=== PATIENT | male | born 1965 | race Caucasian/White ===

== ENCOUNTER 2016-11-15 18:13 | Emergency (ER) | payer OTHER ==
[2016-11-15] MEDS ORDERED: Albuterol/Ipratropium NEB.SOL* Albuterol 2.5 MG/Ipratropium 0.5 MG 3 ML INH ONE ×2 (19:22→20:22)
[2016-11-15] MEDS ORDERED: NS 0.9% 1000 ML* 1,000 ML IV ONE (19:22)
[2016-11-15] MEDS ORDERED: methylPREDNISolone 125 MG* 2 ML VIAL IV ONE (19:22)
[2016-11-15 19:59] LABS: Hematocrit 48 % (42-52); Hemoglobin 15.7 g/dl (14.0-18.0); Mean Corpuscular HGB Conc 33 g/dl (31-36); Mean Corpuscular Hemoglobin 31 pg (27-31); Mean Corpuscular Volume 96 fL (80-94); Mean Platelet Volume 9 um3 (7.4-10.4); Red Blood Count 5.03 10^6/ul (4.0-5.4); Red Cell Distribution Width 13 % (10.5-15); White Blood Count 7.7 10^3/ul (3.5-10.8)
[2016-11-15 20:17] LABS: Albumin 3.7 g/dL (3.2-5.2); BUN/Creatinine Ratio 20.5 (8-20); Calcium 9.6 mg/dL (8.6-10.3); EGFR African American 63.5 (>60); EGFR Non-African American 49.4 (>60); Globulin 4.1 g/dL (2-4); Potassium 4.1 mmol/L (3.5-5.0); Total Bilirubin 0.5 mg/dL (0.2-1.0); Total Protein 7.8 g/dL (6.4-8.9)
[2016-11-15 20:18] LABS: Troponin I 0.01 ng/mL (<0.04)
[2016-11-15] MEDS ORDERED: Azithromycin IV(*) 500 MG in NS 0.9% 250 ML* 250 ML IVPB ONE (20:22)
--- NOTE | 2016-11-15 20:42 | ED ---
Jane Wakefield Thomas, scribed for Marcelo Melchor MD on 11/15/16 at 1915 . Shortness of Breath - HPI Summary HPI Summary: This patient is a 51 y/o M presenting to the ED c/o SOB that began gradually two weeks ago. His SOB is worsened with exertion. Pt additionally c/o diaphoresis, coughing with yellow production, and CP secondary to coughing. He claims that this episode is similar to when he had PNA last year. The pt states that he immediately becomes out of breath when he ambulates. The pt was admitted to [facility] [place] [facility] ED 12 months ago for PNA. PMHx: COPD, asthma (pt uses inhalers) , PNA, A-FIb, CVA. PSHx: cardiac stent. 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 - History of Current Complaint Chief Complaint: EDShortnessOfBreath Hx Obtained From: Patient Onset/Duration: Gradual Onset, Lasting Weeks - two weeks, Still Present Aggrevating Factors: Movement - especially walking Alleviating Factors: Nothing Associated Signs & Symptoms: Cough (Productive) - yellow, Chest Pain w/Cough - CP only when coughing, Diaphoresis Related History: Similar Episode - pt states that this is similar to a previous bout of PNA - Allergy/Home Medications Allergies/Adverse Reactions: Allergies Allergy/AdvReac Type Severity Reaction Status Date / Time Naproxen Allergy Swelling Verified 08/21/15 18:57 PMH/Surg Hx/FS Hx/Imm Hx Previously Healthy: No Endocrine/Hematology History: Reports: Hx Anticoagulant Therapy - Aspirin "I'm supposed to be on Plavix" but I am not taking it. Denies: Hx Diabetes, Hx Thyroid Disease Cardiovascular History: Reports: Hx Hypertension, Other Cardiovascular Problems/ Disorders - CVA hx Denies: Hx Congestive Heart Failure, Hx Deep Vein Thrombosis, Hx Myocardial Infarction, Hx Pacemaker/ICD Respiratory History: Reports: Hx Asthma - He uses inhalers (he uses albuterol). , Hx Chronic Obstructive Pulmonary Disease (COPD) Denies: Hx Lung Cancer GI History: Denies: Hx Gall Bladder Disease, Hx Gastrointestinal Bleed, Hx Ulcer, Hx Urosepsis History: Denies: Hx Kidney Stones, Hx Renal Disease Musculoskeletal History: Denies: Hx Arthritis, Hx Osteoporosis Neurological History: Denies: Hx Dementia, Hx Migraine, Hx Seizures, Hx Transient Ischemic Attacks (TIA) Psychiatric History: Denies: Hx Anxiety, Hx Depression, Hx Schizophrenia, Hx Bipolar Disorder - Surgical History Surgery Procedure, Year, and Place: cardiac stent Infectious Disease History: No Infectious Disease History: Denies: History Other Infectious Disease, Traveled Outside the [place] in Last 30 Days - Family History Known Family History: Negative: Cardiac Disease, Other - NEG: [place] - Social History Alcohol Use: None Substance Use Type: Reports: None Hx Tobacco Use: Yes Smoking Status (MU): Current Every Day Smoker Type: Cigarettes Amount Used/How Often: 1 PPD Have You Smoked in the Last Year: Yes - For 37 years up to 2 ppd. Review of Systems Positive: Skin Diaphoresis. Negative: Fever Eyes: Negative ENT: Negative Cardiovascular: Negative Positive: Shortness Of Breath - worsened with exertion, Cough - with yellow production Gastrointestinal: Negative Genitourinary: Negative Musculoskeletal: Negative Skin: Negative Neurological: Negative Psychological: Normal All Other Systems Reviewed And Are Negative: Yes Physical Exam Triage Information Reviewed: Yes Vital Signs On Initial Exam: Initial Vitals Temp Pulse Resp BP Pulse Ox 97.7 F 103 22 157/101 93 11/15/16 18:18 11/15/16 18:18 11/15/16 18:18 11/15/16 18:18 11/15/16 18:18 Vital Signs Reviewed: Yes Appearance: Positive: Well-Appearing, No Pain Distress - moderate sob Skin: Positive: Warm Head/Face: Positive: Normal Head/Face Inspection Eyes: Positive: FAZAL ENT: Positive: Hearing grossly normal Neck: Positive: Supple Respiratory/Lung Sounds: Positive: Breath Sounds Present, Wheezes - diffuse bilateral with prolonged expiration Cardiovascular: Positive: RRR Abdomen Description: Positive: Nontender, Soft Bowel Sounds: Positive: Present Musculoskeletal: Positive: Strength/ROM Intact Neurological: Positive: Alert, Oriented to Person Place, Time Psychiatric: Positive: Affect/Mood Appropriate - [place] Coma Scale Coma Scale Total: 15 Diagnostics - Vital Signs Vital Signs Temp Pulse Resp BP Pulse Ox 11/15/16 18:55 97.8 F 97 20 149/100 94 11/15/16 18:18 97.7 F 103 22 157/101 93 - Laboratory Lab Results: Lab Results 11/15/16 11/15/16 11/15/16 Range/Units 18:35 18:35 18:35 WBC 7.7 (3.5-10.8) 10^3/ul RBC 5.03 (4.0-5.4) 10^6/ul Hgb 15.7 (14.0-18.0) g/dl Hct 48 (42-52) % MCV 96 H (80-94) fL MCH 31 (27-31) pg MCHC 33 (31-36) g/dl RDW 13 (10.5-15) % Plt Count 191 (150-450) 10^3/ul MPV 9 (7.4-10.4) um3 Neut % (Auto) 56.8 (38-83) % Lymph % (Auto) 34.3 (25-47) % Churchill % (Auto) 7.0 (1-9) % Eos % (Auto) 1.4 (0-6) % Baso % (Auto) 0.5 (0-2) % Absolute Neuts (auto) 4.4 (1.5-7.7) 10^3/ul Absolute Lymphs (auto) 2.7 (1.0-4.8) 10^3/ul Absolute Monos (auto) 0.5 (0-0.8) 10^3/ul Absolute Eos (auto) 0.1 (0-0.6) 10^3/ul Absolute Basos (auto) 0 (0-0.2) 10^3/ul Absolute Nucleated RBC 0 10^3/ul Nucleated RBC % 0 Sodium 138 (133-145) mmol/L Potassium 4.1 (3.5-5.0) mmol/L Chloride 102 (101-111) mmol/L Carbon Dioxide 28 (22-32) mmol/L Anion Gap 8 (2-11) mmol/L BUN 31 H (6-24) mg/dL Creatinine 1.51 H (0.67-1.17) mg/dL Est GFR ( Amer) 63.5 (>60) Est GFR (Non-Af Amer) 49.4 (>60) BUN/Creatinine Ratio 20.5 H (8-20) Glucose 137 H (70-100) mg/dL Lactic Acid 2.3 H* (0.5-2.0) mmol/L Calcium 9.6 (8.6-10.3) mg/dL Total Bilirubin 0.50 (0.2-1.0) mg/dL AST 16 (13-39) U/L ALT 15 (7-52) U/L Alkaline Phosphatase 86 (34-104) U/L Troponin I 0.01 (<0.04) ng/mL B-Natriuretic Peptide ( - 100) pg/mL Total Protein 7.8 (6.4-8.9) g/dL Albumin 3.7 (3.2-5.2) g/dL Globulin 4.1 H (2-4) g/dL Albumin/Globulin Ratio 0.9 L (1-3) 11/15/16 Range/Units 18:35 WBC (3.5-10.8) 10^3/ul RBC (4.0-5.4) 10^6/ul Hgb (14.0-18.0) g/dl Hct (42-52) % MCV (80-94) fL MCH (27-31) pg MCHC (31-36) g/dl RDW (10.5-15) % Plt Count (150-450) 10^3/ul MPV (7.4-10.4) um3 Neut % (Auto) (38-83) % Lymph % (Auto) (25-47) % Churchill % (Auto) (1-9) % Eos % (Auto) (0-6) % Baso % (Auto) (0-2) % Absolute Neuts (auto) (1.5-7.7) 10^3/ul Absolute Lymphs (auto) (1.0-4.8) 10^3/ul Absolute Monos (auto) (0-0.8) 10^3/ul Absolute Eos (auto) (0-0.6) 10^3/ul Absolute Basos (auto) (0-0.2) 10^3/ul Absolute Nucleated RBC 10^3/ul Nucleated RBC % Sodium (133-145) mmol/L Potassium (3.5-5.0) mmol/L Chloride (101-111) mmol/L Carbon Dioxide (22-32) mmol/L Anion Gap (2-11) mmol/L BUN (6-24) mg/dL Creatinine (0.67-1.17) mg/dL Est GFR ( Amer) (>60) Est GFR (Non-Af Amer) (>60) BUN/Creatinine Ratio (8-20) Glucose (70-100) mg/dL Lactic Acid (0.5-2.0) mmol/L Calcium (8.6-10.3) mg/dL Total Bilirubin (0.2-1.0) mg/dL AST (13-39) U/L ALT (7-52) U/L Alkaline Phosphatase (34-104) U/L Troponin I (<0.04) ng/mL B-Natriuretic Peptide 108 H ( - 100) pg/mL Total Protein (6.4-8.9) g/dL Albumin (3.2-5.2) g/dL Globulin (2-4) g/dL Albumin/Globulin Ratio (1-3) Result Diagrams: 11/15/16 18:35 11/15/16 18:35 Lab Statement: Any lab studies that have been ordered have been reviewed, and results considered in the medical decision making process. - Radiology CXR Xray Interpretation: No Acute Changes - No evidence of acute cardiopulmonary disease Radiology Interpretation Completed By: Radiologist Re-Evaluation - Re-Evaluation First Eval Re-Evaluation Time: 20:21 Change: Improved Comment: After re-eval, paged respiratory for another treatment. pt improving but still sob Course/Dx - Diagnoses Provider Diagnoses: COPD exacerbation Discharge - Discharge Plan Condition: Stable Disposition: HOME Prescriptions: Azithromycin TAB* [Zithromax TAB (Z-MJ) 250 mg #6 tabs] 250 mg PO DAILY #4 tab predniSONE TAB* [Deltasone TAB*] 40 mg PO DAILY #8 tab Patient Education Materials: COPD (Chronic Obstructive Pulmonary Disease) (ED) Referrals: Pankaj Leslie MD [Primary Care Provider] - 3 Days The documentation as recorded by the Jane vazquez Thomas accurately reflects the service I personally performed and the decisions made by Jill wiley David, MD.
--- NOTE | 2016-11-15 22:44 | RAD ---
INDICATION: Shortness of breath. COMPARISON: Most recent comparison chest x-rays dated November 10, 2015 TECHNIQUE: PA and lateral views of the chest were obtained. FINDINGS: The heart and mediastinum are normal in size and contour. The lungs are grossly clear. There is no evidence of large pleural effusion. Visualized bones are normal for the patient's age. There is no radiographic evidence of free air beneath the diaphragm IMPRESSION: No radiographic evidence of acute cardiopulmonary disease.
[2016-11-16 05:29] VITALS: BP 142/96
== END 2016-11-15 23:00 | disposition home or self-care (01) ==
LOC: ED 18:13
DX: J44.1 Chronic obstructive pulmonary disease with (acute) exacerbation (principal); R06.02 Shortness of breath; R05 Cough; R07.9 Chest pain, unspecified; F17.210 Nicotine dependence, cigarettes, uncomplicated
CPT/HCPCS: 36415; 71020; 80053; 83605; 83880; 84484; 85025; 93005; 94640; 96374; 99282; A9270-GY; J0456; J2930

== ENCOUNTER 2017-12-31 00:15 | Emergency (ER) | payer OTHER ==
[2017-12-31] MEDS ORDERED: NS 0.9% 1000 ML* 1,000 ML IV ONE (00:24)
[2017-12-31] MEDS ORDERED: Albuterol 0.5% CONC NEB.SOL* 5 MG/ML 20 ml BOT INH ONE (00:24)
[2017-12-31] MEDS ORDERED: Dexamethasone IV* 4 MG/ML 1 ML (4 MG) IV SLOW PU ONE (00:24)
--- NOTE | 2017-12-31 00:30 | ED ---
Shortness of Breath - HPI Summary HPI Summary: 52 year old M BIB EMS to [facility] complains of shortness of breath since yesterday , worse since two hours ago. Symptoms aggravated by nothing. Symptoms alleviated by nothing. Patient admits that he has been drinking heavily since a few hours ago. reports that patient has not been feeling well since yesterday. Tonight, patient was incontinent of stool, went to bathroom and laid on the floor. called EMS. Patient is a smoker. Has hx COPD. 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 - Onset/Duration: Lasting Days - yesterday, Still Present, Worse Since - two hours ago Aggrevating Factors: Nothing Alleviating Factors: Nothing - Allergy/Home Medications Allergies/Adverse Reactions: Allergies Allergy/AdvReac Type Severity Reaction Status Date / Time naproxen Allergy Swelling Verified 12/31/17 00:19 Home Medications: Home Medications Buprenorphine HCl/Naloxone HCl [Suboxone 12 mg-3 mg Sl Film] 1 film PO DAILY [History Confirmed 12/31/17] PMH/Surg Hx/FS Hx/Imm Hx Previously Healthy: No Endocrine/Hematology History: Reports: Hx Anticoagulant Therapy - Aspirin "I'm supposed to be on Plavix" but I am not taking it. Denies: Hx Diabetes, Hx Thyroid Disease Cardiovascular History: Reports: Hx Hypertension, Other Cardiovascular Problems/ Disorders - CVA hx Denies: Hx Congestive Heart Failure, Hx Deep Vein Thrombosis, Hx Myocardial Infarction, Hx Pacemaker/ICD Respiratory History: Reports: Hx Asthma - He uses inhalers (he uses albuterol). , Hx Chronic Obstructive Pulmonary Disease (COPD) Denies: Hx Lung Cancer GI History: Denies: Hx Gall Bladder Disease, Hx Gastrointestinal Bleed, Hx Ulcer, Hx Urosepsis History: Denies: Hx Kidney Stones, Hx Renal Disease Musculoskeletal History: Denies: Hx Arthritis, Hx Osteoporosis Neurological History: Denies: Hx Dementia, Hx Migraine, Hx Seizures, Hx Transient Ischemic Attacks (TIA) Psychiatric History: Denies: Hx Anxiety, Hx Depression, Hx Schizophrenia, Hx Bipolar Disorder - Surgical History Surgery Procedure, Year, and Place: cardiac stent Infectious Disease History: Denies: History Other Infectious Disease - Family History Known Family History: Negative: Cardiac Disease, Other - NEG: [place] - Social History Alcohol Use: Occasionally Hx Substance Use: No Substance Use Type: Reports: None Hx Tobacco Use: Yes Smoking Status (MU): Current Every Day Smoker Type: Cigarettes Amount Used/How Often: 1 PPD Have You Smoked in the Last Year: Yes - For 37 years up to 2 ppd. Review of Systems Positive: Shortness Of Breath Psychological: Other - admits to drinking heavily tonight All Other Systems Reviewed And Are Negative: Yes Physical Exam - Summary Physical Exam Summary: Appearance: Well-appearing, Well-nourished, lying in bed comfortably Skin: Warm, dry, no obvious rash Eyes: sclera anicteric, no conjunctival pallor ENT: mucous membranes moist, pharynx appears normal Neck: Supple, nontender Respiratory: Mild expiratory wheezing Cardiovascular: Normal S1, S2. No murmurs. Normal distal pulses in tibial and radial bilaterally. Abdomen: Soft, nontender, normal active bowel sounds present Musculoskeletal: Normal, Strength/ROM Intact Neurological: Mild somnolence Psychiatric: affect is normal, does not appear anxious or depressed Triage Information Reviewed: Yes Vital Signs Reviewed: Yes Diagnostics - Laboratory Result Diagrams: 12/31/17 00:37 12/31/17 00:37 Lab Statement: Any lab studies that have been ordered have been reviewed, and results considered in the medical decision making process. - Radiology CXR Radiology Interpretation Completed By: ED Physician - Normal CXR. Pending official report. - EKG 0035 Cardiac Rate: NL - 77 BPM EKG Rhythm: Sinus Rhythm EKG Interpretation: Mildly peaked T waves. Borderline IVCD. Course/Dx - Diagnoses Provider Diagnoses: Acute renal failure, Hyperkalemia - Critical Care Time Critical Care Time: 30-74 min - 52-year-old man with dyspnea and also acute renal failure with hyperkalemia, requiring close monitoring and acute treatment of his elevated potassium Discharge - Sign-Out/Discharge Documenting (check all that apply): Patient Departure - Transfer - Discharge Plan Condition: Guarded Disposition: TRANS HIGHER LVL OF CARE FAC Referrals: Pankaj Leslie MD [Primary Care Provider] - - Billing Disposition and Condition Condition: GUARDED Disposition: Trans Higher Lvl of Care Fac - Attestation Statements Document Initiated by Scribe: Yes Documenting Scribe: Angelita Savage Provider For Whom Scribe is Documenting (Include Credential): Bartolo Horton MD Scribe Attestation: I, Angelita Savage, scribed for Bartolo Horton MD on 12/31/17 at 0233. Scribe Documentation Reviewed: Yes Provider Attestation: The documentation as recorded by the scribe, Angelita Savage accurately reflects the service I personally performed and the decisions made by me, Bartolo Horton MD
[2017-12-31 00:52] LABS: Hematocrit 44 % (42-52); Hemoglobin 14.6 g/dl (14.0-18.0); Mean Corpuscular HGB Conc 33 g/dl (31-36); Mean Corpuscular Hemoglobin 32 pg (27-31); Mean Corpuscular Volume 96 fL (80-94); Mean Platelet Volume 9.2 um3 (7.4-10.4); Platelet Count 176 10^3/ul (150-450); Red Blood Count 4.62 10^6/ul (4.00-5.40); Red Cell Distribution Width 14 % (10.5-15); White Blood Count 11.2 10^3/ul (3.5-10.8)
[2017-12-31] MEDS ORDERED: Dextrose 50% Syringe 50 ML* 25 GM/50 ML SYRINGE IV PUSH ONE (01:15)
[2017-12-31] MEDS ORDERED: Insulin REGULAR(*) 1 UNITS UNIT IV PUSH ONE (01:16)
[2017-12-31] MEDS ORDERED: Sodium Polystyrene ORAL.SOL* 15 GM/60 ML BTL PO ONE (01:17)
[2017-12-31] MEDS ORDERED: Calcium Gluconate INJ* 2 GM in NS 0.9% 100 ML* 100 ML IVPB ONE (01:17)
[2017-12-31] MEDS ORDERED: NS 0.9% 100 ML* 100 ML ONE (01:27)
[2017-12-31 01:32] LABS: ABS Basophils 0.1 10^3/ul (0-0.2); ABS Neutrophils 8.3 10^3/ul (1.5-7.7); ABS Neutrophils 9.6 10^3/ul (1.5-7.7); Monocytes % 1 % (0-7)
--- OUTSIDE RECORDS SUMMARY | 2017-12-31 01:34 | XMS REPORT ---
:1965 External Reference #:[id number] Author Organization [facility] Address [address] [place] [address] [place] [address] Phone [phone] Care Team Providers Name Role Phone Dianne Ocampo FNP Care Team Information Tankman Unavailable Pankaj Leslie MD Primary Care Physician Unavailable Payers Type Date Identification Numbers Payment Provider Subscriber Commercial Effective: Policy Number: [id number] [employer] Morris Gutierrez 2016 Medicaid PayID: [id number] [facility] [address] [place] [address] Commercial Expires: 2016 Policy Number: [employer] Morris Gutierrez [id number] [employer]ential [employer] Name: [id number] [address] [id number] PayID: [id number] [place] [address] Problems Date Description Provider Status Onset: 07/15/2016 Continuous opioid dependence Vern De La Rosa M.D., FACP Onset: 07/15/2016 Paroxysmal atrial fibrillation Vern De La Rosa M.D., FACP Onset: 10/20/2011 Coronary arteriosclerosis Jean Marie Rodriguez M.D. Active Onset: 10/20/2011 Benign essential hypertension Jean Marie Rodriguez M.D. Active Onset: 07/15/2016 Chronic obstructive lung disease Vern De La Rosa M.D., FACP Note: good bronchodilator response on PFTs Onset: 07/15/2016 Nondependent cocaine abuse, Pankaj Leslie M.D.,LAKEISHA Active episodic Onset: 07/15/2016 Tobacco dependence syndrome Pankaj Leslie M.D.,LAKEISHA Active Onset: 07/15/2016 Bipolar I disorder Pankaj Leslie M.D.,FACP Active Note: karl Marcial Onset: 07/15/2016 History of cerebrovascular Pankaj Leslie, Active accident [place] Blue Note: right facial droop Onset: 07/15/2016 Complex partial seizure with Pankaj Leslie, Inactive impairment of consciousness [place] Blue Inactive: 07/15/2016 Onset: 10/20/2011 Dizziness and giddiness Jean Marie Rodriguez M.D. Inactive Inactive: 07/15/2016 Onset: 10/20/2011 Atrial fibrillation Jean Marie Rodriguez M.D. 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 [employer] Cigarette Use 07/15/2016 Heavy tobacco smoker (more than 1 ppd for 30 years 10 cigarettes/day) ETOH Use 01/03/2017 Has consumed alcohol in the past abuse ETOH Use 04/27/2017 Denies alcohol use Recreational Drug Use 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 Smoking Light tobacco smoker (10 or fewer cigarettes/day) Recreational Drug Use Former Drug User General Hx Text 3 kids Allergies, Adverse Reactions, Alerts Date Description Reaction Status Severity Comments 11/03/2012 Naproxen active 12/26/2008 NKDA inactive Medications Medication Date Status Form Strength Qnty SIG Indications Ordering Provider Suboxone 11/16/ Active Film 12-3mg 14uni 1 strip sl Pankaj 2017 ts once a day Delilah Leslie M.D.,LAKEISHA Ibu 09/21/ Active Tablets 800mg 90tab 1 po tid prn Pankaj 2018 s Delilah Leslie M.D.,BECKIEP Nicotine 08/15/ Active Patches 21mg/24HR 28uni apply patch Pankaj 2017 24HR ts daily, Delilah Leslie, remove old [place] Blue one at the same time x's 6 wks Nicotine 08/15/ Active Gum 4mg 100un chew q2h prn Pankaj Polacrilex 2018 its Delilah Leslie M.D.,FACP Gabapentin 04/27/ Active Capsules 300mg 90cap 1 by mouth Pankaj 2016 s 3x a day Delilah Leslie M.D.,FACP Cialis 12/01/ Active Tablets 5mg 30tab every day by Pankaj 2016 s mouth Delilah Leslie M.D.,FACP Albuterol 12/01/ Active Nebulizer (2.5mg/3M 75ml 1 vial via Pankaj Sulfate 2016 L) 0.083% nebulizer 4 Delilah Leslie, times daily M.D.,FACP as needed Omeprazole 10/06/ Active Capsules DR 20mg 30cap 1 by mouth Azam 2016 s every day Su Lynn Aspirin 07/15/ Active Tablets 325mg 45tab /2 by mouth Pankaj 2016 s every day Delilah Leslie M.D.,FACP Advair Diskus / Active Aerosol 250-50mcg 60uni 1 puff by Simon Nate 0000 /Dose ts mouth twice Delilah Leslie, a day M.D.,FACP Ventolin HFA / Active Aerosol 108(90Bas 18uni 2 puffs by Simon Nate 0000 e) ts mouth four Delilah Leslie, mcg/Act times a day M.DToni,FACP as needed Diltiazem HCL / Active Caps ER 300mg 30cap 1 by mouth Pankaj ER Coated 0000 24HR s every day Holley Crum MHema,FACP Losartan / Active Tablets 100mg 30tab 1 by mouth Pankaj Potassium 0000 s every day Delilah Leslie M.D.,FACP Prednisone 08/15/ Hx Tablets 10mg 12tab 6 tabs every Pankaj 2017 - s day for 4 DToni Leslie, 09/21/ days, then M.DToni,FACP 2018 reduce by 1 tab every 2 days until finished (to complete supply) Azithromycin 08/15/ Hx Tablets 250mg 6tabs 2 every day Pankaj 2017 - for 1 day, Delilah Leslie, 08/20/ then 1 every M.DToni,FACP 2018 day Suboxone 04/27/ Hx Film 8-2mg 14uni 1 strip sl Pankaj 2017 - ts once day mdd D. Mariama, M.D.,FACP 2018 Suboxone 04/27/ Hx Film 8-2mg 6unit 1 strip sl Pankaj 2017 - s once day mdd D. Mariama, mdd 1 M.D.,FACP 2018 Suboxone 03/30/ Hx Film 12-3mg 3unit / strip sl Pankaj 2017 - s once a day Delilah Leslie, 04/27/ (pt states M.D.,FACP 2017 he is taking a whole strip daily) Doxycycline 01/03/ Hx Tablets 100mg 20tab 1 by mouth Pankaj Hyclate 2016 - twice a day DToni Leslie, 01/13/ M.D.,FACP 2017 Prednisone 12/01/ Hx Tablets 10mg 30tab 4 tabs every Pankaj 2016 - day for 4 D. Mariama, 01/03/ days, then M.D.,FACP 2017 reduce by 1 tab every 2 days until finished Augmentin 12/01/ Hx Tablets 875-125mg 14tab by mouth Pankaj 2016 - s twice a day Delilah Leslie, 12/08/ M.D.,FACP 2017 Suboxone 07/23/ Hx Film 12-3mg 14uni 1 strip once Pankaj 2017 - a day MDD 1 D. Mariama, 03/30/ M.D.,FACP 2017 Suboxone 07/15/ Hx Film 8-2mg 5unit 1 strip Pankaj 2016 - s once day DToni Leslie, 07/23/ M.D.,FACP 2017 Depakote ER 06/28/ Hx Tablets ER 500mg 60tab Not taking. Rosy Chiu 2013 - 24HR s 2 po qhs Aggie, 07/15/ M.D. 2016 Depakote 03/26/ Hx Tablets DR 500mg 90tab 2 tabs po q oRsy Chiu 2012 - s am and 1 tas [place], 06/28/ po q evening M.DToni 2013 Zonisamide 12/15/ Hx Capsules 50mg 90cap 2-3 caps by Rosy Chiu 2012 - s mouth every [place], 06/28/ night as M.DToni 2013 directed Diltiazem CD 10/19/ Hx Caps ER 120mg 60cap 2 po qd (pt Jean Marie 2011 - 24HR s reports F. 07/15/ taking 300mg Mauser, 2016 qd) M.D. Aspirin 10/19/ Hx Tablets 81mg Pt states he Jean Marie 2011 - takes 1/2 of F. 07/15/ a 325mg 1 po Mauser, 2016 qd M.D. Pravachol 07/22/ Hx Tablets 10mg 15tab 1/2 po qd Jean Marie 2009 - s F. 08/05/ Jennifer, 2009 M.D. Lopressor 07/07/ Hx Tablets 25mg 60tab 1 po bid Jean Marie 2009 - s F. 10/19/ Mauser, 2011 M.D. Zocor 06/10/ Hx Tablets 10mg 30tab 1 tablet 3X 414.01 Jean Marie 2009 - s per week F. 07/22/ Jennifer, 2009 M.D. Zantac 03/12/ Hx Capsules 150mg 180ca 1 cap po bid 530.81 Souleymane 2008 - ps c, 10/19/ Rameshomnayely, 2011 M.D. Zocor 02/12/ Hx Tablets 40mg 30tab 1 po qd 414.01 Souleymane 2008 - s c, 06/10/ Radomir, 2009 M.D. Plavix 02/07/ Hx Tablets 75mg 30tab 1 po qd 414.01 Souleymane 2008 - s c, 10/19/ Radomir, 2011 M.D. Cartia XT 01/20/ Hx Caps ER 120mg 90cap 1 po qd Jean Marie 2008 - 24HR s . 07/07/ Jennifer, 2009 M.D. Wellbutrin SR 01/02/ Hx Tablets ER 150mg 60tab 1 tablet po 427.31 Souleymane 2008 - 12HR s every 12 c, 02/26/ hours Bryanna, 2008 M.D. Metoprolol 12/26/ Hx Tablets ER Unsure-Wi 180ta 1 po bid Jean Marie 2008 - ll Call bs . 12/26/ Jennifer, 2008 M.D. Metoprolol 12/26/ Hx Tablets ER 25mg 30tab 1/2 po bid Jean Marie 2008 - s until F. 01/20/ /31/01 and Jennifer, 2008 then 1/2 po M.D. qd until 01/04/09 and then discontinue Aspirin / Hx Tablets 325mg 100ta 1 po qd Stevanovi 0000 - bs c, 10/19/ Rameshomnayely, 2011 M.D. Folic Acid / Hx Tablets 1mg 30tab 1 tablet po Stevanovi 0000 - s qd c, 10/19/ omir, 2011 M.D. Vitamin B12 / Hx Tablets 100mcg 90tab 1 tablet po 414.01 Stevanovi 0000 - s Daily c, 05/22/ omir, 2009 M.D. Protonix 00/ Hx Tablets DR 20mg 90tab 1 po qd Stevanovi 0000 - s c, 03/12/ omir, 2008 M.D. Niaspan / Hx Tablets ER 500mg 30tab 1tab pm Jean Marie 0000 - s F. 10/19/ Jennifer, 2011 M.D. Cartia XT / Hx Caps ER 120mg 90cap 1 po qd Unknown 0000 - 24HR s 2011 Diltiazem CD / Hx Caps ER 120mg 90cap 1 po qd Unknown 0000 - 24HR s 2011 Cialis / Hx Tablets 2.5mg 30tab by mouth Pankaj 0000 - s every day Delilah Leslie, 12/01/ Su,[facility] 2017 Medications Administered in Office Medication Date Status Form Strength Qnty SIG Indications Ordering Provider Technetium TC Administered Injection Olimpia 99M 013 Wily Thompson M.D. Per Unit Dose Up To 40 Millicuries Immunizations CPT Code Status Date Vaccine Lot # [id number] Given 06/08/2017 Influenza Virus Vaccine, Quadrivalent, Split, [id number] Preservative Free [id number] Given 01/03/2017 Pneumonia Vaccine [id number] Vital Signs Date Vital Result Comment 12/19/2017 Height 72 inches 6'0" Weight 213.00 lb Heart Rate 85 /min BP Systolic Sitting 144 mmHg BP Diastolic Sitting 80 mmHg Body Temperature 98.4 F O2 % BldC Oximetry 92 % BMI (Body Mass Index) 28.9 kg/m2 11/16/2017 Height 72 inches 6'0" Weight 199.00 lb Heart Rate 89 /min BP Systolic Sitting 150 mmHg BP Diastolic Sitting 90 mmHg BP Systolic Recheck 146 mmHg BP Diastolic Recheck 98 mmHg Body Temperature 97.9 F O2 % BldC Oximetry 98 % BMI (Body Mass Index) 27.0 kg/m2 09/21/2017 Height 72 inches 6'0" Weight 204.00 lb Heart Rate 89 /min BP Systolic Sitting 110 mmHg BP Diastolic Sitting 80 mmHg Body Temperature 97.4 F O2 % BldC Oximetry 94 % BMI (Body Mass Index) 27.7 kg/m2 08/15/2017 Weight 207.00 lb Heart Rate 71 /min BP Systolic Sitting 114 mmHg BP Diastolic Sitting 66 mmHg Body Temperature 97.0 F O2 % BldC Oximetry 90 % 06/08/2017 Weight 215.00 lb Heart Rate 77 /min BP Systolic Sitting 130 mmHg BP Diastolic Sitting 82 mmHg Body Temperature 98.4 F O2 % BldC Oximetry 94 % 04/27/2017 Weight 209.00 lb Heart Rate 95 /min BP Systolic Sitting 140 mmHg BP Diastolic Sitting 90 mmHg BP Systolic Recheck 170 mmHg BP Diastolic Recheck 105 mmHg Body Temperature 97.0 F O2 % BldC Oximetry 95 % 01/03/2017 Weight 193.00 lb Heart Rate 83 /min BP Systolic Sitting 160 mmHg BP Diastolic Sitting 90 mmHg BP Systolic Recheck 144 mmHg BP Diastolic Recheck 84 mmHg Body Temperature 97.9 F O2 % BldC Oximetry 96 % 12/01/2016 Height 71.50 inches 5'11.50" Weight 186.00 lb Heart Rate 77 /min BP Systolic 128 mmHg BP Diastolic 70 mmHg Body Temperature 97.3 F O2 % BldC Oximetry 97 % BMI (Body Mass Index) 25.6 kg/m2 10/06/2016 Weight 190.00 lb Heart Rate 83 /min BP Systolic 150 mmHg BP Diastolic 88 mmHg BP Systolic Recheck 145 mmHg BP Diastolic Recheck 100 mmHg Body Temperature 97.3 F O2 % BldC Oximetry 96 % 08/23/2016 Weight 191.50 lb Heart Rate 73 /min BP Systolic Sitting 139 mmHg BP Diastolic Sitting 91 mmHg Body Temperature 97.5 F O2 % BldC Oximetry 97 % 07/23/2016 Weight 198.00 lb Heart Rate 78 /min BP Systolic Sitting 144 mmHg BP Diastolic Sitting 94 mmHg Body Temperature 97.8 F O2 % BldC Oximetry 97 % 07/16/2016 Weight 202.12 lb Heart Rate 65 /min BP Systolic Sitting 148 mmHg BP Diastolic Sitting 95 mmHg Body Temperature 98.3 F O2 % BldC Oximetry 95 % 07/15/2016 Height 69.5 inches 5'9.50" Weight 199.12 lb Heart Rate 82 /min BP Systolic Sitting 148 mmHg BP Diastolic Sitting 90 mmHg BP Systolic Recheck 144 mmHg BP Diastolic Recheck 85 mmHg Body Temperature 98.2 F O2 % BldC Oximetry 91 % BMI (Body Mass Index) 29.0 kg/m2 06/28/2013 Heart Rate 74 /min BP Systolic 150 mmHg BP Diastolic 90 mmHg Respiratory Rate 16 /min 03/23/2013 Heart Rate 83 /min BP Systolic Sitting 152 mmHg BP Diastolic Sitting 90 mmHg Respiratory Rate 18 /min 12/15/2012 Heart Rate 80 /min BP Systolic Sitting 148 mmHg BP Diastolic Sitting 84 mmHg Respiratory Rate 16 /min 11/03/2012 Height 72 inches 6'0" Weight 204.00 lb Heart Rate 76 /min BP Systolic 140 mmHg BP Diastolic 80 mmHg Respiratory Rate 12 /min BMI (Body Mass Index) 27.7 kg/m2 10/20/2011 Height 72 inches 6'0" Weight 181.00 lb Heart Rate 88 /min BP Systolic 162 mmHg BP Diastolic 86 mmHg Respiratory Rate 16 /min BMI (Body Mass Index) 24.5 kg/m2 05/22/2009 Height 72 inches 6'0" Weight 208.00 lb Heart Rate 78 /min BP Systolic Sitting 130 mmHg BP Diastolic Sitting 90 mmHg BMI (Body Mass Index) 28.2 kg/m2 03/17/2009 Height 72 inches 6'0" Weight 207.25 lb Heart Rate 81 /min BP Systolic Sitting 133 mmHg BP Diastolic Sitting 85 mmHg Body Temperature 97.6 F BMI (Body Mass Index) 28.1 kg/m2 02/14/2009 Height 72 inches 6'0" Weight 209.00 lb Heart Rate 87 /min BP Systolic Sitting 150 mmHg L BP Diastolic Sitting 84 mmHg L BMI (Body Mass Index) 28.3 kg/m2 02/12/2009 Height 72 inches 6'0" Weight 212.00 lb Heart Rate 96 /min BP Systolic Sitting 143 mmHg BP Diastolic Sitting 89 mmHg BMI (Body Mass Index) 28.7 kg/m2 01/02/2009 Height 72 inches 6'0" Weight 207.00 lb Heart Rate 60 /min BP Systolic Sitting 134 mmHg BP Diastolic Sitting 72 mmHg BMI (Body Mass Index) 28.1 kg/m2 12/26/2008 Height 72 inches 6'0" Weight 204.00 lb Heart Rate 61 /min BP Systolic Sitting 130 mmHg BP Diastolic Sitting 80 mmHg BMI (Body Mass Index) 27.7 kg/m2 Results Test Date Test Result H/L Range Note Drug Abuse 20 Urine 10/27/2017 Urine Amphetamine Negative ng/mL 1 Urine Barbiturates Negative ng/mL 2 Urine Benzodiazepines Negative ng/mL 3 Urine Cocaine Negative ng/mL 4 Urine Phencyclidine Negative ng/mL Cutoff: 25 Urine Tetrahydrocannabinol Negative ng/mL Cutoff: 50 5 Creatinine, Urine 104.5 mg/dL Specific [place] 1.015 pH 6.5 Oxidants Negative 6 Adulterants Comment Normal Codeine, Ur Present ng/mL Cutoff: 25 7 Xojfqfx-3-owig-glucuronide, Ur Present ng/mL 8 Morphine, Ur Present ng/mL Cutoff: 25 9 Qoqevlwy-4-cmpa-glucuronide, U Present ng/mL 10 6-monoacetylmorphine, Ur Present ng/mL Cutoff: 25 11 Hydrocodone, Ur Not Detected ng/mL Cutoff: 25 12 Norhydrocodone, Ur Not Detected ng/mL Cutoff: 25 13 Dihydrocodeine, Ur Not Detected ng/mL Cutoff: 25 14 Hydromorphone, Ur Not Detected ng/mL Cutoff: 25 15 Gpaklrfztiweu8jxjhjczuxnauupv Present ng/mL 16 Oxycodone, Ur Not Detected ng/mL Cutoff: 25 17 Noroxycodone, Ur Not Detected ng/mL Cutoff: 25 18 Oxymorphone, Ur Not Detected ng/mL Cutoff: 25 19 Hyebpheisbf-5-ecvo-glucuronide Not Detected ng/mL 20 Noroxymorphone, Ur Not Detected ng/mL Cutoff: 25 21 Fentanyl, Ur Present ng/mL Cutoff: 2 22 Norfentanyl, Ur Present ng/mL Cutoff: 2 23 Meperidine, Ur Not Detected ng/mL Cutoff: 25 24 Normeperidine, Ur Not Detected ng/mL Cutoff: 25 25 Naloxone, Ur Not Detected ng/mL Cutoff: 25 26 Xpuxdtyl-3-iair-glucuronide, U Present ng/mL 27 Methadone, Ur Not Detected ng/mL Cutoff: 25 28 Eddp, Ur Not Detected ng/mL Cutoff: 25 29 Propoxyphene, Ur Not Detected ng/mL Cutoff: 25 30 Norpropoxyphene, Ur Not Detected ng/mL Cutoff: 25 31 Tramadol, Ur Not Detected ng/mL Cutoff: 25 32 O-desmethyltramadol, Ur Not Detected ng/mL Cutoff: 25 33 Tapentadol, Ur Not Detected ng/mL Cutoff: 25 34 N-desmethyltapentadol, Ur Not Detected ng/mL Cutoff: 50 35 Uutopdiuqu-ikwe-hznmmiazcxq, U Not Detected ng/mL 36 Buprenorphine, Ur Not Detected ng/mL Cutoff: 5 37 Norbuprenorphine, Ur Present ng/mL Cutoff: 5 38 Norbuprenorphine glucuronide Present ng/mL Cutoff: 20 39 Opioid Interpretation See Comment 40 Drug Abuse 20 Urine 09/21/2017 Urine Amphetamine Negative ng/mL 41 Urine Barbiturates Negative ng/mL 42 Urine Benzodiazepines Negative ng/mL 43 Urine Cocaine Negative ng/mL 44 Urine Phencyclidine Negative ng/mL Cutoff: 25 Urine Tetrahydrocannabinol Presumptive Posi <SEE NOTE> ng/mL Cutoff: 50 45 Creatinine, Urine 164.1 mg/dL Specific [place] 1.016 pH 5.9 Oxidants Negative 46 Adulterants Comment Normal Codeine, Ur Present ng/mL Cutoff: 25 47 Mpvilms-8-dviw-glucuronide, Ur Present ng/mL 48 Morphine, Ur Present ng/mL Cutoff: 25 49 Oebbsejm-2-ejlg-glucuronide, U Present ng/mL 50 6-monoacetylmorphine, Ur Present ng/mL Cutoff: 25 51 Hydrocodone, Ur Not Detected ng/mL Cutoff: 25 52 Norhydrocodone, Ur Not Detected ng/mL Cutoff: 25 53 Dihydrocodeine, Ur Not Detected ng/mL Cutoff: 25 54 Hydromorphone, Ur Not Detected ng/mL Cutoff: 25 55 Hfekjtjpqdtin1krjdpmpgwzirahp Not Detected ng/mL 56 Oxycodone, Ur Not Detected ng/mL Cutoff: 25 57 Noroxycodone, Ur Not Detected ng/mL Cutoff: 25 58 Oxymorphone, Ur Not Detected ng/mL Cutoff: 25 59 Pbyooarladt-6-ffzp-glucuronide Not Detected ng/mL 60 Noroxymorphone, Ur Not Detected ng/mL Cutoff: 25 61 Fentanyl, Ur Not Detected ng/mL Cutoff: 2 62 Norfentanyl, Ur Not Detected ng/mL Cutoff: 2 63 Meperidine, Ur Not Detected ng/mL Cutoff: 25 64 Normeperidine, Ur Not Detected ng/mL Cutoff: 25 65 Naloxone, Ur Not Detected ng/mL Cutoff: 25 66 Japanpxy-8-dtxt-glucuronide, U Present ng/mL 67 Methadone, Ur Not Detected ng/mL Cutoff: 25 68 Eddp, Ur Not Detected ng/mL Cutoff: 25 69 Propoxyphene, Ur Not Detected ng/mL Cutoff: 25 70 Norpropoxyphene, Ur Not Detected ng/mL Cutoff: 25 71 Tramadol, Ur Not Detected ng/mL Cutoff: 25 72 O-desmethyltramadol, Ur Not Detected ng/mL Cutoff: 25 73 Tapentadol, Ur Not Detected ng/mL Cutoff: 25 74 N-desmethyltapentadol, Ur Not Detected ng/mL Cutoff: 50 75 Egggdcxxhq-pudk-hujphkouxhd, U Not Detected ng/mL 76 Buprenorphine, Ur Not Detected ng/mL Cutoff: 5 77 Norbuprenorphine, Ur Present ng/mL Cutoff: 5 78 Norbuprenorphine glucuronide Present ng/mL Cutoff: 20 79 Opioid Interpretation See Comment 80 THC Confirmation Urine 09/21/2017 Urine Carboxy THC Confirm 10 ng/mL 81 Urine THC Interpretation Positive. 82 Lipid Profile (Trig/Chol/HDL) 09/19/2017 Triglycerides 51 mg/dL 83 Cholesterol 197 mg/dL 84 HDL Cholesterol 68.1 mg/dL 85 LDL Cholesterol 119 mg/dL 86 Comp Metabolic Panel 09/19/2017 Sodium 139 mmol/L 139-145 Potassium 4.7 mmol/L 3.5-5.0 Chloride 100 mmol/L Low 101-111 Co2 Carbon Dioxide 29 mmol/L 22-32 Anion Gap 10 mmol/L 2-11 Glucose 112 mg/dL High 70-100 Blood Urea Nitrogen 28 mg/dL High 6-24 Creatinine 1.15 mg/dL 0.67-1.17 BUN/Creatinine Ratio 24.3 High 8-20 Calcium 9.2 mg/dL 8.6-10.3 Total Protein 6.9 g/dL 6.4-8.9 Albumin 3.8 g/dL 3.2-5.2 Globulin 3.1 g/dL 2-4 Albumin/Globulin Ratio 1.2 1-3 Total Bilirubin 0.40 mg/dL 0.2-1.0 Alkaline Phosphatase 67 U/L 34-104 Alt 15 U/L 7-52 Ast 17 U/L 13-39 Egfr Non- 67.3 >60 Egfr 86.6 >60 87 Laboratory test 09/19/2017 Hepatitis C Antibody Nonreactive Nonreactive finding Laboratory test 08/15/2017 Hemosure Non-Medicare <pending> finding Drug Abuse 20 Urine 07/26/2017 Urine Amphetamine Negative ng/mL 88 Urine Barbiturates Negative ng/mL 89 Urine Benzodiazepines Negative ng/mL 90 Urine Cocaine Negative ng/mL 91 Urine Phencyclidine Negative ng/mL Cutoff: 25 Urine Tetrahydrocannabinol Presumptive Posi <SEE NOTE> ng/mL Cutoff: 50 92 Creatinine, Urine 149.0 mg/dL Specific [place] 1.013 pH 6.4 Oxidants Negative 93 Adulterants Comment Normal Codeine, Ur Not Detected ng/mL Cutoff: 25 94 Lpfudxw-8-sldj-glucuronide, Ur Not Detected ng/mL 95 Morphine, Ur Present ng/mL Cutoff: 25 96 Iuivbfec-7-jkfy-glucuronide, U Present ng/mL 97 6-monoacetylmorphine, Ur Not Detected ng/mL Cutoff: 25 98 Hydrocodone, Ur Not Detected ng/mL Cutoff: 25 99 Norhydrocodone, Ur Not Detected ng/mL Cutoff: 25 100 Dihydrocodeine, Ur Not Detected ng/mL Cutoff: 25 101 Hydromorphone, Ur Not Detected ng/mL Cutoff: 25 102 Tfpjcqrbiphun0parcbzisvylgugr Not Detected ng/mL 103 Oxycodone, Ur Present ng/mL Cutoff: 25 104 Noroxycodone, Ur Present ng/mL Cutoff: 25 105 Oxymorphone, Ur Not Detected ng/mL Cutoff: 25 106 Yjrdorxpekx-1-sfjb-glucuronide Present ng/mL 107 Noroxymorphone, Ur Present ng/mL Cutoff: 25 108 Fentanyl, Ur Present ng/mL Cutoff: 2 109 Norfentanyl, Ur Present ng/mL Cutoff: 2 110 Meperidine, Ur Not Detected ng/mL Cutoff: 25 111 Normeperidine, Ur Not Detected ng/mL Cutoff: 25 112 Naloxone, Ur Not Detected ng/mL Cutoff: 25 113 Qsvhtrnb-8-adje-glucuronide, U Present ng/mL 114 Methadone, Ur Not Detected ng/mL Cutoff: 25 115 Eddp, Ur Not Detected ng/mL Cutoff: 25 116 Propoxyphene, Ur Not Detected ng/mL Cutoff: 25 117 Norpropoxyphene, Ur Not Detected ng/mL Cutoff: 25 118 Tramadol, Ur Not Detected ng/mL Cutoff: 25 119 O-desmethyltramadol, Ur Not Detected ng/mL Cutoff: 25 120 Tapentadol, Ur Not Detected ng/mL Cutoff: 25 121 N-desmethyltapentadol, Ur Not Detected ng/mL Cutoff: 50 122 Elglrodxqn-uiwn-eivmsvhvilv, U Not Detected ng/mL 123 Buprenorphine, Ur Not Detected ng/mL Cutoff: 5 124 Norbuprenorphine, Ur Present ng/mL Cutoff: 5 125 Norbuprenorphine glucuronide Present ng/mL Cutoff: 20 126 Opioid Interpretation See Comment 127 THC Confirmation Urine 07/26/2017 Urine Carboxy THC Confirm 22 ng/mL 128 Urine THC Interpretation Positive. 129 Drug Abuse 20 Urine 04/27/2017 Urine Amphetamine Negative ng/mL 130 Urine Barbiturates Negative ng/mL 131 Urine Benzodiazepines Negative ng/mL 132 Urine Cocaine Negative ng/mL 133 Urine Phencyclidine Negative ng/mL Cutoff: 25 Urine Tetrahydrocannabinol Presumptive Posi <SEE NOTE> ng/mL Cutoff: 50 134 Creatinine, Urine 164.9 mg/dL Specific [place] 1.017 pH 6.4 Oxidants Negative 135 Adulterants Comment Normal Codeine, Ur Not Detected ng/mL Cutoff: 25 136 Hekkzbk-6-kqfd-glucuronide, Ur Not Detected ng/mL 137 Morphine, Ur Not Detected ng/mL Cutoff: 25 138 Wukrjenf-1-mnde-glucuronide, U Not Detected ng/mL 139 6-monoacetylmorphine, Ur Not Detected ng/mL Cutoff: 25 140 Hydrocodone, Ur Not Detected ng/mL Cutoff: 25 141 Norhydrocodone, Ur Not Detected ng/mL Cutoff: 25 142 Dihydrocodeine, Ur Not Detected ng/mL Cutoff: 25 143 Hydromorphone, Ur Not Detected ng/mL Cutoff: 25 144 Xzkkgueqowjcr2pulqivhiebxbdlr Not Detected ng/mL 145 Oxycodone, Ur Not Detected ng/mL Cutoff: 25 146 Noroxycodone, Ur Not Detected ng/mL Cutoff: 25 147 Oxymorphone, Ur Not Detected ng/mL Cutoff: 25 148 Nthmnzexymg-7-pbqy-glucuronide Not Detected ng/mL 149 Noroxymorphone, Ur Not Detected ng/mL Cutoff: 25 150 Fentanyl, Ur Not Detected ng/mL Cutoff: 2 151 Norfentanyl, Ur Not Detected ng/mL Cutoff: 2 152 Meperidine, Ur Not Detected ng/mL Cutoff: 25 153 Normeperidine, Ur Not Detected ng/mL Cutoff: 25 154 Naloxone, Ur Not Detected ng/mL Cutoff: 25 155 Tkvuhkap-8-jnmx-glucuronide, U Present ng/mL 156 Methadone, Ur Not Detected ng/mL Cutoff: 25 157 Eddp, Ur Not Detected ng/mL Cutoff: 25 158 Propoxyphene, Ur Not Detected ng/mL Cutoff: 25 159 Norpropoxyphene, Ur Not Detected ng/mL Cutoff: 25 160 Tramadol, Ur Not Detected ng/mL Cutoff: 25 161 O-desmethyltramadol, Ur Not Detected ng/mL Cutoff: 25 162 Tapentadol, Ur Not Detected ng/mL Cutoff: 25 163 N-desmethyltapentadol, Ur Not Detected ng/mL Cutoff: 50 164 Lgtrifnwot-lfxf-seezhkkdenu, U Not Detected ng/mL 165 Buprenorphine, Ur Not Detected ng/mL Cutoff: 5 166 Norbuprenorphine, Ur Present ng/mL Cutoff: 5 167 Norbuprenorphine glucuronide Present ng/mL Cutoff: 20 168 Opioid Interpretation See Comment 169 THC Confirmation Urine 04/27/2017 Urine Carboxy THC Confirm 40 ng/mL 170 Urine THC Interpretation Positive. 171 Drug Abuse 20 Urine 12/01/2016 Urine Amphetamine Negative ng/mL 172 Urine Barbiturates Negative ng/mL 173 Urine Benzodiazepines Negative ng/mL 174 Urine Cocaine Negative ng/mL 175 Urine Phencyclidine Negative ng/mL Cutoff: 25 Urine Tetrahydrocannabinol Negative ng/mL Cutoff: 50 176 Creatinine, Urine 301.1 mg/dL Specific [place] 1.019 pH 5.8 Oxidants Negative 177 Adulterants Comment Normal Codeine, Ur Not Detected ng/mL Cutoff: 25 178 Eaoerju-2-okbx-glucuronide, Ur Not Detected ng/mL 179 Morphine, Ur Not Detected ng/mL Cutoff: 25 180 Nxazxkdk-6-ecop-glucuronide, U Not Detected ng/mL 181 6-monoacetylmorphine, Ur Not Detected ng/mL Cutoff: 25 182 Hydrocodone, Ur Not Detected ng/mL Cutoff: 25 183 Norhydrocodone, Ur Not Detected ng/mL Cutoff: 25 184 Dihydrocodeine, Ur Not Detected ng/mL Cutoff: 25 185 Hydromorphone, Ur Not Detected ng/mL Cutoff: 25 186 Xicdedgwpmooj6xvsxlcxiiqwqpzg Not Detected ng/mL 187 Oxycodone, Ur Not Detected ng/mL Cutoff: 25 188 Noroxycodone, Ur Not Detected ng/mL Cutoff: 25 189 Oxymorphone, Ur Not Detected ng/mL Cutoff: 25 190 Syfpjhuctnn-7-stcq-glucuronide Not Detected ng/mL 191 Noroxymorphone, Ur Not Detected ng/mL Cutoff: 25 192 Fentanyl, Ur Not Detected ng/mL Cutoff: 2 193 Norfentanyl, Ur Present ng/mL Cutoff: 2 194 Meperidine, Ur Not Detected ng/mL Cutoff: 25 195 Normeperidine, Ur Not Detected ng/mL Cutoff: 25 196 Naloxone, Ur Not Detected ng/mL Cutoff: 25 197 Rpflrndg-8-fhuc-glucuronide, U Present ng/mL 198 Methadone, Ur Not Detected ng/mL Cutoff: 25 199 Eddp, Ur Not Detected ng/mL Cutoff: 25 200 Propoxyphene, Ur Not Detected ng/mL Cutoff: 25 201 Norpropoxyphene, Ur Not Detected ng/mL Cutoff: 25 202 Tramadol, Ur Not Detected ng/mL Cutoff: 25 203 O-desmethyltramadol, Ur Not Detected ng/mL Cutoff: 25 204 Tapentadol, Ur Not Detected ng/mL Cutoff: 25 205 N-desmethyltapentadol, Ur Not Detected ng/mL Cutoff: 50 206 Krtmvpezhf-bfkc-gclfvmqflbw, U Present ng/mL 207 Buprenorphine, Ur Not Detected ng/mL Cutoff: 5 208 Norbuprenorphine, Ur Present ng/mL Cutoff: 5 209 Norbuprenorphine glucuronide Present ng/mL Cutoff: 20 210 Opioid Interpretation See Comment 211 CBC Auto Diff 11/15/2016 White Blood Count 7.7 10^3/uL 3.5-10.8 Red Blood Count 5.03 10^6/uL 4.0-5.4 Hemoglobin 15.7 g/dL 14.0-18.0 Hematocrit 48 % 42-52 Mean Corpuscular Volume 96 fL High 80-94 Mean Corpuscular Hemoglobin 31 pg 27-31 Mean Corpuscular HGB Conc 33 g/dL 31-36 Red Cell Distribution Width 13 % 10.5-15 Platelet Count 191 10^3/uL 150-450 Mean Platelet Volume 9 um3 7.4-10.4 Abs Neutrophils 4.4 10^3/uL 1.5-7.7 Abs Lymphocytes 2.7 10^3/uL 1.0-4.8 Abs Monocytes 0.5 10^3/uL 0-0.8 Abs Eosinophils 0.1 10^3/uL 0-0.6 Abs Basophils 0 10^3/uL 0-0.2 Abs Nucleated RBC 0 10^3/uL Granulocyte % 56.8 % 38-83 Lymphocyte % 34.3 % 25-47 Monocyte % 7.0 % 1-9 Eosinophil % 1.4 % 0-6 Basophil % 0.5 % 0-2 Nucleated Red Blood Cells % 0 Laboratory test finding 11/15/2016 Lactic Acid 2.3 mmol/L High 0.5-2.0 212 Comp Metabolic Panel 11/15/2016 Sodium 138 mmol/L 133-145 Potassium 4.1 mmol/L 3.5-5.0 Chloride 102 mmol/L 101-111 Co2 Carbon Dioxide 28 mmol/L 22-32 Anion Gap 8 mmol/L 2-11 Glucose 137 mg/dL High 70-100 Blood Urea Nitrogen 31 mg/dL High 6-24 Creatinine 1.51 mg/dL High 0.67-1.17 BUN/Creatinine Ratio 20.5 High 8-20 Calcium 9.6 mg/dL 8.6-10.3 Total Protein 7.8 g/dL 6.4-8.9 Albumin 3.7 g/dL 3.2-5.2 Globulin 4.1 g/dL High 2-4 Albumin/Globulin Ratio 0.9 Low 1-3 Total Bilirubin 0.50 mg/dL 0.2-1.0 Alkaline Phosphatase 86 U/L 34-104 Alt 15 U/L 7-52 Ast 16 U/L 13-39 Egfr Non- 49.4 >60 Egfr 63.5 >60 213 Laboratory test finding 11/15/2016 Troponin-I (TnI) 0.01 ng/mL <0.04 B-Type Natriuretic Peptide BNP 108 pg/mL High 214 Liver Function Panel 10/25/2016 Total Protein 7.1 g/dL 6.4-8.9 Albumin 3.8 g/dL 3.2-5.2 Globulin 3.3 g/dL 2-4 Albumin/Globulin Ratio 1.2 1-3 Total Bilirubin 0.50 mg/dL 0.2-1.0 Direct Bilirubin 0.10 mg/dL 0.03-0.18 Indirect Bilirubin 0.4 mg/dL 0.3-1.0 Alkaline Phosphatase 70 U/L 34-104 Alt 16 U/L 7-52 Ast 20 U/L 13-39 Drug Abuse 20 Urine 10/06/2016 Urine Amphetamine Negative ng/mL 215 Urine Barbiturates Negative ng/mL 216 Urine Benzodiazepines Negative ng/mL 217 Urine Cocaine Negative ng/mL 218 Urine Phencyclidine Negative ng/mL Cutoff: 25 Urine Tetrahydrocannabinol Negative ng/mL Cutoff: 50 219 Creatinine, Urine 163.7 mg/dL Specific [place] 1.018 pH 5.9 Oxidants Negative 220 Adulterants Comment Normal Codeine, Ur Not Detected ng/mL Cutoff: 25 221 Nuopdew-8-ncss-glucuronide, Ur Not Detected ng/mL 222 Morphine, Ur Not Detected ng/mL Cutoff: 25 223 Uhfceyfg-9-rwkg-glucuronide, U Not Detected ng/mL 224 6-monoacetylmorphine, Ur See Comment ng/mL Cutoff: 25 225 Hydrocodone, Ur Not Detected ng/mL Cutoff: 25 226 Norhydrocodone, Ur Not Detected ng/mL Cutoff: 25 227 Dihydrocodeine, Ur Not Detected ng/mL Cutoff: 25 228 Hydromorphone, Ur Not Detected ng/mL Cutoff: 25 229 Wevdzkliymrfw4ftiwxpglxwifzsp Not Detected ng/mL 230 Oxycodone, Ur Not Detected ng/mL Cutoff: 25 231 Noroxycodone, Ur Not Detected ng/mL Cutoff: 25 232 Oxymorphone, Ur Not Detected ng/mL Cutoff: 25 233 Orcuplvdzji-2-jqxe-glucuronide Not Detected ng/mL 234 Noroxymorphone, Ur Not Detected ng/mL Cutoff: 25 235 Fentanyl, Ur Not Detected ng/mL Cutoff: 2 236 Norfentanyl, Ur Present ng/mL Cutoff: 2 237 Meperidine, Ur Not Detected ng/mL Cutoff: 25 238 Normeperidine, Ur Not Detected ng/mL Cutoff: 25 239 Naloxone, Ur Not Detected ng/mL Cutoff: 25 240 Gebawddb-1-osjj-glucuronide, U Present ng/mL 241 Methadone, Ur Not Detected ng/mL Cutoff: 25 242 Eddp, Ur Not Detected ng/mL Cutoff: 25 243 Propoxyphene, Ur Not Detected ng/mL Cutoff: 25 244 Norpropoxyphene, Ur Not Detected ng/mL Cutoff: 25 245 Tramadol, Ur Not Detected ng/mL Cutoff: 25 246 O-desmethyltramadol, Ur Not Detected ng/mL Cutoff: 25 247 Tapentadol, Ur Not Detected ng/mL Cutoff: 25 248 N-desmethyltapentadol, Ur Not Detected ng/mL Cutoff: 50 249 Ueleghwrsq-zret-fjwblmpnfxo, U Not Detected ng/mL 250 Buprenorphine, Ur Not Detected ng/mL Cutoff: 5 251 Norbuprenorphine, Ur Present ng/mL Cutoff: 5 252 Norbuprenorphine glucuronide Present ng/mL Cutoff: 20 253 Opioid Interpretation See Comment 254 Drug Abuse 20 Urine 08/17/2016 Urine Amphetamine Presumptive Posi <SEE NOTE > 255 ng/mL Urine Barbiturates Negative ng/mL 256 Urine Benzodiazepines Negative ng/mL 257 Urine Cocaine Negative ng/mL 258 Urine Phencyclidine Negative ng/mL Cutoff: 25 Urine Tetrahydrocannabinol Negative ng/mL Cutoff: 50 259 Creatinine 238.4 mg/dL Specific [place] 1.018 pH 5.7 Oxidants Negative 260 Adulterants Comment Normal Codeine, Ur Present ng/mL Cutoff: 25 261 Hsojvwq-3-mpjh-glucuronide, Ur Present ng/mL 262 Morphine, Ur Present ng/mL Cutoff: 25 263 Xylnladx-6-evtt-glucuronide, U Present ng/mL 264 6-monoacetylmorphine, Ur Present ng/mL Cutoff: 25 265 Hydrocodone, Ur Not Detected ng/mL Cutoff: 25 266 Norhydrocodone, Ur Not Detected ng/mL Cutoff: 25 267 Dihydrocodeine, Ur Not Detected ng/mL Cutoff: 25 268 Hydromorphone, Ur Not Detected ng/mL Cutoff: 25 269 Zvhqmbathdsir2ewxwskkcxklhofu Not Detected ng/mL 270 Oxycodone, Ur Not Detected ng/mL Cutoff: 25 271 Noroxycodone, Ur Not Detected ng/mL Cutoff: 25 272 Oxymorphone, Ur Not Detected ng/mL Cutoff: 25 273 Hzhsyjbhvgo-7-adtg-glucuronide Not Detected ng/mL 274 Noroxymorphone, Ur Not Detected ng/mL Cutoff: 25 275 Fentanyl, Ur Present ng/mL Cutoff: 2 276 Norfentanyl, Ur Present ng/mL Cutoff: 2 277 Meperidine, Ur Not Detected ng/mL Cutoff: 25 278 Normeperidine, Ur Not Detected ng/mL Cutoff: 25 279 Naloxone, Ur Not Detected ng/mL Cutoff: 25 280 Kxnmgnpk-4-tkfr-glucuronide, U Present ng/mL 281 Methadone, Ur Not Detected ng/mL Cutoff: 25 282 Eddp, Ur Not Detected ng/mL Cutoff: 25 283 Propoxyphene, Ur Not Detected ng/mL Cutoff: 25 284 Norpropoxyphene, Ur Not Detected ng/mL Cutoff: 25 285 Tramadol, Ur Present ng/mL Cutoff: 25 286 O-desmethyltramadol, Ur Present ng/mL Cutoff: 25 287 Tapentadol, Ur Not Detected ng/mL Cutoff: 25 288 N-desmethyltapentadol, Ur Not Detected ng/mL Cutoff: 50 289 Lpftdouwna-eqod-vgyesssrybm, U Not Detected ng/mL 290 Buprenorphine, Ur Not Detected ng/mL Cutoff: 5 291 Norbuprenorphine, Ur Present ng/mL Cutoff: 5 292 Norbuprenorphine glucuronide Present ng/mL Cutoff: 20 293 Opioid Interpretation See Comment 294 Urine Amphetamine Confirm 08/17/2016 Urine Amphetamine by 106 ng/mL Cutoff: 25 GC/MS Urine Methamphetamine by GC/MS 572 ng/mL Cutoff: 25 Phentermine-by GC/MS Negative ng/mL Cutoff: 25 Pseudoephedrine/Ephedr GC/MS Negative ng/mL Cutoff: 25 Mda(Ecstacy metabolite) GC/MS Negative ng/mL Cutoff: 25 Mdma(Ecstacy)-by GC/MS Negative ng/mL Cutoff: 25 Urine Amphetamines Interp Positive. 295 Drug Abuse 20 Urine 07/15/2016 Urine Amphetamine Negative ng/mL 296 Urine Barbiturates Negative ng/mL 297 Urine Benzodiazepines Negative ng/mL 298 Urine Cocaine Negative ng/mL 299 Urine Phencyclidine Negative ng/mL Cutoff: 25 Urine Tetrahydrocannabinol Presumptive Posi <SEE NOTE> ng/mL Cutoff: 50 300 Creatinine 158.7 mg/dL Specific [place] 1.016 pH 6.8 Oxidants Negative 301 Adulterants Comment Normal Codeine, Ur Present ng/mL Cutoff: 25 302 Ewjdcld-7-lbaa-glucuronide, Ur Present ng/mL 303 Morphine, Ur Present ng/mL Cutoff: 25 304 Cevvjzuq-4-tzwj-glucuronide, U Present ng/mL 305 6-monoacetylmorphine, Ur Present ng/mL Cutoff: 25 306 Hydrocodone, Ur Not Detected ng/mL Cutoff: 25 307 Norhydrocodone, Ur Not Detected ng/mL Cutoff: 25 308 Dihydrocodeine, Ur Not Detected ng/mL Cutoff: 25 309 Hydromorphone, Ur Not Detected ng/mL Cutoff: 25 310 Nxiddtweeqtkg8fhtymmriximmxob Present ng/mL 311 Oxycodone, Ur Not Detected ng/mL Cutoff: 25 312 Noroxycodone, Ur Not Detected ng/mL Cutoff: 25 313 Oxymorphone, Ur Not Detected ng/mL Cutoff: 25 314 Ftovmcyxfdi-8-uqvk-glucuronide Not Detected ng/mL 315 Noroxymorphone, Ur Not Detected ng/mL Cutoff: 25 316 Fentanyl, Ur Present ng/mL Cutoff: 2 317 Norfentanyl, Ur Present ng/mL Cutoff: 2 318 Meperidine, Ur Not Detected ng/mL Cutoff: 25 319 Normeperidine, Ur Not Detected ng/mL Cutoff: 25 320 Naloxone, Ur Not Detected ng/mL Cutoff: 25 321 Rfdrzdnw-1-ukzc-glucuronide, U Not Detected ng/mL 322 Methadone, Ur Not Detected ng/mL Cutoff: 25 323 Eddp, Ur Not Detected ng/mL Cutoff: 25 324 Propoxyphene, Ur Not Detected ng/mL Cutoff: 25 325 Norpropoxyphene, Ur Not Detected ng/mL Cutoff: 25 326 Tramadol, Ur Present ng/mL Cutoff: 25 327 O-desmethyltramadol, Ur Present ng/mL Cutoff: 25 328 Tapentadol, Ur Not Detected ng/mL Cutoff: 25 329 N-desmethyltapentadol, Ur Not Detected ng/mL Cutoff: 50 330 Wfoogmoslf-efyn-nshgdexhsnm, U Not Detected ng/mL 331 Buprenorphine, Ur Not Detected ng/mL Cutoff: 5 332 Norbuprenorphine, Ur Present ng/mL Cutoff: 5 333 Norbuprenorphine glucuronide Present ng/mL Cutoff: 20 334 Opioid Interpretation See Comment 335 THC Confirmation Urine 07/15/2016 Urine Carboxy THC Confirm 28 ng/mL 336 Urine THC Interpretation Positive. 337 Laboratory test finding 03/01/2009 CPK (Creatine Kinase) 92 U/L 0-200 Comp Metabolic Panel 03/01/2009 Sodium 135 mmol/L 135-145 Potassium 4.2 mmol/L 3.5-5.0 Chloride 103 mmol/L 101-111 Co2 (Carbon Dioxide) 26.0 mmol/L 22-32 Anion Gap 6.0 mmol/L 2-11 338 Glucose 104 mg/dL High 70-100 339 BUN 20 mg/dL 6-24 Creatinine 0.80 mg/dL 0.50-1.40 One Over Creatinine 1.20 BUN/Creatinine Ratio 25.0 High 8-20 Calcium 8.7 mg/dL 8.1-9.9 340 Total Protein 6.5 GM/DL 6.2-8.1 Albumin 3.6 GM/DL 3.6-5.4 Globulin 2.9 GM/DL 2-4 Albumin/Globulin Ratio 1.2 1-3 Bilirubin Total 0.6 mg/dL 0.4-1.5 341 Alkaline Phosphatase 69 U/L 39-117 Alt (SGPT) 31 U/L 17-63 Ast (Sgot) 22 U/L 12-42 eGFR Non- 113.2 > 60 eGFR 137.0 > 60 342 Lipid Profile (Trig/Chol/HDL) 03/01/2009 Triglyceride 60 mg/dL 40-200 Cholesterol 155 mg/dL Less Than 200 343 High Density Lipoprotein 46 mg/dL 40-60 344 Cholesterol/HDL Ratio 3.37 AVERAGE 1-4.97 Low Density Lipoprotein 97 mg/dL Less Than 100 345 Urine Drug Screen M-20 02/06/2009 Urine Alcohol Negative mg/dL Cutoff: 30 Urine Ampetamines Negative ng/mL () 346 Urine Barbiturates Negative ng/mL () 347 Urine Benzodiazepines Negative ng/mL () 348 Urine Cocaine Negative ng/mL () 349 Ur Lysergic Acid Diethylamide Negative ng/mL () 350 Urine Methadone Negative ng/mL () 351 Urine Methaqualone Negative ng/mL () 352 Urine Opiates Negative ng/mL () 353 Urine Phencyclidine Negative ng/mL Cutoff: 25 Urine Propoxyphene Negative ng/mL () 354 Urine Tetrahydrocannabinol REFLEX Cutoff: 20 355 Urinalysis W/Microscopic 02/06/2009 Ua Color YELLOW Appearance-Urine CLEAR Specific [place]-Ur 1.030 1.010-1.030 Esterase-Urine NEGATIVE Negative Nitrite NEGATIVE Negative Mqpgduxvnrti-Eo-RPW NEGATIVE Negative Protein-Urine NEGATIVE Negative PH-Urine 6.0 5-9 Blood-Urine NEGATIVE Negative Ketones-Urine TRACE Negative Ictotest-Urine NEGATIVE Glucose-Urine NEGATIVE Negative WBC-Urine 0-2 0-5 RBC-Urine 1-3 0-2 Mucus Urine SMALL Epith Cells-Ur RARE Laboratory test finding 02/06/2009 TSH 0.63 MIU/ML 0.34-5.60 Lipid Profile (Trig/Chol/HDL) 02/06/2009 Triglyceride 72 mg/dL 40-200 Cholesterol 176 mg/dL Less Than 200 356 High Density Lipoprotein 47 mg/dL 40-60 357 Cholesterol/HDL Ratio 3.74 AVERAGE 1-4.97 Low Density Lipoprotein 115 mg/dL High Less Than 100 358 THC Confirmation 02/06/2009 Urine THC Screen Positive Cutoff: 20 THC Carboxylic Acid By GC/MS 267 ng/mL Cutoff: 3 Urine THC Interpretation Positive () 359 Laboratory test finding 02/06/2009 PTT (Aptt) 31.3 25.15-38.53 360 Comp Metabolic Panel 02/06/2009 Sodium 137 mmol/L 135-145 Potassium 4.2 mmol/L 3.5-5.0 Chloride 105 mmol/L 101-111 Co2 (Carbon Dioxide) 30.0 mmol/L 22-32 Anion Gap 2.0 mmol/L 2-11 361 Glucose 103 mg/dL High 70-100 362 BUN 23 mg/dL 6-24 Creatinine 0.90 mg/dL 0.50-1.40 One Over Creatinine 1.10 BUN/Creatinine Ratio 25.6 High 8-20 Calcium 9.3 mg/dL 8.1-9.9 363 Total Protein 7.3 GM/DL 6.2-8.1 Albumin 3.9 GM/DL 3.6-5.4 Globulin 3.4 GM/DL 2-4 Albumin/Globulin Ratio 1.1 1-3 Bilirubin Total 0.7 mg/dL 0.4-1.5 364 Alkaline Phosphatase 67 U/L 39-117 Alt (SGPT) 27 U/L 17-63 Ast (Sgot) 21 U/L 12-42 eGFR Non- 98.8 > 60 eGFR 119.6 > 60 365 Protime 02/06/2009 Inr 1.03 0.86-1.13 366 Protime 12.5 SEC 10.7-13.6 367 CBC With Electronic Diff 02/06/2009 White Blood Count 6.5 CUMM 4.8-10.8 Red Cell Count 4.88 CUMM 4.6-6.2 Hemoglobin 15.9 g/dL 14.0-18.0 Hematocrit 47 % 42-52 Mean Corpuscular Volume 97 um3 High 80-94 Mean Corpuscular Hemoglob 33 pg High 27-31 Mean Corpuscular HGB Cone 34 g/dL 32-36 Redcell Distribution WDTH 13 % 10.5-15 Platelet Count 206 CUMM 150-450 Mean Platelet Volume 8.7 um3 7.4-10.4 Gran % 51.6 % 38-83 Lymph % 37.1 % 25-47 Mononuclear % 8.1 % 1-9 Eosinophil % 2.6 % 0-6 Basophil % 0.6 % 0-2 Abs Lymphs 2.4 1.0-4.8 Abs Mononuclear 0.5 0-0.8 Absolute Neutrophil Count 3.3 1.5-7.7 Abs Eosinophils 0.2 0-0.6 Abs Basophils 0 0-0.2 1 REFERENCE VALUE Cutoff: 500 2 REFERENCE VALUE Cutoff: 200 3 REFERENCE VALUE Cutoff: 100 4 REFERENCE VALUE Cutoff: 150 5 ADDITIONAL INFORMATION This report is intended for use in clinical monitoring or management of patients. It is not intended for use in employment-related testing. 6 REFERENCE VALUE Cutoff: 200 mg/L 7 Tylenol 3 8 Metabolite of codeine REFERENCE VALUE Cutoff: 100 9 Ida Moraes, MS Contin; Also a minor metabolite (10%) of codeine and can be seen in low concentrations (<2,000 ng/mL) with poppy seed ingestion. 10 Metabolite of morphine REFERENCE VALUE Cutoff: 100 11 Metabolite of heroin 12 Lortab, [place], Vicodin; Also a very minor metabolite of codeine and impurity (<1%) of oxycodone. 13 Metabolite of hydrocodone 14 Metabolite of hydrocodone 15 Dilaudid, Exalgo; Also a metabolite of hydrocodone and a minor (<5%) metabolite of morphine. 16 Metabolite of hydromorphone REFERENCE VALUE Cutoff: 100 17 Endocet, Percocet, Oxycontin 18 Metabolite of oxycodone 19 Numorphan, Opana; Also a metabolite of oxycodone. 20 Metabolite of oxymorphone REFERENCE VALUE Cutoff: 100 21 Metabolite of oxymorphone 22 Actiq, Duragesic, [place]ent[place] 23 Metabolite of fentanyl 24 Demerol 25 Metabolite of meperidine 26 Narcan 27 Metabolite of naloxone REFERENCE VALUE Cutoff: 100 28 Dolophine 29 Metabolite of methadone 30 Darvon, Darvocet 31 Metabolite of propoxyphene 32 Tradol, Ultram, Ultracet 33 Metabolite of tramadol 34 Nucynta 35 Metabolite of tapentadol 36 Metabolite of tapentadol REFERENCE VALUE Cutoff: 100 37 Buprenex, Suboxone 38 Metabolite of buprenorphine 39 Metabolite of buprenorphine 40 Test detected the presence of morphine and its metabolites (szfkxumz-3-rwns-glucuronide and mgrcimtwndeuh-1-thlp-glucuronide) along with codeine and lxmgqgi-4-wpgw-glucuronide and the metabolite of heroin (6-monoacetylmorphine). Suspect recent use of heroin. Test detected the presence of buprenorphine metabolites (norbuprenorphine and norbuprenorphine glucuronide) along with naloxone metabolite (oicpohap-5-vbks-glucuronide). Suspect use of buprenorphine with naloxone (e.g. Suboxone) within the past three days. Test detected the presence of fentanyl and its metabolite (norfentanyl). Suspect use of fentanyl within the past three days. ADDITIONAL INFORMATION This test was developed and its performance characteristics determined by [facility] in a manner consistent with CLIA requirements. This test has not been cleared or approved by the U.S. Food and Drug Administration. Test Performed by: [facility] [address] [place] [address] 41 REFERENCE VALUE Cutoff: 500 42 REFERENCE VALUE Cutoff: 200 43 REFERENCE VALUE Cutoff: 100 44 REFERENCE VALUE Cutoff: 150 45 Presumptive Positive Drug confirmation to follow. Presumptive Positive means that the screening method is positive, but the test needs to be run by a confirmatory method before being finalized. ADDITIONAL INFORMATION This report is intended for use in clinical monitoring or management of patients. It is not intended for use in employment-related testing. 46 REFERENCE VALUE Cutoff: 200 mg/L 47 Tylenol 3 48 Metabolite of codeine REFERENCE VALUE Cutoff: 100 49 Ida Moraes, MS Contin; Also a minor metabolite (10%) of codeine and can be seen in low concentrations (<2,000 ng/mL) with poppy seed ingestion. 50 Metabolite of morphine REFERENCE VALUE Cutoff: 100 51 Metabolite of heroin 52 Lortab, [place], Vicodin; Also a very minor metabolite of codeine and impurity (<1%) of oxycodone. 53 Metabolite of hydrocodone 54 Metabolite of hydrocodone 55 Dilaudid, Exalgo; Also a metabolite of hydrocodone and a minor (<5%) metabolite of morphine. 56 Metabolite of hydromorphone REFERENCE VALUE Cutoff: 100 57 Endocet, Percocet, Oxycontin 58 Metabolite of oxycodone 59 Numorphan, Opana; Also a metabolite of oxycodone. 60 Metabolite of oxymorphone REFERENCE VALUE Cutoff: 100 61 Metabolite of oxymorphone 62 Actiq, Duragesic, [place]ent[place] 63 Metabolite of fentanyl 64 Demerol 65 Metabolite of meperidine 66 Narcan 67 Metabolite of naloxone REFERENCE VALUE Cutoff: 100 68 Dolophine 69 Metabolite of methadone 70 Darvon, Darvocet 71 Metabolite of propoxyphene 72 Tradol, Ultram, Ultracet 73 Metabolite of tramadol 74 Nucynta 75 Metabolite of tapentadol 76 Metabolite of tapentadol REFERENCE VALUE Cutoff: 100 77 Buprenex, Suboxone 78 Metabolite of buprenorphine 79 Metabolite of buprenorphine 80 Test detected the presence of codeine, fqvzhql-1-nrcq-glucuronide (metabolite of codeine), morphine, and xgvkhowc-0-rdzk-glucuronide (metabolite of morphine). Suspect recent use of codeine or possibly codeine and morphine within the past three days. Test detected the presence of morphine, rrgcaaoi-6-ixkw-glucuronide (morphine metabolite) and the metabolite of heroin (6-monoacetylmorphine). Suspect recent use of heroin. Test detected the presence of buprenorphine metabolites (norbuprenorphine and norbuprenorphine glucuronide) along with naloxone metabolite (zrnsmwgt-0-mbyx-glucuronide). Suspect use of buprenorphine with naloxone (e.g. Suboxone) within the past three days. ADDITIONAL INFORMATION This test was developed and its performance characteristics determined by [facility] in a manner consistent with CLIA requirements. This test has not been cleared or approved by the U.S. Food and Drug Administration. Test Performed by: [facility] [address] [place] [id number] [phone] REFERENCE VALUE Cutoff: 3.0 82 ADDITIONAL INFORMATION This report is intended for use in clinical monitoring and management of patients. It is not intended for use in employment-related testing. This test was developed and its performance characteristics determined by [facility] in a manner consistent with CLIA requirements. This test has not been cleared or approved by the U.S. Food and Drug Administration. Test Performed by: [facility] [address] [place] [address] 83 Desirable: <150 Borderline High: 150-199 High: 200-499 Very High: >500 84 Desirable: <200 Borderline High: 200-239 High: >239 85 Low: <40 Desirable: 40-60 High: >60 86 Desirable: <100 Near Optimal: 100-129 Borderline High: 130-159 High: 160-189 Very High: >189 87 Because ethnic data is not always readily available, this report includes an eGFR for both -Americans and non- Americans. The National Kidney Disease Education Program (NKDEP) does not endorse the use of the MDRD equation for patients that are not between the ages of 18 and 70, are , have extremes of body size, muscle mass, or nutritional status, or are non- or non-. According to the National Kidney Foundation, irrespective of diagnosis, the stage of the disease is based on the level of kidney function: Stage Description GFR(mL/min/1.73 m(2)) 1 Kidney damage with normal or decreased GFR 90 2 Kidney damage with mild decrease in GFR 60-89 3 Moderate decrease in GFR 30-59 4 Severe decrease in GFR 15-29 5 Kidney failure <15 (or dialysis) 88 REFERENCE VALUE Cutoff: 500 89 REFERENCE VALUE Cutoff: 200 90 REFERENCE VALUE Cutoff: 100 91 REFERENCE VALUE Cutoff: 150 92 Presumptive Positive Drug confirmation to follow. Presumptive Positive means that the screening method is positive, but the test needs to be run by a confirmatory method before being finalized. ADDITIONAL INFORMATION This report is intended for use in clinical monitoring or management of patients. It is not intended for use in employment-related testing. 93 REFERENCE VALUE Cutoff: 200 mg/L 94 Tylenol 3 95 Metabolite of codeine REFERENCE VALUE Cutoff: 100 96 Ida Moraes MS Contin; Also a minor metabolite (10%) of codeine and can be seen in low concentrations (<2,000 ng/mL) with poppy seed ingestion. 97 Metabolite of morphine REFERENCE VALUE Cutoff: 100 98 Metabolite of heroin 99 Lortab, [place], Vicodin; Also a very minor metabolite of codeine and impurity (<1%) of oxycodone. 100 Metabolite of hydrocodone 101 Metabolite of hydrocodone 102 Dilaudid, Exalgo; Also a metabolite of hydrocodone and a minor (<5%) metabolite of morphine. 103 Metabolite of hydromorphone REFERENCE VALUE Cutoff: 100 104 Endocet, Percocet, Oxycontin 105 Metabolite of oxycodone 106 Numorphan, Opana; Also a metabolite of oxycodone. 107 Metabolite of oxymorphone REFERENCE VALUE Cutoff: 100 108 Metabolite of oxymorphone 109 Actiq, Duragesic, [place]ent[place] 110 Metabolite of fentanyl 111 Demerol 112 Metabolite of meperidine 113 Narcan 114 Metabolite of naloxone REFERENCE VALUE Cutoff: 100 115 Dolophine 116 Metabolite of methadone 117 Darvon, Darvocet 118 Metabolite of propoxyphene 119 Tradol, Ultram, Ultracet 120 Metabolite of tramadol 121 Nucynta 122 Metabolite of tapentadol 123 Metabolite of tapentadol REFERENCE VALUE Cutoff: 100 124 Buprenex, Suboxone 125 Metabolite of buprenorphine 126 Metabolite of buprenorphine 127 Test detected the presence of both morphine and its metabolite (jjpnzoow-6-vbmv-glucuronide). Suspect use of morphine within the past three days. Alternatively, these results could also be suggestive of heroin use. Low levels of morphine can also be seen following poppy seed ingestion. Test detected the presence of oxycodone and several metabolites (noroxycodone, noroxymorphone, and zmalwxiykrq-7-ctwm-glucuronide). Suspect use of oxycodone or possibly oxycodone and oxymorphone within the past three days. Test detected the presence of norbuprenorphine and norbuprenorphine glucuronide which are metabolites of buprenorphine. Suspect use of buprenorphine within the past three days. Test detected the presence of fentanyl and its metabolite (norfentanyl). Suspect use of fentanyl within the past three days. Test detected the presence of fwualepu-0-jkht-glucuronide (metabolite of naloxone) only. Suspect use of naloxone (Narcan) within the past three days. ADDITIONAL INFORMATION This test was developed and its performance characteristics determined by [facility] in a manner consistent with CLIA requirements. This test has not been cleared or approved by the U.S. Food and Drug Administration. Test Performed by: [facility] [employer] [address] [place] [id number] REFERENCE VALUE Cutoff: 3.0 129 ADDITIONAL INFORMATION This report is intended for use in clinical monitoring and management of patients. It is not intended for use in employment-related testing. This test was developed and its performance characteristics determined by [facility] in a manner consistent with CLIA requirements. This test has not been cleared or approved by the U.S. Food and Drug Administration. Test Performed by: [facility] [address] [place] [id number] REFERENCE VALUE Cutoff: 500 131 REFERENCE VALUE Cutoff: 200 132 REFERENCE VALUE Cutoff: 100 133 REFERENCE VALUE Cutoff: 150 134 Presumptive Positive Drug confirmation to follow. Presumptive Positive means that the screening method is positive, but the test needs to be run by a confirmatory method before being finalized. ADDITIONAL INFORMATION This report is intended for use in clinical monitoring or management of patients. It is not intended for use in employment-related testing. 135 REFERENCE VALUE Cutoff: 200 mg/L 136 Tylenol 3 137 Metabolite of codeine REFERENCE VALUE Cutoff: 100 138 Ida Moraes, MS Contin; Also a minor metabolite (10%) of codeine and can be seen in low concentrations (<2,000 ng/mL) with poppy seed ingestion. 139 Metabolite of morphine REFERENCE VALUE Cutoff: 100 140 Metabolite of heroin 141 Lortab, [place], Vicodin; Also a very minor metabolite of codeine and impurity (<1%) of oxycodone. 142 Metabolite of hydrocodone 143 Metabolite of hydrocodone 144 Dilaudid, Exalgo; Also a metabolite of hydrocodone and a minor (<5%) metabolite of morphine. 145 Metabolite of hydromorphone REFERENCE VALUE Cutoff: 100 146 Endocet, Percocet, Oxycontin 147 Metabolite of oxycodone 148 Numorphan, Opana; Also a metabolite of oxycodone. 149 Metabolite of oxymorphone REFERENCE VALUE Cutoff: 100 150 Metabolite of oxymorphone 151 Actiq, Duragesic, Fentora 152 Metabolite of fentanyl 153 Demerol 154 Metabolite of meperidine 155 Narcan 156 Metabolite of naloxone REFERENCE VALUE Cutoff: 100 157 Dolophine 158 Metabolite of methadone 159 Darvon, Darvocet 160 Metabolite of propoxyphene 161 Tradol, Ultram, Ultracet 162 Metabolite of tramadol 163 Nucynta 164 Metabolite of tapentadol 165 Metabolite of tapentadol REFERENCE VALUE Cutoff: 100 166 Buprenex, Suboxone 167 Metabolite of buprenorphine 168 Metabolite of buprenorphine 169 Test detected the presence of norbuprenorphine and norbuprenorphine glucuronide which are metabolites of buprenorphine. Suspect use of buprenorphine within the past three days. Test detected the presence of tbaktmrq-9-ozua-glucuronide (metabolite of naloxone) only. Suspect use of naloxone (Narcan) within the past three days. ADDITIONAL INFORMATION This test was developed and its performance characteristics determined by [facility] in a manner consistent with CLIA requirements. This test has not been cleared or approved by the U.S. Food and Drug Administration. Test Performed by: [facility] [address] [place] [address] 170 REFERENCE VALUE Cutoff: 3.0 171 ADDITIONAL INFORMATION This report is intended for use in clinical monitoring and management of patients. It is not intended for use in employment-related testing. This test was developed and its performance characteristics determined by [facility] in a manner consistent with CLIA requirements. This test has not been cleared or approved by the U.S. Food and Drug Administration. Test Performed by: [facility] [address] [place] [address] 172 REFERENCE VALUE Cutoff: 500 173 REFERENCE VALUE Cutoff: 200 174 REFERENCE VALUE Cutoff: 100 175 REFERENCE VALUE Cutoff: 150 176 ADDITIONAL INFORMATION This report is intended for use in clinical monitoring or management of patients. It is not intended for use in employment-related testing. 177 REFERENCE VALUE Cutoff: 200 mg/L 178 Tylenol 3 179 Metabolite of codeine REFERENCE VALUE Cutoff: 100 180 Ida Moraes, MS Contin; Also a minor metabolite (10%) of codeine and can be seen in low concentrations (<2,000 ng/mL) with poppy seed ingestion. 181 Metabolite of morphine REFERENCE VALUE Cutoff: 100 182 Metabolite of heroin 183 Lortab, [place], Vicodin; Also a very minor metabolite of codeine and impurity (<1%) of oxycodone. 184 Metabolite of hydrocodone 185 Metabolite of hydrocodone 186 Dilaudid, Exalgo; Also a metabolite of hydrocodone and a minor (<5%) metabolite of morphine. 187 Metabolite of hydromorphone REFERENCE VALUE Cutoff: 100 188 Endocet, Percocet, Oxycontin 189 Metabolite of oxycodone 190 Numorphan, Opana; Also a metabolite of oxycodone. 191 Metabolite of oxymorphone REFERENCE VALUE Cutoff: 100 192 Metabolite of oxymorphone 193 Actiq, Duragesic, Fentora 194 Metabolite of fentanyl 195 Demerol 196 Metabolite of meperidine 197 Narcan 198 Metabolite of naloxone REFERENCE VALUE Cutoff: 100 199 Dolophine 200 Metabolite of methadone 201 Darvon, Darvocet 202 Metabolite of propoxyphene 203 Tradol, Ultram, Ultracet 204 Metabolite of tramadol 205 Nucynta 206 Metabolite of tapentadol 207 Metabolite of tapentadol REFERENCE VALUE Cutoff: 100 208 Buprenex, Suboxone 209 Metabolite of buprenorphine 210 Metabolite of buprenorphine 211 Test detected the presence of iozpgvgwar-gevq-pyyhywxgypd (metabolite of tapentadol) only. Suspect use of tapentadol within the past three days. Test detected the presence of norbuprenorphine and norbuprenorphine glucuronide which are metabolites of buprenorphine. Suspect use of buprenorphine within the past three days. Test detected the presence of norfentanyl (metabolite of fentanyl) only. Suspect use of fentanyl within the past three days. Test detected the presence of szoedqiu-6-jniu-glucuronide (metabolite of naloxone) only. Suspect use of naloxone (Narcan) within the past three days. ADDITIONAL INFORMATION This test was developed and its performance characteristics determined by [facility] in a manner consistent with CLIA requirements. This test has not been cleared or approved by the U.S. Food and Drug Administration. Test Performed by: [address] [address] 212 Critical Result LACT:2.3 Called to [id number] at: 20:17:38 by:[id number] Read back by:[facility] Severe Sepsis and Septic Shock Management Bundle Measure requires all lactic acids initially measuring >2.0 mmol/L be repeated. 213 Because ethnic data is not always readily available, this report includes an eGFR for both -Americans and non- Americans. The National Kidney Disease Education Program (NKDEP) does not endorse the use of the MDRD equation for patients that are not between the ages of 18 and 70, are , have extremes of body size, muscle mass, or nutritional status, or are non- or non-. According to the National Kidney Foundation, irrespective of diagnosis, the stage of the disease is based on the level of kidney function: Stage Description GFR(mL/min/1.73 m(2)) 1 Kidney damage with normal or decreased GFR 90 2 Kidney damage with mild decrease in GFR 60-89 3 Moderate decrease in GFR 30-59 4 Severe decrease in GFR 15-29 5 Kidney failure <15 (or dialysis) 214 >100 to <200 pg/mL: likely compensated congestive heart failure (CHF) 200 to 400 pg/mL: likely moderate CHF >400 pg/mL: likely moderate to severe CHF 215 REFERENCE VALUE Cutoff: 500 216 REFERENCE VALUE Cutoff: 200 217 REFERENCE VALUE Cutoff: 100 218 REFERENCE VALUE Cutoff: 150 219 ADDITIONAL INFORMATION This report is intended for use in clinical monitoring or management of patients. It is not intended for use in employment-related testing. 220 REFERENCE VALUE Cutoff: 200 mg/L 221 Tylenol 3 222 Metabolite of codeine REFERENCE VALUE Cutoff: 100 223 Avinza, Ida, MS Contin; Also a minor metabolite (10%) of codeine and can be seen in low concentrations (<2,000 ng/mL) with poppy seed ingestion. 224 Metabolite of morphine REFERENCE VALUE Cutoff: 100 225 RESULT: Results not available due to analyte specific failure. 226 Lortab, [place], Vicodin; Also a very minor metabolite of codeine and impurity (<1%) of oxycodone. 227 Metabolite of hydrocodone 228 Metabolite of hydrocodone 229 Dilaudid, Exalgo; Also a metabolite of hydrocodone and a minor (<5%) metabolite of morphine. 230 Metabolite of hydromorphone REFERENCE VALUE Cutoff: 100 231 Endocet, Percocet, Oxycontin 232 Metabolite of oxycodone 233 Numorphan, Opana; Also a metabolite of oxycodone. 234 Metabolite of oxymorphone REFERENCE VALUE Cutoff: 100 235 Metabolite of oxymorphone 236 Actiq, Duragesic, Fentora 237 Metabolite of fentanyl 238 Demerol 239 Metabolite of meperidine 240 Narcan 241 Metabolite of naloxone REFERENCE VALUE Cutoff: 100 242 Dolophine 243 Metabolite of methadone 244 Darvon, Darvocet 245 Metabolite of propoxyphene 246 Tradol, Ultram, Ultracet 247 Metabolite of tramadol 248 Nucynta 249 Metabolite of tapentadol 250 Metabolite of tapentadol REFERENCE VALUE Cutoff: 100 251 Buprenex, Suboxone 252 Metabolite of buprenorphine 253 Metabolite of buprenorphine 254 Test detected the presence of norbuprenorphine and norbuprenorphine glucuronide which are metabolites of buprenorphine. Suspect use of buprenorphine within the past three days. Test detected the presence of norfentanyl (metabolite of fentanyl) only. Suspect use of fentanyl within the past three days. Test detected the presence of tnqqhvio-6-tmor-glucuronide (metabolite of naloxone) only. Suspect use of naloxone (Narcan) within the past three days. ADDITIONAL INFORMATION This test was developed and its performance characteristics determined by [facility] in a manner consistent with CLIA requirements. This test has not been cleared or approved by the U.S. Food and Drug Administration. Test Performed by: [facility] - [address] [address] 255 Presumptive Positive Drug confirmation to follow. Presumptive Positive means that the screening method is positive, but the test needs to be run by a confirmatory method before being finalized. REFERENCE VALUE Cutoff: 500 256 REFERENCE VALUE Cutoff: 200 257 REFERENCE VALUE Cutoff: 100 258 REFERENCE VALUE Cutoff: 150 259 ADDITIONAL INFORMATION This report is intended for use in clinical monitoring or management of patients. It is not intended for use in employment-related testing. 260 REFERENCE VALUE Cutoff: 200 mg/L 261 Tylenol 3 262 Metabolite of codeine REFERENCE VALUE Cutoff: 100 263 Ida Moraes, MS Contin; Also a minor metabolite (10%) of codeine and can be seen in low concentrations (<2,000 ng/mL) with poppy seed ingestion. 264 Metabolite of morphine REFERENCE VALUE Cutoff: 100 265 Metabolite of heroin 266 Lortab, [place], Vicodin; Also a very minor metabolite of codeine and impurity (<1%) of oxycodone. 267 Metabolite of hydrocodone 268 Metabolite of hydrocodone 269 Dilaudid, Exalgo; Also a metabolite of hydrocodone and a minor (<5%) metabolite of morphine. 270 Metabolite of hydromorphone REFERENCE VALUE Cutoff: 100 271 Endocet, Percocet, Oxycontin 272 Metabolite of oxycodone 273 Numorphan, Opana; Also a metabolite of oxycodone. 274 Metabolite of oxymorphone REFERENCE VALUE Cutoff: 100 275 Metabolite of oxymorphone 276 Actiq, Duragesic, Fentora 277 Metabolite of fentanyl 278 Demerol 279 Metabolite of meperidine 280 Narcan 281 Metabolite of naloxone REFERENCE VALUE Cutoff: 100 282 Dolophine 283 Metabolite of methadone 284 Darvon, Darvocet 285 Metabolite of propoxyphene 286 Tradol, Ultram, Ultracet 287 Metabolite of tramadol 288 Nucynta 289 Metabolite of tapentadol 290 Metabolite of tapentadol REFERENCE VALUE Cutoff: 100 291 Buprenex, Suboxone 292 Metabolite of buprenorphine 293 Metabolite of buprenorphine 294 Test detected the presence of codeine, ucxypwd-5-wpyp-glucuronide (metabolite of codeine), morphine, and pgzlccrl-9-ydqe-glucuronide (metabolite of morphine). Suspect recent use of codeine or possibly codeine and morphine within the past three days. Test detected the presence of morphine, awzkpewf-8-hotu-glucuronide (morphine metabolite) and the metabolite of heroin (6-monoacetylmorphine). Suspect recent use of heroin. Test detected the presence of tramadol and its metabolite (O-desmethyltramadol). Suspect use of tramadol within the past three days. Test detected the presence of norbuprenorphine and norbuprenorphine glucuronide which are metabolites of buprenorphine. Suspect use of buprenorphine within the past three days. Test detected the presence of fentanyl and its metabolite (norfentanyl). Suspect use of fentanyl within the past three days. Test detected the presence of uifsttnb-8-quef-glucuronide (metabolite of naloxone) only. Suspect use of naloxone (Narcan) within the past three days. ADDITIONAL INFORMATION This test was developed and its performance characteristics determined by [facility] in a manner consistent with CLIA requirements. This test has not been cleared or approved by the U.S. Food and Drug Administration. Test Performed by: [facility] [address] [place] [address] 295 ADDITIONAL INFORMATION This report is intended for use in clinical monitoring and management of patients. It is not intended for use in employment-related testing. This test was developed and its performance characteristics determined by [facility] in a manner consistent with CLIA requirements. This test has not been cleared or approved by the U.S. Food and Drug Administration. Test Performed by: [facility] - [address] [address] 296 REFERENCE VALUE Cutoff: 500 297 REFERENCE VALUE Cutoff: 200 298 REFERENCE VALUE Cutoff: 100 299 REFERENCE VALUE Cutoff: 150 300 Presumptive Positive Drug confirmation to follow. Presumptive Positive means that the screening method is positive, but the test needs to be run by a confirmatory method before being finalized. ADDITIONAL INFORMATION This report is intended for use in clinical monitoring or management of patients. It is not intended for use in employment-related testing. 301 REFERENCE VALUE Cutoff: 200 mg/L 302 Tylenol 3 303 Metabolite of codeine REFERENCE VALUE Cutoff: 100 304 Ida Moraes, MS Contin; Also a minor metabolite (10%) of codeine and can be seen in low concentrations (<2,000 ng/mL) with poppy seed ingestion. 305 Metabolite of morphine REFERENCE VALUE Cutoff: 100 306 Metabolite of heroin 307 Lortab, [place], Vicodin; Also a very minor metabolite of codeine and impurity (<1%) of oxycodone. 308 Metabolite of hydrocodone 309 Metabolite of hydrocodone 310 Dilaudid, Exalgo; Also a metabolite of hydrocodone and a minor (<5%) metabolite of morphine. 311 Metabolite of hydromorphone REFERENCE VALUE Cutoff: 100 312 Endocet, Percocet, Oxycontin 313 Metabolite of oxycodone 314 Numorphan, Opana; Also a metabolite of oxycodone. 315 Metabolite of oxymorphone REFERENCE VALUE Cutoff: 100 316 Metabolite of oxymorphone 317 Actiq, Duragesic, Fentora 318 Metabolite of fentanyl 319 Demerol 320 Metabolite of meperidine 321 Narcan 322 Metabolite of naloxone REFERENCE VALUE Cutoff: 100 323 Dolophine 324 Metabolite of methadone 325 Darvon, Darvocet 326 Metabolite of propoxyphene 327 Tradol, Ultram, Ultracet 328 Metabolite of tramadol 329 Nucynta 330 Metabolite of tapentadol 331 Metabolite of tapentadol REFERENCE VALUE Cutoff: 100 332 Buprenex, Suboxone 333 Metabolite of buprenorphine 334 Metabolite of buprenorphine 335 Test detected the presence of codeine, vdlgmoy-2-ekva-glucuronide (metabolite of codeine), morphine, and ixpgywis-7-fobl-glucuronide (metabolite of morphine). Suspect recent use of codeine or possibly codeine and morphine within the past three days. Test detected the presence of morphine, cyyrdrny-2-eqsx-glucuronide (morphine metabolite) and the metabolite of heroin (6-monoacetylmorphine). Suspect recent use of heroin. Test detected the presence of fwvlhlsrehibe-5-mqkv-glucuronide the metabolite of hydromorphone. Suspect use of hydromorphone within the past three days. Test detected the presence of tramadol and its metabolite (O-desmethyltramadol). Suspect use of tramadol within the past three days. Test detected the presence of norbuprenorphine and norbuprenorphine glucuronide which are metabolites of buprenorphine. Suspect use of buprenorphine within the past three days. Test detected the presence of fentanyl and its metabolite (norfentanyl). Suspect use of fentanyl within the past three days. ADDITIONAL INFORMATION This test was developed and its performance characteristics determined by [facility] in a manner consistent with CLIA requirements. This test has not been cleared or approved by the U.S. Food and Drug Administration. Test Performed by: [facility] [address] [place] [address] 336 REFERENCE VALUE Cutoff: 3.0 337 ADDITIONAL INFORMATION This report is intended for use in clinical monitoring and management of patients. It is not intended for use in employment-related testing. This test was developed and its performance characteristics determined by [facility] in a manner consistent with CLIA requirements. This test has not been cleared or approved by the U.S. Food and Drug Administration. Test Performed by: [address] [address] 912 Anion gap measurement may be of limited value in the presence of any alkalosis, especially in a combined acid base disorder. . 339 Note change in reference range as of 12/28/07. The change was based on recommendations from the [place] [employer]. 340 Please note change in reference range effective 07 . 341 A metabolite of Naproxen, O-desmethylnaproxen, has been shown to interfere with the [place]-Emelia method for measuring total bilirubin. Samples from patients who have taken Naproxen have shown spurious elevation in total bilirubin levels. 342 Because ethnic data is not always readily available, this report includes an eGFR for both -Americans and non- Americans. The National Kidney Disease Education Program (NKDEP) does not endorse the use of the MDRD equation for patients that are not between the ages of 18 and 70, are , have extremes of body size, muscle mass, or nutritional status, or are non- or non-. According to the National Kidney Foundation, irrespective of diagnosis, the stage of the disease is based on the level of kidney function: Stage Description GFR(mL/min/1.73 m(2)) 1 Kidney damage with normal or decreased GFR 90 2 Kidney damage with mild decrease in GFR 60-89 3 Moderate decrease in GFR 30-59 4 Severe decrease in GFR 15-29 5 Kidney failure <15 (or dialysis) 343 CHOLESTEROL INTERPRETATION: Desirable: Less than 200 MG/DL Borderline-High Risk: 200-239 MG/DL High-Risk: 240 MG/DL and over 344 HDL INTERPRETATION: Undesirable: High Risk: Less than 40 MG/DL Desirable: Low Risk: Greater than 60 MG/DL 345 LDL INTERPRETATION: Low Risk Optimal Level: LDL Less than 100 MG/DL Near or Above Optimal: LDL 100-129 MG/DL Borderline High Risk: LDL 130-159 MG/DL High Risk: LDL 160-189 MG/DL Very High Risk: LDL Greater than 189 MG/DL 346 -- REFERENCE VALUE -- Cutoff: 1000 347 -- REFERENCE VALUE -- Cutoff: 200 348 -- REFERENCE VALUE -- Cutoff: 200 349 -- REFERENCE VALUE -- Cutoff: 300 350 -- REFERENCE VALUE -- Cutoff: 0.5 351 -- REFERENCE VALUE -- Cutoff: 300 352 -- REFERENCE VALUE -- Cutoff: 300 353 -- REFERENCE VALUE -- Cutoff: 300 354 -- REFERENCE VALUE -- Cutoff: 300 355 *Drug confirmation ordered by reflex. Refer to confirmation result to follow for the definitive result. This report is intended for use in clinical monitoring or management of patients. It is not intended for use in employment-related testing. Test Performed by: [facility] [address] [place] [address] [employer]: Kenn Garcia III, M.D. 356 CHOLESTEROL INTERPRETATION: Desirable: Less than 200 MG/DL Borderline-High Risk: 200-239 MG/DL High-Risk: 240 MG/DL and over 357 HDL INTERPRETATION: Undesirable: High Risk: Less than 40 MG/DL Desirable: Low Risk: Greater than 60 MG/DL 358 LDL INTERPRETATION: Low Risk Optimal Level: LDL Less than 100 MG/DL Near or Above Optimal: LDL 100-129 MG/DL Borderline High Risk: LDL 130-159 MG/DL High Risk: LDL 160-189 MG/DL Very High Risk: LDL Greater than 189 MG/DL 359 This report is intended for use in clinical monitoring and management of patients. It is not intended for use in employment-related drug testing. Test Performed by: [facility] [address] [place] [address] [employer]: Kenn Garcia III, M.D. 360 PLEASE NOTE NEW REFERENCE RANGE EFFECTIVE 08. 361 Anion gap measurement may be of limited value in the presence of any alkalosis, especially in a combined acid base disorder. . 362 Note change in reference range as of 12/28/07. The change was based on recommendations from the [place] [employer]. 363 Please note change in reference range effective 07 . 364 A metabolite of Naproxen, O-desmethylnaproxen, has been shown to interfere with the [place]-Emelia method for measuring total bilirubin. Samples from patients who have taken Naproxen have shown spurious elevation in total bilirubin levels. 365 Because ethnic data is not always readily available, this report includes an eGFR for both -Americans and non- Americans. The National Kidney Disease Education Program (NKDEP) does not endorse the use of the MDRD equation for patients that are not between the ages of 18 and 70, are , have extremes of body size, muscle mass, or nutritional status, or are non- or non-. According to the National Kidney Foundation, irrespective of diagnosis, the stage of the disease is based on the level of kidney function: Stage Description GFR(mL/min/1.73 m(2)) 1 Kidney damage with normal or decreased GFR 90 2 Kidney damage with mild decrease in GFR 60-89 3 Moderate decrease in GFR 30-59 4 Severe decrease in GFR 15-29 5 Kidney failure <15 (or dialysis) 366 Recommended INR for Patients on Oral Anticoagulants Prophylaxis 2.0 - 3.0 Treatment of thrombosis 2.0 - 3.0 Prevention of embolism 2.0 - 3.0 Prevention of embolism from prosthetic heart valves 2.5 - 3.5 367 ATTENTION EFFECTIVE 09/18/08, THE IMPLEMENTATION OF NEW COAGULATION ANLAYZERS HAS CAUSED A SIGNIFICANT DIFFERENCE FOR PROTIME RESULTS IN SECONDS. THEREFORE, DIAGNOSIS,TREATMENT,AND THERAPY MUST BE BASED ON THE INR VALUE ONLY. Procedures Date CPT Code Description Status 10/25/2016 83975 Plethysmography Determination Lung Volumes & Per Airway Completed Resist 10/25/2016 18685 Pulmonary Function><Bronchodil Completed 11/07/2012 84268 EEG Recording Awake & Drowsy Completed 09/28/2012 62322 Stress Test Completed 09/28/2012 08371 Myocardial Perfusion Imaging Tomographic (Spect) Completed Multiple Studies 09/27/2012 76302 Holter Monitoring 24 HR New Completed 09/27/2012 81465 Holter Monitoring 24 HR New Completed 09/20/2012 97908 ECHO Transthorasic Realtime 2D W Doppler & Color Flow Completed Hosp 09/15/2012 97544 EKG Tracing & Interpretation Completed 11/18/2011 07453 Color Flow Doppler/Interp & Reprt Completed 11/18/2011 14375 Pulse Wave/Continuous-Interp.RPT Completed 11/18/2011 32139 ECHO Transthorasic Realtime 2D W Doppler & Color Flow Completed Hosp 11/08/2011 40942 Holter Monitor Review (24 hr)dr review & interp only Completed 10/20/2011 75439 EKG Tracing & Interpretation Completed 05/22/2009 01802 EKG Tracing & Interpretation Completed 02/14/2009 28939 EKG Tracing & Interpretation Completed 01/20/2009 86256 Treadmill Interp/Report Only Completed 01/20/2009 75776 Stress Test Supervsn W/Out I/R Completed 12/30/2008 56752 Holter Monitor Interpretation Completed 12/26/2008 16797 EKG Tracing & Interpretation Completed 12/06/2008 32241 Selective Coronary Angioplasty Completed 12/06/2008 04892 S/I/R Inj Proc Vent And Or Atrial Completed 12/06/2008 40998 Coronary Angiography Completed 12/06/2008 93683 Inj Proc LFT Vent/LFT Atrl Angio Completed 12/06/2008 84537 Left Heart Catheterization Completed 12/05/2008 64868 Treadmill Interp/Report Only Completed 12/05/2008 98490 Stress Test Supervsn W/Out I/R Completed 12/02/2008 90399 EKG, Interpretation Only Completed 12/01/2008 69524 Color Flow Doppler/Interp & Reprt Completed 12/01/2008 99844 Echocardiography, Transesophageal, Real Time W/Image 2D Completed W/W/O M-M Encounters Type Date Location Provider CPT E/M Dx Office Visit 11/16/2017 10:20a [facility] Internal Pankaj Leslie, [address] F11.29 Medicine - [place] Blue,FACP I10 I48.0 Office Visit 09/21/2017 2:00p [facility] Internal Panakj Leslie, [address] F11.21 Medicine - [place] Fermin Blue,FACP K08.3 R73.01 Office Visit 08/15/2017 2:10p [facility] Pankaj Leslie, [address] J44.1 - [place] Fermin Blue,FACP F11.19 Z12.11 Office Visit 07/25/2017 3:20p [facility] Internal Pankaj Leslie, 69103 F11.19 Medicine - [place] Fermin Blue,FACP Office Visit 06/08/2017 2:20p [facility] Internal Pankaj Leslie, 49800 F11.19 Medicine - [address] M.D.,FACP I10 Z12.11 Z23 Office Visit 04/27/2017 9:50a [facility] Internal Pankaj LaiToni Leslie, 01375 F11.19 Medicine - [address] M.D.,FACP M54.42 I10 Office Visit 01/03/2017 2:50p [facility] Internal Pankaj LaiToni Leslie, 10870 F11.19 Medicine - [address] M.D.,FACP J44.1 I10 Z23 Office Visit 12/01/2016 3:40p [facility] Internal [facility] Pankaj Delilah Leslie, 80098 J44.1 - [address] M.D.,FACP F11.19 F17.210 Office Visit 10/06/2016 4:40p [facility] Internal Pankaj Delilah Leslie, 70359 F11.19 Medicine - [address] M.D.,FACP I10 I48.0 K29.60 J42 Office Visit 08/23/2016 2:40p [facility] Internal Pankaj Delilah Leslie, 03088 F11.10 Medicine - [address] M.D.,FACP I10 Office Visit 07/23/2016 9:20a [facility] Internal Pankaj Delilah Leslie, 58950 F11.10 Medicine - [address] M.D.,FACP I10 Office Visit 07/16/2016 10:40a [facility] Internal Pankaj Delilah Leslie, 02345 F11.10 Medicine - [address] M.D.,FACP Office Visit 07/15/2016 2:00p [facility] Pankaj Delilah Leslie, 73422 F11.10 Medicine - [address] M.D.,FACP I48.0 N52.9 I67.9 Z72.0 F17.210 Office Visit 11/12/2015 11:08a [facility], Bennett Rankin, 96333 J18.9 Hospitalists M.Delilah I25.10 I10 Z72.0 Office Visit 11/11/2015 11:08a [facility], Bennett Rankin, 49876 J18.9 Hospitalists M.Delilah I25.10 I10 Z72.0 Office Visit 11/10/2015 11:07a [facility], Bennett Rankin, 34163 J18.9 Hospitalists M.Delilah I25.10 I10 Z72.0 Office Visit 06/28/2013 10:45a [facility] Rosy Marcial, 25101 345.40 Services Of [employer] Delivery Driver M.D. 296.80 Office Visit 03/23/2013 8:45a [facility] Rosy Marcial, 36668 780.4 Services Of [employer] Driver M.D. 437.9 Office Visit 12/15/2012 1:45p [facility] Rosy Marcial, 77069 780.4 Services Of [employer] Delivery Driver M.D. Office Visit 11/03/2012 11:00a [facility] Rosy Marcial, 92085 780.4 Services Of [employer] Delivery Driver M.D. 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 427.31 780.4 401.1 Office Visit 05/22/2009 11:00a [facility] Jean Marie Rodriguez, 40803 414.01 M.D. 272.4 427.31 Office Visit 03/17/2009 4:00p DO Not Use Freight Delivery Driver AT Bryanna Bonner, 84444 414.01 [place] M.D. 272.4 292.84 Office Visit 02/14/2009 11:00a [facility] Jean Marie Rodriguez, 61509 414.01 M.D. 414.0 272.4 427.31 Office Visit 02/12/2009 9:40a DO Not Use Fre[employer] Delivery Driver AT Bryanna Bonner, 35757 414.01 [facility] M.D. 414.0 272.4 Office Visit 01/02/2009 9:00a [facility] 04817 427.31 [facility] M.D. 434.91 414.01 521.03 292.84 304.22 Office Visit 12/26/2008 11:20[facility] Jean Marie Gustafsonboubacar, 65249 427.31 MHema 434.91 414.01 Office Visit 12/07/2008 3:30a [facility] Luke Rodney, 17395 427.31 Assoc, Hospitalists Su 434.91 786.50 Office Visit 12/06/2008 3:45a [facility] Isa Tiru, 22412 427.31 Assoc, Hospitalists Su 434.91 Office Visit 12/04/2008 1:00a [facility] Assoc,pc Maikol Sykes, 22049 434.91 Hospitalists Su 427.31 Office Visit 12/03/2008 12:30a [facility] Assoc,pc Maikol Sykes, 94057 434.91 Hospitalists Su 427.31 305.60 Office Visit 12/02/2008 1:15a [facility], 55592 427.31 Assoc, Hospitalists Su 434.91 Office Visit 12/01/2008 12:15a [facility] Tiru, 48985 434.91 Assoc, Hospitalists Su 427.31 Plan of Care Future Appointment(s):01/20/2018 11:50 am - Pankaj Leslie M.D.,FACP at [facility] Internal Medicine - [address]12/19/2017 - Pankaj Leslie M.D.,[id number] Nondisp fx of prox phalanx of l less toe(s), init for opn fxComments:Have LT foot X-ray performed today to assess cause of symptoms.F11.21 Opioid dependence , in remissionComments:Patient doing well on Suboxone, no major cravings. 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 Continue counseling. UDS received in office today. Call us if you need refills.
[2017-12-31] MEDS ORDERED: NS 0.9% 1000 ML* 3,000 ML IV ONE (01:43)
--- NOTE | 2017-12-31 02:13 | RAD ---
EXAM: CT Head Without Intravenous Contrast CLINICAL HISTORY: 52 years old, male; Signs and symptoms; Altered mental status/memory loss; Patient HX: AMS HX of CVA TECHNIQUE: Axial computed tomography images of the head/brain without intravenous contrast. All CT scans at this facility use at least one of these dose optimization techniques: automated exposure control; mA and/or kV adjustment per patient size (includes targeted exams where dose is matched to clinical indication); or iterative reconstruction. COMPARISON: BRAIN W/WO CT BRAIN W/WO 10/13/2011 4:39 PM FINDINGS: Artifacts: Study is degraded by motion artifact. Brain: Focal defect involving the left frontal lobe. Disruption of the cerebral cortex with associated subcortical white matter abnormality. This could represent an area of old infarction. No evidence of acute intracranial hemorrhage. No intracranial mass or mass effect. Abnormality involving the superior aspect of the right cerebellar hemisphere in which there is loss of the normal ortiz matter and white matter. This could also represent an area of infarction. No evidence of acute or subacute infarct is seen. Since prior head CT of 10/13/2011, and no new findings. Ventricles: Unremarkable. No ventriculomegaly. Bones/joints: Unremarkable. No acute fracture. Soft tissues: Unremarkable. Sinuses: Unremarkable as visualized. No acute sinusitis. Mastoid air cells: Unremarkable as visualized. No mastoid effusion. IMPRESSION: 1. Study is degraded by motion. 2. Area of old infarction involving the left frontal lobe and right cerebellar hemisphere. 3. No evidence of acute intracranial hemorrhage. No intracranial mass or obstructive hydrocephalus.
[2017-12-31] MEDS ORDERED: Etomidate* 2 MG/ML 20 ML VIAL (40 MG) ONE (03:15)
[2017-12-31] MEDS ORDERED: Succinylcholine* 20 MG/ML 10 ML VIAL ONE (03:16)
[2017-12-31 03:54] LABS: EGFR Non-African American 11.6 (>60)
[2017-12-31] MEDS ORDERED: Midazolam* 1 MG/ML 5 ML VIAL (5 MG) ONE (03:54)
[2017-12-31] MEDS ORDERED: Midazolam* 1 MG/ML 10 ML VIAL (10 MG) ONE (03:55)
[2017-12-31] MEDS ORDERED: Midazolam* 1 MG/ML 5 ML VIAL (5 MG) SLOW PUSH ONE (03:55)
[2017-12-31] MEDS ORDERED: cefTRIAXone(*) 1 GM in NS 0.9% 50 ML* 50 ML IVPB ONE (03:57)
[2017-12-31] MEDS ORDERED: Midazolam IV for DRIP* 100 MG in NS 0.9% 100 ML* 80 ML IV SCH (04:00)
[2017-12-31] MEDS ORDERED: Midazolam BAG 1 MG/ML* 100 MG/100 ML BAG IV ONE (04:02)
[2017-12-31] MEDS ORDERED: cefTRIAXone(*) 1 GM ADVAN/BAG ONE (04:03)
[2017-12-31 04:40] VITALS: BP 109/65
--- NOTE | 2017-12-31 10:30 | RAD ---
Indication: Dyspnea. History of chronic obstructive pulmonary disease. History of tobacco use. Comparison: November 15, 2016 chest radiograph. Technique: Upright AP 0050 hours Report: Mild elevation of the LEFT hemidiaphragm with suggestion of gas distention of the stomach. Linear atelectasis at the LEFT lung base. LEFT suprahilar subtle vague nodular foci and increased alveolar opacity. Linear atelectasis at the RIGHT midlung zone. Patchy rarefaction of upper lung zone interstitial markings. Probable small LEFT pleural effusion. Negative for pneumothorax. The heart, pulmonary vasculature, and mediastinal contours are unremarkable. IMPRESSION: #. LEFT suprahilar opacities and generalized mild alveolar opacity concerning for pneumonia. Radiographic follow-up warranted to assess for resolution. #. Bilateral subsegmental atelectasis. #. Stigmata of chronic obstructive pulmonary disease. R1
--- NOTE | 2017-12-31 11:36 | RAD ---
Indication: Worsening dyspnea. History of COPD. Comparison: 00 50 hours exam of the same date. Technique: Upright AP 0300 hours Report: Significant interval worsening of prominence of the central pulmonary vasculature and LEFT greater than RIGHT perihilar opacities suspicious for worsening pulmonary vascular congestion and interstitial edema. Probable small LEFT pleural effusion. Mild cardiomegaly. IMPRESSION: #. Significant interval worsening of pulmonary edema compared with the earlier exam of the same day. R2
--- NOTE | 2017-12-31 11:42 | RAD ---
Indication: Intubation and orogastric tube placement. Dyspnea. COPD. Comparison: 0300 hours exam of the same date. Technique: Supine AP 0355 hours Report: Tip of endotracheal tube 5 cm above the Chere[place]. Tip of orogastric tube at level of gastric body. Prominent central pulmonary vasculature with LEFT greater than RIGHT perihilar opacities. Unchanged mild RIGHT midlung zone and LEFT basilar atelectasis. Probable small LEFT pleural effusion. Negative for pneumothorax. IMPRESSION: #. Acceptable position of the endotracheal and orogastric tubes. #. Pulmonary vascular congestion and asymmetric alveolar edema without significant interval change. R2 Results discussed with Dr. Sherman 12/31/2017 11:38 AM EDT
--- NOTE | 2018-01-03 12:00 | ED ---
Progress - Progress Note Progress Note: Patient's final radiology report Chest AP at 12:24 AM on 12/31/2017 reveals "Impression: 1. left suprahilar opacities and generalized mild alveolar opacities concerning for pneumonia. Radiographic follow-up warranted to assess for resolution. 2. Bilateral subsegmental atelectasis 3. Stigmata of chronic obstructive pulmonary disease". Second chest AP portable taken at 2:57 AM on 12/31/2017 reveals "Impression: significant interval worsening of pulmonary edema compared with earlier exam of the same day". Patient was transferred. All records including images were sent with pt. No further action at this time. Course/Dx - Diagnoses Provider Diagnoses: Acute renal failure, Hyperkalemia - Critical Care Time Critical Care Time: 30-74 min - 52-year-old man with dyspnea and also acute renal failure with hyperkalemia, requiring close monitoring and acute treatment of his elevated potassium Discharge - Sign-Out/Discharge Documenting (check all that apply): Post-Discharge Follow Up - Discharge Plan Condition: Guarded Disposition: TRANS HIGHER LVL OF CARE FAC Referrals: Pankaj Leslie MD [Primary Care Provider] - - Billing Disposition and Condition Condition: GUARDED Disposition: Trans Higher Lvl of Care Fac
== END 2017-12-31 04:46 | disposition short-term general hospital (02) ==
LOC: ED 00:15
DX: N17.9 Acute kidney failure, unspecified (principal); E87.5 Hyperkalemia; I10 Essential (primary) hypertension; Z86.73 Personal history of transient ischemic attack (TIA), and cerebral infarction without residual deficits; J45.909 Unspecified asthma, uncomplicated; F17.210 Nicotine dependence, cigarettes, uncomplicated; J44.9 Chronic obstructive pulmonary disease, unspecified; Z79.01 Long term (current) use of anticoagulants
CPT/HCPCS: 36415; 70450; 71045; 80048; 80053; 80320; 82803; 85025; 87040; 93005; 96361; 96374; 96375; 99285; A9270-GY; G0480; J0330; J0610; J0696; J1100; J2250; J7611

== ENCOUNTER → 2018-01-31 17:57 | Emergency (ER) | payer OTHER ==
--- OUTSIDE RECORDS SUMMARY | 2018-02-02 07:36 | XMS REPORT ---
:1965 External Reference #:[id number] Author Organization [facility] Address [address] [place] [address] [place] [address] Phone [phone] Care Team Providers Name Role Phone Dianne Ocampo FNP Care Team Information Private Branch Exchange Service Adviser Unavailable Pankaj Leslie MD Primary Care Physician Unavailable Payers Type Date Identification Numbers Payment Provider Subscriber Commercial Effective: Policy Number: [id number] [employer] Morris Gutierrez 2016 Medicaid PayID: [id number] [facility] [address] [place] [address] Commercial Expires: 2016 Policy Number: [employer] Morris Gutierrez [id number] [employer] Name: [id number] [address] [id number] PayID: [id number] [place] [address] Problems Date Description Provider Status Onset: 07/15/2016 [...] Onset: 07/15/2016 Nondependent cocaine abuse, Pankaj Leslie M.D., FACP Active episodic Onset: 07/15/2016 Bipolar I disorder Pankaj Leslie M.D.,LAKEISHA Active Note: per Aggie Onset: 07/15/2016 History of cerebrovascular Pankaj Leslie, Active accident [place] Blue Note: right facial droop Onset: 01/13/2018 Ex-smoker Pankaj Leslie, Active [place] Blue Onset: 07/15/2016 Complex partial seizure with Pankaj Leslie, Inactive impairment of consciousness [place] Blue Inactive: 07/15/2016 Onset: 10/20/2011 Dizziness and giddiness Jean Marie Rodriguez M.D. Inactive Inactive: 07/15/2016 Onset: 10/20/2011 Atrial fibrillation Jean Marie Rodriguez M.D. 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 [employer] Cigarette Use 07/15/2016 Heavy tobacco smoker (more than 1 ppd for 30 years 10 cigarettes/day) ETOH Use 01/03/2017 Has consumed alcohol in the past abuse ETOH Use 04/27/2017 Denies alcohol use Recreational Drug Use 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 Smoking Light tobacco smoker (10 or fewer cigarettes/day) Recreational Drug Use Former Drug User Smoking Patient is a former smoker General Hx Text 3 kids Allergies, Adverse Reactions, Alerts Date Description Reaction Status Severity Comments 11/03/2012 Naproxen active 12/26/2008 NKDA inactive Medications Medication Date Status Form Strength Qnty SIG Indications Ordering Provider Sucralfate 01/20 Active Tablets 1gm 60tab 1by mouth Pankaj /2017 s four times Delilah Leslie, a day as [place] Blue needed Amlodipine 01/20 Active Tablets 2.5mg 30tab 1 by mouth Pankaj Besylate s every day Delilah Leslie M.D.,BECKIEP Losartan 01/20 Active Tablets 50mg 90tab 1 by mouth Pankaj Potassium /2017 s every day Delilah Leslie M.D.,FACP Pantoprazole 01/[address] 40mg 30tab 1 by mouth Pankaj s every day Delilah Leslie M.D.,BECKIEP Suboxone 11/16 Active Film 12-3mg 14uni 1 strip sl ts once a day Delilah Leslie M.D.,FACP Nicotine 08/15 Active Patches 21mg/24HR 28uni apply patch 24HR ts daily, Delilah Leslie, remove old Su,FACP one at the same time x's 6 wks Nicotine 08/15 Active Gum 4mg 100un chew q2h Polacrilex its prn Delilah Leslie M.D.,BECKIEP Gabapentin 04/27 Active Capsules 300mg 90cap 1 by mouth s 3x a day Delilah Leslie M.D.,[place] Cialis 12/01 Active Tablets 5mg 30tab every day s by mouth Delilah Leslie M.D.,FACP Albuterol 12/01 Active Nebulizer (2.5mg/3M 75ml 1 vial via L) 0.083% nebulizer 4 D. Mariama, times daily M.DToni,FACP as needed Aspirin 07/15 Active Tablets 325mg 45tab 1/2 by s mouth every DToni Leslie, day M.D.,FACP Advair Diskus Active Aerosol 250-50mcg 60uni 1 puff by Pankaj / /Dose ts mouth twice Delilah Leslie, a day M.D.,FACP Ventolin HFA Active Aerosol 108(90Bas 18uni 2 puffs by / e) ts mouth four D. Mariama, mcg/Act times a day M.D.,FACP as needed Diltiazem HCL ER Active Caps ER 300mg 30cap 1 by mouth Coated Beads 24HR s every day Delilah Leslie M.D.,FACP Magnesium Oxide Active Tablets 400(241.3 Unknown /0000 Mg) mg Ipratropium Active Solution 0.5-2.5(3 Unknown Naylor/Albutero /0000 )mg/3ML l Sulfate Amitriptyline Active Tablets 25mg one tab Unknown HCL /0000 daily prn Diphenhydramine Active Capsules 25mg 30cap one at [facility] HCL /0000 s bedtime as Delilah Leslie, needed M.D.,[facility] Omeprazole 01/[address] 20mg 1 by mouth every day Delilah Leslie, - Su,[facility] 01/13 Carafate 01/13 Hx Suspension 1GM/10ML 420un give 10ml its by mouth Delilah Leslie, - four times M.D.,[facility] 01/20 a day needed Ibu 09/21 Hx Tablets 800mg 90tab 1 po tid s prn Delilah Leslie, Gomez Blue,[facility] 01/13 Prednisone 08/15 Hx Tablets 10mg 12tab 6 tabs s every day Delilah Leslie, - for 4 days, MHema,[facility] 09/21 then reduce by 1 tab every 2 days until finished (to complete supply) Azithromycin 08/15 Hx Tablets 250mg 6tabs 2 every day for 1 day, Delilah Leslie, - then 1 M.D.,[facility] 08/20 every Suboxone 04/27 Hx Film 8-2mg 14uni 1 strip ts once day Delilah Leslie, - mdd 1 M.D.,[facility] 07/25 Suboxone 04/27 Hx Film 8-2mg 6unit 1 strip sl s once day Delilah Leslie, - mdd 1 mdd 1 M.D.,[facility] 11/16 Suboxone 03/30 Hx Film 12-3mg 3unit 1/2 strip s sl once a DToni Leslie, - day (pt M.D.,[facility] 04/27 states is taking a whole strip daily) Doxycycline 01/03 Hx Tablets 100mg 20tab 1 by mouth [facility] Hycl s twice a day Gomez Crum M.D.,[facility] 01/13 Prednisone 12/01 Hx Tablets 10mg 30tab 4 tabs s every day Delilah Leslie, Gomez for 4 days, Su,[facility] 01/03 then reduce by 1 tab every 2 days until finished Augmentin 12/01 Hx Tablets 875-125mg 14tab by mouth s twice a day Gomez Crum M.D.,[facility] 12/08 Omeprazole 10/[address] 20mg 30cap 1 by mouth Alsey s every day Leah Dyer M.D. 01/13 Suboxone 07/23 Hx Film 12-3mg 14uni 1 strip ts once a day Gomez Crum MDD 1 M.Delilah,[facility] 03/30 Suboxone 07/15 Hx Film 8-2mg 5unit 1 strip sl s once day Gomez rCum M.D.,[facility] 07/23 Depakote ER 06/28 Hx Tablets ER 500mg 60tab Not taking. Rosy Toni 24HR s 2 po qhs Gomez Marcial M.DToni 07/15 Depakote 03/[address] 500mg 90tab 2 tabs po q Rosy Chiu s am and 1 Aggie, - tas po q M.D. 06/28 Zonisamide 12/15 Hx Capsules 50mg 90cap 2-3 caps by Rosy Toni s mouth every Aggie, - night as M.D. 06/28 Diltiazem CD 10/19 Hx Caps ER 120mg 60cap 2 po qd (pt 24HR s reports F. - taking Mauser, 07/15 300mg qd) M.D. Aspirin 10/19 Hx Tablets 81mg Pt states he takes F. - 1/2 of a Mauser, 07/15 325mg 1 po M.D. /2016 qd Pravachol 07/22 Hx Tablets 10mg 15tab 1/2 po qd s F. - Mauser, 08/05 M.D. Lopressor 07/07 Hx Tablets 25mg 60tab 1 po bid s Meche Rodriguez, 10/19 M.D. Zocor 06/10 Hx Tablets 10mg 30tab 1 tablet 3X 414.01 s per week F. Gomez Rodriguez, 07/22.D. Zantac 03/12 Hx Capsules 150mg 180ca 1 cap po 530.81 ps bid c, - Rameshomir, 10/19 M.D. Zocor 02/12 Hx Tablets 40mg 30tab 1 po qd 414.01 s c, - Radomir, 06/10 M.D. Plavix 02/07 Hx Tablets 75mg 30tab 1 po qd 414.01 s c, - Radomir, 10/19.D. Cartia XT 01/20 Hx Caps ER 120mg 90cap 1 po qd 24HR s Meche Rodriguez, 07/07.D Wellbutrin SR 01/02 Hx Tablets ER 150mg 60tab 1 tablet po 427.31 12HR s every 12 c, - hours Rameshomnayely, 02/26.D Metoprolol 12/26 Hx Tablets ER Unsure-Wi 180ta 1 po bid ll Call FToni - Jennifer, 12/26.D Metoprolol 12/26 Hx Tablets ER 25mg 30tab 1/2 po bid s until F. - 12/31/08 and Jennifer, 01/20 then 1/2 po M.D. qd until 01/04/09 and then discontinue Aspirin Hx Tablets 325mg 100ta 1 po qd Stevano / bs c, - Radomir, 10/19 M.D. Folic Acid Hx Tablets 1mg 30tab 1 tablet po Stevanovi /0000 s qd c, - Radomir, 10/19 M.D. Vitamin B12 Hx Tablets 100mcg 90tab 1 tablet po 414.01 Stevanovi /0000 s Daily c, - Radomir, 05/22 M.D. Protonix Hx Tablets DR 20mg 90tab 1 po qd Stevanovi /0000 s c, - Radomir, 03/12 M.D. Niaspan Hx Tablets ER 500mg 30tab 1tab pm Jean Marie /0000 s Meche Dyer Hannalan, 10/19 M.D. Cartia XT Hx Caps ER 120mg 90cap 1 po qd Unknown /0000 24HR s - 10/19 Diltiazem CD Hx Caps ER 120mg 90cap 1 po qd Unknown /0000 24HR s - 10/19 Cialis Hx Tablets 2.5mg 30tab by mouth Pankaj /0000 s every day Gomez Crum M.D.,[facility] 12/01 Losartan Hx Tablets 100mg 30tab 1 by mouth Pankaj Potassium /0000 s every day Gomez Crum M.D.,[facility] 01/20 Q-Tussin DM Hx Syrup 100-10mg/ Unknown /0000 5ML - 01/20 Azithromycin Hx Tablets 250mg Unknown /0000 - 01/13 Amoxicillin/Clav Hx Tablets 875-125mg Unknown ulanate /0000 Potassium - 01/13 Amlodipine Hx Tablets 5mg daily Unknown Besylate /0000 - 01/20 Prednisone Hx Tablets 10mg Unknown /0000 - 01/13 Medications Administered in Office Medication Date Status Form Strength Qnty SIG Indications Ordering Provider Technetium TC Administered Injection Olimpia 99M 013 Wily Thompson M.D. Per Unit Dose Up To 40 Millicuries Immunizations CPT Code Status Date Vaccine Lot # [id number] Given 06/08/2017 Influenza Virus Vaccine, Quadrivalent, Split, [id number] Preservative Free [id number] Given 01/03/2017 Pneumonia Vaccine [id number] Vital Signs Date Vital Result Comment 01/20/2018 Height 72 inches 6'0" Weight 193.00 lb Heart Rate 94 /min BP Systolic Sitting 130 mmHg BP Diastolic Sitting 92 mmHg Body Temperature 98.2 F O2 % BldC Oximetry 92 % BMI (Body Mass Index) 26.2 kg/m2 01/13/2018 Height 72 inches 6'0" Weight 193.00 lb Heart Rate 107 /min BP Systolic 90 mmHg BP Diastolic 60 mmHg Body Temperature 98.7 F O2 % BldC Oximetry 91 % BMI (Body Mass Index) 26.2 kg/m2 12/19/2017 Height 72 inches 6'0" Weight 213.00 [...] Test Date Test Result H/L Range Note Comp Metabolic Panel 01/20/2018 Sodium 138 mmol/L 135-145 Potassium 4.0 mmol/L 3.5-5.0 Chloride 98 mmol/L Low 101-111 Co2 Carbon Dioxide 33 mmol/L High 22-32 Anion Gap 7 mmol/L 2-11 Calcium 8.7 mg/dL 8.6-10.3 Albumin 3.4 g/dL 3.2-5.2 Total Bilirubin 0.40 mg/dL 0.2-1.0 Glucose 113 mg/dL High 70-100 Blood Urea Nitrogen 15 mg/dL 6-24 Creatinine 1.29 mg/dL High 0.67-1.17 BUN/Creatinine Ratio 11.6 8-20 Total Protein 7.0 g/dL 6.4-8.9 Globulin 3.6 g/dL 2-4 Albumin/Globulin Ratio 0.9 Low 1-3 Alkaline Phosphatase 90 U/L 34-104 Alt 18 U/L 7-52 Ast 19 U/L 13-39 Egfr Non- 59.0 >60 Egfr 71.3 >60 1 Laboratory test finding 01/20/2018 Hepatitis C Antibody <pending> Hepatitis B Hanna AB Titer <pending> Liver-Kidney Microsome Igg Abs <pending> Hepatitis A Igg Antibody, Serum <pending> Smooth Muscle Antibody <pending> Nuclear AB (Isela) By Ifa Igg <pending> Alcohol < 10 mg/dL <10 Basic Metabolic Panel 12/31/2017 Sodium 136 mmol/L 135-145 Chloride 101 mmol/L 101-111 Co2 Carbon Dioxide 24 mmol/L 22-32 Glucose 92 mg/dL 70-100 Blood Urea Nitrogen 88 mg/dL High 6-24 Creatinine 5.29 mg/dL High 0.67-1.17 BUN/Creatinine Ratio 16.6 8-20 Calcium 7.8 mg/dL Low 8.6-10.3 Egfr Non- 11.6 >60 Egfr 14.0 >60 2 Potassium 5.3 mmol/L High 3.5-5.0 Anion Gap 11 mmol/L 2-11 Arterial Blood Gas 12/31/2017 O2 Device nasal cannula PH Arterial 7.18 Low 7.35-7.45 3 Pco2 Arterial 60 mmHg High 35-45 Po2 Arterial 66 mmHg Low 80-100 O2 Saturation Arterial 92.3 % Low 95-98 Base Excess Arterial -6.9 Low -2.0-2.0 4 Hco3 Arterial 19.3 mmol/L 19- Drug Abuse 20 Urine 12/19/2017 Urine Amphetamine Negative ng/mL 5 Urine Barbiturates Negative ng/mL 6 Urine Benzodiazepines Negative ng/mL 7 Urine Cocaine Negative ng/mL 8 Urine Phencyclidine Negative ng/mL Cutoff: 25 Urine Tetrahydrocannabinol Presumptive Posi <SEE NOTE> ng/mL Cutoff: 50 9 Creatinine, Urine 160.4 mg/dL Specific [place] 1.016 pH 5.5 Oxidants Negative 10 Adulterants Comment Normal Codeine, Ur Present ng/mL Cutoff: 25 11 Vinhktk-5-rtyg-glucuronide, Ur Present ng/mL 12 Morphine, Ur Present ng/mL Cutoff: 25 13 Qbkebzgs-9-dlsd-glucuronide, U Present ng/mL 14 6-monoacetylmorphine, Ur Present ng/mL Cutoff: 25 15 Hydrocodone, Ur Not Detected ng/mL Cutoff: 25 16 Norhydrocodone, Ur Not Detected ng/mL Cutoff: 25 17 Dihydrocodeine, Ur Not Detected ng/mL Cutoff: 25 18 Hydromorphone, Ur Not Detected ng/mL Cutoff: 25 19 Coqvzjtqbcflp5gokwgdrrkjkdkny Present ng/mL 20 Oxycodone, Ur Not Detected ng/mL Cutoff: 25 21 Noroxycodone, Ur Not Detected ng/mL Cutoff: 25 22 Oxymorphone, Ur Not Detected ng/mL Cutoff: 25 23 Ykhgbjsqtzf-5-iysv-glucuronide Not Detected ng/mL 24 Noroxymorphone, Ur Not Detected ng/mL Cutoff: 25 25 Fentanyl, Ur Present ng/mL Cutoff: 2 26 Norfentanyl, Ur Present ng/mL Cutoff: 2 27 Meperidine, Ur Not Detected ng/mL Cutoff: 25 28 Normeperidine, Ur Not Detected ng/mL Cutoff: 25 29 Naloxone, Ur Not Detected ng/mL Cutoff: 25 30 Stcetclb-4-pzfx-glucuronide, U Present ng/mL 31 Methadone, Ur Not Detected ng/mL Cutoff: 25 32 Eddp, Ur Not Detected ng/mL Cutoff: 25 33 Propoxyphene, Ur Not Detected ng/mL Cutoff: 25 34 Norpropoxyphene, Ur Not Detected ng/mL Cutoff: 25 35 Tramadol, Ur Not Detected ng/mL Cutoff: 25 36 O-desmethyltramadol, Ur Not Detected ng/mL Cutoff: 25 37 Tapentadol, Ur Not Detected ng/mL Cutoff: 25 38 N-desmethyltapentadol, Ur Not Detected ng/mL Cutoff: 50 39 Rjlbtenark-hswj-ezmktueshmj, U Not Detected ng/mL 40 Buprenorphine, Ur Not Detected ng/mL Cutoff: 5 41 Norbuprenorphine, Ur Present ng/mL Cutoff: 5 42 Norbuprenorphine glucuronide Present ng/mL Cutoff: 20 43 Opioid Interpretation See Comment 44 THC Confirmation Urine 12/19/2017 Urine Carboxy THC Confirm 17 ng/mL 45 Urine THC Interpretation Positive. 46 Drug Abuse 20 Urine 10/27/2017 Urine Amphetamine Negative ng/mL 47 Urine Barbiturates Negative ng/mL 48 Urine Benzodiazepines Negative ng/mL 49 Urine Cocaine Negative ng/mL 50 Urine Phencyclidine Negative ng/mL Cutoff: 25 Urine Tetrahydrocannabinol Negative ng/mL Cutoff: 50 51 Creatinine, Urine 104.5 mg/dL Specific [place] 1.015 pH 6.5 Oxidants Negative 52 Adulterants Comment Normal Codeine, Ur Present ng/mL Cutoff: 25 53 Tbvwcay-0-srwj-glucuronide, Ur Present ng/mL 54 Morphine, Ur Present ng/mL Cutoff: 25 55 Zhhnuxie-0-vmgr-glucuronide, U Present ng/mL 56 6-monoacetylmorphine, Ur Present ng/mL Cutoff: 25 57 Hydrocodone, Ur Not Detected ng/mL Cutoff: 25 58 Norhydrocodone, Ur Not Detected ng/mL Cutoff: 25 59 Dihydrocodeine, Ur Not Detected ng/mL Cutoff: 25 60 Hydromorphone, Ur Not Detected ng/mL Cutoff: 25 61 Bdewipusndrmu5fopxsslatvpowto Present ng/mL 62 Oxycodone, Ur Not Detected ng/mL Cutoff: 25 63 Noroxycodone, Ur Not Detected ng/mL Cutoff: 25 64 Oxymorphone, Ur Not Detected ng/mL Cutoff: 25 65 Jjzhttdeqsr-6-lzha-glucuronide Not Detected ng/mL 66 Noroxymorphone, Ur Not Detected ng/mL Cutoff: 25 67 Fentanyl, Ur Present ng/mL Cutoff: 2 68 Norfentanyl, Ur Present ng/mL Cutoff: 2 69 Meperidine, Ur Not Detected ng/mL Cutoff: 25 70 Normeperidine, Ur Not Detected ng/mL Cutoff: 25 71 Naloxone, Ur Not Detected ng/mL Cutoff: 25 72 Bpbxzlbx-6-coiv-glucuronide, U Present ng/mL 73 Methadone, Ur Not Detected ng/mL Cutoff: 25 74 Eddp, Ur Not Detected ng/mL Cutoff: 25 75 Propoxyphene, Ur Not Detected ng/mL Cutoff: 25 76 Norpropoxyphene, Ur Not Detected ng/mL Cutoff: 25 77 Tramadol, Ur Not Detected ng/mL Cutoff: 25 78 O-desmethyltramadol, Ur Not Detected ng/mL Cutoff: 25 79 Tapentadol, Ur Not Detected ng/mL Cutoff: 25 80 N-desmethyltapentadol, Ur Not Detected ng/mL Cutoff: 50 81 Wwxnzutggw-jpvq-zvxlqtkwzhb, U Not Detected ng/mL 82 Buprenorphine, Ur Not Detected ng/mL Cutoff: 5 83 Norbuprenorphine, Ur Present ng/mL Cutoff: 5 84 Norbuprenorphine glucuronide Present ng/mL Cutoff: 20 85 Opioid Interpretation See Comment 86 Drug Abuse 20 Urine 09/21/2017 Urine Amphetamine Negative ng/mL 87 Urine Barbiturates Negative ng/mL 88 Urine Benzodiazepines Negative ng/mL 89 Urine Cocaine Negative ng/mL 90 Urine Phencyclidine Negative ng/mL Cutoff: 25 Urine Tetrahydrocannabinol Presumptive Posi <SEE NOTE> ng/mL Cutoff: 50 91 Creatinine, Urine 164.1 mg/dL Specific [place] 1.016 pH 5.9 Oxidants Negative 92 Adulterants Comment Normal Codeine, Ur Present ng/mL Cutoff: 25 93 Qwyemiu-1-tsfr-glucuronide, Ur Present ng/mL 94 Morphine, Ur Present ng/mL Cutoff: 25 95 Keoljxul-9-cddy-glucuronide, U Present ng/mL 96 6-monoacetylmorphine, Ur Present ng/mL Cutoff: 25 97 Hydrocodone, Ur Not Detected ng/mL Cutoff: 25 98 Norhydrocodone, Ur Not Detected ng/mL Cutoff: 25 99 Dihydrocodeine, Ur Not Detected ng/mL Cutoff: 25 100 Hydromorphone, Ur Not Detected ng/mL Cutoff: 25 101 Neabedynzsxnh2zrgtwhqckbjubun Not Detected ng/mL 102 Oxycodone, Ur Not Detected ng/mL Cutoff: 25 103 Noroxycodone, Ur Not Detected ng/mL Cutoff: 25 104 Oxymorphone, Ur Not Detected ng/mL Cutoff: 25 105 Affyopicjbx-2-imkw-glucuronide Not Detected ng/mL 106 Noroxymorphone, Ur Not Detected ng/mL Cutoff: 25 107 Fentanyl, Ur Not Detected ng/mL Cutoff: 2 108 Norfentanyl, Ur Not Detected ng/mL Cutoff: 2 109 Meperidine, Ur Not Detected ng/mL Cutoff: 25 110 Normeperidine, Ur Not Detected ng/mL Cutoff: 25 111 Naloxone, Ur Not Detected ng/mL Cutoff: 25 112 Sxorbwqa-3-hovp-glucuronide, U Present ng/mL 113 Methadone, Ur Not Detected ng/mL Cutoff: 25 114 Eddp, Ur Not Detected ng/mL Cutoff: 25 115 Propoxyphene, Ur Not Detected ng/mL Cutoff: 25 116 Norpropoxyphene, Ur Not Detected ng/mL Cutoff: 25 117 Tramadol, Ur Not Detected ng/mL Cutoff: 25 118 O-desmethyltramadol, Ur Not Detected ng/mL Cutoff: 25 119 Tapentadol, Ur Not Detected ng/mL Cutoff: 25 120 N-desmethyltapentadol, Ur Not Detected ng/mL Cutoff: 50 121 Oxvnjjgdpr-ypuk-xyorwjharbj, U Not Detected ng/mL 122 Buprenorphine, Ur Not Detected ng/mL Cutoff: 5 123 Norbuprenorphine, Ur Present ng/mL Cutoff: 5 124 Norbuprenorphine glucuronide Present ng/mL Cutoff: 20 125 Opioid Interpretation See Comment 126 THC Confirmation Urine 09/21/2017 Urine Carboxy THC Confirm 10 ng/mL 127 Urine THC Interpretation Positive. 128 Lipid Profile (Trig/Chol/HDL) 09/19/2017 Triglycerides 51 mg/dL 129 Cholesterol 197 mg/dL 130 HDL Cholesterol 68.1 mg/dL 131 LDL Cholesterol 119 mg/dL 132 Comp Metabolic Panel 09/19/2017 Sodium 139 mmol/L [...] Egfr Non- 67.3 >60 Egfr 86.6 >60 133 Laboratory test 09/19/2017 Hepatitis C Antibody Nonreactive Nonreactive finding Drug Abuse 20 Urine 07/26/2017 Urine Amphetamine Negative ng/mL 134 Urine Barbiturates Negative ng/mL 135 Urine Benzodiazepines Negative ng/mL 136 Urine Cocaine Negative ng/mL 137 Urine Phencyclidine Negative ng/mL Cutoff: 25 Urine Tetrahydrocannabinol Presumptive Posi <SEE NOTE> ng/mL Cutoff: 50 138 Creatinine, Urine 149.0 mg/dL Specific [place] 1.013 pH 6.4 Oxidants Negative 139 Adulterants Comment Normal Codeine, Ur Not Detected ng/mL Cutoff: 25 140 Mgkynqk-9-josn-glucuronide, Ur Not Detected ng/mL 141 Morphine, Ur Present ng/mL Cutoff: 25 142 Wlcfwngv-5-yebm-glucuronide, U Present ng/mL 143 6-monoacetylmorphine, Ur Not Detected ng/mL Cutoff: 25 144 Hydrocodone, Ur Not Detected ng/mL Cutoff: 25 145 Norhydrocodone, Ur Not Detected ng/mL Cutoff: 25 146 Dihydrocodeine, Ur Not Detected ng/mL Cutoff: 25 147 Hydromorphone, Ur Not Detected ng/mL Cutoff: 25 148 Zmthjcdfzyags2dfkyvrpdavsonco Not Detected ng/mL 149 Oxycodone, Ur Present ng/mL Cutoff: 25 150 Noroxycodone, Ur Present ng/mL Cutoff: 25 151 Oxymorphone, Ur Not Detected ng/mL Cutoff: 25 152 Fufhkbtueza-6-lhch-glucuronide Present ng/mL 153 Noroxymorphone, Ur Present ng/mL Cutoff: 25 154 Fentanyl, Ur Present ng/mL Cutoff: 2 155 Norfentanyl, Ur Present ng/mL Cutoff: 2 156 Meperidine, Ur Not Detected ng/mL Cutoff: 25 157 Normeperidine, Ur Not Detected ng/mL Cutoff: 25 158 Naloxone, Ur Not Detected ng/mL Cutoff: 25 159 Vbupcpyo-7-qmai-glucuronide, U Present ng/mL 160 Methadone, Ur Not Detected ng/mL Cutoff: 25 161 Eddp, Ur Not Detected ng/mL Cutoff: 25 162 Propoxyphene, Ur Not Detected ng/mL Cutoff: 25 163 Norpropoxyphene, Ur Not Detected ng/mL Cutoff: 25 164 Tramadol, Ur Not Detected ng/mL Cutoff: 25 165 O-desmethyltramadol, Ur Not Detected ng/mL Cutoff: 25 166 Tapentadol, Ur Not Detected ng/mL Cutoff: 25 167 N-desmethyltapentadol, Ur Not Detected ng/mL Cutoff: 50 168 Cgviqraxql-fdgw-okceyguabfu, U Not Detected ng/mL 169 Buprenorphine, Ur Not Detected ng/mL Cutoff: 5 170 Norbuprenorphine, Ur Present ng/mL Cutoff: 5 171 Norbuprenorphine glucuronide Present ng/mL Cutoff: 20 172 Opioid Interpretation See Comment 173 THC Confirmation Urine 07/26/2017 Urine Carboxy THC Confirm 22 ng/mL 174 Urine THC Interpretation Positive. 175 Drug Abuse 20 Urine 04/27/2017 Urine Amphetamine Negative ng/mL 176 Urine Barbiturates Negative ng/mL 177 Urine Benzodiazepines Negative ng/mL 178 Urine Cocaine Negative ng/mL 179 Urine Phencyclidine Negative ng/mL Cutoff: 25 Urine Tetrahydrocannabinol Presumptive Posi <SEE NOTE> ng/mL Cutoff: 50 180 Creatinine, Urine 164.9 mg/dL Specific [place] 1.017 pH 6.4 Oxidants Negative 181 Adulterants Comment Normal Codeine, Ur Not Detected ng/mL Cutoff: 25 182 Onumclb-1-qdgj-glucuronide, Ur Not Detected ng/mL 183 Morphine, Ur Not Detected ng/mL Cutoff: 25 184 Fcyblwtq-5-mfzz-glucuronide, U Not Detected ng/mL 185 6-monoacetylmorphine, Ur Not Detected ng/mL Cutoff: 25 186 Hydrocodone, Ur Not Detected ng/mL Cutoff: 25 187 Norhydrocodone, Ur Not Detected ng/mL Cutoff: 25 188 Dihydrocodeine, Ur Not Detected ng/mL Cutoff: 25 189 Hydromorphone, Ur Not Detected ng/mL Cutoff: 25 190 Wzhudpihnqcym0kesknykdfuiehcx Not Detected ng/mL 191 Oxycodone, Ur Not Detected ng/mL Cutoff: 25 192 Noroxycodone, Ur Not Detected ng/mL Cutoff: 25 193 Oxymorphone, Ur Not Detected ng/mL Cutoff: 25 194 Djvfgidfeqm-3-ndzz-glucuronide Not Detected ng/mL 195 Noroxymorphone, Ur Not Detected ng/mL Cutoff: 25 196 Fentanyl, Ur Not Detected ng/mL Cutoff: 2 197 Norfentanyl, Ur Not Detected ng/mL Cutoff: 2 198 Meperidine, Ur Not Detected ng/mL Cutoff: 25 199 Normeperidine, Ur Not Detected ng/mL Cutoff: 25 200 Naloxone, Ur Not Detected ng/mL Cutoff: 25 201 Xjxoezzr-6-iucl-glucuronide, U Present ng/mL 202 Methadone, Ur Not Detected ng/mL Cutoff: 25 203 Eddp, Ur Not Detected ng/mL Cutoff: 25 204 Propoxyphene, Ur Not Detected ng/mL Cutoff: 25 205 Norpropoxyphene, Ur Not Detected ng/mL Cutoff: 25 206 Tramadol, Ur Not Detected ng/mL Cutoff: 25 207 O-desmethyltramadol, Ur Not Detected ng/mL Cutoff: 25 208 Tapentadol, Ur Not Detected ng/mL Cutoff: 25 209 N-desmethyltapentadol, Ur Not Detected ng/mL Cutoff: 50 210 Gzjeurwdsm-cqwe-hkcihpvqhcq, U Not Detected ng/mL 211 Buprenorphine, Ur Not Detected ng/mL Cutoff: 5 212 Norbuprenorphine, Ur Present ng/mL Cutoff: 5 213 Norbuprenorphine glucuronide Present ng/mL Cutoff: 20 214 Opioid Interpretation See Comment 215 THC Confirmation Urine 04/27/2017 Urine Carboxy THC Confirm 40 ng/mL 216 Urine THC Interpretation Positive. 217 Drug Abuse 20 Urine 12/01/2016 Urine Amphetamine Negative ng/mL 218 Urine Barbiturates Negative ng/mL 219 Urine Benzodiazepines Negative ng/mL 220 Urine Cocaine Negative ng/mL 221 Urine Phencyclidine Negative ng/mL Cutoff: 25 Urine Tetrahydrocannabinol Negative ng/mL Cutoff: 50 222 Creatinine, Urine 301.1 mg/dL Specific [place] 1.019 pH 5.8 Oxidants Negative 223 Adulterants Comment Normal Codeine, Ur Not Detected ng/mL Cutoff: 25 224 Davxqms-7-xmau-glucuronide, Ur Not Detected ng/mL 225 Morphine, Ur Not Detected ng/mL Cutoff: 25 226 Dnazayug-2-odvy-glucuronide, U Not Detected ng/mL 227 6-monoacetylmorphine, Ur Not Detected ng/mL Cutoff: 25 228 Hydrocodone, Ur Not Detected ng/mL Cutoff: 25 229 Norhydrocodone, Ur Not Detected ng/mL Cutoff: 25 230 Dihydrocodeine, Ur Not Detected ng/mL Cutoff: 25 231 Hydromorphone, Ur Not Detected ng/mL Cutoff: 25 232 [id number] Not Detected ng/mL 233 Oxycodone, Ur Not Detected ng/mL Cutoff: 25 234 Noroxycodone, Ur Not Detected ng/mL Cutoff: 25 235 Oxymorphone, Ur Not Detected ng/mL Cutoff: 25 236 Knhrkveomzu-8-mnia-glucuronide Not Detected ng/mL 237 Noroxymorphone, Ur Not Detected ng/mL Cutoff: 25 238 Fentanyl, Ur Not Detected ng/mL Cutoff: 2 239 Norfentanyl, Ur Present ng/mL Cutoff: 2 240 Meperidine, Ur Not Detected ng/mL Cutoff: 25 241 Normeperidine, Ur Not Detected ng/mL Cutoff: 25 242 Naloxone, Ur Not Detected ng/mL Cutoff: 25 243 Ilsoaefb-0-awel-glucuronide, U Present ng/mL 244 Methadone, Ur Not Detected ng/mL Cutoff: 25 245 Eddp, Ur Not Detected ng/mL Cutoff: 25 246 Propoxyphene, Ur Not Detected ng/mL Cutoff: 25 247 Norpropoxyphene, Ur Not Detected ng/mL Cutoff: 25 248 Tramadol, Ur Not Detected ng/mL Cutoff: 25 249 O-desmethyltramadol, Ur Not Detected ng/mL Cutoff: 25 250 Tapentadol, Ur Not Detected ng/mL Cutoff: 25 251 N-desmethyltapentadol, Ur Not Detected ng/mL Cutoff: 50 252 Zbxhglwqul-qpoj-sjoeoougdlj, U Present ng/mL 253 Buprenorphine, Ur Not Detected ng/mL Cutoff: 5 254 Norbuprenorphine, Ur Present ng/mL Cutoff: 5 255 Norbuprenorphine glucuronide Present ng/mL Cutoff: 20 256 Opioid Interpretation See Comment 257 CBC Auto Diff 11/15/2016 White Blood Count [...] 11/15/2016 Lactic Acid 2.3 mmol/L High 0.5-2.0 258 Comp Metabolic Panel 11/15/2016 Sodium 138 mmol/L [...] Egfr Non- 49.4 >60 Egfr 63.5 >60 259 Laboratory test finding 11/15/2016 Troponin-I (TnI) 0.01 ng/mL <0.04 B-Type Natriuretic Peptide BNP 108 pg/mL High 260 Liver Function Panel 10/25/2016 Total Protein 7.1 g/dL 6.4-8.9 Albumin 3.8 g/dL 3.2-5.2 Globulin 3.3 g/dL 2-4 Albumin/Globulin Ratio 1.2 1-3 Total Bilirubin 0.50 mg/dL 0.2-1.0 Direct Bilirubin 0.10 mg/dL 0.03-0.18 Indirect Bilirubin 0.4 mg/dL 0.3-1.0 Alkaline Phosphatase 70 U/L 34-104 Alt 16 U/L 7-52 Ast 20 U/L 13-39 Drug Abuse 20 Urine 10/06/2016 Urine Amphetamine Negative ng/mL 261 Urine Barbiturates Negative ng/mL 262 Urine Benzodiazepines Negative ng/mL 263 Urine Cocaine Negative ng/mL 264 Urine Phencyclidine Negative ng/mL Cutoff: 25 Urine Tetrahydrocannabinol Negative ng/mL Cutoff: 50 265 Creatinine, Urine 163.7 mg/dL Specific [place] 1.018 pH 5.9 Oxidants Negative 266 Adulterants Comment Normal Codeine, Ur Not Detected ng/mL Cutoff: 25 267 Aamxucc-6-pxgn-glucuronide, Ur Not Detected ng/mL 268 Morphine, Ur Not Detected ng/mL Cutoff: 25 269 Tkjhocii-4-wmad-glucuronide, U Not Detected ng/mL 270 6-monoacetylmorphine, Ur See Comment ng/mL Cutoff: 25 271 Hydrocodone, Ur Not Detected ng/mL Cutoff: 25 272 Norhydrocodone, Ur Not Detected ng/mL Cutoff: 25 273 Dihydrocodeine, Ur Not Detected ng/mL Cutoff: 25 274 Hydromorphone, Ur Not Detected ng/mL Cutoff: 25 275 Gilgqhxhcywhk0wgmpkmrzptszqel Not Detected ng/mL 276 Oxycodone, Ur Not Detected ng/mL Cutoff: 25 277 Noroxycodone, Ur Not Detected ng/mL Cutoff: 25 278 Oxymorphone, Ur Not Detected ng/mL Cutoff: 25 279 Esyfquhiikr-6-fcqd-glucuronide Not Detected ng/mL 280 Noroxymorphone, Ur Not Detected ng/mL Cutoff: 25 281 Fentanyl, Ur Not Detected ng/mL Cutoff: 2 282 Norfentanyl, Ur Present ng/mL Cutoff: 2 283 Meperidine, Ur Not Detected ng/mL Cutoff: 25 284 Normeperidine, Ur Not Detected ng/mL Cutoff: 25 285 Naloxone, Ur Not Detected ng/mL Cutoff: 25 286 Jybwdfyy-1-wurh-glucuronide, U Present ng/mL 287 Methadone, Ur Not Detected ng/mL Cutoff: 25 288 Eddp, Ur Not Detected ng/mL Cutoff: 25 289 Propoxyphene, Ur Not Detected ng/mL Cutoff: 25 290 Norpropoxyphene, Ur Not Detected ng/mL Cutoff: 25 291 Tramadol, Ur Not Detected ng/mL Cutoff: 25 292 O-desmethyltramadol, Ur Not Detected ng/mL Cutoff: 25 293 Tapentadol, Ur Not Detected ng/mL Cutoff: 25 294 N-desmethyltapentadol, Ur Not Detected ng/mL Cutoff: 50 295 Rrbdgygrbb-suyg-sfdmirkhnhm, U Not Detected ng/mL 296 Buprenorphine, Ur Not Detected ng/mL Cutoff: 5 297 Norbuprenorphine, Ur Present ng/mL Cutoff: 5 298 Norbuprenorphine glucuronide Present ng/mL Cutoff: 20 299 Opioid Interpretation See Comment 300 Drug Abuse 20 Urine 08/17/2016 Urine Amphetamine Presumptive Posi <SEE NOTE > 301 ng/mL Urine Barbiturates Negative ng/mL 302 Urine Benzodiazepines Negative ng/mL 303 Urine Cocaine Negative ng/mL 304 Urine Phencyclidine Negative ng/mL Cutoff: 25 Urine Tetrahydrocannabinol Negative ng/mL Cutoff: 50 305 Creatinine 238.4 mg/dL Specific [place] 1.018 pH 5.7 Oxidants Negative 306 Adulterants Comment Normal Codeine, Ur Present ng/mL Cutoff: 25 307 Ptoibpg-3-dqqw-glucuronide, Ur Present ng/mL 308 Morphine, Ur Present ng/mL Cutoff: 25 309 Oivontmy-5-vldp-glucuronide, U Present ng/mL 310 6-monoacetylmorphine, Ur Present ng/mL Cutoff: 25 311 Hydrocodone, Ur Not Detected ng/mL Cutoff: 25 312 Norhydrocodone, Ur Not Detected ng/mL Cutoff: 25 313 Dihydrocodeine, Ur Not Detected ng/mL Cutoff: 25 314 Hydromorphone, Ur Not Detected ng/mL Cutoff: 25 315 Embfgafmiiete1oqphcmogivabbks Not Detected ng/mL 316 Oxycodone, Ur Not Detected ng/mL Cutoff: 25 317 Noroxycodone, Ur Not Detected ng/mL Cutoff: 25 318 Oxymorphone, Ur Not Detected ng/mL Cutoff: 25 319 Hbwienduzdz-1-gxbv-glucuronide Not Detected ng/mL 320 Noroxymorphone, Ur Not Detected ng/mL Cutoff: 25 321 Fentanyl, Ur Present ng/mL Cutoff: 2 322 Norfentanyl, Ur Present ng/mL Cutoff: 2 323 Meperidine, Ur Not Detected ng/mL Cutoff: 25 324 Normeperidine, Ur Not Detected ng/mL Cutoff: 25 325 Naloxone, Ur Not Detected ng/mL Cutoff: 25 326 Lxaayffl-9-kpxt-glucuronide, U Present ng/mL 327 Methadone, Ur Not Detected ng/mL Cutoff: 25 328 Eddp, Ur Not Detected ng/mL Cutoff: 25 329 Propoxyphene, Ur Not Detected ng/mL Cutoff: 25 330 Norpropoxyphene, Ur Not Detected ng/mL Cutoff: 25 331 Tramadol, Ur Present ng/mL Cutoff: 25 332 O-desmethyltramadol, Ur Present ng/mL Cutoff: 25 333 Tapentadol, Ur Not Detected ng/mL Cutoff: 25 334 N-desmethyltapentadol, Ur Not Detected ng/mL Cutoff: 50 335 Urrgiczhos-zxjw-cxmcqymtnbd, U Not Detected ng/mL 336 Buprenorphine, Ur Not Detected ng/mL Cutoff: 5 337 Norbuprenorphine, Ur Present ng/mL Cutoff: 5 338 Norbuprenorphine glucuronide Present ng/mL Cutoff: 20 339 Opioid Interpretation See Comment 340 Urine Amphetamine Confirm 08/17/2016 Urine Amphetamine by 106 ng/mL Cutoff: 25 GC/MS Urine Methamphetamine by GC/MS 572 ng/mL Cutoff: 25 Phentermine-by GC/MS Negative ng/mL Cutoff: 25 Pseudoephedrine/Ephedr GC/MS Negative ng/mL Cutoff: 25 Mda(Ecstacy metabolite) GC/MS Negative ng/mL Cutoff: 25 Mdma(Ecstacy)-by GC/MS Negative ng/mL Cutoff: 25 Urine Amphetamines Interp Positive. 341 Drug Abuse 20 Urine 07/15/2016 Urine Amphetamine Negative ng/mL 342 Urine Barbiturates Negative ng/mL 343 Urine Benzodiazepines Negative ng/mL 344 Urine Cocaine Negative ng/mL 345 Urine Phencyclidine Negative ng/mL Cutoff: 25 Urine Tetrahydrocannabinol Presumptive Posi <SEE NOTE> ng/mL Cutoff: 50 346 Creatinine 158.7 mg/dL Specific [place] 1.016 pH 6.8 Oxidants Negative 347 Adulterants Comment Normal Codeine, Ur Present ng/mL Cutoff: 25 348 Uoilgnt-5-rprd-glucuronide, Ur Present ng/mL 349 Morphine, Ur Present ng/mL Cutoff: 25 350 Hyjfqhdr-5-kaxr-glucuronide, U Present ng/mL 351 6-monoacetylmorphine, Ur Present ng/mL Cutoff: 25 352 Hydrocodone, Ur Not Detected ng/mL Cutoff: 25 353 Norhydrocodone, Ur Not Detected ng/mL Cutoff: 25 354 Dihydrocodeine, Ur Not Detected ng/mL Cutoff: 25 355 Hydromorphone, Ur Not Detected ng/mL Cutoff: 25 356 Ccruqyortzyvi1wabylidnuebzjzz Present ng/mL 357 Oxycodone, Ur Not Detected ng/mL Cutoff: 25 358 Noroxycodone, Ur Not Detected ng/mL Cutoff: 25 359 Oxymorphone, Ur Not Detected ng/mL Cutoff: 25 360 Lbqgcicnfpr-1-jgym-glucuronide Not Detected ng/mL 361 Noroxymorphone, Ur Not Detected ng/mL Cutoff: 25 362 Fentanyl, Ur Present ng/mL Cutoff: 2 363 Norfentanyl, Ur Present ng/mL Cutoff: 2 364 Meperidine, Ur Not Detected ng/mL Cutoff: 25 365 Normeperidine, Ur Not Detected ng/mL Cutoff: 25 366 Naloxone, Ur Not Detected ng/mL Cutoff: 25 367 Kefevjhm-2-gwzf-glucuronide, U Not Detected ng/mL 368 Methadone, Ur Not Detected ng/mL Cutoff: 25 369 Eddp, Ur Not Detected ng/mL Cutoff: 25 370 Propoxyphene, Ur Not Detected ng/mL Cutoff: 25 371 Norpropoxyphene, Ur Not Detected ng/mL Cutoff: 25 372 Tramadol, Ur Present ng/mL Cutoff: 25 373 O-desmethyltramadol, Ur Present ng/mL Cutoff: 25 374 Tapentadol, Ur Not Detected ng/mL Cutoff: 25 375 N-desmethyltapentadol, Ur Not Detected ng/mL Cutoff: 50 376 Quxaiiopjt-nofz-suzblqiddsf, U Not Detected ng/mL 377 Buprenorphine, Ur Not Detected ng/mL Cutoff: 5 378 Norbuprenorphine, Ur Present ng/mL Cutoff: 5 379 Norbuprenorphine glucuronide Present ng/mL Cutoff: 20 380 Opioid Interpretation See Comment 381 THC Confirmation Urine 07/15/2016 Urine Carboxy THC Confirm 28 ng/mL 382 Urine THC Interpretation Positive. 383 Laboratory test finding 03/01/2009 CPK (Creatine Kinase) 92 U/L 0-200 Lipid Profile (Trig/Chol/HDL) 03/01/2009 Triglyceride 60 mg/dL 40-200 Cholesterol 155 mg/dL Less Than 200 384 High Density Lipoprotein 46 mg/dL 40-60 385 Cholesterol/HDL Ratio 3.37 AVERAGE 1-4.97 Low Density Lipoprotein 97 mg/dL Less Than 100 386 Comp Metabolic Panel 03/01/2009 Sodium 135 mmol/L 135-145 Potassium 4.2 mmol/L 3.5-5.0 Chloride 103 mmol/L 101-111 Co2 (Carbon Dioxide) 26.0 mmol/L 22-32 Anion Gap 6.0 mmol/L 2-11 387 Glucose 104 mg/dL High 70-100 388 BUN 20 mg/dL 6-24 Creatinine 0.80 mg/dL 0.50-1.40 One Over Creatinine 1.20 BUN/Creatinine Ratio 25.0 High 8-20 Calcium 8.7 mg/dL 8.1-9.9 389 Total Protein 6.5 GM/DL 6.2-8.1 Albumin 3.6 GM/DL 3.6-5.4 Globulin 2.9 GM/DL 2-4 Albumin/Globulin Ratio 1.2 1-3 Bilirubin Total 0.6 mg/dL 0.4-1.5 390 Alkaline Phosphatase 69 U/L 39-117 Alt (SGPT) 31 U/L 17-63 Ast (Sgot) 22 U/L 12-42 eGFR Non- 113.2 > 60 eGFR 137.0 > 60 391 CBC With Electronic Diff 02/06/2009 White Blood [...] Eosinophils 0.2 0-0.6 Abs Basophils 0 0-0.2 Protime 02/06/2009 Inr 1.03 0.86-1.13 392 Protime 12.5 SEC 10.7-13.6 393 Laboratory test finding 02/06/2009 PTT (Aptt) 31.3 25.15-38.53 394 Comp Metabolic Panel 02/06/2009 Sodium 137 mmol/L 135-145 Potassium 4.2 mmol/L 3.5-5.0 Chloride 105 mmol/L 101-111 Co2 (Carbon Dioxide) 30.0 mmol/L 22-32 Anion Gap 2.0 mmol/L 2-11 395 Glucose 103 mg/dL High 70-100 396 BUN 23 mg/dL 6-24 Creatinine 0.90 mg/dL 0.50-1.40 One Over Creatinine 1.10 BUN/Creatinine Ratio 25.6 High 8-20 Calcium 9.3 mg/dL 8.1-9.9 397 Total Protein 7.3 GM/DL 6.2-8.1 Albumin 3.9 GM/DL 3.6-5.4 Globulin 3.4 GM/DL 2-4 Albumin/Globulin Ratio 1.1 1-3 Bilirubin Total 0.7 mg/dL 0.4-1.5 398 Alkaline Phosphatase 67 U/L 39-117 Alt (SGPT) 27 U/L 17-63 Ast (Sgot) 21 U/L 12-42 eGFR Non- 98.8 > 60 eGFR 119.6 > 60 399 Lipid Profile (Trig/Chol/HDL) 02/06/2009 Triglyceride 72 mg/dL 40-200 Cholesterol 176 mg/dL Less Than 200 400 High Density Lipoprotein 47 mg/dL 40-60 401 Cholesterol/HDL Ratio 3.74 AVERAGE 1-4.97 Low Density Lipoprotein 115 mg/dL High Less Than 100 402 Laboratory test finding 02/06/2009 TSH 0.63 MIU/ML 0.34-5.60 Urinalysis W/Microscopic 02/06/2009 Ua Color YELLOW Appearance-Urine CLEAR Specific [place]-Ur 1.030 1.010-1.030 Esterase-Urine NEGATIVE Negative Nitrite NEGATIVE Negative Mddlhozuvupp-Yn-NSH NEGATIVE Negative Protein-Urine NEGATIVE Negative PH-Urine 6.0 5-9 Blood-Urine NEGATIVE Negative Ketones-Urine TRACE Negative Ictotest-Urine NEGATIVE Glucose-Urine NEGATIVE Negative WBC-Urine 0-2 0-5 RBC-Urine 1-3 0-2 Mucus Urine SMALL Epith Cells-Ur RARE Urine Drug Screen M-20 02/06/2009 Urine Alcohol Negative mg/dL Cutoff: 30 Urine Ampetamines Negative ng/mL () 403 Urine Barbiturates Negative ng/mL () 404 Urine Benzodiazepines Negative ng/mL () 405 Urine Cocaine Negative ng/mL () 406 Ur Lysergic Acid Diethylamide Negative ng/mL () 407 Urine Methadone Negative ng/mL () 408 Urine Methaqualone Negative ng/mL () 409 Urine Opiates Negative ng/mL () 410 Urine Phencyclidine Negative ng/mL Cutoff: 25 Urine Propoxyphene Negative ng/mL () 411 Urine Tetrahydrocannabinol REFLEX Cutoff: 20 412 THC Confirmation 02/06/2009 Urine THC Screen Positive Cutoff: 20 THC Carboxylic Acid By GC/MS 267 ng/mL Cutoff: 3 Urine THC Interpretation Positive () 413 1 Because ethnic data is not always readily [...] 15-29 5 Kidney failure <15 (or dialysis) 2 Because ethnic data is not always readily [...] 15-29 5 Kidney failure <15 (or dialysis) 3 Verbal to [id number] by [id number] at 0140 on 12/31/17. Results read back accurately. 4 Reference ranges based on room air. 5 REFERENCE VALUE Cutoff: 500 6 REFERENCE VALUE Cutoff: 200 7 REFERENCE VALUE Cutoff: 100 8 REFERENCE VALUE Cutoff: 150 9 Presumptive Positive Drug confirmation to follow. Presumptive Positive means that the screening method is positive, but the test needs to be run by a confirmatory method before being finalized. ADDITIONAL INFORMATION This report is intended for use in clinical monitoring or management of patients. It is not intended for use in employment-related testing. 10 REFERENCE VALUE Cutoff: 200 mg/L 11 Tylenol 3 12 Metabolite of codeine REFERENCE VALUE Cutoff: 100 13 Ida Moraes, MS Contin; Also a minor metabolite (10%) of codeine and can be seen in low concentrations (<2,000 ng/mL) with poppy seed ingestion. 14 Metabolite of morphine REFERENCE VALUE Cutoff: 100 15 Metabolite of heroin 16 Lortab, [place], Vicodin; Also a very minor metabolite of codeine and impurity (<1%) of oxycodone. 17 Metabolite of hydrocodone 18 Metabolite of hydrocodone 19 Dilaudid, Exalgo; Also a metabolite of hydrocodone and a minor (<5%) metabolite of morphine. 20 Metabolite of hydromorphone REFERENCE VALUE Cutoff: 100 21 Endocet, Percocet, Oxycontin 22 Metabolite of oxycodone 23 Numorphan, Opana; Also a metabolite of oxycodone. 24 Metabolite of oxymorphone REFERENCE VALUE Cutoff: 100 25 Metabolite of oxymorphone 26 Actiq, Duragesic, Fentora 27 Metabolite of fentanyl 28 Demerol 29 Metabolite of meperidine 30 Narcan 31 Metabolite of naloxone REFERENCE VALUE Cutoff: 100 32 Dolophine 33 Metabolite of methadone 34 Darvon, Darvocet 35 Metabolite of propoxyphene 36 Tradol, Ultram, Ultracet 37 Metabolite of tramadol 38 Nucynta 39 Metabolite of tapentadol 40 Metabolite of tapentadol REFERENCE VALUE Cutoff: 100 41 Buprenex, Suboxone 42 Metabolite of buprenorphine 43 Metabolite of buprenorphine 44 Test detected the presence of morphine and its metabolites (tsdkdqbp-3-jlyj-glucuronide and qzxuwtnrjguuv-6-hwma-glucuronide) along with codeine and xmaalua-9-wwzj-glucuronide and the metabolite of heroin (6-monoacetylmorphine). Suspect recent use of heroin. Test detected the presence of buprenorphine metabolites (norbuprenorphine and norbuprenorphine glucuronide) along with naloxone metabolite (rirgbekn-6-vczx-glucuronide). Suspect use of buprenorphine with naloxone (e.g. Suboxone) within the past three days. Test detected the presence of fentanyl and its metabolite (norfentanyl). Suspect use of fentanyl within the past three days. ADDITIONAL INFORMATION This test was developed and its performance characteristics determined by [facility] in a manner consistent with CLIA requirements. This test has not been cleared or approved by the U.S. Food and Drug Administration. Test Performed by: [facility] - [facility] [address] [place] [address] 45 REFERENCE VALUE Cutoff: 3.0 46 ADDITIONAL INFORMATION This report is intended for use in clinical monitoring and management of patients. It is not intended for use in employment-related testing. This test was developed and its performance characteristics determined by [facility] in a manner consistent with CLIA requirements. This test has not been cleared or approved by the U.S. Food and Drug Administration. Test Performed by: [facility] [address] [facility], [place] [address] 47 REFERENCE VALUE Cutoff: 500 48 REFERENCE VALUE Cutoff: 200 49 REFERENCE VALUE Cutoff: 100 50 REFERENCE VALUE Cutoff: 150 51 ADDITIONAL INFORMATION This report is intended for use in clinical monitoring or management of patients. It is not intended for use in employment-related testing. 52 REFERENCE VALUE Cutoff: 200 mg/L 53 Tylenol 3 54 Metabolite of codeine REFERENCE VALUE Cutoff: 100 55 Ida Moraes, MS Contin; Also a minor metabolite (10%) of codeine and can be seen in low concentrations (<2,000 ng/mL) with poppy seed ingestion. 56 Metabolite of morphine REFERENCE VALUE Cutoff: 100 57 Metabolite of heroin 58 Lortab, [place], Vicodin; Also a very minor metabolite of codeine and impurity (<1%) of oxycodone. 59 Metabolite of hydrocodone 60 Metabolite of hydrocodone 61 Dilaudid, Exalgo; Also a metabolite of hydrocodone and a minor (<5%) metabolite of morphine. 62 Metabolite of hydromorphone REFERENCE VALUE Cutoff: 100 63 Endocet, Percocet, Oxycontin 64 Metabolite of oxycodone 65 Numorphan, Opana; Also a metabolite of oxycodone. 66 Metabolite of oxymorphone REFERENCE VALUE Cutoff: 100 67 Metabolite of oxymorphone 68 Actiq, Duragesic, Fentora 69 Metabolite of fentanyl 70 Demerol 71 Metabolite of meperidine 72 Narcan 73 Metabolite of naloxone REFERENCE VALUE Cutoff: 100 74 Dolophine 75 Metabolite of methadone 76 Darvon, Darvocet 77 Metabolite of propoxyphene 78 Tradol, Ultram, Ultracet 79 Metabolite of tramadol 80 Nucynta 81 Metabolite of tapentadol 82 Metabolite of tapentadol REFERENCE VALUE Cutoff: 100 83 Buprenex, Suboxone 84 Metabolite of buprenorphine 85 Metabolite of buprenorphine 86 Test detected the presence of morphine and its metabolites (dmfmmavm-9-jkhd-glucuronide and qrmetbltpeuaj-8-oykv-glucuronide) along with codeine and oxgbosv-7-uhkm-glucuronide and the metabolite of heroin (6-monoacetylmorphine). Suspect recent use of heroin. Test detected the presence of buprenorphine metabolites (norbuprenorphine and norbuprenorphine glucuronide) along with naloxone metabolite (ycnhnhoj-7-fyyu-glucuronide). Suspect use of buprenorphine with naloxone (e.g. Suboxone) within the past three days. Test detected the presence of fentanyl and its metabolite (norfentanyl). Suspect use of fentanyl within the past three days. ADDITIONAL INFORMATION This test was developed and its performance characteristics determined by [facility] in a manner consistent with CLIA requirements. This test has not been cleared or approved by the U.S. Food and Drug Administration. Test Performed by: [facility] - [facility] [address] [place] [address] 87 REFERENCE VALUE Cutoff: 500 88 REFERENCE VALUE Cutoff: 200 89 REFERENCE VALUE Cutoff: 100 90 REFERENCE VALUE Cutoff: 150 91 Presumptive Positive Drug confirmation to follow. Presumptive Positive means that the screening method is positive, but the test needs to be run by a confirmatory method before being finalized. ADDITIONAL INFORMATION This report is intended for use in clinical monitoring or management of patients. It is not intended for use in employment-related testing. 92 REFERENCE VALUE Cutoff: 200 mg/L 93 Tylenol 3 94 Metabolite of codeine REFERENCE VALUE Cutoff: 100 95 Ida Moraes, MS Contin; Also a minor metabolite (10%) of codeine and can be seen in low concentrations (<2,000 ng/mL) with poppy seed ingestion. 96 Metabolite of morphine REFERENCE VALUE Cutoff: 100 97 Metabolite of heroin 98 Lortab, [place], Vicodin; Also a very minor metabolite of codeine and impurity (<1%) of oxycodone. 99 Metabolite of hydrocodone 100 Metabolite of hydrocodone 101 Dilaudid, Exalgo; Also a metabolite of hydrocodone and a minor (<5%) metabolite of morphine. 102 Metabolite of hydromorphone REFERENCE VALUE Cutoff: 100 103 Endocet, Percocet, Oxycontin 104 Metabolite of oxycodone 105 Numorphan, Opana; Also a metabolite of oxycodone. 106 Metabolite of oxymorphone REFERENCE VALUE Cutoff: 100 107 Metabolite of oxymorphone 108 Actiq, Duragesic, Fentora 109 Metabolite of fentanyl 110 Demerol 111 Metabolite of meperidine 112 Narcan 113 Metabolite of naloxone REFERENCE VALUE Cutoff: 100 114 Dolophine 115 Metabolite of methadone 116 Darvon, Darvocet 117 Metabolite of propoxyphene 118 Tradol, Ultram, Ultracet 119 Metabolite of tramadol 120 Nucynta 121 Metabolite of tapentadol 122 Metabolite of tapentadol REFERENCE VALUE Cutoff: 100 123 Buprenex, Suboxone 124 Metabolite of buprenorphine 125 Metabolite of buprenorphine 126 Test detected the presence of codeine, otsflhq-7-xonz-glucuronide (metabolite of codeine), morphine, and clxkipqt-2-kbxa-glucuronide (metabolite of morphine). Suspect recent use of codeine or possibly codeine and morphine within the past three days. Test detected the presence of morphine, ftryqcvw-2-camd-glucuronide (morphine metabolite) and the metabolite of heroin (6-monoacetylmorphine). Suspect recent use of heroin. Test detected the presence of buprenorphine metabolites (norbuprenorphine and norbuprenorphine glucuronide) along with naloxone metabolite (chzecnoa-2-dtwt-glucuronide). Suspect use of buprenorphine with naloxone (e.g. Suboxone) within the past three days. ADDITIONAL INFORMATION This test was developed and its performance characteristics determined by [facility] in a manner consistent with CLIA requirements. This test has not been cleared or approved by the U.S. Food and Drug Administration. Test Performed by: [facility] - [address] [address] 127 REFERENCE VALUE Cutoff: 3.0 128 ADDITIONAL INFORMATION This report is intended for use in clinical monitoring and management of patients. It is not intended for use in employment-related testing. This test was developed and its performance characteristics determined by [facility] in a manner consistent with CLIA requirements. This test has not been cleared or approved by the U.S. Food and Drug Administration. Test Performed by: [facility] - [address] [address] 129 Desirable: <150 Borderline High: 150-199 High: 200-499 Very High: >500 130 Desirable: <200 Borderline High: 200-239 High: >239 131 Low: <40 Desirable: 40-60 High: >60 132 Desirable: <100 Near Optimal: 100-129 Borderline High: 130-159 High: 160-189 Very High: >189 133 Because ethnic data is not always readily [...] 15-29 5 Kidney failure <15 (or dialysis) 134 REFERENCE VALUE Cutoff: 500 135 REFERENCE VALUE Cutoff: 200 136 REFERENCE VALUE Cutoff: 100 137 REFERENCE VALUE Cutoff: 150 138 Presumptive Positive Drug confirmation to follow. Presumptive Positive means that the screening method is positive, but the test needs to be run by a confirmatory method before being finalized. ADDITIONAL INFORMATION This report is intended for use in clinical monitoring or management of patients. It is not intended for use in employment-related testing. 139 REFERENCE VALUE Cutoff: 200 mg/L 140 Tylenol 3 141 Metabolite of codeine REFERENCE VALUE Cutoff: 100 142 Ida Moraes, MS Contin; Also a minor metabolite (10%) of codeine and can be seen in low concentrations (<2,000 ng/mL) with poppy seed ingestion. 143 Metabolite of morphine REFERENCE VALUE Cutoff: 100 144 Metabolite of heroin 145 Lortab, [place], Vicodin; Also a very minor metabolite of codeine and impurity (<1%) of oxycodone. 146 Metabolite of hydrocodone 147 Metabolite of hydrocodone 148 Dilaudid, Exalgo; Also a metabolite of hydrocodone and a minor (<5%) metabolite of morphine. 149 Metabolite of hydromorphone REFERENCE VALUE Cutoff: 100 150 Endocet, Percocet, Oxycontin 151 Metabolite of oxycodone 152 Numorphan, Opana; Also a metabolite of oxycodone. 153 Metabolite of oxymorphone REFERENCE VALUE Cutoff: 100 154 Metabolite of oxymorphone 155 Actiq, Duragesic, Fentora 156 Metabolite of fentanyl 157 Demerol 158 Metabolite of meperidine 159 Narcan 160 Metabolite of naloxone REFERENCE VALUE Cutoff: 100 161 Dolophine 162 Metabolite of methadone 163 Darvon, Darvocet 164 Metabolite of propoxyphene 165 Tradol, Ultram, Ultracet 166 Metabolite of tramadol 167 Nucynta 168 Metabolite of tapentadol 169 Metabolite of tapentadol REFERENCE VALUE Cutoff: 100 170 Buprenex, Suboxone 171 Metabolite of buprenorphine 172 Metabolite of buprenorphine 173 Test detected the presence of both morphine and its metabolite (htvkmdre-3-vzah-glucuronide). Suspect use of morphine within the past three days. Alternatively, these results could also be suggestive of heroin use. Low levels of morphine can also be seen following poppy seed ingestion. Test detected the presence of oxycodone and several metabolites (noroxycodone, noroxymorphone, and bzzvhlbczqn-3-sjph-glucuronide). Suspect use of oxycodone or possibly oxycodone and oxymorphone within the past three days. Test detected the presence of norbuprenorphine and norbuprenorphine glucuronide which are metabolites of buprenorphine. Suspect use of buprenorphine within the past three days. Test detected the presence of fentanyl and its metabolite (norfentanyl). Suspect use of fentanyl within the past three days. Test detected the presence of usirczex-2-eqnn-glucuronide (metabolite of naloxone) only. Suspect use of naloxone (Narcan) within the past three days. ADDITIONAL INFORMATION This test was developed and its performance characteristics determined by [facility] in a manner consistent with CLIA requirements. This test has not been cleared or approved by the U.S. Food and Drug Administration. Test Performed by: [facility] - [facility] [address] [place] [id number] 174 REFERENCE VALUE Cutoff: 3.0 175 ADDITIONAL INFORMATION This report is intended for use in clinical monitoring and management of patients. It is not intended for use in employment-related testing. This test was developed and its performance characteristics determined by [facility] in a manner consistent with CLIA requirements. This test has not been cleared or approved by the U.S. Food and Drug Administration. Test Performed by: [facility] - [facility] [address] [place] [id number] 176 REFERENCE VALUE Cutoff: 500 177 REFERENCE VALUE Cutoff: 200 178 REFERENCE VALUE Cutoff: 100 179 REFERENCE VALUE Cutoff: 150 180 Presumptive Positive Drug confirmation to follow. Presumptive Positive means that the screening method is positive, but the test needs to be run by a confirmatory method before being finalized. ADDITIONAL INFORMATION This report is intended for use in clinical monitoring or management of patients. It is not intended for use in employment-related testing. 181 REFERENCE VALUE Cutoff: 200 mg/L 182 Tylenol 3 183 Metabolite of codeine REFERENCE VALUE Cutoff: 100 184 Ida Moraes, MS Contin; Also a minor metabolite (10%) of codeine and can be seen in low concentrations (<2,000 ng/mL) with poppy seed ingestion. 185 Metabolite of morphine REFERENCE VALUE Cutoff: 100 186 Metabolite of heroin 187 Lortab, [place], Vicodin; Also a very minor metabolite of codeine and impurity (<1%) of oxycodone. 188 Metabolite of hydrocodone 189 Metabolite of hydrocodone 190 Dilaudid, Exalgo; Also a metabolite of hydrocodone and a minor (<5%) metabolite of morphine. 191 Metabolite of hydromorphone REFERENCE VALUE Cutoff: 100 192 Endocet, Percocet, Oxycontin 193 Metabolite of oxycodone 194 Numorphan, Opana; Also a metabolite of oxycodone. 195 Metabolite of oxymorphone REFERENCE VALUE Cutoff: 100 196 Metabolite of oxymorphone 197 Actiq, Duragesic, Fentora 198 Metabolite of fentanyl 199 Demerol 200 Metabolite of meperidine 201 Narcan 202 Metabolite of naloxone REFERENCE VALUE Cutoff: 100 203 Dolophine 204 Metabolite of methadone 205 Darvon, Darvocet 206 Metabolite of propoxyphene 207 Tradol, Ultram, Ultracet 208 Metabolite of tramadol 209 Nucynta 210 Metabolite of tapentadol 211 Metabolite of tapentadol REFERENCE VALUE Cutoff: 100 212 Buprenex, Suboxone 213 Metabolite of buprenorphine 214 Metabolite of buprenorphine 215 Test detected the presence of norbuprenorphine and norbuprenorphine glucuronide which are metabolites of buprenorphine. Suspect use of buprenorphine within the past three days. Test detected the presence of epawixyb-5-losw-glucuronide (metabolite of naloxone) only. Suspect use of naloxone (Narcan) within the past three days. ADDITIONAL INFORMATION This test was developed and its performance characteristics determined by [facility] in a manner consistent with CLIA requirements. This test has not been cleared or approved by the U.S. Food and Drug Administration. Test Performed by: [facility] - [address] [id number] 216 REFERENCE VALUE Cutoff: 3.0 217 ADDITIONAL INFORMATION This report is intended for use in clinical monitoring and management of patients. It is not intended for use in employment-related testing. This test was developed and its performance characteristics determined by [facility] in a manner consistent with CLIA requirements. This test has not been cleared or approved by the U.S. Food and Drug Administration. Test Performed by: [facility] - [address] [address] 218 REFERENCE VALUE Cutoff: 500 219 REFERENCE VALUE Cutoff: 200 220 REFERENCE VALUE Cutoff: 100 221 REFERENCE VALUE Cutoff: 150 222 ADDITIONAL INFORMATION This report is intended for use in clinical monitoring or management of patients. It is not intended for use in employment-related testing. 223 REFERENCE VALUE Cutoff: 200 mg/L 224 Tylenol 3 225 Metabolite of codeine REFERENCE VALUE Cutoff: 100 226 Ida Moraes, MS Contin; Also a minor metabolite (10%) of codeine and can be seen in low concentrations (<2,000 ng/mL) with poppy seed ingestion. 227 Metabolite of morphine REFERENCE VALUE Cutoff: 100 228 Metabolite of heroin 229 Lortab, [place], Vicodin; Also a very minor metabolite of codeine and impurity (<1%) of oxycodone. 230 Metabolite of hydrocodone 231 Metabolite of hydrocodone 232 Dilaudid, Exalgo; Also a metabolite of hydrocodone and a minor (<5%) metabolite of morphine. 233 Metabolite of hydromorphone REFERENCE VALUE Cutoff: 100 234 Endocet, Percocet, Oxycontin 235 Metabolite of oxycodone 236 Numorphan, Opana; Also a metabolite of oxycodone. 237 Metabolite of oxymorphone REFERENCE VALUE Cutoff: 100 238 Metabolite of oxymorphone 239 Actiq, Duragesic, Fentora 240 Metabolite of fentanyl 241 Demerol 242 Metabolite of meperidine 243 Narcan 244 Metabolite of naloxone REFERENCE VALUE Cutoff: 100 245 Dolophine 246 Metabolite of methadone 247 Darvon, Darvocet 248 Metabolite of propoxyphene 249 Tradol, Ultram, Ultracet 250 Metabolite of tramadol 251 Nucynta 252 Metabolite of tapentadol 253 Metabolite of tapentadol REFERENCE VALUE Cutoff: 100 254 Buprenex, Suboxone 255 Metabolite of buprenorphine 256 Metabolite of buprenorphine 257 Test detected the presence of qbmiakgmen-opvt-ledoldmcfwp (metabolite of tapentadol) only. Suspect use of tapentadol within the past three days. Test detected the presence of norbuprenorphine and norbuprenorphine glucuronide which are metabolites of buprenorphine. Suspect use of buprenorphine within the past three days. Test detected the presence of norfentanyl (metabolite of fentanyl) only. Suspect use of fentanyl within the past three days. Test detected the presence of atkuuomq-6-pgpl-glucuronide (metabolite of naloxone) only. Suspect use of naloxone (Narcan) within the past three days. ADDITIONAL INFORMATION This test was developed and its performance characteristics determined by [facility] in a manner consistent with CLIA requirements. This test has not been cleared or approved by the U.S. Food and Drug Administration. Test Performed by: [address] [id number] 258 Critical Result LACT:2.3 Called to [id number] at: 20:17:38 by:[id number] Read back by:[facility] Severe Sepsis and Septic Shock Management Bundle Measure requires all lactic acids initially measuring >2.0 mmol/L be repeated. 259 Because ethnic data is not always readily [...] 15-29 5 Kidney failure <15 (or dialysis) 260 >100 to <200 pg/mL: likely compensated congestive heart failure (CHF) 200 to 400 pg/mL: likely moderate CHF >400 pg/mL: likely moderate to severe CHF 261 REFERENCE VALUE Cutoff: 500 262 REFERENCE VALUE Cutoff: 200 263 REFERENCE VALUE Cutoff: 100 264 REFERENCE VALUE Cutoff: 150 265 ADDITIONAL INFORMATION This report is intended for use in clinical monitoring or management of patients. It is not intended for use in employment-related testing. 266 REFERENCE VALUE Cutoff: 200 mg/L 267 Tylenol 3 268 Metabolite of codeine REFERENCE VALUE Cutoff: 100 269 Ida Moraes, MS Contin; Also a minor metabolite (10%) of codeine and can be seen in low concentrations (<2,000 ng/mL) with poppy seed ingestion. 270 Metabolite of morphine REFERENCE VALUE Cutoff: 100 271 RESULT: Results not available due to analyte specific failure. 272 Lortab, [place], Vicodin; Also a very minor metabolite of codeine and impurity (<1%) of oxycodone. 273 Metabolite of hydrocodone 274 Metabolite of hydrocodone 275 Dilaudid, Exalgo; Also a metabolite of hydrocodone and a minor (<5%) metabolite of morphine. 276 Metabolite of hydromorphone REFERENCE VALUE Cutoff: 100 277 Endocet, Percocet, Oxycontin 278 Metabolite of oxycodone 279 Numorphan, Opana; Also a metabolite of oxycodone. 280 Metabolite of oxymorphone REFERENCE VALUE Cutoff: 100 281 Metabolite of oxymorphone 282 Actiq, Duragesic, Fentora 283 Metabolite of fentanyl 284 Demerol 285 Metabolite of meperidine 286 Narcan 287 Metabolite of naloxone REFERENCE VALUE Cutoff: 100 288 Dolophine 289 Metabolite of methadone 290 Darvon, Darvocet 291 Metabolite of propoxyphene 292 Tradol, Ultram, Ultracet 293 Metabolite of tramadol 294 Nucynta 295 Metabolite of tapentadol 296 Metabolite of tapentadol REFERENCE VALUE Cutoff: 100 297 Buprenex, Suboxone 298 Metabolite of buprenorphine 299 Metabolite of buprenorphine 300 Test detected the presence of norbuprenorphine and norbuprenorphine glucuronide which are metabolites of buprenorphine. Suspect use of buprenorphine within the past three days. Test detected the presence of norfentanyl (metabolite of fentanyl) only. Suspect use of fentanyl within the past three days. Test detected the presence of zorfrvmd-9-snua-glucuronide (metabolite of naloxone) only. Suspect use of naloxone (Narcan) within the past three days. ADDITIONAL INFORMATION This test was developed and its performance characteristics determined by [facility] in a manner consistent with CLIA requirements. This test has not been cleared or approved by the U.S. Food and Drug Administration. Test Performed by: [facility] - [address] [id number] 273 Presumptive Positive Drug confirmation to follow. Presumptive Positive means that the screening method is positive, but the test needs to be run by a confirmatory method before being finalized. REFERENCE VALUE Cutoff: 500 302 REFERENCE VALUE Cutoff: 200 303 REFERENCE VALUE Cutoff: 100 304 REFERENCE VALUE Cutoff: 150 305 ADDITIONAL INFORMATION This report is intended for use in clinical monitoring or management of patients. It is not intended for use in employment-related testing. 306 REFERENCE VALUE Cutoff: 200 mg/L 307 Tylenol 3 308 Metabolite of codeine REFERENCE VALUE Cutoff: 100 309 Ida Moraes, Contin; Also a minor metabolite (10%) of codeine and can be seen in low concentrations (<2,000 ng/mL) with poppy seed ingestion. 310 Metabolite of morphine REFERENCE VALUE Cutoff: 100 311 Metabolite of heroin 312 Lortab, [place], Vicodin; Also a very minor metabolite of codeine and impurity (<1%) of oxycodone. 313 Metabolite of hydrocodone 314 Metabolite of hydrocodone 315 Dilaudid, Exalgo; Also a metabolite of hydrocodone and a minor (<5%) metabolite of morphine. 316 Metabolite of hydromorphone REFERENCE VALUE Cutoff: 100 317 Endocet, Percocet, Oxycontin 318 Metabolite of oxycodone 319 Numorphan, Opana; Also a metabolite of oxycodone. 320 Metabolite of oxymorphone REFERENCE VALUE Cutoff: 100 321 Metabolite of oxymorphone 322 Actiq, Duragesic, Fentora 323 Metabolite of fentanyl 324 Demerol 325 Metabolite of meperidine 326 Narcan 327 Metabolite of naloxone REFERENCE VALUE Cutoff: 100 328 Dolophine 329 Metabolite of methadone 330 Darvon, Darvocet 331 Metabolite of propoxyphene 332 Tradol, Ultram, Ultracet 333 Metabolite of tramadol 334 Nucynta 335 Metabolite of tapentadol 336 Metabolite of tapentadol REFERENCE VALUE Cutoff: 100 337 Buprenex, Suboxone 338 Metabolite of buprenorphine 339 Metabolite of buprenorphine 340 Test detected the presence of codeine, fyffklr-8-bxuh-glucuronide (metabolite of codeine), morphine, and vafrdkyu-0-pnmt-glucuronide (metabolite of morphine). Suspect recent use of codeine or possibly codeine and morphine within the past three days. Test detected the presence of morphine, adavaqci-9-ifos-glucuronide (morphine metabolite) and the metabolite of heroin [...] three days. Test detected the presence of cwwvhzdj-3-uovk-glucuronide (metabolite of naloxone) only. Suspect use of naloxone (Narcan) within the past three days. ADDITIONAL INFORMATION This test was developed and its performance characteristics determined by [facility] in a manner consistent with CLIA requirements. This test has not been cleared or approved by the U.S. Food and Drug Administration. Test Performed by: [facility] - [address] [id number] 341 ADDITIONAL INFORMATION This report is intended for use in clinical monitoring and management of patients. It is not intended for use in employment-related testing. This test was developed and its performance characteristics determined by [facility] in a manner consistent with CLIA requirements. This test has not been cleared or approved by the U.S. Food and Drug Administration. Test Performed by: [facility] - [address] [place] [address] 342 REFERENCE VALUE Cutoff: 500 343 REFERENCE VALUE Cutoff: 200 344 REFERENCE VALUE Cutoff: 100 345 REFERENCE VALUE Cutoff: 150 346 Presumptive Positive Drug confirmation to follow. Presumptive Positive means that the screening method is positive, but the test needs to be run by a confirmatory method before being finalized. ADDITIONAL INFORMATION This report is intended for use in clinical monitoring or management of patients. It is not intended for use in employment-related testing. 347 REFERENCE VALUE Cutoff: 200 mg/L 348 Tylenol 3 349 Metabolite of codeine REFERENCE VALUE Cutoff: 100 350 Ida Moraes, Contin; Also a minor metabolite (10%) of codeine and can be seen in low concentrations (<2,000 ng/mL) with poppy seed ingestion. 351 Metabolite of morphine REFERENCE VALUE Cutoff: 100 352 Metabolite of heroin 353 Lortab, [place], Vicodin; Also a very minor metabolite of codeine and impurity (<1%) of oxycodone. 354 Metabolite of hydrocodone 355 Metabolite of hydrocodone 356 Dilaudid, Exalgo; Also a metabolite of hydrocodone and a minor (<5%) metabolite of morphine. 357 Metabolite of hydromorphone REFERENCE VALUE Cutoff: 100 358 Endocet, Percocet, Oxycontin 359 Metabolite of oxycodone 360 Numorphan, Opana; Also a metabolite of oxycodone. 361 Metabolite of oxymorphone REFERENCE VALUE Cutoff: 100 362 Metabolite of oxymorphone 363 Actiq, Duragesic, Fentora 364 Metabolite of fentanyl 365 Demerol 366 Metabolite of meperidine 367 Narcan 368 Metabolite of naloxone REFERENCE VALUE Cutoff: 100 369 Dolophine 370 Metabolite of methadone 371 Darvon, Darvocet 372 Metabolite of propoxyphene 373 Tradol, Ultram, Ultracet 374 Metabolite of tramadol 375 Nucynta 376 Metabolite of tapentadol 377 Metabolite of tapentadol REFERENCE VALUE Cutoff: 100 378 Buprenex, Suboxone 379 Metabolite of buprenorphine 380 Metabolite of buprenorphine 381 Test detected the presence of codeine, rvrlkbb-3-ifot-glucuronide (metabolite of codeine), morphine, and vwqjgorz-4-mlna-glucuronide (metabolite of morphine). Suspect recent use of codeine or possibly codeine and morphine within the past three days. Test detected the presence of morphine, bbiazuoq-0-vftr-glucuronide (morphine metabolite) and the metabolite of heroin (6-monoacetylmorphine). Suspect recent use of heroin. Test detected the presence of urtthsoglburm-1-aagw-glucuronide the metabolite of hydromorphone. Suspect use of [...] developed and its performance characteristics determined by [facility] in a manner consistent with CLIA requirements. This test has not been cleared or approved by the U.S. Food and Drug Administration. Test Performed by: [facility] - [facility] [address] [place] [address] 382 REFERENCE VALUE Cutoff: 3.0 383 ADDITIONAL INFORMATION This report is intended for use in clinical monitoring and management of patients. It is not intended for use in employment-related testing. This test was developed and its performance characteristics determined by [facility] in a manner consistent with CLIA requirements. This test has not been cleared or approved by the U.S. Food and Drug Administration. Test Performed by: [facility] - [address] [id number] 384 CHOLESTEROL INTERPRETATION: Desirable: Less than 200 MG/DL Borderline-High Risk: 200-239 MG/DL High-Risk: 240 MG/DL and over 385 HDL INTERPRETATION: Undesirable: High Risk: Less than 40 MG/DL Desirable: Low Risk: Greater than 60 MG/DL 386 LDL INTERPRETATION: Low Risk Optimal Level: LDL Less than 100 MG/DL Near or Above Optimal: LDL 100-129 MG/DL Borderline High Risk: LDL 130-159 MG/DL High Risk: LDL 160-189 MG/DL Very High Risk: LDL Greater than 189 MG/DL 387 Anion gap measurement may be of limited value in the presence of any alkalosis, especially in a combined acid base disorder. . 388 Note change in reference range as of 12/28/07. The change was based on recommendations from the [place] [employer]. 389 Please note change in reference range effective 07 . 390 A metabolite of Naproxen, O-desmethylnaproxen, has been shown to interfere with the Jendrassik-Penbrook method for measuring total bilirubin. Samples from patients who have taken Naproxen have shown spurious elevation in total bilirubin levels. 391 Because ethnic data is not always readily [...] 15-29 5 Kidney failure <15 (or dialysis) 392 Recommended INR for Patients on Oral Anticoagulants Prophylaxis 2.0 - 3.0 Treatment of thrombosis 2.0 - 3.0 Prevention of embolism 2.0 - 3.0 Prevention of embolism from prosthetic heart valves 2.5 - 3.5 393 ATTENTION EFFECTIVE 09/18/08, THE IMPLEMENTATION OF NEW COAGULATION ANLAYZERS HAS CAUSED A SIGNIFICANT DIFFERENCE FOR PROTIME RESULTS IN SECONDS. THEREFORE, DIAGNOSIS,TREATMENT,AND THERAPY MUST BE BASED ON THE INR VALUE ONLY. 394 PLEASE NOTE NEW REFERENCE RANGE EFFECTIVE 08. 395 Anion gap measurement may be of limited value in the presence of any alkalosis, especially in a combined acid base disorder. . 396 Note change in reference range as of 12/28/07. The change was based on recommendations from the [place] [employer]. 397 Please note change in reference range effective 07 . 398 A metabolite of Naproxen, O-desmethylnaproxen, has been shown to interfere with the Jendrassik-Penbrook method for measuring total bilirubin. Samples from patients who have taken Naproxen have shown spurious elevation in total bilirubin levels. 399 Because ethnic data is not always readily [...] 15-29 5 Kidney failure <15 (or dialysis) 400 CHOLESTEROL INTERPRETATION: Desirable: Less than 200 MG/DL Borderline-High Risk: 200-239 MG/DL High-Risk: 240 MG/DL and over 401 HDL INTERPRETATION: Undesirable: High Risk: Less than 40 MG/DL Desirable: Low Risk: Greater than 60 MG/DL 402 LDL INTERPRETATION: Low Risk Optimal Level: LDL Less than 100 MG/DL Near or Above Optimal: LDL 100-129 MG/DL Borderline High Risk: LDL 130-159 MG/DL High Risk: LDL 160-189 MG/DL Very High Risk: LDL Greater than 189 MG/DL 403 -- REFERENCE VALUE -- Cutoff: 1000 404 -- REFERENCE VALUE -- Cutoff: 200 405 -- REFERENCE VALUE -- Cutoff: 200 406 -- REFERENCE VALUE -- Cutoff: 300 407 -- REFERENCE VALUE -- Cutoff: 0.5 408 -- REFERENCE VALUE -- Cutoff: 300 409 -- REFERENCE VALUE -- Cutoff: 300 410 -- REFERENCE VALUE -- Cutoff: 300 411 -- REFERENCE VALUE -- Cutoff: 300 412 *Drug confirmation ordered by reflex. Refer to confirmation result to follow for the definitive result. This report is intended for use in clinical monitoring or management of patients. It is not intended for use in employment-related testing. Test Performed by: [facility] Dpt of Lab Med and Pathology [address] [place] [address] Rotary Drill Operator: Kenn Garcia III, M.D. 413 This report is intended for use in clinical monitoring and management of patients. It is not intended for use in employment-related drug testing. Test Performed by: [facility] of [facility] Med [facility] Pathology [address] [place] [address] Rotary Drill Operator: Kenn Garcia III, M.D. Procedures Date CPT Code Description Status 10/25/2016 76070 Plethysmography Determination Lung Volumes & Per Airway Completed Resist 10/25/2016 10322 Pulmonary Function><Bronchodil Completed 11/07/2012 51065 EEG Recording Awake & Drowsy Completed 09/28/2012 83528 Stress Test Completed 09/28/2012 49839 Myocardial Perfusion Imaging Tomographic (Spect) Completed Multiple Studies 09/27/2012 20432 Holter Monitoring 24 HR New Completed 09/27/2012 76918 Holter Monitoring 24 HR New Completed 09/20/2012 07417 ECHO Transthorasic Realtime 2D W Doppler & Color Flow Completed Hosp 09/15/2012 78545 EKG Tracing & Interpretation Completed 11/18/2011 68850 Color Flow Doppler/Interp & Reprt Completed 11/18/2011 14782 Pulse Wave/Continuous-Interp.RPT Completed 11/18/2011 57577 ECHO Transthorasic Realtime 2D W Doppler & Color Flow Completed Hosp 11/08/2011 81964 Holter Monitor Review (24 hr)dr review & interp only Completed 10/20/2011 61020 EKG Tracing & Interpretation Completed 05/22/2009 09493 EKG Tracing & Interpretation Completed 02/14/2009 69781 EKG Tracing & Interpretation Completed 01/20/2009 59743 Treadmill Interp/Report Only Completed 01/20/2009 95054 Stress Test Supervsn W/Out I/R Completed 12/30/2008 81822 Holter Monitor Interpretation Completed 12/26/2008 44505 EKG Tracing & Interpretation Completed 12/06/2008 40653 Selective Coronary Angioplasty Completed 12/06/2008 64782 S/I/R Inj Proc Vent And Or Atrial Completed 12/06/2008 45865 Coronary Angiography Completed 12/06/2008 82629 Inj Proc LFT Vent/LFT Atrl Angio Completed 12/06/2008 21151 Left Heart Catheterization Completed 12/05/2008 75924 Treadmill Interp/Report Only Completed 12/05/2008 96135 Stress Test Supervsn W/Out I/R Completed 12/02/2008 00567 EKG, Interpretation Only Completed 12/01/2008 09065 Color Flow Doppler/Interp & Reprt Completed 12/01/2008 30843 Echocardiography, Transesophageal, Real Time W/Image 2D Completed W/W/O M-M Encounters Type Date Location Provider CPT E/M Dx Office Visit 12/19/2017 [facility] Pankaj Leslie, [address] [id number] 11:40a Medicine - Aime Christensen M.D.,FACP F11.21 Office Visit 11/16/2017 10:20a [facility] Pankaj Leslie, 30904 F11.29 Medicine - Tbtanner Christensen M.D.,FACP I10 I48.0 Office Visit 09/21/2017 2:00p [facility] Pankaj Leslie, [address] F11.21 Medicine - Aime Christensen M.D.,FACP K08.3 R73.01 Office Visit 08/15/2017 2:10p [facility] Pankaj Leslie, [address] J44.1 - Tbtanner Christensen M.D.,FACP F11.19 Z12.11 Office Visit 07/25/2017 3:20p [facility] Pankaj Delilah Leslie, 12801 F11.19 Medicine - [address] M.D.,FACP Office Visit 06/08/2017 2:20p [facility] Pankaj Delilah Leslie, [address]9929 F11.19 Medicine - [address] M.D.,FACP I10 Z12.11 Z23 Office Visit 04/27/2017 9:50a [facility] Pankaj Delilah Leslie, 24912 F11.19 Medicine - [address] M.D.,FACP M54.42 I10 Office Visit 01/03/2017 2:50p [facility]ankaj Delilah Leslie, [address]92 F11.19 Medicine - [address] M.D.,FACP J44.1 I10 Z23 Office Visit 12/01/2016 3:40p [facility] PankajTrey Leslie, [address]46 J44.1 - [address] M.D.,FACP F11.19 F17.210 Office Visit 10/06/2016 4:40p [facility] Pankaj Delilah Leslie, 89796 F11.19 Medicine - [address] M.D.,FACP I10 I48.0 K29.60 J42 Office Visit 08/23/2016 2:40p [facility]ankaj Delilah Leslie, [address]874 F11.10 Medicine - [address] M.D.,FACP I10 Office Visit 07/23/2016 9:20a [facility] Pankaj Leslie, [address]7976 F11.10 Medicine - [address] M.D.,FACP I10 Office Visit 07/16/2016 10:40a [facility] PankajTrey Leslie, 35725 F11.10 Medicine - [address] M.D.,FACP Office Visit 07/15/2016 2:00p [facility] Pankaj Leslie, [address] F11[address]10 [address] - [address] M.D.,FACP I48.0 N52.9 I67.9 Z72.0 F17.210 Office Visit 11/12/2015 11:08a [facility], Bennett Rankin, 91992 J18.9 Hospitalists MHema I25.10 I10 Z72.0 Office Visit 11/11/2015 11:08a [facility],pc Bennett Escobarnarciso, 67573 J18.9 Hospitalists M.Delilah I25.10 I10 Z72.0 Office Visit 11/10/2015 11:07a [facility],pc Bennett Rankin, 01934 J18.9 Hospitalists MHema I25.10 I10 Z72.0 Office Visit 06/28/2013 10:45a [facility] Rosy Marcial, 48336 345.40 Services Of Language Specialist M.D. 296.80 Office Visit 03/23/2013 8:45a [facility] Rosy Marcial, 56548 780.4 Services Of Language Specialist M.D. 437.9 Office Visit 12/15/2012 1:45p [facility] Rosy Marcial, 11421 780.4 Services Of Language Specialist M.D. Office Visit 11/03/2012 11:00a [facility] Rosy Marcial, 33743 780.4 Services Of Language Specialist M.D. V12.54 Office Visit 09/15/2012 8:45a [facility] Jesus Villareal, 57544 414.9 Language Specialist Shirley.Joelle., [facility] Office Visit 10/20/2011 3:00p [facility] Jean Marie Rodriguez, 32316 414.01 M.DToni 427.31 780.4 401.1 Office Visit 05/22/2009 11:00a [facility] Jean Marie Rodriguez, 98543 414.01 M.DToni 272.4 427.31 Office Visit 03/17/2009 4:00p DO Not Use Language Specialist AT Bryanna Bonner, 30743 414.01 Park[place]riel M.DToni 272.4 292.84 Office Visit 02/14/2009 11:00a [facility] Jean Marie Rodriguez, 97236 414.01 M.DToni 414.0 272.4 427.31 Office Visit 02/12/2009 9:40a DO Not Use Language Specialist AT Bryanna Bonner, 32955 414.01 Parkgabriel M.DToni 414.0 272.4 Office Visit 01/02/2009 9:00a DO Not Use [facility] AT Bryanna Bonner, 49981 427.31 Copemishgabriel M.DToni 434.91 414.01 521.03 292.84 304.22 Office Visit 12/26/2008 11:20a [facility] Jean Marie Rodriguez, 49587 427.31 M.DToni 434.91 414.01 Office Visit 12/07/2008 3:30a [facility] Luke Rodney, 24268 427.31 Assoc, Hospitalists Su 434.91 786.50 Office Visit 12/06/2008 3:45a [facility] Isa Tiru, 80534 427.31 Assoc, Hospitalists MHema 434.91 Office Visit 12/04/2008 1:[address]a [facility],pc Maikol Sykes, 22887 434.91 Hospitalists Su 427.31 Office Visit 12/03/2008 12:30a [facility],pc Maikol Sykes, 50538 434.91 Hospitalists Su 427.31 305.60 Office Visit 12/02/2008 1:15a [facility] Isa Tiru, 97761 427.31 Assoc, Hospitalists Su 434.91 Office Visit 12/01/2008 12:15a [facility] Isa Tiru, 95645 434.91 Assoc, Hospitalists Su 427.31 Plan of Care Future Appointment(s):02/20/2018 3:40 pm - Pankaj Leslie M.D.,FACP at [facility] - [address]01/20/2018 - Pankaj Leslie M.D.,FACPN17.8 Other acute kidney failureComments:Symptoms appears to have [id number] Essential (primary) hypertensionComments:You are meeting target blood pressure. Continue low salt diet.Reduce Amlodipine to 2.5 MG daily andLosartan to 50 MG 1x daily. Continue taking Diltiazem as prescribed. Aerobic exercise 30 minutes 5 times per week should improve blood pressure.Goals:Blood pressure goal <140 /90 in general. Blood pressure goal <150/90 in people older than 75. Blood pressure goal <130/85 in diabetic patients. Goal BMI is less than 25.K73.9 Chronic hepatitis, unspecifiedComments:We will contact you regarding your bloodwork results.F11.21 Opioid dependence, in remissionComments:Patient doing well on Suboxone, no major cravings, no relapse on opiates. CADD[employer] PACKER reviewed, patient not obtaining opiates through other providers. Continue counseling. UDS received in office today. Call usif you need refills.
--- OUTSIDE RECORDS SUMMARY | 2018-02-02 07:37 | XMS REPORT ---
:1965 External Reference #:[id number] Author Organization [employer] [facility] Address [address] [place] [address] [place] [address] Phone [phone] Care Team Providers Name Role Phone Dianne Ocampo FNP Care Team Information Microbiology Technician Unavailable Pankaj Leslie MD Primary Care Physician Unavailable Payers Type Date Identification Numbers Payment Provider Subscriber Commercial Effective: Policy Number: [id number] [employer] Morris Gutierrez 2016 Medicaid PayID: [id number] [facility] [address] [place] [address] Commercial Expires: 2016 Policy Number: [employer] Morris Gutierrez [id number] [employer] Name: [id number] [address] [id number] PayID: [id number] [place] [address] Problems Date Description Provider Status Onset: 07/15/2016 [...] Other Lives With 07/15/2016 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 07/15/2016 Heavy tobacco smoker (more [...] Form Strength Qnty SIG Indications Ordering Provider Pantoprazole 01/[address] 40mg 30tab 1 by mouth s every day Delilah Leslie M.D.,LAKEISHA Carafate 01/13 Active Suspension 1GM/10ML 420un give 10ml its by mouth Delilah Leslie four times M.LAKEISHA Mazariegos a day as needed Suboxone 11/16 Active Film 12-3mg 14uni 1 strip sl ts once a day Delilah Leslie M.D.,FACP Nicotine 08/15 Active Patches 21mg/24HR 28uni apply patch 24HR ts daily, Delilah Leslie, remove old Laron.,FACP one at the same time x's 6 wks Nicotine 08/15 Active Gum 4mg 100un chew q2h Polacrilex its prn Delilah Leslie M.D.,FACP Gabapentin 04/27 Active Capsules 300mg 90cap 1 by mouth Pankaj s 3x a day Delilah Leslie M.D.,FACP Cialis 12/01 Active Tablets 5mg 30tab every day s by mouth Delilah Leslie M.D.,FACP Albuterol 12/01 Active Nebulizer (2.5mg/3M 75ml 1 vial via Pankaj L) 0.083% nebulizer 4 Joelle. Mariama, times daily M.D.,FACP as needed Aspirin 07/15 Active Tablets 325mg 45tab 1/2 by s mouth every Delilah Leslie, day M.D.,FACP Advair Diskus Active Aerosol 250-50mcg 60uni 1 puff by Pankaj / /Dose ts mouth twice Delilah Leslie, a day M.D.,FACP Ventolin HFA Active Aerosol 108(90Bas 18uni 2 puffs by Pankaj / e) ts mouth four DToni Leslie, mcg/Act times a day M.D.,FACP as needed Diltiazem HCL ER Active Caps ER 300mg 30cap 1 by mouth Pankaj Coated Beads 24HR s every day Delilah Leslie M.D.,FACP Losartan Active Tablets 100mg 30tab 1 by mouth Pankaj Potassium s every day Delilah Leslie M.D.,FACP Q-Tussin DM Active Syrup 100-10mg/ Unknown 0000 5ML Magnesium Oxide Active Tablets 400(241.3 Unknown Mg) mg Ipratropium Active Solution 0.5-2.5(3 Unknown [place]/Albutero )mg/3ML l Sulfate Amlodipine Active Tablets 5mg Unknown Besylate /0000 Amitriptyline Active Tablets 25mg Unknown HCL /0000 Diphenhydramine Active Capsules 25mg Unknown HCL /0000 Omeprazole 01/[address] 20mg 1 by mouth every day Gomez Crum M.D.,[facility] 01/13 Ibu 09/21 Hx Tablets 800mg 90tab 1 po tid s prn Gomez Crum M.D.,[facility] 01/13 Prednisone 08/15 Hx Tablets 10mg 12tab 6 tabs s every day Delilah Leslie, - for 4 days, M.D.,[facility] 09/21 then reduce by 1 tab every 2 days until finished (to complete supply) Azithromycin 08/15 Hx Tablets 250mg 6tabs 2 every day for 1 day, Delilah Leslie, - then 1 M.D.,[facility] 08/20 every Suboxone 04/27 Hx Film 8-2mg 14uni 1 strip sl ts once day Delilah Leslie, - mdd 1 M.D.,[facility] 07/25 Suboxone 04/27 Hx Film 8-2mg 6unit 1 strip sl s once day Delilah Leslie, - mdd 1 mdd 1 M.D.,[facility] 11/16 Suboxone 03/30 Hx Film 12-3mg 3unit 1/2 strip s sl once a D. Mariama, - day (pt M.D.,[facility] 04/27 states is taking a whole strip daily) Doxycycline 01/03 Hx Tablets 100mg 20tab 1 by mouth Pankaj Hyclate s twice a day Gmoez Crum M.D.,[facility] 01/13 Prednisone 12/01 Hx Tablets 10mg 30tab 4 tabs s every day Delilah Leslie, - for 4 days, M.D.,[facility] 01/03 then reduce by 1 tab every 2 days until finished Augmentin 12/01 Hx Tablets 875-125mg 14tab by mouth s twice a day Gomez Crum M.D.,[facility] 12/08 Omeprazole 10/[address] 20mg 30cap 1 by mouth [place] s every day Leah Dyer M.D. 01/13 Suboxone 07/23 Hx Film 12-3mg 14uni 1 strip Pankaj /2016 ts once a day Gomez Crum MDD 1 M.Delilah,[facility] 03/30 Suboxone 07/15 Hx Film 8-2mg 5unit 1 strip sl Pankaj /2016 s once day Gomez Crum M.D.,[facility] 07/23 Depakote ER 06/28 Hx Tablets ER 500mg 60tab Not taking. Rosy Chiu 24HR s 2 po qhs Gmoez Marcial M.D. 07/15 Depakote 03/[address] 500mg 90tab 2 tabs po q Rosy Chiu s am and 1 Gomez Marcial tas po q Su 06/28 Zonisamide 12/15 Hx Capsules 50mg 90cap 2-3 caps by Rosy Chiu s mouth every Aggie, - night as M.DToni 06/28 Diltiazem CD 10/19 Hx Caps ER 120mg 60cap 2 po qd (pt 24HR s reports F. - taking Mauser, 07/15 300mg qd) M.D. Aspirin 10/19 Hx Tablets 81mg Pt states he takes F. - /2 of a Mauser, 07/15 325mg 1 po M.D. /2016 qd Pravachol 07/22 Hx Tablets 10mg 15tab 1/2 po qd s F. - Mageorgier, 08/05 M.D. Lopressor 07/07 Hx Tablets 25mg 60tab 1 po bid s F. - Mageorgier, 10/19 M.D. Zocor 06/10 Hx Tablets 10mg 30tab 1 tablet 3X 414.01 s per week F. - Mauser, 07/22 M.D. Zantac 03/12 Hx Capsules 150mg 180ca 1 cap po 530.81 ps bid c, - Radomir, 10/19 M.D. Zocor 02/12 Hx Tablets 40mg 30tab 1 po qd 414.01 s c, - Radomir, 06/10 M.D. Plavix 02/07 Hx Tablets 75mg 30tab 1 po qd 414.01 s c, - Radomir, 10/19 M.D. Cartia XT 01/20 Hx Caps ER 120mg 90cap 1 po qd 24HR s FToni Rodriguez, 07/07 M.D. Wellbutrin SR 01/02 Hx Tablets ER 150mg 60tab 1 tablet po 427.31 12HR s every 12 c, - hours Radomir, 02/26.D Metoprolol 12/26 Hx Tablets ER Unsure-Wi 180ta 1 po bid ll Call bs FToni - Jennifer, 12/26.D Metoprolol 12/26 Hx Tablets ER 25mg 30tab 1/2 po bid s until F. - 12/31/08 and Jennifer, 01/20 then 1/2 po .D. qd until 01/04/09 and then discontinue Aspirin Hx Tablets 325mg 100ta 1 po qd bs c, - Radomir, 10/19 M.D. Folic Acid Hx Tablets 1mg 30tab 1 tablet po Stevano / s qd c, - Radomir, 10/19 M.D. Vitamin B12 Hx Tablets 100mcg 90tab 1 tablet po 414.01 Stevanovi /0000 s Daily c, - Radomir, 05/22 M.D. Protonix Hx Tablets DR 20mg 90tab 1 po qd Stevanovi /0000 s c, - Radomir, 03/12 M.D. Niaspan Hx Tablets ER 500mg 30tab 1tab pm Jean Marie s FToni Rodriguez, 10/19 M.D. Cartia XT Hx Caps ER 120mg 90cap 1 po qd Unknown /0000 24HR s - 10/19 Diltiazem CD Hx Caps ER 120mg 90cap 1 po qd Unknown /0000 24HR s - 10/19 Cialis Hx Tablets 2.5mg 30tab by mouth Pankaj /0000 s every day Gomez Crum M.D.,FACNell 12/01 Azithromycin Hx Tablets 250mg Unknown /0000 - 01/13 Amoxicillin/Clav Hx Tablets 875-125mg Unknown ulanate 0000 Potassium - 01/13 Prednisone Hx Tablets 10mg Unknown /0000 - 01/13 Medications Administered in Office Medication Date Status Form Strength Qnty SIG Indications Ordering Provider Technetium TC Administered Injection Olimpia 99M 013 Wily Thompson M.D. Per Unit Dose Up To 40 Millicuries Immunizations CPT Code Status Date Vaccine Lot # [id number] Given 06/08/2017 Influenza Virus Vaccine, Quadrivalent, Split, [id number] Preservative Free [id number] Given 01/03/2017 Pneumonia Vaccine [id number] Vital Signs Date Vital Result Comment 01/13/2018 Height 72 inches 6'0" Weight 193.00 [...] Test Date Test Result H/L Range Note Basic Metabolic Panel 12/31/2017 Sodium 136 mmol/L 135-145 Chloride 101 mmol/L 101-111 Co2 Carbon Dioxide 24 mmol/L 22-32 Glucose 92 mg/dL 70-100 Blood Urea Nitrogen 88 mg/dL High 6-24 Creatinine 5.29 mg/dL High 0.67-1.17 BUN/Creatinine Ratio 16.6 8-20 Calcium 7.8 mg/dL Low 8.6-10.3 Egfr Non- 11.6 >60 Egfr 14.0 >60 1 Potassium 5.3 mmol/L High 3.5-5.0 Anion Gap 11 mmol/L 2-11 Arterial Blood Gas 12/31/2017 O2 Device nasal cannula PH Arterial 7.18 Low 7.35-7.45 2 Pco2 Arterial 60 mmHg High 35-45 Po2 Arterial 66 mmHg Low 80-100 O2 Saturation Arterial 92.3 % Low 95-98 Base Excess Arterial -6.9 Low -2.0-2.0 3 Hco3 Arterial 19.3 mmol/L 19- Drug Abuse 20 Urine 12/19/2017 Urine Amphetamine Negative ng/mL 4 Urine Barbiturates Negative ng/mL 5 Urine Benzodiazepines Negative ng/mL 6 Urine Cocaine Negative ng/mL 7 Urine Phencyclidine Negative ng/mL Cutoff: 25 Urine Tetrahydrocannabinol Presumptive Posi <SEE NOTE> ng/mL Cutoff: 50 8 Creatinine, Urine 160.4 mg/dL Specific [place] 1.016 pH 5.5 Oxidants Negative 9 Adulterants Comment Normal Codeine, Ur Present ng/mL Cutoff: 25 10 Spmdoyc-4-bggm-glucuronide, Ur Present ng/mL 11 Morphine, Ur Present ng/mL Cutoff: 25 12 Qcteknkx-2-yhgb-glucuronide, U Present ng/mL 13 6-monoacetylmorphine, Ur Present ng/mL Cutoff: 25 14 Hydrocodone, Ur Not Detected ng/mL Cutoff: 25 15 Norhydrocodone, Ur Not Detected ng/mL Cutoff: 25 16 Dihydrocodeine, Ur Not Detected ng/mL Cutoff: 25 17 Hydromorphone, Ur Not Detected ng/mL Cutoff: 25 18 Nxhmjqcnxclfd1jppfdazaazpzpkk Present ng/mL 19 Oxycodone, Ur Not Detected ng/mL Cutoff: 25 20 Noroxycodone, Ur Not Detected ng/mL Cutoff: 25 21 Oxymorphone, Ur Not Detected ng/mL Cutoff: 25 22 Icovwdxgqoq-5-rlwn-glucuronide Not Detected ng/mL 23 Noroxymorphone, Ur Not Detected ng/mL Cutoff: 25 24 Fentanyl, Ur Present ng/mL Cutoff: 2 25 Norfentanyl, Ur Present ng/mL Cutoff: 2 26 Meperidine, Ur Not Detected ng/mL Cutoff: 25 27 Normeperidine, Ur Not Detected ng/mL Cutoff: 25 28 Naloxone, Ur Not Detected ng/mL Cutoff: 25 29 Ojainxcf-8-zjgs-glucuronide, U Present ng/mL 30 Methadone, Ur Not Detected ng/mL Cutoff: 25 31 Eddp, Ur Not Detected ng/mL Cutoff: 25 32 Propoxyphene, Ur Not Detected ng/mL Cutoff: 25 33 Norpropoxyphene, Ur Not Detected ng/mL Cutoff: 25 34 Tramadol, Ur Not Detected ng/mL Cutoff: 25 35 O-desmethyltramadol, Ur Not Detected ng/mL Cutoff: 25 36 Tapentadol, Ur Not Detected ng/mL Cutoff: 25 37 N-desmethyltapentadol, Ur Not Detected ng/mL Cutoff: 50 38 Kvoxorojxs-wfzx-xqwltwjiggz, U Not Detected ng/mL 39 Buprenorphine, Ur Not Detected ng/mL Cutoff: 5 40 Norbuprenorphine, Ur Present ng/mL Cutoff: 5 41 Norbuprenorphine glucuronide Present ng/mL Cutoff: 20 42 Opioid Interpretation See Comment 43 THC Confirmation Urine 12/19/2017 Urine Carboxy THC Confirm 17 ng/mL 44 Urine THC Interpretation Positive. 45 Drug Abuse 20 Urine 10/27/2017 Urine Amphetamine Negative ng/mL 46 Urine Barbiturates Negative ng/mL 47 Urine Benzodiazepines Negative ng/mL 48 Urine Cocaine Negative ng/mL 49 Urine Phencyclidine Negative ng/mL Cutoff: 25 Urine Tetrahydrocannabinol Negative ng/mL Cutoff: 50 50 Creatinine, Urine 104.5 mg/dL Specific [place] 1.015 pH 6.5 Oxidants Negative 51 Adulterants Comment Normal Codeine, Ur Present ng/mL Cutoff: 25 52 Dpskgwz-3-bdqa-glucuronide, Ur Present ng/mL 53 Morphine, Ur Present ng/mL Cutoff: 25 54 Xqneervh-1-kpna-glucuronide, U Present ng/mL 55 6-monoacetylmorphine, Ur Present ng/mL Cutoff: 25 56 Hydrocodone, Ur Not Detected ng/mL Cutoff: 25 57 Norhydrocodone, Ur Not Detected ng/mL Cutoff: 25 58 Dihydrocodeine, Ur Not Detected ng/mL Cutoff: 25 59 Hydromorphone, Ur Not Detected ng/mL Cutoff: 25 60 Zolremydapqmy4agiauzrtezuctxv Present ng/mL 61 Oxycodone, Ur Not Detected ng/mL Cutoff: 25 62 Noroxycodone, Ur Not Detected ng/mL Cutoff: 25 63 Oxymorphone, Ur Not Detected ng/mL Cutoff: 25 64 Kfhskhntllr-8-uplp-glucuronide Not Detected ng/mL 65 Noroxymorphone, Ur Not Detected ng/mL Cutoff: 25 66 Fentanyl, Ur Present ng/mL Cutoff: 2 67 Norfentanyl, Ur Present ng/mL Cutoff: 2 68 Meperidine, Ur Not Detected ng/mL Cutoff: 25 69 Normeperidine, Ur Not Detected ng/mL Cutoff: 25 70 Naloxone, Ur Not Detected ng/mL Cutoff: 25 71 Yzqwmwik-8-ktzr-glucuronide, U Present ng/mL 72 Methadone, Ur Not Detected ng/mL Cutoff: 25 73 Eddp, Ur Not Detected ng/mL Cutoff: 25 74 Propoxyphene, Ur Not Detected ng/mL Cutoff: 25 75 Norpropoxyphene, Ur Not Detected ng/mL Cutoff: 25 76 Tramadol, Ur Not Detected ng/mL Cutoff: 25 77 O-desmethyltramadol, Ur Not Detected ng/mL Cutoff: 25 78 Tapentadol, Ur Not Detected ng/mL Cutoff: 25 79 N-desmethyltapentadol, Ur Not Detected ng/mL Cutoff: 50 80 Nedvojlkbf-qxxs-fubzgzdqdon, U Not Detected ng/mL 81 Buprenorphine, Ur Not Detected ng/mL Cutoff: 5 82 Norbuprenorphine, Ur Present ng/mL Cutoff: 5 83 Norbuprenorphine glucuronide Present ng/mL Cutoff: 20 84 Opioid Interpretation See Comment 85 Drug Abuse 20 Urine 09/21/2017 Urine Amphetamine Negative ng/mL 86 Urine Barbiturates Negative ng/mL 87 Urine Benzodiazepines Negative ng/mL 88 Urine Cocaine Negative ng/mL 89 Urine Phencyclidine Negative ng/mL Cutoff: 25 Urine Tetrahydrocannabinol Presumptive Posi <SEE NOTE> ng/mL Cutoff: 50 90 Creatinine, Urine 164.1 mg/dL Specific [place] 1.016 pH 5.9 Oxidants Negative 91 Adulterants Comment Normal Codeine, Ur Present ng/mL Cutoff: 25 92 Doytuxq-9-ywin-glucuronide, Ur Present ng/mL 93 Morphine, Ur Present ng/mL Cutoff: 25 94 Zphfsndy-8-hrxy-glucuronide, U Present ng/mL 95 6-monoacetylmorphine, Ur Present ng/mL Cutoff: 25 96 Hydrocodone, Ur Not Detected ng/mL Cutoff: 25 97 Norhydrocodone, Ur Not Detected ng/mL Cutoff: 25 98 Dihydrocodeine, Ur Not Detected ng/mL Cutoff: 25 99 Hydromorphone, Ur Not Detected ng/mL Cutoff: 25 100 Zavvnvnqlbbqu3kmtghoaokwdgaxd Not Detected ng/mL 101 Oxycodone, Ur Not Detected ng/mL Cutoff: 25 102 Noroxycodone, Ur Not Detected ng/mL Cutoff: 25 103 Oxymorphone, Ur Not Detected ng/mL Cutoff: 25 104 Asvldqfhmhz-7-redg-glucuronide Not Detected ng/mL 105 Noroxymorphone, Ur Not Detected ng/mL Cutoff: 25 106 Fentanyl, Ur Not Detected ng/mL Cutoff: 2 107 Norfentanyl, Ur Not Detected ng/mL Cutoff: 2 108 Meperidine, Ur Not Detected ng/mL Cutoff: 25 109 Normeperidine, Ur Not Detected ng/mL Cutoff: 25 110 Naloxone, Ur Not Detected ng/mL Cutoff: 25 111 Cafrkifi-5-ioqa-glucuronide, U Present ng/mL 112 Methadone, Ur Not Detected ng/mL Cutoff: 25 113 Eddp, Ur Not Detected ng/mL Cutoff: 25 114 Propoxyphene, Ur Not Detected ng/mL Cutoff: 25 115 Norpropoxyphene, Ur Not Detected ng/mL Cutoff: 25 116 Tramadol, Ur Not Detected ng/mL Cutoff: 25 117 O-desmethyltramadol, Ur Not Detected ng/mL Cutoff: 25 118 Tapentadol, Ur Not Detected ng/mL Cutoff: 25 119 N-desmethyltapentadol, Ur Not Detected ng/mL Cutoff: 50 120 Lqgkuklaxp-wazx-zekcrvrvomm, U Not Detected ng/mL 121 Buprenorphine, Ur Not Detected ng/mL Cutoff: 5 122 Norbuprenorphine, Ur Present ng/mL Cutoff: 5 123 Norbuprenorphine glucuronide Present ng/mL Cutoff: 20 124 Opioid Interpretation See Comment 125 THC Confirmation Urine 09/21/2017 Urine Carboxy THC Confirm 10 ng/mL 126 Urine THC Interpretation Positive. 127 Lipid Profile (Trig/Chol/HDL) 09/19/2017 Triglycerides 51 mg/dL 128 Cholesterol 197 mg/dL 129 HDL Cholesterol 68.1 mg/dL 130 LDL Cholesterol 119 mg/dL 131 Comp Metabolic Panel 09/19/2017 Sodium 139 mmol/L [...] Egfr Non- 67.3 >60 Egfr 86.6 >60 132 Laboratory test 09/19/2017 Hepatitis C Antibody Nonreactive Nonreactive finding Drug Abuse 20 Urine 07/26/2017 Urine Amphetamine Negative ng/mL 133 Urine Barbiturates Negative ng/mL 134 Urine Benzodiazepines Negative ng/mL 135 Urine Cocaine Negative ng/mL 136 Urine Phencyclidine Negative ng/mL Cutoff: 25 Urine Tetrahydrocannabinol Presumptive Posi <SEE NOTE> ng/mL Cutoff: 50 137 Creatinine, Urine 149.0 mg/dL Specific [place] 1.013 pH 6.4 Oxidants Negative 138 Adulterants Comment Normal Codeine, Ur Not Detected ng/mL Cutoff: 25 139 Lfdbaep-8-fxtn-glucuronide, Ur Not Detected ng/mL 140 Morphine, Ur Present ng/mL Cutoff: 25 141 Dwerpdkh-4-fwdf-glucuronide, U Present ng/mL 142 6-monoacetylmorphine, Ur Not Detected ng/mL Cutoff: 25 143 Hydrocodone, Ur Not Detected ng/mL Cutoff: 25 144 Norhydrocodone, Ur Not Detected ng/mL Cutoff: 25 145 Dihydrocodeine, Ur Not Detected ng/mL Cutoff: 25 146 Hydromorphone, Ur Not Detected ng/mL Cutoff: 25 147 Qcgcqyualwouw0kpwxwyrdxlrekdo Not Detected ng/mL 148 Oxycodone, Ur Present ng/mL Cutoff: 25 149 Noroxycodone, Ur Present ng/mL Cutoff: 25 150 Oxymorphone, Ur Not Detected ng/mL Cutoff: 25 151 Isslszgpijx-6-ayma-glucuronide Present ng/mL 152 Noroxymorphone, Ur Present ng/mL Cutoff: 25 153 Fentanyl, Ur Present ng/mL Cutoff: 2 154 Norfentanyl, Ur Present ng/mL Cutoff: 2 155 Meperidine, Ur Not Detected ng/mL Cutoff: 25 156 Normeperidine, Ur Not Detected ng/mL Cutoff: 25 157 Naloxone, Ur Not Detected ng/mL Cutoff: 25 158 Uvbnnmzu-1-ugkv-glucuronide, U Present ng/mL 159 Methadone, Ur Not Detected ng/mL Cutoff: 25 160 Eddp, Ur Not Detected ng/mL Cutoff: 25 161 Propoxyphene, Ur Not Detected ng/mL Cutoff: 25 162 Norpropoxyphene, Ur Not Detected ng/mL Cutoff: 25 163 Tramadol, Ur Not Detected ng/mL Cutoff: 25 164 O-desmethyltramadol, Ur Not Detected ng/mL Cutoff: 25 165 Tapentadol, Ur Not Detected ng/mL Cutoff: 25 166 N-desmethyltapentadol, Ur Not Detected ng/mL Cutoff: 50 167 Cgnryxpivp-desd-dyrmizdgerc, U Not Detected ng/mL 168 Buprenorphine, Ur Not Detected ng/mL Cutoff: 5 169 Norbuprenorphine, Ur Present ng/mL Cutoff: 5 170 Norbuprenorphine glucuronide Present ng/mL Cutoff: 20 171 Opioid Interpretation See Comment 172 THC Confirmation Urine 07/26/2017 Urine Carboxy THC Confirm 22 ng/mL 173 Urine THC Interpretation Positive. 174 Drug Abuse 20 Urine 04/27/2017 Urine Amphetamine Negative ng/mL 175 Urine Barbiturates Negative ng/mL 176 Urine Benzodiazepines Negative ng/mL 177 Urine Cocaine Negative ng/mL 178 Urine Phencyclidine Negative ng/mL Cutoff: 25 Urine Tetrahydrocannabinol Presumptive Posi <SEE NOTE> ng/mL Cutoff: 50 179 Creatinine, Urine 164.9 mg/dL Specific [place] 1.017 pH 6.4 Oxidants Negative 180 Adulterants Comment Normal Codeine, Ur Not Detected ng/mL Cutoff: 25 181 Ivonomt-3-retc-glucuronide, Ur Not Detected ng/mL 182 Morphine, Ur Not Detected ng/mL Cutoff: 25 183 Nbilznep-4-tivx-glucuronide, U Not Detected ng/mL 184 6-monoacetylmorphine, Ur Not Detected ng/mL Cutoff: 25 185 Hydrocodone, Ur Not Detected ng/mL Cutoff: 25 186 Norhydrocodone, Ur Not Detected ng/mL Cutoff: 25 187 Dihydrocodeine, Ur Not Detected ng/mL Cutoff: 25 188 Hydromorphone, Ur Not Detected ng/mL Cutoff: 25 189 Ozxvloacyvrkd3dpltkucbpzipdpb Not Detected ng/mL 190 Oxycodone, Ur Not Detected ng/mL Cutoff: 25 191 Noroxycodone, Ur Not Detected ng/mL Cutoff: 25 192 Oxymorphone, Ur Not Detected ng/mL Cutoff: 25 193 Jrosksltjht-3-druc-glucuronide Not Detected ng/mL 194 Noroxymorphone, Ur Not Detected ng/mL Cutoff: 25 195 Fentanyl, Ur Not Detected ng/mL Cutoff: 2 196 Norfentanyl, Ur Not Detected ng/mL Cutoff: 2 197 Meperidine, Ur Not Detected ng/mL Cutoff: 25 198 Normeperidine, Ur Not Detected ng/mL Cutoff: 25 199 Naloxone, Ur Not Detected ng/mL Cutoff: 25 200 Wqjmiqsw-8-izqi-glucuronide, U Present ng/mL 201 Methadone, Ur Not Detected ng/mL Cutoff: 25 202 Eddp, Ur Not Detected ng/mL Cutoff: 25 203 Propoxyphene, Ur Not Detected ng/mL Cutoff: 25 204 Norpropoxyphene, Ur Not Detected ng/mL Cutoff: 25 205 Tramadol, Ur Not Detected ng/mL Cutoff: 25 206 O-desmethyltramadol, Ur Not Detected ng/mL Cutoff: 25 207 Tapentadol, Ur Not Detected ng/mL Cutoff: 25 208 N-desmethyltapentadol, Ur Not Detected ng/mL Cutoff: 50 209 Rpxsluypay-lzco-edstlucwtsg, U Not Detected ng/mL 210 Buprenorphine, Ur Not Detected ng/mL Cutoff: 5 211 Norbuprenorphine, Ur Present ng/mL Cutoff: 5 212 Norbuprenorphine glucuronide Present ng/mL Cutoff: 20 213 Opioid Interpretation See Comment 214 THC Confirmation Urine 04/27/2017 Urine Carboxy THC Confirm 40 ng/mL 215 Urine THC Interpretation Positive. 216 Drug Abuse 20 Urine 12/01/2016 Urine Amphetamine Negative ng/mL 217 Urine Barbiturates Negative ng/mL 218 Urine Benzodiazepines Negative ng/mL 219 Urine Cocaine Negative ng/mL 220 Urine Phencyclidine Negative ng/mL Cutoff: 25 Urine Tetrahydrocannabinol Negative ng/mL Cutoff: 50 221 Creatinine, Urine 301.1 mg/dL Specific [place] 1.019 pH 5.8 Oxidants Negative 222 Adulterants Comment Normal Codeine, Ur Not Detected ng/mL Cutoff: 25 223 Vmmrsuv-6-llkp-glucuronide, Ur Not Detected ng/mL 224 Morphine, Ur Not Detected ng/mL Cutoff: 25 225 Eitcqzxy-9-exvu-glucuronide, U Not Detected ng/mL 226 6-monoacetylmorphine, Ur Not Detected ng/mL Cutoff: 25 227 Hydrocodone, Ur Not Detected ng/mL Cutoff: 25 228 Norhydrocodone, Ur Not Detected ng/mL Cutoff: 25 229 Dihydrocodeine, Ur Not Detected ng/mL Cutoff: 25 230 Hydromorphone, Ur Not Detected ng/mL Cutoff: 25 231 Ohqbryhicqsea3rigidxxasnmshom Not Detected ng/mL 232 Oxycodone, Ur Not Detected ng/mL Cutoff: 25 233 Noroxycodone, Ur Not Detected ng/mL Cutoff: 25 234 Oxymorphone, Ur Not Detected ng/mL Cutoff: 25 235 Ohdjpinvqvr-2-zdqk-glucuronide Not Detected ng/mL 236 Noroxymorphone, Ur Not Detected ng/mL Cutoff: 25 237 Fentanyl, Ur Not Detected ng/mL Cutoff: 2 238 Norfentanyl, Ur Present ng/mL Cutoff: 2 239 Meperidine, Ur Not Detected ng/mL Cutoff: 25 240 Normeperidine, Ur Not Detected ng/mL Cutoff: 25 241 Naloxone, Ur Not Detected ng/mL Cutoff: 25 242 Icoavxwf-3-uaho-glucuronide, U Present ng/mL 243 Methadone, Ur Not Detected ng/mL Cutoff: 25 244 Eddp, Ur Not Detected ng/mL Cutoff: 25 245 Propoxyphene, Ur Not Detected ng/mL Cutoff: 25 246 Norpropoxyphene, Ur Not Detected ng/mL Cutoff: 25 247 Tramadol, Ur Not Detected ng/mL Cutoff: 25 248 O-desmethyltramadol, Ur Not Detected ng/mL Cutoff: 25 249 Tapentadol, Ur Not Detected ng/mL Cutoff: 25 250 N-desmethyltapentadol, Ur Not Detected ng/mL Cutoff: 50 251 Odojmctmxh-lmjz-zukhnjidlwc, U Present ng/mL 252 Buprenorphine, Ur Not Detected ng/mL Cutoff: 5 253 Norbuprenorphine, Ur Present ng/mL Cutoff: 5 254 Norbuprenorphine glucuronide Present ng/mL Cutoff: 20 255 Opioid Interpretation See Comment 256 CBC Auto Diff 11/15/2016 White Blood Count [...] 11/15/2016 Lactic Acid 2.3 mmol/L High 0.5-2.0 257 Comp Metabolic Panel 11/15/2016 Sodium 138 mmol/L [...] Egfr Non- 49.4 >60 Egfr 63.5 >60 258 Laboratory test finding 11/15/2016 Troponin-I (TnI) 0.01 ng/mL <0.04 B-Type Natriuretic Peptide BNP 108 pg/mL High 259 Liver Function Panel 10/25/2016 Total Protein 7.1 g/dL 6.4-8.9 Albumin 3.8 g/dL 3.2-5.2 Globulin 3.3 g/dL 2-4 Albumin/Globulin Ratio 1.2 1-3 Total Bilirubin 0.50 mg/dL 0.2-1.0 Direct Bilirubin 0.10 mg/dL 0.03-0.18 Indirect Bilirubin 0.4 mg/dL 0.3-1.0 Alkaline Phosphatase 70 U/L 34-104 Alt 16 U/L 7-52 Ast 20 U/L 13-39 Drug Abuse 20 Urine 10/06/2016 Urine Amphetamine Negative ng/mL 260 Urine Barbiturates Negative ng/mL 261 Urine Benzodiazepines Negative ng/mL 262 Urine Cocaine Negative ng/mL 263 Urine Phencyclidine Negative ng/mL Cutoff: 25 Urine Tetrahydrocannabinol Negative ng/mL Cutoff: 50 264 Creatinine, Urine 163.7 mg/dL Specific [place] 1.018 pH 5.9 Oxidants Negative 265 Adulterants Comment Normal Codeine, Ur Not Detected ng/mL Cutoff: 25 266 Brtsqyw-9-tegh-glucuronide, Ur Not Detected ng/mL 267 Morphine, Ur Not Detected ng/mL Cutoff: 25 268 Xcogjmax-3-cjcv-glucuronide, U Not Detected ng/mL 269 6-monoacetylmorphine, Ur See Comment ng/mL Cutoff: 25 270 Hydrocodone, Ur Not Detected ng/mL Cutoff: 25 271 Norhydrocodone, Ur Not Detected ng/mL Cutoff: 25 272 Dihydrocodeine, Ur Not Detected ng/mL Cutoff: 25 273 Hydromorphone, Ur Not Detected ng/mL Cutoff: 25 274 Ttphpecskaqpy8yyqrluomyowrodw Not Detected ng/mL 275 Oxycodone, Ur Not Detected ng/mL Cutoff: 25 276 Noroxycodone, Ur Not Detected ng/mL Cutoff: 25 277 Oxymorphone, Ur Not Detected ng/mL Cutoff: 25 278 Zuziertfdse-9-tnja-glucuronide Not Detected ng/mL 279 Noroxymorphone, Ur Not Detected ng/mL Cutoff: 25 280 Fentanyl, Ur Not Detected ng/mL Cutoff: 2 281 Norfentanyl, Ur Present ng/mL Cutoff: 2 282 Meperidine, Ur Not Detected ng/mL Cutoff: 25 283 Normeperidine, Ur Not Detected ng/mL Cutoff: 25 284 Naloxone, Ur Not Detected ng/mL Cutoff: 25 285 [id number]-glucuronide, U Present ng/mL 286 Methadone, Ur Not Detected ng/mL Cutoff: 25 287 Eddp, Ur Not Detected ng/mL Cutoff: 25 288 Propoxyphene, Ur Not Detected ng/mL Cutoff: 25 289 Norpropoxyphene, Ur Not Detected ng/mL Cutoff: 25 290 Tramadol, Ur Not Detected ng/mL Cutoff: 25 291 O-desmethyltramadol, Ur Not Detected ng/mL Cutoff: 25 292 Tapentadol, Ur Not Detected ng/mL Cutoff: 25 293 N-desmethyltapentadol, Ur Not Detected ng/mL Cutoff: 50 294 [id number]-[id number]-[id number], U Not Detected ng/mL 295 Buprenorphine, Ur Not Detected ng/mL Cutoff: 5 296 Norbuprenorphine, Ur Present ng/mL Cutoff: 5 297 Norbuprenorphine glucuronide Present ng/mL Cutoff: 20 298 Opioid Interpretation See Comment 299 Drug Abuse 20 Urine 08/17/2016 Urine Amphetamine Presumptive Posi <SEE NOTE > 300 ng/mL Urine Barbiturates Negative ng/mL 301 Urine Benzodiazepines Negative ng/mL 302 Urine Cocaine Negative ng/mL 303 Urine Phencyclidine Negative ng/mL Cutoff: 25 Urine Tetrahydrocannabinol Negative ng/mL Cutoff: 50 304 Creatinine 238.4 mg/dL Specific [place] 1.018 pH 5.7 Oxidants Negative 305 Adulterants Comment Normal Codeine, Ur Present ng/mL Cutoff: 25 306 Fbnhlps-9-afzm-glucuronide, Ur Present ng/mL 307 Morphine, Ur Present ng/mL Cutoff: 25 308 Zoymiqkp-8-corz-glucuronide, U Present ng/mL 309 6-monoacetylmorphine, Ur Present ng/mL Cutoff: 25 310 Hydrocodone, Ur Not Detected ng/mL Cutoff: 25 311 Norhydrocodone, Ur Not Detected ng/mL Cutoff: 25 312 Dihydrocodeine, Ur Not Detected ng/mL Cutoff: 25 313 Hydromorphone, Ur Not Detected ng/mL Cutoff: 25 314 Czzubdyhusvih4oncpnjikjnrykiv Not Detected ng/mL 315 Oxycodone, Ur Not Detected ng/mL Cutoff: 25 316 Noroxycodone, Ur Not Detected ng/mL Cutoff: 25 317 Oxymorphone, Ur Not Detected ng/mL Cutoff: 25 318 Fsougxjffpb-9-xtfb-glucuronide Not Detected ng/mL 319 Noroxymorphone, Ur Not Detected ng/mL Cutoff: 25 320 Fentanyl, Ur Present ng/mL Cutoff: 2 321 Norfentanyl, Ur Present ng/mL Cutoff: 2 322 Meperidine, Ur Not Detected ng/mL Cutoff: 25 323 Normeperidine, Ur Not Detected ng/mL Cutoff: 25 324 Naloxone, Ur Not Detected ng/mL Cutoff: 25 325 Rkctpxke-6-ucbk-glucuronide, U Present ng/mL 326 Methadone, Ur Not Detected ng/mL Cutoff: 25 327 Eddp, Ur Not Detected ng/mL Cutoff: 25 328 Propoxyphene, Ur Not Detected ng/mL Cutoff: 25 329 Norpropoxyphene, Ur Not Detected ng/mL Cutoff: 25 330 Tramadol, Ur Present ng/mL Cutoff: 25 331 O-desmethyltramadol, Ur Present ng/mL Cutoff: 25 332 Tapentadol, Ur Not Detected ng/mL Cutoff: 25 333 N-desmethyltapentadol, Ur Not Detected ng/mL Cutoff: 50 334 Pjtspuntzo-iump-dlkrlmrexcy, U Not Detected ng/mL 335 Buprenorphine, Ur Not Detected ng/mL Cutoff: 5 336 Norbuprenorphine, Ur Present ng/mL Cutoff: 5 337 Norbuprenorphine glucuronide Present ng/mL Cutoff: 20 338 Opioid Interpretation See Comment 339 Urine Amphetamine Confirm 08/17/2016 Urine Amphetamine by 106 ng/mL Cutoff: 25 GC/MS Urine Methamphetamine by GC/MS 572 ng/mL Cutoff: 25 Phentermine-by GC/MS Negative ng/mL Cutoff: 25 Pseudoephedrine/Ephedr GC/MS Negative ng/mL Cutoff: 25 Mda(Ecstacy metabolite) GC/MS Negative ng/mL Cutoff: 25 Mdma(Ecstacy)-by GC/MS Negative ng/mL Cutoff: 25 Urine Amphetamines Interp Positive. 340 Drug Abuse 20 Urine 07/15/2016 Urine Amphetamine Negative ng/mL 341 Urine Barbiturates Negative ng/mL 342 Urine Benzodiazepines Negative ng/mL 343 Urine Cocaine Negative ng/mL 344 Urine Phencyclidine Negative ng/mL Cutoff: 25 Urine Tetrahydrocannabinol Presumptive Posi <SEE NOTE> ng/mL Cutoff: 50 345 Creatinine 158.7 mg/dL Specific [place] 1.016 pH 6.8 Oxidants Negative 346 Adulterants Comment Normal Codeine, Ur Present ng/mL Cutoff: 25 347 Dsvrcce-4-tsze-glucuronide, Ur Present ng/mL 348 Morphine, Ur Present ng/mL Cutoff: 25 349 Mcgwpcmb-7-ykth-glucuronide, U Present ng/mL 350 6-monoacetylmorphine, Ur Present ng/mL Cutoff: 25 351 Hydrocodone, Ur Not Detected ng/mL Cutoff: 25 352 Norhydrocodone, Ur Not Detected ng/mL Cutoff: 25 353 Dihydrocodeine, Ur Not Detected ng/mL Cutoff: 25 354 Hydromorphone, Ur Not Detected ng/mL Cutoff: 25 355 Hkfbohgbtbmvh1mzqrqsextdfilrg Present ng/mL 356 Oxycodone, Ur Not Detected ng/mL Cutoff: 25 357 Noroxycodone, Ur Not Detected ng/mL Cutoff: 25 358 Oxymorphone, Ur Not Detected ng/mL Cutoff: 25 359 Oosodrgexds-2-ysuk-glucuronide Not Detected ng/mL 360 Noroxymorphone, Ur Not Detected ng/mL Cutoff: 25 361 Fentanyl, Ur Present ng/mL Cutoff: 2 362 Norfentanyl, Ur Present ng/mL Cutoff: 2 363 Meperidine, Ur Not Detected ng/mL Cutoff: 25 364 Normeperidine, Ur Not Detected ng/mL Cutoff: 25 365 Naloxone, Ur Not Detected ng/mL Cutoff: 25 366 Jbieobzk-4-njpx-glucuronide, U Not Detected ng/mL 367 Methadone, Ur Not Detected ng/mL Cutoff: 25 368 Eddp, Ur Not Detected ng/mL Cutoff: 25 369 Propoxyphene, Ur Not Detected ng/mL Cutoff: 25 370 Norpropoxyphene, Ur Not Detected ng/mL Cutoff: 25 371 Tramadol, Ur Present ng/mL Cutoff: 25 372 O-desmethyltramadol, Ur Present ng/mL Cutoff: 25 373 Tapentadol, Ur Not Detected ng/mL Cutoff: 25 374 N-desmethyltapentadol, Ur Not Detected ng/mL Cutoff: 50 375 Ccupltmbqu-ecjs-ryzehjqxshh, U Not Detected ng/mL 376 Buprenorphine, Ur Not Detected ng/mL Cutoff: 5 377 Norbuprenorphine, Ur Present ng/mL Cutoff: 5 378 Norbuprenorphine glucuronide Present ng/mL Cutoff: 20 379 Opioid Interpretation See Comment 380 THC Confirmation Urine 07/15/2016 Urine Carboxy THC Confirm 28 ng/mL 381 Urine THC Interpretation Positive. 382 Comp Metabolic Panel 03/01/2009 Sodium 135 mmol/L 135-145 Potassium 4.2 mmol/L 3.5-5.0 Chloride 103 mmol/L 101-111 Co2 (Carbon Dioxide) 26.0 mmol/L 22-32 Anion Gap 6.0 mmol/L 2-11 383 Glucose 104 mg/dL High 70-100 384 BUN 20 mg/dL 6-24 Creatinine 0.80 mg/dL 0.50-1.40 One Over Creatinine 1.20 BUN/Creatinine Ratio 25.0 High 8-20 Calcium 8.7 mg/dL 8.1-9.9 385 Total Protein 6.5 GM/DL 6.2-8.1 Albumin 3.6 GM/DL 3.6-5.4 Globulin 2.9 GM/DL 2-4 Albumin/Globulin Ratio 1.2 1-3 Bilirubin Total 0.6 mg/dL 0.4-1.5 386 Alkaline Phosphatase 69 U/L 39-117 Alt (SGPT) 31 U/L 17-63 Ast (Sgot) 22 U/L 12-42 eGFR Non- 113.2 > 60 eGFR 137.0 > 60 387 Lipid Profile (Trig/Chol/HDL) 03/01/2009 Triglyceride 60 mg/dL 40-200 Cholesterol 155 mg/dL Less Than 200 388 High Density Lipoprotein 46 mg/dL 40-60 389 Cholesterol/HDL Ratio 3.37 AVERAGE 1-4.97 Low Density Lipoprotein 97 mg/dL Less Than 100 390 Laboratory test finding 03/01/2009 CPK (Creatine Kinase) 92 U/L 0-200 CBC With Electronic Diff 02/06/2009 White Blood [...] 0 0-0.2 Protime 02/06/2009 Inr 1.03 0.86-1.13 391 Protime 12.5 SEC 10.7-13.6 392 Laboratory test finding 02/06/2009 PTT (Aptt) 31.3 25.15-38.53 393 Comp Metabolic Panel 02/06/2009 Sodium 137 mmol/L 135-145 Potassium 4.2 mmol/L 3.5-5.0 Chloride 105 mmol/L 101-111 Co2 (Carbon Dioxide) 30.0 mmol/L 22-32 Anion Gap 2.0 mmol/L 2-11 394 Glucose 103 mg/dL High 70-100 395 BUN 23 mg/dL 6-24 Creatinine 0.90 mg/dL 0.50-1.40 One Over Creatinine 1.10 BUN/Creatinine Ratio 25.6 High 8-20 Calcium 9.3 mg/dL 8.1-9.9 396 Total Protein 7.3 GM/DL 6.2-8.1 Albumin 3.9 GM/DL 3.6-5.4 Globulin 3.4 GM/DL 2-4 Albumin/Globulin Ratio 1.1 1-3 Bilirubin Total 0.7 mg/dL 0.4-1.5 397 Alkaline Phosphatase 67 U/L 39-117 Alt (SGPT) 27 U/L 17-63 Ast (Sgot) 21 U/L 12-42 eGFR Non- 98.8 > 60 eGFR 119.6 > 60 398 Lipid Profile (Trig/Chol/HDL) 02/06/2009 Triglyceride 72 mg/dL 40-200 Cholesterol 176 mg/dL Less Than 200 399 High Density Lipoprotein 47 mg/dL 40-60 400 Cholesterol/HDL Ratio 3.74 AVERAGE 1-4.97 Low Density Lipoprotein 115 mg/dL High Less Than 100 401 Laboratory test finding 02/06/2009 TSH 0.63 MIU/ML 0.34-5.60 THC Confirmation 02/06/2009 Urine THC Screen Positive Cutoff: 20 THC Carboxylic Acid By GC/MS 267 ng/mL Cutoff: 3 Urine THC Interpretation Positive () 402 Urine Drug Screen M-20 02/06/2009 Urine Alcohol [...] 411 Urine Tetrahydrocannabinol REFLEX Cutoff: 20 412 Urinalysis W/Microscopic 02/06/2009 Ua Color YELLOW Appearance-Urine CLEAR Specific [place]-Ur 1.030 1.010-1.030 Esterase-Urine NEGATIVE Negative Nitrite NEGATIVE Negative Qqwypaozgyql-Fd-NKN NEGATIVE Negative Protein-Urine NEGATIVE Negative PH-Urine 6.0 5-9 Blood-Urine NEGATIVE Negative Ketones-Urine TRACE Negative Ictotest-Urine NEGATIVE Glucose-Urine NEGATIVE Negative WBC-Urine 0-2 0-5 RBC-Urine 1-3 0-2 Mucus Urine SMALL Epith Cells-Ur RARE 1 Because ethnic data is not always [...] 5 Kidney failure <15 (or dialysis) 2 Verbal to [id number] by [id number] at 0140 on 12/31/17. Results read back accurately. 3 Reference ranges based on room air. 4 REFERENCE VALUE Cutoff: 500 5 REFERENCE VALUE Cutoff: 200 6 REFERENCE VALUE Cutoff: 100 7 REFERENCE VALUE Cutoff: 150 8 Presumptive Positive Drug confirmation to follow. Presumptive Positive means that the screening method is positive, but the test needs to be run by a confirmatory method before being finalized. ADDITIONAL INFORMATION This report is intended for use in clinical monitoring or management of patients. It is not intended for use in employment-related testing. 9 REFERENCE VALUE Cutoff: 200 mg/L 10 Tylenol 3 11 Metabolite of codeine REFERENCE VALUE Cutoff: 100 12 Ida Moraes, Contin; Also a minor metabolite (10%) of codeine and can be seen in low concentrations (<2,000 ng/mL) with poppy seed ingestion. 13 Metabolite of morphine REFERENCE VALUE Cutoff: 100 14 Metabolite of heroin 15 Lortab, [place], Vicodin; Also a very minor metabolite of codeine and impurity (<1%) of oxycodone. 16 Metabolite of hydrocodone 17 Metabolite of hydrocodone 18 Dilaudid, Exalgo; Also a metabolite of hydrocodone and a minor (<5%) metabolite of morphine. 19 Metabolite of hydromorphone REFERENCE VALUE Cutoff: 100 20 Endocet, Percocet, Oxycontin 21 Metabolite of oxycodone 22 Numorphan, Opana; Also a metabolite of oxycodone. 23 Metabolite of oxymorphone REFERENCE VALUE Cutoff: 100 24 Metabolite of oxymorphone 25 Actiq, Duragesic, Fentora 26 Metabolite of fentanyl 27 Demerol 28 Metabolite of meperidine 29 Narcan 30 Metabolite of naloxone REFERENCE VALUE Cutoff: 100 31 Dolophine 32 Metabolite of methadone 33 Darvon, Darvocet 34 Metabolite of propoxyphene 35 Tradol, Ultram, Ultracet 36 Metabolite of tramadol 37 Nucynta 38 Metabolite of tapentadol 39 Metabolite of tapentadol REFERENCE VALUE Cutoff: 100 40 Buprenex, Suboxone 41 Metabolite of buprenorphine 42 Metabolite of buprenorphine 43 Test detected the presence of morphine and its metabolites (ujflwcft-9-kexd-glucuronide and uyjwrgidcelue-0-rcfz-glucuronide) along with codeine and gufbqov-0-kswr-glucuronide and the metabolite of heroin (6-monoacetylmorphine). Suspect recent use of heroin. Test detected the presence of buprenorphine metabolites (norbuprenorphine and norbuprenorphine glucuronide) along with naloxone metabolite (rehatjht-5-mpww-glucuronide). Suspect use of buprenorphine with naloxone (e.g. Suboxone) within the past three days. Test detected the presence of fentanyl and its metabolite (norfentanyl). Suspect use of fentanyl within the past three days. ADDITIONAL INFORMATION This test was developed and its performance characteristics determined by [facility] in a manner consistent with CLIA requirements. This test has not been cleared or approved by the U.S. Food and Drug Administration. Test Performed by: [facility] [employer] - [address] [id number] 44 REFERENCE VALUE Cutoff: 3.0 45 ADDITIONAL INFORMATION This report is intended for use in clinical monitoring and management of patients. It is not intended for use in employment-related testing. This test was developed and its performance characteristics determined by [facility] in a manner consistent with CLIA requirements. This test has not been cleared or approved by the U.S. Food and Drug Administration. Test Performed by: [facility] - [address] [id number] 46 REFERENCE VALUE Cutoff: 500 47 REFERENCE VALUE Cutoff: 200 48 REFERENCE VALUE Cutoff: 100 49 REFERENCE VALUE Cutoff: 150 50 ADDITIONAL INFORMATION This report is intended for use in clinical monitoring or management of patients. It is not intended for use in employment-related testing. 51 REFERENCE VALUE Cutoff: 200 mg/L 52 Tylenol 3 53 Metabolite of codeine REFERENCE VALUE Cutoff: 100 54 Ida Moraes MS Contin; Also a minor metabolite (10%) of codeine and can be seen in low concentrations (<2,000 ng/mL) with poppy seed ingestion. 55 Metabolite of morphine REFERENCE VALUE Cutoff: 100 56 Metabolite of heroin 57 Lortab, [place], Vicodin; Also a very minor metabolite of codeine and impurity (<1%) of oxycodone. 58 Metabolite of hydrocodone 59 Metabolite of hydrocodone 60 Dilaudid, Exalgo; Also a metabolite of hydrocodone and a minor (<5%) metabolite of morphine. 61 Metabolite of hydromorphone REFERENCE VALUE Cutoff: 100 62 Endocet, Percocet, Oxycontin 63 Metabolite of oxycodone 64 Numorphan, Opana; Also a metabolite of oxycodone. 65 Metabolite of oxymorphone REFERENCE VALUE Cutoff: 100 66 Metabolite of oxymorphone 67 Actiq, Duragesic, Fentora 68 Metabolite of fentanyl 69 Demerol 70 Metabolite of meperidine 71 Narcan 72 Metabolite of naloxone REFERENCE VALUE Cutoff: 100 73 Dolophine 74 Metabolite of methadone 75 Darvon, Darvocet 76 Metabolite of propoxyphene 77 Tradol, Ultram, Ultracet 78 Metabolite of tramadol 79 Nucynta 80 Metabolite of tapentadol 81 Metabolite of tapentadol REFERENCE VALUE Cutoff: 100 82 Buprenex, Suboxone 83 Metabolite of buprenorphine 84 Metabolite of buprenorphine 85 Test detected the presence of morphine and its metabolites (aeosnsut-8-jmzy-glucuronide and ijnmowcrxiphu-7-imbd-glucuronide) along with codeine and tphjffm-2-cssu-glucuronide and the metabolite of heroin (6-monoacetylmorphine). Suspect recent use of heroin. Test detected the presence of buprenorphine metabolites (norbuprenorphine and norbuprenorphine glucuronide) along with naloxone metabolite (knjzabqq-8-wbzz-glucuronide). Suspect use of buprenorphine with naloxone (e.g. Suboxone) within the past three days. Test detected the presence of fentanyl and its metabolite (norfentanyl). Suspect use of fentanyl within the past three days. ADDITIONAL INFORMATION This test was developed and its performance characteristics determined by [facility] in a manner consistent with CLIA requirements. This test has not been cleared or approved by the U.S. Food and Drug Administration. Test Performed by: [facility] [address] [facility], [place] [address] 86 REFERENCE VALUE Cutoff: 500 87 REFERENCE VALUE Cutoff: 200 88 REFERENCE VALUE Cutoff: 100 89 REFERENCE VALUE Cutoff: 150 90 Presumptive Positive Drug confirmation to follow. Presumptive Positive means that the screening method is positive, but the test needs to be run by a confirmatory method before being finalized. ADDITIONAL INFORMATION This report is intended for use in clinical monitoring or management of patients. It is not intended for use in employment-related testing. 91 REFERENCE VALUE Cutoff: 200 mg/L 92 Tylenol 3 93 Metabolite of codeine REFERENCE VALUE Cutoff: 100 94 Ida Moraes, Contin; Also a minor metabolite (10%) of codeine and can be seen in low concentrations (<2,000 ng/mL) with poppy seed ingestion. 95 Metabolite of morphine REFERENCE VALUE Cutoff: 100 96 Metabolite of heroin 97 Lortab, [place], Vicodin; Also a very minor metabolite of codeine and impurity (<1%) of oxycodone. 98 Metabolite of hydrocodone 99 Metabolite of hydrocodone 100 Dilaudid, Exalgo; Also a metabolite of hydrocodone and a minor (<5%) metabolite of morphine. 101 Metabolite of hydromorphone REFERENCE VALUE Cutoff: 100 102 Endocet, Percocet, Oxycontin 103 Metabolite of oxycodone 104 Numorphan, Opana; Also a metabolite of oxycodone. 105 Metabolite of oxymorphone REFERENCE VALUE Cutoff: 100 106 Metabolite of oxymorphone 107 Actiq, Duragesic, Fentora 108 Metabolite of fentanyl 109 Demerol 110 Metabolite of meperidine 111 Narcan 112 Metabolite of naloxone REFERENCE VALUE Cutoff: 100 113 Dolophine 114 Metabolite of methadone 115 Darvon, Darvocet 116 Metabolite of propoxyphene 117 Tradol, Ultram, Ultracet 118 Metabolite of tramadol 119 Nucynta 120 Metabolite of tapentadol 121 Metabolite of tapentadol REFERENCE VALUE Cutoff: 100 122 Buprenex, Suboxone 123 Metabolite of buprenorphine 124 Metabolite of buprenorphine 125 Test detected the presence of codeine, tyhpfgr-5-upfc-glucuronide (metabolite of codeine), morphine, and dtrurral-4-vxwe-glucuronide (metabolite of morphine). Suspect recent use of codeine or possibly codeine and morphine within the past three days. Test detected the presence of morphine, lkqmdphf-3-bcpb-glucuronide (morphine metabolite) and the metabolite of heroin (6-monoacetylmorphine). Suspect recent use of heroin. Test detected the presence of buprenorphine metabolites (norbuprenorphine and norbuprenorphine glucuronide) along with naloxone metabolite (ekwtocks-6-xgqs-glucuronide). Suspect use of buprenorphine with naloxone (e.g. Suboxone) within the past three days. ADDITIONAL INFORMATION This test was developed and its performance characteristics determined by [facility] in a manner consistent with CLIA requirements. This test has not been cleared or approved by the U.S. Food and Drug Administration. Test Performed by: [facility] [employer] - [address] [id number] 126 REFERENCE VALUE Cutoff: 3.0 127 ADDITIONAL INFORMATION This report is intended for use in clinical monitoring and management of patients. It is not intended for use in employment-related testing. This test was developed and its performance characteristics determined by [facility] in a manner consistent with CLIA requirements. This test has not been cleared or approved by the U.S. Food and Drug Administration. Test Performed by: [facility] [employer] - [address] [id number] 128 Desirable: <150 Borderline High: 150-199 High: 200-499 Very High: >500 129 Desirable: <200 Borderline High: 200-239 High: >239 130 Low: <40 Desirable: 40-60 High: >60 131 Desirable: <100 Near Optimal: 100-129 Borderline High: 130-159 High: 160-189 Very High: >189 132 Because ethnic data is not always readily [...] 15-29 5 Kidney failure <15 (or dialysis) 133 REFERENCE VALUE Cutoff: 500 134 REFERENCE VALUE Cutoff: 200 135 REFERENCE VALUE Cutoff: 100 136 REFERENCE VALUE Cutoff: 150 137 Presumptive Positive Drug confirmation to follow. Presumptive Positive means that the screening method is positive, but the test needs to be run by a confirmatory method before being finalized. ADDITIONAL INFORMATION This report is intended for use in clinical monitoring or management of patients. It is not intended for use in employment-related testing. 138 REFERENCE VALUE Cutoff: 200 mg/L 139 Tylenol 3 140 Metabolite of codeine REFERENCE VALUE Cutoff: 100 141 Ida Moraes, Contin; Also a minor metabolite (10%) of codeine and can be seen in low concentrations (<2,000 ng/mL) with poppy seed ingestion. 142 Metabolite of morphine REFERENCE VALUE Cutoff: 100 143 Metabolite of heroin 144 Lortab, [place], Vicodin; Also a very minor metabolite of codeine and impurity (<1%) of oxycodone. 145 Metabolite of hydrocodone 146 Metabolite of hydrocodone 147 Dilaudid, Exalgo; Also a metabolite of hydrocodone and a minor (<5%) metabolite of morphine. 148 Metabolite of hydromorphone REFERENCE VALUE Cutoff: 100 149 Endocet, Percocet, Oxycontin 150 Metabolite of oxycodone 151 Numorphan, Opana; Also a metabolite of oxycodone. 152 Metabolite of oxymorphone REFERENCE VALUE Cutoff: 100 153 Metabolite of oxymorphone 154 Actiq, Duragesic, Fentora 155 Metabolite of fentanyl 156 Demerol 157 Metabolite of meperidine 158 Narcan 159 Metabolite of naloxone REFERENCE VALUE Cutoff: 100 160 Dolophine 161 Metabolite of methadone 162 Darvon, Darvocet 163 Metabolite of propoxyphene 164 Tradol, Ultram, Ultracet 165 Metabolite of tramadol 166 Nucynta 167 Metabolite of tapentadol 168 Metabolite of tapentadol REFERENCE VALUE Cutoff: 100 169 Buprenex, Suboxone 170 Metabolite of buprenorphine 171 Metabolite of buprenorphine 172 Test detected the presence of both morphine and its metabolite (drevlppv-0-fqku-glucuronide). Suspect use of morphine within the past three days. Alternatively, these results could also be suggestive of heroin use. Low levels of morphine can also be seen following poppy seed ingestion. Test detected the presence of oxycodone and several metabolites (noroxycodone, noroxymorphone, and kzccvlowlsl-6-irmz-glucuronide). Suspect use of oxycodone or possibly oxycodone and oxymorphone within the past three days. Test detected the presence of norbuprenorphine and norbuprenorphine glucuronide which are metabolites of buprenorphine. Suspect use of buprenorphine within the past three days. Test detected the presence of fentanyl and its metabolite (norfentanyl). Suspect use of fentanyl within the past three days. Test detected the presence of qyzlmqut-7-cebt-glucuronide (metabolite of naloxone) only. Suspect use of naloxone (Narcan) within the past three days. ADDITIONAL INFORMATION This test was developed and its performance characteristics determined by [facility] in a manner consistent with CLIA requirements. This test has not been cleared or approved by the U.S. Food and Drug Administration. Test Performed by: [facility] [address] [place] [address] 173 REFERENCE VALUE Cutoff: 3.0 174 ADDITIONAL INFORMATION This report is intended for use in clinical monitoring and management of patients. It is not intended for use in employment-related testing. This test was developed and its performance characteristics determined by [facility] in a manner consistent with CLIA requirements. This test has not been cleared or approved by the U.S. Food and Drug Administration. Test Performed by: [facility] - [address] [id number] 175 REFERENCE VALUE Cutoff: 500 176 REFERENCE VALUE Cutoff: 200 177 REFERENCE VALUE Cutoff: 100 178 REFERENCE VALUE Cutoff: 150 179 Presumptive Positive Drug confirmation to follow. Presumptive Positive means that the screening method is positive, but the test needs to be run by a confirmatory method before being finalized. ADDITIONAL INFORMATION This report is intended for use in clinical monitoring or management of patients. It is not intended for use in employment-related testing. 180 REFERENCE VALUE Cutoff: 200 mg/L 181 Tylenol 3 182 Metabolite of codeine REFERENCE VALUE Cutoff: 100 183 Ida Moraes MS Contin; Also a minor metabolite (10%) of codeine and can be seen in low concentrations (<2,000 ng/mL) with poppy seed ingestion. 184 Metabolite of morphine REFERENCE VALUE Cutoff: 100 185 Metabolite of heroin 186 Lortab, [place], Vicodin; Also a very minor metabolite of codeine and impurity (<1%) of oxycodone. 187 Metabolite of hydrocodone 188 Metabolite of hydrocodone 189 Dilaudid, Exalgo; Also a metabolite of hydrocodone and a minor (<5%) metabolite of morphine. 190 Metabolite of hydromorphone REFERENCE VALUE Cutoff: 100 191 Endocet, Percocet, Oxycontin 192 Metabolite of oxycodone 193 Numorphan, Opana; Also a metabolite of oxycodone. 194 Metabolite of oxymorphone REFERENCE VALUE Cutoff: 100 195 Metabolite of oxymorphone 196 Actiq, Duragesic, Fentora 197 Metabolite of fentanyl 198 Demerol 199 Metabolite of meperidine 200 Narcan 201 Metabolite of naloxone REFERENCE VALUE Cutoff: 100 202 Dolophine 203 Metabolite of methadone 204 Darvon, Darvocet 205 Metabolite of propoxyphene 206 Tradol, Ultram, Ultracet 207 Metabolite of tramadol 208 Nucynta 209 Metabolite of tapentadol 210 Metabolite of tapentadol REFERENCE VALUE Cutoff: 100 211 Buprenex, Suboxone 212 Metabolite of buprenorphine 213 Metabolite of buprenorphine 214 Test detected the presence of norbuprenorphine and norbuprenorphine glucuronide which are metabolites of buprenorphine. Suspect use of buprenorphine within the past three days. Test detected the presence of idzzkahl-4-tfpg-glucuronide (metabolite of naloxone) only. Suspect use of naloxone (Narcan) within the past three days. ADDITIONAL INFORMATION This test was developed and its performance characteristics determined by [facility] in a manner consistent with CLIA requirements. This test has not been cleared or approved by the U.S. Food and Drug Administration. Test Performed by: [facility] [employer] - [address] [id number] 215 REFERENCE VALUE Cutoff: 3.0 216 ADDITIONAL INFORMATION This report is intended for use in clinical monitoring and management of patients. It is not intended for use in employment-related testing. This test was developed and its performance characteristics determined by [facility] in a manner consistent with CLIA requirements. This test has not been cleared or approved by the U.S. Food and Drug Administration. Test Performed by: [facility] - [address] [address] 217 REFERENCE VALUE Cutoff: 500 218 REFERENCE VALUE Cutoff: 200 219 REFERENCE VALUE Cutoff: 100 220 REFERENCE VALUE Cutoff: 150 221 ADDITIONAL INFORMATION This report is intended for use in clinical monitoring or management of patients. It is not intended for use in employment-related testing. 222 REFERENCE VALUE Cutoff: 200 mg/L 223 Tylenol 3 224 Metabolite of codeine REFERENCE VALUE Cutoff: 100 225 Ida Moraes MS Contin; Also a minor metabolite (10%) of codeine and can be seen in low concentrations (<2,000 ng/mL) with poppy seed ingestion. 226 Metabolite of morphine REFERENCE VALUE Cutoff: 100 227 Metabolite of heroin 228 Lortab, [place], Vicodin; Also a very minor metabolite of codeine and impurity (<1%) of oxycodone. 229 Metabolite of hydrocodone 230 Metabolite of hydrocodone 231 Dilaudid, Exalgo; Also a metabolite of hydrocodone and a minor (<5%) metabolite of morphine. 232 Metabolite of hydromorphone REFERENCE VALUE Cutoff: 100 233 Endocet, Percocet, Oxycontin 234 Metabolite of oxycodone 235 Numorphan, Opana; Also a metabolite of oxycodone. 236 Metabolite of oxymorphone REFERENCE VALUE Cutoff: 100 237 Metabolite of oxymorphone 238 Actiq, Duragesic, Fentora 239 Metabolite of fentanyl 240 Demerol 241 Metabolite of meperidine 242 Narcan 243 Metabolite of naloxone REFERENCE VALUE Cutoff: 100 244 Dolophine 245 Metabolite of methadone 246 Darvon, Darvocet 247 Metabolite of propoxyphene 248 Tradol, Ultram, Ultracet 249 Metabolite of tramadol 250 Nucynta 251 Metabolite of tapentadol 252 Metabolite of tapentadol REFERENCE VALUE Cutoff: 100 253 Buprenex, Suboxone 254 Metabolite of buprenorphine 255 Metabolite of buprenorphine 256 Test detected the presence of tdsusspqaq-mzwd-jmwphshxuds (metabolite of tapentadol) only. Suspect use of tapentadol within the past three days. Test detected the presence of norbuprenorphine and norbuprenorphine glucuronide which are metabolites of buprenorphine. Suspect use of buprenorphine within the past three days. Test detected the presence of norfentanyl (metabolite of fentanyl) only. Suspect use of fentanyl within the past three days. Test detected the presence of ermlvqht-0-juig-glucuronide (metabolite of naloxone) only. Suspect use of naloxone (Narcan) within the past three days. ADDITIONAL INFORMATION This test was developed and its performance characteristics determined by [facility] in a manner consistent with CLIA requirements. This test has not been cleared or approved by the U.S. Food and Drug Administration. Test Performed by: [facility] - [address] [address] 257 Critical Result LACT:2.3 Called to [id number] at: 20:17:38 by:[id number] Read back by:[id number] [place] Severe Sepsis and Septic Shock Management Bundle Measure requires all lactic acids initially measuring >2.0 mmol/L be repeated. 258 Because ethnic data is not always readily [...] 15-29 5 Kidney failure <15 (or dialysis) 259 >100 to <200 pg/mL: likely compensated congestive heart failure (CHF) 200 to 400 pg/mL: likely moderate CHF >400 pg/mL: likely moderate to severe CHF 260 REFERENCE VALUE Cutoff: 500 261 REFERENCE VALUE Cutoff: 200 262 REFERENCE VALUE Cutoff: 100 263 REFERENCE VALUE Cutoff: 150 264 ADDITIONAL INFORMATION This report is intended for use in clinical monitoring or management of patients. It is not intended for use in employment-related testing. 265 REFERENCE VALUE Cutoff: 200 mg/L 266 Tylenol 3 267 Metabolite of codeine REFERENCE VALUE Cutoff: 100 268 Ida Moraes, Contin; Also a minor metabolite (10%) of codeine and can be seen in low concentrations (<2,000 ng/mL) with poppy seed ingestion. 269 Metabolite of morphine REFERENCE VALUE Cutoff: 100 270 RESULT: Results not available due to analyte specific failure. 271 Lortab, [place], Vicodin; Also a very minor metabolite of codeine and impurity (<1%) of oxycodone. 272 Metabolite of hydrocodone 273 Metabolite of hydrocodone 274 Dilaudid, Exalgo; Also a metabolite of hydrocodone and a minor (<5%) metabolite of morphine. 275 Metabolite of hydromorphone REFERENCE VALUE Cutoff: 100 276 Endocet, Percocet, Oxycontin 277 Metabolite of oxycodone 278 Numorphan, Opana; Also a metabolite of oxycodone. 279 Metabolite of oxymorphone REFERENCE VALUE Cutoff: 100 280 Metabolite of oxymorphone 281 Actiq, Duragesic, Fentora 282 Metabolite of fentanyl 283 Demerol 284 Metabolite of meperidine 285 Narcan 286 Metabolite of naloxone REFERENCE VALUE Cutoff: 100 287 Dolophine 288 Metabolite of methadone 289 Darvon, Darvocet 290 Metabolite of propoxyphene 291 Tradol, Ultram, Ultracet 292 Metabolite of tramadol 293 Nucynta 294 Metabolite of tapentadol 295 Metabolite of tapentadol REFERENCE VALUE Cutoff: 100 296 Buprenex, Suboxone 297 Metabolite of buprenorphine 298 Metabolite of buprenorphine 299 Test detected the presence of norbuprenorphine and norbuprenorphine glucuronide which are metabolites of buprenorphine. Suspect use of buprenorphine within the past three days. Test detected the presence of norfentanyl (metabolite of fentanyl) only. Suspect use of fentanyl within the past three days. Test detected the presence of sfiufchq-7-nasv-glucuronide (metabolite of naloxone) only. Suspect use of naloxone (Narcan) within the past three days. ADDITIONAL INFORMATION This test was developed and its performance characteristics determined by [facility] in a manner consistent with CLIA requirements. This test has not been cleared or approved by the U.S. Food and Drug Administration. Test Performed by: [facility] - [address] [place] [address] 300 Presumptive Positive Drug confirmation to follow. Presumptive Positive means that the screening method is positive, but the test needs to be run by a confirmatory method before being finalized. REFERENCE VALUE Cutoff: 500 301 REFERENCE VALUE Cutoff: 200 302 REFERENCE VALUE Cutoff: 100 303 REFERENCE VALUE Cutoff: 150 304 ADDITIONAL INFORMATION This report is intended for use in clinical monitoring or management of patients. It is not intended for use in employment-related testing. 305 REFERENCE VALUE Cutoff: 200 mg/L 306 Tylenol 3 307 Metabolite of codeine REFERENCE VALUE Cutoff: 100 308 Ida Moraes MS Contin; Also a minor metabolite (10%) of codeine and can be seen in low concentrations (<2,000 ng/mL) with poppy seed ingestion. 309 Metabolite of morphine REFERENCE VALUE Cutoff: 100 310 Metabolite of heroin 311 Lortab, [place], Vicodin; Also a very minor metabolite of codeine and impurity (<1%) of oxycodone. 312 Metabolite of hydrocodone 313 Metabolite of hydrocodone 314 Dilaudid, Exalgo; Also a metabolite of hydrocodone and a minor (<5%) metabolite of morphine. 315 Metabolite of hydromorphone REFERENCE VALUE Cutoff: 100 316 Endocet, Percocet, Oxycontin 317 Metabolite of oxycodone 318 Numorphan, Opana; Also a metabolite of oxycodone. 319 Metabolite of oxymorphone REFERENCE VALUE Cutoff: 100 320 Metabolite of oxymorphone 321 Actiq, Duragesic, Fentora 322 Metabolite of fentanyl 323 Demerol 324 Metabolite of meperidine 325 Narcan 326 Metabolite of naloxone REFERENCE VALUE Cutoff: 100 327 Dolophine 328 Metabolite of methadone 329 Darvon, Darvocet 330 Metabolite of propoxyphene 331 Tradol, Ultram, Ultracet 332 Metabolite of tramadol 333 Nucynta 334 Metabolite of tapentadol 335 Metabolite of tapentadol REFERENCE VALUE Cutoff: 100 336 Buprenex, Suboxone 337 Metabolite of buprenorphine 338 Metabolite of buprenorphine 339 Test detected the presence of codeine, vqwmucv-8-cdpm-glucuronide (metabolite of codeine), morphine, and xphzhfwd-9-gdwx-glucuronide (metabolite of morphine). Suspect recent use of codeine or possibly codeine and morphine within the past three days. Test detected the presence of morphine, lqkatmvp-7-eimd-glucuronide (morphine metabolite) and the metabolite of heroin [...] three days. Test detected the presence of ctpdbcnd-6-wuwc-glucuronide (metabolite of naloxone) only. Suspect use of naloxone (Narcan) within the past three days. ADDITIONAL INFORMATION This test was developed and its performance characteristics determined by [facility] in a manner consistent with CLIA requirements. This test has not been cleared or approved by the U.S. Food and Drug Administration. Test Performed by: [facility] - [address] [address] 340 ADDITIONAL INFORMATION This report is intended for use in clinical monitoring and management of patients. It is not intended for use in employment-related testing. This test was developed and its performance characteristics determined by [facility] in a manner consistent with CLIA requirements. This test has not been cleared or approved by the U.S. Food and Drug Administration. Test Performed by: [facility] - [address] [address] 341 REFERENCE VALUE Cutoff: 500 342 REFERENCE VALUE Cutoff: 200 343 REFERENCE VALUE Cutoff: 100 344 REFERENCE VALUE Cutoff: 150 345 Presumptive Positive Drug confirmation to follow. Presumptive Positive means that the screening method is positive, but the test needs to be run by a confirmatory method before being finalized. ADDITIONAL INFORMATION This report is intended for use in clinical monitoring or management of patients. It is not intended for use in employment-related testing. 346 REFERENCE VALUE Cutoff: 200 mg/L 347 Tylenol 3 348 Metabolite of codeine REFERENCE VALUE Cutoff: 100 349 Ida Moraes MS Contin; Also a minor metabolite (10%) of codeine and can be seen in low concentrations (<2,000 ng/mL) with poppy seed ingestion. 350 Metabolite of morphine REFERENCE VALUE Cutoff: 100 351 Metabolite of heroin 352 Lortab, [place], Vicodin; Also a very minor metabolite of codeine and impurity (<1%) of oxycodone. 353 Metabolite of hydrocodone 354 Metabolite of hydrocodone 355 Dilaudid, Exalgo; Also a metabolite of hydrocodone and a minor (<5%) metabolite of morphine. 356 Metabolite of hydromorphone REFERENCE VALUE Cutoff: 100 357 Endocet, Percocet, Oxycontin 358 Metabolite of oxycodone 359 Numorphan, Opana; Also a metabolite of oxycodone. 360 Metabolite of oxymorphone REFERENCE VALUE Cutoff: 100 361 Metabolite of oxymorphone 362 Actiq, Duragesic, Fentora 363 Metabolite of fentanyl 364 Demerol 365 Metabolite of meperidine 366 Narcan 367 Metabolite of naloxone REFERENCE VALUE Cutoff: 100 368 Dolophine 369 Metabolite of methadone 370 Darvon, Darvocet 371 Metabolite of propoxyphene 372 Tradol, Ultram, Ultracet 373 Metabolite of tramadol 374 Nucynta 375 Metabolite of tapentadol 376 Metabolite of tapentadol REFERENCE VALUE Cutoff: 100 377 Buprenex, Suboxone 378 Metabolite of buprenorphine 379 Metabolite of buprenorphine 380 Test detected the presence of codeine, khyaqoe-1-mkes-glucuronide (metabolite of codeine), morphine, and mpzrgkgw-5-yutn-glucuronide (metabolite of morphine). Suspect recent use of codeine or possibly codeine and morphine within the past three days. Test detected the presence of morphine, liwbwgke-2-zotd-glucuronide (morphine metabolite) and the metabolite of heroin (6-monoacetylmorphine). Suspect recent use of heroin. Test detected the presence of txbyeqgakiyvt-5-xohr-glucuronide the metabolite of hydromorphone. Suspect use of [...] developed and its performance characteristics determined by [facility] in a manner consistent with CLIA requirements. This test has not been cleared or approved by the U.S. Food and Drug Administration. Test Performed by: [facility] - [address] [address] 381 REFERENCE VALUE Cutoff: 3.0 382 ADDITIONAL INFORMATION This report is intended for use in clinical monitoring and management of patients. It is not intended for use in employment-related testing. This test was developed and its performance characteristics determined by [facility] in a manner consistent with CLIA requirements. This test has not been cleared or approved by the U.S. Food and Drug Administration. Test Performed by: [facility] - [address] [address] 383 Anion gap measurement may be of limited value in the presence of any alkalosis, especially in a combined acid base disorder. . 384 Note change in reference range as of 12/28/07. The change was based on recommendations from the [place] [employer]. 385 Please note change in reference range effective 07 . 386 A metabolite of Naproxen, O-desmethylnaproxen, has been shown to interfere with the Jendrassik-Emelia method for measuring total bilirubin. Samples from patients who have taken Naproxen have shown spurious elevation in total bilirubin levels. 387 Because ethnic data is not always readily [...] 15-29 5 Kidney failure <15 (or dialysis) 388 CHOLESTEROL INTERPRETATION: Desirable: Less than 200 MG/DL Borderline-High Risk: 200-239 MG/DL High-Risk: 240 MG/DL and over 389 HDL INTERPRETATION: Undesirable: High Risk: Less than 40 MG/DL Desirable: Low Risk: Greater than 60 MG/DL 390 LDL INTERPRETATION: Low Risk Optimal Level: LDL Less than 100 MG/DL Near or Above Optimal: LDL 100-129 MG/DL Borderline High Risk: LDL 130-159 MG/DL High Risk: LDL 160-189 MG/DL Very High Risk: LDL Greater than 189 MG/DL 391 Recommended INR for Patients on Oral Anticoagulants Prophylaxis 2.0 - 3.0 Treatment of thrombosis 2.0 - 3.0 Prevention of embolism 2.0 - 3.0 Prevention of embolism from prosthetic heart valves 2.5 - 3.5 392 ATTENTION EFFECTIVE 09/18/08, THE IMPLEMENTATION OF NEW COAGULATION ANLAYZERS HAS CAUSED A SIGNIFICANT DIFFERENCE FOR PROTIME RESULTS IN SECONDS. THEREFORE, DIAGNOSIS,TREATMENT,AND THERAPY MUST BE BASED ON THE INR VALUE ONLY. 393 PLEASE NOTE NEW REFERENCE RANGE EFFECTIVE 08. 394 Anion gap measurement may be of limited value in the presence of any alkalosis, especially in a combined acid base disorder. . 395 Note change in reference range as of 12/28/07. The change was based on recommendations from the [place] [employer]. 396 Please note change in reference range effective 07 . 397 A metabolite of Naproxen, O-desmethylnaproxen, has been shown to interfere with the Jendrassik-[place] method for measuring total bilirubin. Samples from patients who have taken Naproxen have shown spurious elevation in total bilirubin levels. 398 Because ethnic data is not always readily [...] 15-29 5 Kidney failure <15 (or dialysis) 399 CHOLESTEROL INTERPRETATION: Desirable: Less than 200 MG/DL Borderline-High Risk: 200-239 MG/DL High-Risk: 240 MG/DL and over 400 HDL INTERPRETATION: Undesirable: High Risk: Less than 40 MG/DL Desirable: Low Risk: Greater than 60 MG/DL 401 LDL INTERPRETATION: Low Risk Optimal Level: LDL Less than 100 MG/DL Near or Above Optimal: LDL 100-129 MG/DL Borderline High Risk: LDL 130-159 MG/DL High Risk: LDL 160-189 MG/DL Very High Risk: LDL Greater than 189 MG/DL 402 This report is intended for use in clinical monitoring and management of patients. It is not intended for use in employment-related drug testing. Test Performed by: [facility] Dpt of Lab Med and Pathology [address] [place] [id number] Plunger Scoop Operator: Kenn Garcia III, M.D. 403 -- REFERENCE VALUE -- Cutoff: 1000 [...] use in employment-related testing. Test Performed by: [facility] [address] [place] [address] Plunger Scoop Operator: Kenn Garcia III, M.D. Procedures Date CPT Code Description Status 10/25/2016 46913 Plethysmography Determination Lung Volumes & Per Airway Completed Resist 10/25/2016 26387 Pulmonary Function><Bronchodil Completed 11/07/2012 65338 EEG Recording Awake & Drowsy Completed 09/28/2012 77839 Stress Test Completed 09/28/2012 58568 Myocardial Perfusion Imaging Tomographic (Spect) Completed Multiple Studies 09/27/2012 86483 Holter Monitoring 24 HR New Completed 09/27/2012 28195 Holter Monitoring 24 HR New Completed 09/20/2012 82587 ECHO Transthorasic Realtime 2D W Doppler & Color Flow Completed Hosp 09/15/2012 40075 EKG Tracing & Interpretation Completed 11/18/2011 29338 Color Flow Doppler/Interp & Reprt Completed 11/18/2011 66400 Pulse Wave/Continuous-Interp.RPT Completed 11/18/2011 07145 ECHO Transthorasic Realtime 2D W Doppler & Color Flow Completed Hosp 11/08/2011 47103 Holter Monitor Review (24 hr)dr review & interp only Completed 10/20/2011 34873 EKG Tracing & Interpretation Completed 05/22/2009 77081 EKG Tracing & Interpretation Completed 02/14/2009 05785 EKG Tracing & Interpretation Completed 01/20/2009 57370 Treadmill Interp/Report Only Completed 01/20/2009 93188 Stress Test Supervsn W/Out I/R Completed 12/30/2008 73965 Holter Monitor Interpretation Completed 12/26/2008 68771 EKG Tracing & Interpretation Completed 12/06/2008 32089 Selective Coronary Angioplasty Completed 12/06/2008 87709 S/I/R Inj Proc Vent And Or Atrial Completed 12/06/2008 97074 Coronary Angiography Completed 12/06/2008 21208 Inj Proc LFT Vent/LFT Atrl Angio Completed 12/06/2008 61614 Left Heart Catheterization Completed 12/05/2008 00349 Treadmill Interp/Report Only Completed 12/05/2008 10204 Stress Test Supervsn W/Out I/R Completed 12/02/2008 66550 EKG, Interpretation Only Completed 12/01/2008 61625 Color Flow Doppler/Interp & Reprt Completed 12/01/2008 14414 Echocardiography, Transesophageal, Real Time W/Image 2D Completed W/W/O M-M Encounters Type Date Location Provider CPT E/M Dx Office Visit 12/19/2017 [facility] Internal Pankaj Leslie, [address]159 [id number] 11:40a Medicine - [place] Blue,FACP F11.21 Office Visit 11/16/2017 10:20a [facility] Internal Pankaj Leslie, [address]61 F11.29 Medicine - [place] Blue,FACP I10 I48.0 Office Visit 09/21/2017 2:00p [facility] Internal Pankaj Leslie, [address]956 F11.21 Medicine - [place] Blue,FACP K08.3 R73.01 Office Visit 08/15/2017 2:10p [facility] Internal Medicine Pankaj Leslie, [address] J44.1 - [place] Blue,FACP F11.19 Z12.11 Office Visit 07/25/2017 3:20p [facility] Internal Pankaj Leslie, [address]7048 F11.19 Medicine - [place] Blue,FACP Office Visit 06/08/2017 2:20p [facility] Internal Pankaj Leslie, [address] F11.19 Medicine - [place] Blue,FACP I10 Z12.11 Z23 Office Visit 04/27/2017 9:50a [facility] Internal Pankaj Leslie, 49256 F11.19 Medicine - [place] Blue,FACP M54.42 I10 Office Visit 01/03/2017 2:50p [facility] Internal Pankaj Leslie, [address]955 F11.19 Medicine - [place] Blue,FACP J44.1 I10 Z23 Office Visit 12/01/2016 3:40p [facility] Internal Medicine Pankaj Leslie, [address]12 J44.[address] - [address] M.D.,FACP F11.19 F17.210 Office Visit 10/06/2016 4:40p [facility] Internal Pankaj Delilah Leslie, 50863 F11.19 Medicine - [address] M.D.,FACP I10 I48.0 K29.60 J42 Office Visit 08/23/2016 2:40p [facility] Internal Pankaj Delilah Leslie, 69246 F11.10 Medicine - [address] M.Joelle.,FACP I10 Office Visit 07/23/2016 9:20a [facility] Internal Pankaj Delilah Leslie, 73113 F11.10 Medicine - [address] M.Joelle.,FACP I10 Office Visit 07/16/2016 10:40a [facility] Internal Pankaj Delilah Leslie, 38310 F11.10 Medicine - [address] M.Joelle.,FACP Office Visit 07/15/2016 2:00p [facility] Internal Pankaj Leslie, [address]9611 F11.10 Medicine - [address] M.Delilah,FACP I48.0 N52.9 I67.9 Z72.0 F17.210 Office Visit 11/12/2015 11:08a [facility], Bennett Kardon, [address]326 J18.9 Hospitalists M.D. I25.10 I10 Z72.0 Office Visit 11/11/2015 11:08a [facility], Bennett Kardon, 33673 J18.9 Hospitalists M.D. I25.10 I10 Z72.0 Office Visit 11/10/2015 11:07a [facility], Bennett Kardon, 42989 J18.9 Hospitalists M.D. I25.10 I10 Z72.0 Office Visit 06/28/2013 10:45a [facility] Rosy Marcial, 46205 345.40 Services Of Parking Garage Manager M.Delilah 296.80 Office Visit 03/23/2013 8:45a [facility] Rosy Marcial, 68823 780.4 Services Of Parking Garage Manager Su 437.9 Office Visit 12/15/2012 1:45p [facility] Rosy Marcial, 32422 780.4 Services Of Parking Garage Manager M.D. Office Visit 11/03/2012 11:00a [facility] Rosy Marcial, 51874 780.4 Services Of Parking Garage Manager M.DToni V12.54 Office Visit 09/15/2012 8:45a [facility] Jesus Villareal, 00351 414.9 Parking Garage Manager Su, [facility] Office Visit 10/20/2011 3:00p [facility] Jean Marie Rodriguez, 55804 414.01 M.DToni 427.31 780.4 401.1 Office Visit 05/22/2009 11:00a [facility] Jean Marie Rodriguez, 37347 414.01 M.D. 272.4 427.31 Office Visit 03/17/2009 4:00p DO Not Use [facility] [address] 414.01 [place] M.D. 272.4 292.84 Office Visit 02/14/2009 11:00a [facility] Jean Marie Rodriguez, 21635 414.01 M.D. 414.0 272.4 427.31 Office Visit 02/12/2009 9:40a DO Not Use Parking Garage Manager [facility] [address] 414.01 [place] M.D. 414.0 272.4 Office Visit 01/02/2009 9:00a DO Not Use Parking Garage Manager AT [facility], [address] 427.31 [place] M.D. 434.91 414.01 521.03 292.84 304.22 Office Visit 12/26/2008 11:20a [facility] Jean Marie Rodriguez, 81372 427.31 M.DToni 434.91 414.01 Office Visit 12/07/2008 3:30a [facility] Luke Rodney, 67168 427.31 Assoc,pc Hospitalists MHema 434.91 786.50 Office Visit 12/06/2008 3:45a [facility] Isa Lewis, 14264 427.31 Assoc,pc Hospitalists M.DToin 434.91 Office Visit 12/04/2008 1:00a [facility]oc, Maikol Sykes, 52407 434.91 Hospitalists MHema 427.31 Office Visit 12/03/2008 12:30a [facility] Assoc,pc Maikol Sykes, 64420 434.91 Hospitalrikki Blue 427.31 305.60 Office Visit 12/02/2008 1:15a [facility] Isa Lewis, 89872 427.31 Assoc,coty Hospitalrikki Blue 434.91 Office Visit 12/01/2008 12:[facility]a [facility] [address] 434.91 Assoc, Hospitalists Su 427.31 Plan of Care Future Appointment(s):01/20/2018 11:50 am - Pankaj Leslie M.D.,FACP at [facility] Internal Medicine - [address]/13/2018 - Pankaj Leslie M.D.,FACPK29.61 Other gastritis with bleedingComments:Follow up with gastroenterology as planned. Begin taking Pantoprazole 40 MG 1x daily. Do not take ibuprofen.K73.9 Chronic hepatitis, unspecifiedComments:Complete bloodwork as discussed.F11.29 Opioid dependence with unspecified opioid-induced disorderComments:Patient doing well on Suboxone, no major cravings, no relapse on opiates. SCIENTIFIC RESEARCH ASSOCIATE reviewed, patient not obtaining opiates through other providers. Continue counseling. UDS up to date. Call us if you need refills.N17.9 Acute kidney failure, unspecifiedComments:Complete bloodwork as discussed.J44.9 Chronic obstructive pulmonary disease, unspecifiedNew Orders:Overnight OximetryComments:Complete overnight oximetry as discussed. Follow up with Dr. Becker as discussed.Referral :Carla Becker MD, Pulmonary Diseases
== END | disposition left against medical advice (07) ==
LOC: ED 17:57
DX: R10.9 Unspecified abdominal pain (principal); Z53.21 Procedure and treatment not carried out due to patient leaving prior to being seen by health care provider

== ENCOUNTER 2018-02-14 17:30 | Emergency (ER) | payer OTHER ==
[2018-02-14 19:10] LABS: ABS Basophils 0.1 10^3/ul (0-0.2); ABS Eosinophils 0.1 10^3/ul (0-0.6); ABS Lymphocytes 2.4 10^3/ul (1.0-4.8); ABS Monocytes 0.5 10^3/ul (0-0.8); ABS Neutrophils 4.7 10^3/ul (1.5-7.7); ABS Nucleated RBC 0 10^3/ul; Eosinophil % 1.5 % (0-6); Hematocrit 41 % (42-52); Hemoglobin 13.5 g/dl (14.0-18.0); Lymphocyte % 30.2 % (25-47); Mean Corpuscular HGB Conc 33 g/dl (31-36); Mean Corpuscular Hemoglobin 31 pg (27-31); Mean Corpuscular Volume 93 fL (80-94); Mean Platelet Volume 8.9 um3 (7.4-10.4); Nucleated Red Blood Cells % 0.1; Platelet Count 190 10^3/ul (150-450); Red Blood Count 4.37 10^6/ul (4.00-5.40); Red Cell Distribution Width 14 % (10.5-15); White Blood Count 7.9 10^3/ul (3.5-10.8)
[2018-02-14 19:27] LABS: EGFR Non-African American 38.4 (>60)
--- NOTE | 2018-02-14 20:53 | RAD ---
EXAM: CT Abdomen and Pelvis Without Intravenous Contrast EXAM DATE/TIME: 02/14/2018 8:25 PM CLINICAL HISTORY: 52 years old, male; Pain; Abdominal pain; Epigastric; Additional info: New decreased renal function, epigastric pain TECHNIQUE: Axial computed tomography images of the abdomen and pelvis without intravenous contrast. All CT scans at this facility use at least one of these dose optimization techniques: automated exposure control; mA and/or kV adjustment per patient size (includes targeted exams where dose is matched to clinical indication); or iterative reconstruction. Coronal and sagittal reformatted images were created and reviewed. COMPARISON: No relevant prior studies available. FINDINGS: Lower thorax: No acute findings. ABDOMEN: Liver: Multiple small hepatic calcifications. Gallbladder and bile ducts: Normal. No calcified stones. No ductal dilation. Pancreas: Normal. No ductal dilation. Spleen: Normal. No splenomegaly. Adrenals: Normal. No mass. Kidneys and ureters: Normal. No hydronephrosis. Stomach and bowel: Normal. No obstruction. No mucosal thickening. Appendix: No evidence of appendicitis. PELVIS: Bladder: Unremarkable as visualized. Reproductive: Unremarkable as visualized. ABDOMEN and PELVIS: Intraperitoneal space: Normal. No free air. No significant fluid collection. Bones/joints: Mild anterior compression deformity of L1 and L3, likely chronic given the absence of paraspinous hemorrhage. Soft tissues: Fat containing umbilical hernia. Vasculature: Atherosclerotic calcification. Lymph nodes: Normal. No enlarged lymph nodes. IMPRESSION: No acute intra-abdominal findings. To contact [facility] with a general question: Operations Center - [phone] For direct physician to physician contact: Physician Hotline - [phone] [facility] ([facility] Facility ID #[id number])
[2018-02-14 22:03] LABS: Urine Appearance Clear; Urine Blood Negative (Negative); Urine Color Yellow; Urine Ketones Negative (Negative); Urine Protein 1+(30 mg/dL) (Negative); Urine Red Blood Cell Absent (Absent); Urine Urobilinogen Negative (Negative); Urine White Blood Cell Trace(0-5/hpf) (Absent)
[2018-02-14 22:38] VITALS: BP 136/74
--- NOTE | 2018-02-14 23:29 | ED ---
Abdominal Pain/Male - HPI Summary HPI Summary: Patient is a 52 y/o M w/ c/o intermittent epigastric pain over the past month. N /V/D is denied. Patient's partner, Ines, is present. He states that he was seen at [facility] a month ago for an inflamed gallbladder. Patient reports that no intervention was done as he was "too sick" at the time. He also reports that he was "too sick" to have a scope done on him due to rectal bleeding. He claims that when his rectal bleeding stopped, he was discharged to home. Abdominal pain onset after discharge from [facility]. Patient reports that he had a GI follow up at [facility] but could not get to the appointment due to car troubles. Patient is on Protonix, PCP is Dr. Leslie. No PSHx, used to drink once a week but has stopped in the past month. FMHx of bone CA. On triage, pain is rated 8/10, nothing is noted to aggravate/alleviate Sx. It is also noted that patient denies ASA usage, does use protonix daily. Pt states that he came today to have his gallbladder evaluated, then became hungry in the ED waiting room, so ate macaroni and cheese, so pt is unable to have an ultrasound at this time until 4- 6 hrs. Pt understands and agrees to CT with contrast. Allergies/Adverse Reactions: Allergies Allergy/AdvReac Type Severity Reaction Status Date / Time naproxen Allergy Swelling Verified 02/14/18 17:46 - History of Current Complaint Chief Complaint: EDAbdPain Stated Complaint: ABD PAIN Time Seen by Provider: 02/14/18 19:38 Hx Obtained From: Patient, Family/Motor Expert - partner, Ines Onset/Duration: Gradual Onset, Lasting Weeks - onset a month ago, Still Present Timing: Intermittent Severity Initially: Severe Severity Currently: Severe - 8/10 Pain Intensity: 8 Pain Scale Used: 0-10 Numeric - 8/10 Location: Epigastric Radiates: No Character: Sharp Aggravating Factor(s): Nothing Alleviating Factor(s): Nothing Associated Signs And Symptoms: Negative: Nausea, Vomiting, Diarrhea - Allergies/Home Medications Allergies/Adverse Reactions: Allergies Allergy/AdvReac Type Severity Reaction Status Date / Time naproxen Allergy Swelling Verified 02/14/18 17:46 PMH/Surg Hx/FS Hx/Imm Hx Previously Healthy: No Endocrine/Hematology History: Denies: Hx Diabetes, Hx Thyroid Disease Cardiovascular History: Reports: Hx Hypertension Denies: Hx Congestive Heart Failure, Hx Deep Vein Thrombosis, Hx Myocardial Infarction, Hx Pacemaker/ICD Respiratory History: Reports: Hx Asthma - He uses inhalers (he uses albuterol). , Hx Chronic Obstructive Pulmonary Disease (COPD) Denies: Hx Lung Cancer GI History: Denies: Hx Gall Bladder Disease, Hx Gastrointestinal Bleed, Hx Ulcer, Hx Urosepsis History: Denies: Hx Kidney Stones, Hx Renal Disease Musculoskeletal History: Denies: Hx Arthritis, Hx Osteoporosis Neurological History: Reports: Hx CVA Denies: Hx Dementia, Hx Migraine, Hx Seizures, Hx Transient Ischemic Attacks (TIA) Psychiatric History: Denies: Hx Anxiety, Hx Depression, Hx Schizophrenia, Hx Bipolar Disorder - Surgical History Surgery Procedure, Year, and Place: cardiac stent - Immunization History Date of Tetanus Vaccine: unk Date of Influenza Vaccine: unk Infectious Disease History: No Infectious Disease History: Denies: History Other Infectious Disease, Traveled Outside the [place] in Last 30 Days - Family History Known Family History: Positive: Other - POSTIVE: bone CA in brother Negative: Cardiac Disease - neg: OK - Social History Lives: With Family Alcohol Use: None Hx Substance Use: No Substance Use Type: Reports: None Hx Tobacco Use: Yes Smoking Status (MU): Current Every Day Smoker Type: Cigarettes Amount Used/How Often: 1 PPD Have You Smoked in the Last Year: Yes - For 37 years up to 2 ppd. Review of Systems Negative: Fever - on vitals, temp is 98 F Cardiovascular: Negative Respiratory: Negative Positive: Abdominal Pain. Negative: Vomiting, Diarrhea, Nausea Skin: Negative Neurological: Negative Psychological: Normal All Other Systems Reviewed And Are Negative: Yes Physical Exam - Summary Physical Exam Summary: Appearance: Well-appearing, moderate pain distress, well-nourished Skin: Warm, color reflects adequate perfusion, dry Head: Normal Head/Face inspection, atraumatic Eyes: Conjunctiva clear ENT: Normal inspection Neck: Supple, no nodes, no JVD Respiratory: Lungs clear, normal breath sounds, no respiratory distress Cardio: RRR, No murmur, pulses normal, brisk capillary refill Abdomen: Soft, epigastric tenderness, non distended, no guarding, no rebound, no guarding, no masses Bowel sounds: Present Musculoskeletal: Strength Intact/ROM intact, no calf tenderness, no edema. Psychological: Normal Neuro: Alert, muscle tone normal, no focal deficit Triage Information Reviewed: Yes Vital Signs On Initial Exam: Initial Vitals Temp Pulse Resp BP Pulse Ox 98 F 81 16 119/92 98 02/14/18 17:42 02/14/18 17:42 02/14/18 17:42 02/14/18 17:42 02/14/18 17:42 Vital Signs Reviewed: Yes Diagnostics - Vital Signs Vital Signs Temp Pulse Resp BP Pulse Ox 02/14/18 22:37 98.7 F 84 15 136/74 97 02/14/18 21:01 81 92 02/14/18 21:00 74 132/93 92 02/14/18 19:32 98.1 F 86 18 150/95 96 02/14/18 17:42 98 F 81 16 119/92 98 - Laboratory Lab Results: Lab Results 02/14/18 02/14/18 02/14/18 Range/Units 19:01 19:01 19:01 WBC 7.9 (3.5-10.8) 10^3/ul RBC 4.37 (4.00-5.40) 10^6/ul Hgb 13.5 L (14.0-18.0) g/dl Hct 41 L (42-52) % MCV 93 (80-94) fL MCH 31 (27-31) pg MCHC 33 (31-36) g/dl RDW 14 (10.5-15) % Plt Count 190 (150-450) 10^3/ul MPV 8.9 (7.4-10.4) um3 Neut % (Auto) 60.3 (38-83) % Lymph % (Auto) 30.2 (25-47) % [place] % (Auto) 6.6 (0-7) % Eos % (Auto) 1.5 (0-6) % Baso % (Auto) 1.4 (0-2) % Absolute Neuts (auto) 4.7 (1.5-7.7) 10^3/ul Absolute Lymphs (auto) 2.4 (1.0-4.8) 10^3/ul Absolute Monos (auto) 0.5 (0-0.8) 10^3/ul Absolute Eos (auto) 0.1 (0-0.6) 10^3/ul Absolute Basos (auto) 0.1 (0-0.2) 10^3/ul Absolute Nucleated RBC 0 10^3/ul Nucleated RBC % 0.1 Sodium 134 L (135-145) mmol/L Potassium 4.2 (3.5-5.0) mmol/L Chloride 102 (101-111) mmol/L Carbon Dioxide 26 (22-32) mmol/L Anion Gap 6 (2-11) mmol/L BUN 38 H (6-24) mg/dL Creatinine 1.87 H (0.67-1.17) mg/dL Est GFR ( Amer) 46.5 (>60) Est GFR (Non-Af Amer) 38.4 (>60) BUN/Creatinine Ratio 20.3 H (8-20) Glucose 149 H (70-100) mg/dL Lactic Acid 1.5 (0.5-2.0) mmol/L Calcium 9.2 (8.6-10.3) mg/dL Total Bilirubin 0.50 (0.2-1.0) mg/dL AST 15 (13-39) U/L ALT 12 (7-52) U/L Alkaline Phosphatase 83 (34-104) U/L C-Reactive Protein 13.27 H (<8.01) mg/L Total Protein 6.9 (6.4-8.9) g/dL Albumin 3.7 (3.2-5.2) g/dL Globulin 3.2 (2-4) g/dL Albumin/Globulin Ratio 1.2 (1-3) Lipase 36 (11.0-82.0) U/L Urine Color Urine Appearance Urine pH (5-9) Ur Specific [place] (1.010-1.030) Urine Protein (Negative) Urine Ketones (Negative) Urine Blood (Negative) Urine Nitrate (Negative) Urine Bilirubin (Negative) Urine Urobilinogen (Negative) Ur Leukocyte Esterase (Negative) Urine WBC (Auto) (Absent) Urine RBC (Auto) (Absent) Ur Squamous Epith Cells (Absent) Urine Bacteria (Absent) Urine Glucose (Negative) 02/14/18 Range/Units 21:21 WBC (3.5-10.8) 10^3/ul RBC (4.00-5.40) 10^6/ul Hgb (14.0-18.0) g/dl Hct (42-52) % MCV (80-94) fL MCH (27-31) pg MCHC (31-36) g/dl RDW (10.5-15) % Plt Count (150-450) 10^3/ul MPV (7.4-10.4) um3 Neut % (Auto) (38-83) % Lymph % (Auto) (25-47) % [place] % (Auto) (0-7) % Eos % (Auto) (0-6) % Baso % (Auto) (0-2) % Absolute Neuts (auto) (1.5-7.7) 10^3/ul Absolute Lymphs (auto) (1.0-4.8) 10^3/ul Absolute Monos (auto) (0-0.8) 10^3/ul Absolute Eos (auto) (0-0.6) 10^3/ul Absolute Basos (auto) (0-0.2) 10^3/ul Absolute Nucleated RBC 10^3/ul Nucleated RBC % Sodium (135-145) mmol/L Potassium (3.5-5.0) mmol/L Chloride (101-111) mmol/L Carbon Dioxide (22-32) mmol/L Anion Gap (2-11) mmol/L BUN (6-24) mg/dL Creatinine (0.67-1.17) mg/dL Est GFR ( Amer) (>60) Est GFR (Non-Af Amer) (>60) BUN/Creatinine Ratio (8-20) Glucose (70-100) mg/dL Lactic Acid (0.5-2.0) mmol/L Calcium (8.6-10.3) mg/dL Total Bilirubin (0.2-1.0) mg/dL AST (13-39) U/L ALT (7-52) U/L Alkaline Phosphatase (34-104) U/L C-Reactive Protein (<8.01) mg/L Total Protein (6.4-8.9) g/dL Albumin (3.2-5.2) g/dL Globulin (2-4) g/dL Albumin/Globulin Ratio (1-3) Lipase (11.0-82.0) U/L Urine Color Yellow Urine Appearance Clear Urine pH 5.0 (5-9) Ur Specific [place] 1.020 (1.010-1.030) Urine Protein 1+(30 mg/dl) A (Negative) Urine Ketones Negative (Negative) Urine Blood Negative (Negative) Urine Nitrate Negative (Negative) Urine Bilirubin Negative (Negative) Urine Urobilinogen Negative (Negative) Ur Leukocyte Esterase Negative (Negative) Urine WBC (Auto) Trace(0-5/hpf) (Absent) Urine RBC (Auto) Absent (Absent) Ur Squamous Epith Cells Present A (Absent) Urine Bacteria Absent (Absent) Urine Glucose 1+(50 mg/dl) A (Negative) Result Diagrams: 02/14/18 19:01 02/14/18 19:01 Lab Statement: Any lab studies that have been ordered have been reviewed, and results considered in the medical decision making process. - CT ct abd/pel CT Interpretation: No Acute Changes CT Interpretation Completed By: Radiologist - No acute intra-abdominal findings , this report was reviewed by ed physician. Re-Evaluation - Re-Evaluation First Eval Re-Evaluation Time: 21:30 Comment: Rectal exam showed one small external hemorrhoid, non-enlarged prostate , no masses appreciated. brown stool, guaiac neg. Aid present as lot attendant. Second Eval Re-Evaluation Time: 22:04 Change: Improved Comment: Patient is pain free at this time, agreeable with discharge. Abdominal Pain Fem Course/Dx - Course Assessment/Plan: Patient is a 52 y/o M w/ c/o intermittent epigastric pain over the past month. N/V/D is denied. Patient's partner, Ines, is present. He states that he was seen at [facility] a month ago for an inflamed gallbladder. Patient reports that no intervention was done as he was "too sick" at the time. He also reports that he was "too sick" to have a scope done on him due to rectal bleeding. He claims that when his rectal bleeding stopped, he was discharged to home. Abdominal pain onset after discharge. Patient reports that he had a GI follow up at [facility] but could not get to the appointment due to car troubles. Physical exam showed abdomen is Soft, epigastric tenderness, non distended, no guarding, no rebound, no guarding, no masses. Rectal exam showed one small external hemorrhoid, non-enlarged prostate, no masses appreciate. Stool is brown, guaiac neg. CT abd/pel showed no acute intra-abdominal findings , normal gallbladder. UA showed urine glucose 1+, squamous epith cells present, urine protein 1+. Labs showed CRP 13.27, creatinine 1.87, BUN 38. At 2204 - Patient is pain free at this time, agreeable with discharge. Dx of epigastric pain, acute kidney injury, CKD stage 3. - Diagnoses Differential Diagnosis/HQI/PQRI: ACS, AMI, Bowel Obstruction, Gall Bladder Disease, Hepatitis, Ischemic Bowel, Pancreatitis Provider Diagnoses: Epigastric pain, CKD (chronic kidney disease) stage 3, GFR 30-59 ml/min, Tobacco abuse Discharge - Sign-Out/Discharge Documenting (check all that apply): Patient Departure - discharge - Discharge Plan Condition: Stable Disposition: HOME Prescriptions: Pantoprazole TAB (NF) [Protonix TAB (NF)] 40 mg PO DAILY #30 tab Patient Education Materials: Epigastric Pain (ED) Referrals: Julian Sanz DO [Doctor of Osteopathy] - As Soon As Possible Pankaj Leslie MD [Primary Care Provider] - 2 Days Additional Instructions: We have given you a copy of your labs and CT. We have prescribed more protonix. You will need definite follow up with GI. We have given you that referral. Your stool was sent for a test for hidden blood. The results are pending at this time. Your kidney function is also still abnormal. Do not take ibuprofen or any medications in that class. Have definite follow up with Dr. Leslie in the next 1-2 days so he can evaluate you further. Return to the ER if you have new or worsening symptoms. - Billing Disposition and Condition Condition: STABLE Disposition: Home - Attestation Statements Document Initiated by Kel: Yes Documenting Scribe: Blanco Rangel Provider For Whom Kel is Documenting (Include Credential): Mitra Fox MD Scribe Attestation: Blanco Wakefield , scribed for Mitra Fox MD on 02/16/18 at 0149. Scribe Documentation Reviewed: Yes Provider Attestation: The documentation as recorded by the Blanco vazquez accurately reflects the service I personally performed and the decisions made by me, Mitra Fox MD
== END 2018-02-14 22:37 | disposition home or self-care (01) ==
LOC: ED 17:30
DX: K64.4 Residual hemorrhoidal skin tags (principal); I12.9 Hypertensive chronic kidney disease with stage 1 through stage 4 chronic kidney disease, or unspecified chronic kidney disease; N18.3 Chronic kidney disease, stage 3 (moderate); Z95.5 Presence of coronary angioplasty implant and graft; F17.210 Nicotine dependence, cigarettes, uncomplicated; Z80.8 Family history of malignant neoplasm of other organs or systems; Z88.6 Allergy status to analgesic agent
CPT/HCPCS: 36415; 74176; 80053; 81003; 81015; 82272; 83605; 83690; 85025; 86140; 87086; 99282

== ENCOUNTER 2018-03-02 11:08 | Day surgery (SDC) | payer OTHER ==
[~2018-03-02 11:08] MED LIST: Buffered Lidocaine 0.9% SYRIN* 5 ML/SYR SYRINGE INTRADERM ONE
[2018-03-02] MEDS ORDERED: KETAMINE HCL* 50 MG/ML 10 ML VIAL ONE (13:00)
[2018-03-02] MEDS ORDERED: fentaNYL* 50 MCG/ML 2 ML VIAL (100 MCG VIAL) ONE (13:00)
[2018-03-02] MEDS ORDERED: Midazolam* 1 MG/ML 5 ML VIAL (5 MG) ONE ×2 (13:00→14:17)
[2018-03-02] MEDS ORDERED: DiMENhydriNATE IV* 50 MG/ML VIAL IV PUSH PRN (13:33)
[2018-03-02] MEDS ORDERED: Ondansetron INJ* 2 MG/ML VIAL ONE (14:17)
[2018-03-02] MEDS ORDERED: Lidocaine 2% PF * 5 ML VIAL ONE (14:20)
[2018-03-02] MEDS ORDERED: Propofol* 10 MG/ML 20 ML BTL IV PUSH ONE (14:21)
[2018-03-02] MEDS ORDERED: Glycopyrrolate IV* 0.2 MG/ML 1 ML VIAL ONE (14:30)
[2018-03-02 16:17] VITALS: BP 105/66
--- NOTE | 2018-03-03 03:34 | PRO ---
CC: Primary Care Physician * DATE OF PROCEDURE: 03/02/18 [facility] PROCEDURE PERFORMED: Esophagogastroduodenoscopy with biopsies and complete colonoscopy to the terminal ileum with cold snare polypectomy x4. INDICATION FOR PROCEDURE: Hematochezia, blood loss anemia. MEDICATIONS GIVEN: See anesthesia record. DESCRIPTION OF PROCEDURE: After the EGD and colonoscopy procedure including the risks, benefits, and alternatives with the risks not limited to perforation , surgery, missed lesions, and/or were explained to the patient, written consent was then obtained. IV medication was given by the anesthesia service and a bite-block was placed between the teeth. The adult Olympus gastroscope was passed through the patient's mouth through the upper esophageal sphincter into the tubular esophagus. The tubular esophagus was normal in appearance. The Z-line was normal. The GE junction was at 40. The scope was then passed through the lower esophageal sphincter into the stomach. No fresh blood or old blood was noted. He did have gastropathy diffuse, this was biopsied. The scope was then advanced through a widely patent pylorus into the duodenal bulb and into the C-loop and the distal duodenum. This was normal in appearance, but given his anemia, was biopsied to rule out celiac disease. The scope was then removed from the patient. He tolerated the procedure well. He was then rotated and a rectal exam was performed. IV anesthesia was given by the anesthesia service. An adult Olympus colonoscope was then inserted into the patient's rectum and advanced very carefully through the entirety of the colon and into the cecum. The cecal base was carefully inspected and normal in appearance. The preparation was good. The terminal ileum was identified and intubated x5 cm in normal appearance. The scope was then withdrawn over the next 8 minutes carefully inspecting the mucosa. In the sigmoid colon, he did have very sparse left-sided diverticulosis coli. In addition, he had 4 colon polyps ranging from 0.5 to 0.7 cm removed with cold snare polypectomy in entirety. The scope was continued to be withdrawn to the rectum. Direct views were normal. On retroflexion, he had grade 2 internal hemorrhoids. The scope was then removed from the patient. He tolerated the procedure well. He returned to the recovery room in stable condition. IMPRESSION: 1. Complete esophagogastroduodenoscopy with biopsies. 2. Complete colonoscopy with cold snare polypectomy x4. 3. Gastropathy possibly portal in nature, biopsied. 4. Normal-appearing duodenum, biopsied to rule out celiac disease. 5. Mild diverticulosis coli. 6. Four sigmoid colon polyps, removed with cold snare polypectomy as above. 7. Grade 2 internal hemorrhoids. RECOMMENDATIONS: No evidence of acute blood loss. Possible etiologies include episode of ischemic colitis that has healed up in [facility]. In addition, he did have mild left-sided diverticulosis coli. He also had grade 2 internal hemorrhoids. No etiology on the upper endoscopy was identified. At this time, I err on the conservative side to monitor his H and H. He should follow up in the office in 3 months. We will repeat hemoglobin at that point. If his hemoglobin remained stable, we can probably blame this on ischemia. If there is evidence of any decrease in hemoglobin, we will plan on capsule endoscopy at that point. He should completely cease alcohol use. This has been stated multiple times, his gastropathy could be alcoholic in nature or even portal; however, his INR and hemoglobin have been reasonable and his transaminases did return to normal after the episode in [facility]. We will plan on following up with this in 3 months and again recommended complete cessation of alcohol. [id number]/[facility] [place] #: [id number] [facility] HOSPITALJoelle
== END 2018-03-02 16:24 | disposition home or self-care (01) ==
LOC: OR 11:08
PROVIDERS: ATTEND Internal Medicine Gastroenterology
DX: K92.1 Melena (principal); D50.0 Iron deficiency anemia secondary to blood loss (chronic); K63.5 Polyp of colon; K29.50 Unspecified chronic gastritis without bleeding; K21.9 Gastro-esophageal reflux disease without esophagitis; Z72.0 Tobacco use; I48.91 Unspecified atrial fibrillation; Z79.01 Long term (current) use of anticoagulants; F19.10 Other psychoactive substance abuse, uncomplicated
CPT/HCPCS: 88305; J2250; J2405; J2704; J3010

== ENCOUNTER 2018-11-25 22:57 | Observation (INO) | payer OTHER ==
--- NOTE | 2018-11-26 00:29 | ED ---
Complex/Multi-Sys Presentation - HPI Summary HPI Summary: 53 yo male presents to [facility] accompanied by with complaints of worsening SOB with fatigue over the last 3 days with b/l lower leg edema. 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 He has a hx of COPD and continues to smoke daily. He wears a bipap at night, but no oxygen during the day. He has albuterol inhalers that he uses prn. Denies fever, chills, chest pain, abdominal pain, n/v, dysuria. No headaches or syncope. He has a hx of WENDY with hyperkalemia, COPD, CAD, HTN, and pulmonary edema. - History Of Current Complaint Chief Complaint: EDGeneral Time Seen by Provider: 11/26/18 00:29 Hx Obtained From: Patient Onset/Duration: Gradual Onset Severity Currently: Moderate Severity Initially: Moderate - Allergies/Home Medications Allergies/Adverse Reactions: Allergies Allergy/AdvReac Type Severity Reaction Status Date / Time naproxen Allergy Swelling Verified 11/25/18 23:06 PMH/Surg Hx/FS Hx/Imm Hx Endocrine/Hematology History: Reports: Hx Anticoagulant Therapy - Aspirin "I'm supposed to be on Plavix" but I am not taking it. Denies: Hx Diabetes, Hx Thyroid Disease Cardiovascular History: Reports: Hx Coronary Artery Disease - 3 Cardiac stents placed-2008, Hx Hypertension, Other Cardiovascular Problems/Disorders - Hyperkalemia 12/31/17 Denies: Hx Congestive Heart Failure, Hx Deep Vein Thrombosis, Hx Myocardial Infarction, Hx Pacemaker/ICD Respiratory History: Reports: Hx Asthma - He uses inhalers (he uses albuterol). , Hx Chronic Obstructive Pulmonary Disease (COPD), Hx Pulmonary Edema - 12/31/17 , Hx Sleep Apnea, Other Respiratory Problems/Disorders - Pulmonary edema-12/31/17 Denies: Hx Lung Cancer GI History: Reports: Hx Gastroesophageal Reflux Disease - on medication, Other GI Disorders - epigastric pain and rectal bleeding Denies: Hx Cirrhosis, Hx Crohn's Disease, Hx Gall Bladder Disease, Hx Gastrointestinal Bleed, Hx Ulcer, Hx Urosepsis History: Reports: Hx Kidney Stones - 20 years ago Denies: Hx Renal Disease, Other Problems/Disorders Musculoskeletal History: Denies: Hx Arthritis, Hx Osteoporosis, Other Musculoskeletal History Sensory History: Denies: Hx Contacts or Glasses, Hx Hearing Aid Opthamlomology History: Denies: Hx Contacts or Glasses Neurological History: Reports: Hx CVA Denies: Hx Dementia, Hx Migraine, Hx Seizures, Hx Transient Ischemic Attacks (TIA), Other Neuro Impairments/Disorders Psychiatric History: Denies: Hx Anxiety, Hx Depression, Hx Schizophrenia, Hx Bipolar Disorder - Surgical History Surgery Procedure, Year, and Place: 3 Cardiac stents. Hx Anesthesia Reactions: No - Immunization History Date of Tetanus Vaccine: unk Date of Influenza Vaccine: unk Infectious Disease History: No Infectious Disease History: Denies: History Other Infectious Disease, Traveled Outside the [place] in Last 30 Days - Family History Known Family History: Positive: Other - POSTIVE: bone CA in brother Negative: Cardiac Disease - neg: IA - Social History Alcohol Use: Occasionally Alcohol Amount: 1-2 times a month Hx Substance Use: No Substance Use Type: Reports: Prescribed Substance Use Comment - Amount & Last Used: Suboxone Hx Tobacco Use: Yes Smoking Status (MU): Current Every Day Smoker Type: Cigarettes Amount Used/How Often: 3-10 cigs per day Have You Smoked in the Last Year: Yes Review of Systems Constitutional: Negative Eyes: Negative ENT: Negative Cardiovascular: Negative Positive: Shortness Of Breath, Cough Gastrointestinal: Negative Genitourinary: Negative Skin: Negative Neurological: Negative Psychological: Normal All Other Systems Reviewed And Are Negative: Yes Physical Exam - Summary Physical Exam Summary: GENERAL: NAD. WDWN. No pain distress. SKIN: No rashes, sores, or open wounds. HEENT: Head: AT/NC Eyes: PERRLA. EOM intact. Conjunctiva clear without inflammation or discharge. Ears: Hearing grossly normal. TMs intact, no bulging, erythema, or edema. Nose: Nasal mucosa pink and moist. NTTP maxillary and frontal sinus. Throat: Posterior oropharynx without exudates, erythema, or tonsillar enlargement. Uvula midline. NECK: Supple. Nontender. No lymphadenopathy. CHEST: Moderate wheezing throughout. No accessory muscle use. Breathing comfortably and in no distress. CV: RRR. Without m/r/g. Pulses intact. Brisk cap refill. ABDOMEN: Soft. NTTP. No distention or guarding. No CVA tenderness. Bowel sounds present NEURO: Alert. PSYCH: Age appropriate behavior. Triage Information Reviewed: Yes Vital Signs On Initial Exam: Initial Vitals Temp Pulse Resp BP Pulse Ox 98.8 F 92 16 112/77 93 11/25/18 23:00 11/25/18 23:00 11/25/18 23:00 11/25/18 23:00 11/25/18 23:00 Vital Signs Reviewed: Yes Diagnostics - Vital Signs Vital Signs Temp Pulse Resp BP Pulse Ox 11/25/18 23:00 98.8 F 92 16 112/77 93 - Laboratory Lab Results: Laboratory Tests 11/26/18 11/26/18 11/26/18 00:36 00:36 01:14 WBC 7.4 RBC 4.08 L Hgb 12.4 L Hct 37 L MCV 91 MCH 30 MCHC 33 RDW 15 Plt Count 181 MPV 8.4 Neut % (Auto) 54.0 Lymph % (Auto) 31.1 [place] % (Auto) 9.3 Eos % (Auto) 4.8 Baso % (Auto) 0.8 Absolute Neuts (auto) 4.0 Absolute Lymphs (auto) 2.3 Absolute Monos (auto) 0.7 Absolute Eos (auto) 0.4 Absolute Basos (auto) 0.1 Absolute Nucleated RBC 0.0 Nucleated RBC % 0.2 ABG pH 7.40 ABG pCO2 52 H ABG pO2 61 L ABG HCO3 29.4 ABG O2 Saturation 94.2 ABG Base Excess 6.0 H Sodium 139 Potassium 3.9 Chloride 102 Carbon Dioxide 32 Anion Gap 5 BUN 24 Creatinine 1.82 H Est GFR ( Amer) 47.8 Est GFR (Non-Af Amer) 39.5 BUN/Creatinine Ratio 13.2 Glucose 147 H Lactic Acid Calcium 9.2 Magnesium Total Bilirubin 0.30 AST 18 ALT 15 Alkaline Phosphatase 99 Troponin I Total Protein 6.9 Albumin 3.5 Globulin 3.4 Albumin/Globulin Ratio 1.0 11/26/18 11/26/18 01:37 01:37 WBC RBC Hgb Hct MCV MCH MCHC RDW Plt Count MPV Neut % (Auto) Lymph % (Auto) [place] % (Auto) Eos % (Auto) Baso % (Auto) Absolute Neuts (auto) Absolute Lymphs (auto) Absolute Monos (auto) Absolute Eos (auto) Absolute Basos (auto) Absolute Nucleated RBC Nucleated RBC % ABG pH ABG pCO2 ABG pO2 ABG HCO3 ABG O2 Saturation ABG Base Excess Sodium Potassium Chloride Carbon Dioxide Anion Gap BUN Creatinine Est GFR ( Amer) Est GFR (Non-Af Amer) BUN/Creatinine Ratio Glucose Lactic Acid 0.9 Calcium Magnesium 2.0 Total Bilirubin AST ALT Alkaline Phosphatase Troponin I 0.01 Total Protein Albumin Globulin Albumin/Globulin Ratio Result Diagrams: 11/26/18 00:36 11/26/18 00:36 Lab Statement: Any lab studies that have been ordered have been reviewed, and results considered in the medical decision making process. - EKG EKg Cardiac Rate: NL EKG Rhythm: Sinus Rhythm ST Segment: Normal Ectopy: None Summary of EKG Findings: Read by Dr. santizo Re-Evaluation - Re-Evaluation First Eval Re-Evaluation Time: 01:24 Change: Unchanged Comment: Discussed case with Dr. Santizo who also examined the pt. Order CTA to r/ o PE and give duoneb treatment. CXR with no edema, effusion, or pna. Second Eval Re-Evaluation Time: 01:55 Change: Improved Comment: Feeling much better s/p duoneb. O2% holding at 96% on 3L NC. Complex Multi-Symp Course/Dx Course Of Treatment: At time of exam, pt's O2% dropped to 88% and was mildly hypotensive. Discussed with Dr. Santizo, who also examined the pt. Advised to give breathing treatments and order for CTA. Resp in to eval. Pt was placed on 3L NC and given a duoneb treatment with significant improvement of dyspnea O2% remained around 96% and pt was breathing comfortably. Awaiting CTA - Diagnoses Provider Diagnoses: COPD (chronic obstructive pulmonary disease), Dyspnea Discharge - Sign-Out/Discharge Documenting (check all that apply): Sign-Out Patient Signing out patient TO: Lidya Santizo Patient Received Moderate/Deep Sedation with Procedure: No - Discharge Plan Referrals: Bri Araujo MD [Primary Care Provider] -
[2018-11-26 00:42] LABS: ABS Basophils 0.1 10^3/ul (0-0.2); ABS Eosinophils 0.4 10^3/ul (0-0.6); ABS Lymphocytes 2.3 10^3/ul (1.0-4.8); ABS Monocytes 0.7 10^3/ul (0-0.8); Eosinophil % 4.8 %; Hematocrit 37 % (42-52); Hemoglobin 12.4 g/dL (14.0-18.0); Lymphocyte % 31.1 %; Mean Corpuscular HGB Conc 33 g/dL (31-36); Mean Corpuscular Hemoglobin 30 pg (27-31); Mean Corpuscular Volume 91 fL (80-94); Mean Platelet Volume 8.4 fL (7.4-10.4); Nucleated Red Blood Cells % 0.2; Platelet Count 181 10^3/uL (150-450); Red Blood Count 4.08 10^6 /uL (4.18-5.48); Red Cell Distribution Width 15 % (10-15); White Blood Count 7.4 10^3/uL (3.5-10.8)
[2018-11-26 00:59] LABS: Albumin 3.5 g/dL (3.2-5.2); BUN/Creatinine Ratio 13.2 (8-20); Calcium 9.2 mg/dL (8.6-10.3); EGFR African American 47.8 (>60); EGFR Non-African American 39.5 (>60); Globulin 3.4 g/dL (2-4); Potassium 3.9 mmol/L (3.5-5.0); Total Bilirubin 0.3 mg/dL (0.2-1.0); Total Protein 6.9 g/dL (6.4-8.9)
[2018-11-26] MEDS ORDERED: NS 0.9% 1000 ML** 1,000 ML IV ONE (01:24)
[2018-11-26] MEDS ORDERED: Albuterol/Ipratropium NEB.SOL* Albuterol 2.5 MG/Ipratropium 0.5 MG 3 ML INH ONE (01:25)
[2018-11-26] MEDS ORDERED: Iodixanol* (CONTRAST) 320 MG/ML 100 ML SDV IV ONE (01:32)
[2018-11-26 02:05] LABS: Troponin I 0.01 ng/mL (<0.04)
[2018-11-26 02:35] LABS: BNP 41 pg/mL (<=100)
[2018-11-26] MEDS ORDERED: methylPREDNISolone 125 MG* 2 ML VIAL IV ONE (03:25)
[2018-11-26] MEDS ORDERED: Magnesium Sulfate 2 GM IV* 2 GM/50 ML BAG IVPB ONE (03:25)
[2018-11-26] MEDS: Albuterol 2.5 MG/3 ML NEB.SOL* (0.083%) INH SCH ×2 (04:48→05:06)
--- NOTE | 2018-11-26 05:57 | HP ---
History of Present Illness - History of Present Illness Reason for Visit: Shortnes of breath and leg swelling. History of Present Illness: 53yoM with CAD s/p 3 stents, Hx of CVA, COPD, previously had liver and kidney failure a year ago, here due to breathing difficulty and leg swelling. 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 Patient became more and more weak and was just falling asleep and lethargic at times so his girlfriend brought him in to ER for evaluation. No chest Pain. I was called to admit him for his COPD however the patient and girlfriend stated they are more concerned about his lethargy. No other new neurological deficit at this time other than lethargy. Patient responds to orientation questions appropriately. Past Medical History Coronary Artery Disease - 3 Cardiac stents [id number] to cocaine use Hx CVA w/ right sided weakness in 2008 no longer has any residual weakness- related to cocaine use Hypertension Chronic Obstructive Pulmonary Disease (COPD) Obstructive Sleep Apnea CKD stage III Gastroesophageal Reflux Disease - on medication Admitted to hospital over a year ago with sepsis, GI bleeding unclear etiology, liver failure, renal failure. Hx Kidney Stones - 20 years ago Surgical History 3 Cardiac stents. Family History Known Family History: Positive: Other - POSTIVE: bone CA in brother Social History Smoking >35pack year history now down to 5-6cigs per day. Alcohol Occasionally 1-2 times a month Quit cocaine use in 2008, has had opiate abuse was on suboxone but now off it. 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 Allergies Allergy/AdvReac Type Severity Reaction Status Date / Time naproxen Allergy Swelling Verified 11/25/18 23:06 Home Medications Medication Instructions Recorded Confirmed Type Albuterol HFA INHALER* [Ventolin 2 puff INH Q2H PRN #0 mdi 11/12/15 11/26/18 Rx HFA Inhaler*] Albuterol HFA INHALER* [Ventolin 2 puff INH QID PRN 02/27/18 11/26/18 History HFA Inhaler*] Amlodipine Besylate [Norvasc 5 mg 5 mg PO QAM 02/27/18 11/26/18 History tab] Aspirin [Aspir-Low] 81 mg PO QAM 02/27/18 11/26/18 History Magnesium Oxide [Magnesium] 200 mg PO BID 02/27/18 11/26/18 History Pantoprazole TAB * [Protonix TAB 40 mg PO QAM 02/27/18 11/26/18 History (NF)] dilTIAZem HCl [Cartia Xt] 300 mg PO QAM 02/27/18 11/26/18 History Review of Systems - Measurements Intake and Output: Intake and Output Last 24 Hours 11/23/18 11/24/18 11/25/18 11/26/18 06:59 06:59 06:59 06:59 Intake Total 1000 Balance 1000 Weight 195 lb Intake: IV Fluids 1000 - Review of Systems Constitutional Symptoms: Negative: Fever Objective Vital Signs - 8 hr 11/25/18 11/26/18 11/26/18 23:00 00:31 00:49 Temperature 98.8 F Pulse Rate 92 80 78 Respiratory 16 Rate Blood Pressure 112/77 109/73 (mmHg) O2 Sat by Pulse 93 90 90 Oximetry 11/26/18 11/26/18 11/26/18 01:00 01:01 01:37 Temperature Pulse Rate 74 77 78 Respiratory 13 13 20 Rate Blood Pressure 97/71 (mmHg) O2 Sat by Pulse 93 88 99 Oximetry 11/26/18 11/26/18 11/26/18 02:00 03:08 04:01 Temperature Pulse Rate 76 81 88 Respiratory 15 17 16 Rate Blood Pressure (mmHg) O2 Sat by Pulse 92 94 93 Oximetry 11/26/18 11/26/18 04:49 05:06 Temperature Pulse Rate 74 86 Respiratory 16 16 Rate Blood Pressure (mmHg) O2 Sat by Pulse 98 98 Oximetry Oxygen Devices in Use Now: Nasal Cannula Eyes: No Scleral Icterus, PERRLA Ears/Nose/Mouth/Throat: NL Teeth, Lips, Gums, Mucous Membranes Moist Neck: NL Appearance and Movements; NL JVP Respiratory: Clear to Auscultation Cardiovascular: NL Sounds; No Murmurs; No JVD, RRR, - Abdominal: NL Sounds; No Tenderness; No Distention, No Hepatosplenomegaly Extremities: - - Bilateral lower extremity pitting edema noted. Skin: - - Multiple bruising noted in abdomen. Multiple telangectasia. Neurological: Alert and Oriented x 3, NL Sensation, NL Muscle Strength and Tone Result Diagrams: 11/26/18 00:36 11/26/18 00:36 Additional Lab and Data: Laboratory Tests 11/26/18 11/26/18 11/26/18 00:36 00:36 01:14 WBC 7.4 RBC 4.08 L Hgb 12.4 L Hct 37 L MCV 91 MCH 30 MCHC 33 RDW 15 Plt Count 181 MPV 8.4 Neut % (Auto) 54.0 Lymph % (Auto) 31.1 [place] % (Auto) 9.3 Eos % (Auto) 4.8 Baso % (Auto) 0.8 Absolute Neuts (auto) 4.0 Absolute Lymphs (auto) 2.3 Absolute Monos (auto) 0.7 Absolute Eos (auto) 0.4 Absolute Basos (auto) 0.1 Absolute Nucleated RBC 0.0 Nucleated RBC % 0.2 ABG pH 7.40 ABG pCO2 52 H ABG pO2 61 L ABG HCO3 29.4 ABG O2 Saturation 94.2 ABG Base Excess 6.0 H Sodium 139 Potassium 3.9 Chloride 102 Carbon Dioxide 32 Anion Gap 5 BUN 24 Creatinine 1.82 H Est GFR ( Amer) 47.8 Est GFR (Non-Af Amer) 39.5 BUN/Creatinine Ratio 13.2 Glucose 147 H Lactic Acid Calcium 9.2 Magnesium Total Bilirubin 0.30 AST 18 ALT 15 Alkaline Phosphatase 99 Troponin I Total Protein 6.9 Albumin 3.5 Globulin 3.4 Albumin/Globulin Ratio 1.0 11/26/18 11/26/18 01:37 01:37 WBC RBC Hgb Hct MCV MCH MCHC RDW Plt Count MPV Neut % (Auto) Lymph % (Auto) [place] % (Auto) Eos % (Auto) Baso % (Auto) Absolute Neuts (auto) Absolute Lymphs (auto) Absolute Monos (auto) Absolute Eos (auto) Absolute Basos (auto) Absolute Nucleated RBC Nucleated RBC % ABG pH ABG pCO2 ABG pO2 ABG HCO3 ABG O2 Saturation ABG Base Excess Sodium Potassium Chloride Carbon Dioxide Anion Gap BUN Creatinine Est GFR ( Amer) Est GFR (Non-Af Amer) BUN/Creatinine Ratio Glucose Lactic Acid 0.9 Calcium Magnesium 2.0 Total Bilirubin AST ALT Alkaline Phosphatase Troponin I 0.01 Total Protein Albumin Globulin Albumin/Globulin Ratio Diagnostic Imaging: CT Angiography Chest With Contrast IMPRESSION: 1. No pulmonary embolic disease. The distal subsegmental branches in the lung bases are difficult to assess due to the lack of intraluminal contrast and some motion artifact. 2. No pulmonary consolidation. 3. No pleural effusion or pneumothorax. 4. No aortic aneurysm or dissection. 5. Centrilobular emphysema involving the mid to upper lung bryant. 6. Calcified nodule located in the right upper lung with associated calcified hilar and mediastinal lymph nodes consistent with an old granulomatous process. EKG Data: EKG shows sinus at 79bpm. Assess/Plan/Problems-Billing Assessment: 53yoM with COPD, CAD s/p stents, Hx of CVA here due to shortness of breath, increased somnolence, and leg swelling. Shortness of breath possible COPD exacerbation. Increased somnolence ?Drug use recurrence. Bilateral Leg swelling unclear etiology Abdominal bruising due to fall CKD Stage III stable creatinine CAD s/p stents Hx of CVA Plan CT brain ordered. Given history of liver disease in past ordered ammonia however this was in normal range. Urine drug screen pending given history of drug abuse however he denied any use. Neurochecks Q4H Consider Neurology consult COPD treatment with BiPAP, Steroids, nebs, azithromycin. Venous dopplers and ECHO to follow up the lower extremity swelling Restarted home meds. DVT PPx on heparin
--- NOTE | 2018-11-26 05:57 | ED ---
Progress - Progress Note Progress Note: Patient is received as a sign out from GABRIEL Gudino pending CTA Chest/ Thorax. Patient was given magnesium sulfate 2 gm IV in 50 mls @ 50 ml/hr, solu-medrol 125 mg IV ED ONCE, and albuterol 2.5 mg INH 2 doses. CTA CHEST/THORAX IMPRESSION: 1. No pulmonary embolic disease. The distal subsegmental branches in the lung bases are difficult to assess due to the lack of intraluminal contrast and some motion artifact. 2. No pulmonary consolidation. 3. No pleural effusion or pneumothorax. 4. No aortic aneurysm or dissection. 5. Centrilobular emphysema involving the mid to upper lung bryant. 6. Calcified nodule located in the right upper lung with associated calcified hilar and mediastinal lymph nodes consistent with an old granulomatous process. 34 - Patient's case was discussed with Dr. Townsend, Dr. Townsend accepts for admission. Re-Evaluation - Re-Evaluation First Eval Re-Evaluation Time: 01:24 Change: Unchanged Comment: Discussed case with Dr. Santizo who also examined the pt. Order CTA to r/ o PE and give duoneb treatment. CXR with no edema, effusion, or pna. Second Eval Re-Evaluation Time: 01:55 Change: Improved Comment: Feeling much better s/p duoneb. O2% holding at 96% on 3L NC. Course/Dx - Course Course Of Treatment: Patient is received as a sign out from GABRIEL Gudino pending CTA Chest/Thorax. Patient was given magnesium sulfate 2 gm IV in 50 mls @ 50 ml/hr, solu-medrol 125 mg IV ED ONCE, and albuterol 2.5 mg INH 2 doses. CTA CHEST/THORAX IMPRESSION: 1. No pulmonary embolic disease. The distal subsegmental branches in the lung. bases are difficult to assess due to the lack of intraluminal contrast and some. motion artifact. 2. No pulmonary consolidation. 3. No pleural effusion or pneumothorax. 4. No aortic aneurysm or dissection. 5. Centrilobular emphysema involving the mid to upper lung bryant. 6. Calcified nodule located in the right upper lung with associated calcified. hilar and mediastinal lymph nodes consistent with an old granulomatous process. 34 - Patient's case was discussed with Dr. Townsend, Dr. Townsend accepts for admission. - Diagnoses Provider Diagnoses: COPD (chronic obstructive pulmonary disease) - Provider Notifications Discussed Care Of Patient With: Red Townsend Time Discussed With Above Provider: 05:34 Instructed by Provider To: Other - [id number] - Patient's case was discussed with Dr. Townsend, Dr. Townsend accepts for admission. Discharge - Sign-Out/Discharge Documenting (check all that apply): Patient Departure - admit Patient Received Moderate/Deep Sedation with Procedure: No - Discharge Plan Condition: Fair Disposition: ADMITTED TO [facility] Referrals: Bri Araujo MD [Primary Care Provider] - - Attestation Statements Document Initiated by Scribe: Yes Documenting Scribe: DANIEL ARGUETA Provider For Whom Scribe is Documenting (Include Credential): MARISA SANTIZO MD Scribe Attestation: IDANIEL, scribed for MARISA SANTIZO MD on 11/26/18 at 0600. Status of Scribe Document: Ready
[2018-11-26] MEDS ORDERED: Albuterol HFA INHALER* 8 gm MDI INH PRN ×2 (06:53)
[2018-11-26] MEDS ORDERED: Azithromycin 500 mg/250 ml NS 500 MG/250 ML BAG IVPB SCH (07:00)
[2018-11-26] MEDS ORDERED: methylPREDNISolone SOD 40 MG* 1 ML VIAL IV SCH ×2 (07:00→12:00)
[2018-11-26] MEDS ORDERED: Diltiazem CD CAP* 180 MG PO SCH (09:00)
[2018-11-26] MEDS ORDERED: amLODIPine TAB* 5 MG PO SCH (09:00)
[2018-11-26] MEDS ORDERED: Pantoprazole TAB * 40 MG TAB PO SCH (09:00)
[2018-11-26] MEDS ORDERED: Diltiazem CD CAP* 120 MG PO SCH (09:00)
[2018-11-26] MEDS ORDERED: Aspirin EC TAB* 81 MG TAB.EC PO SCH (09:00)
[2018-11-26] MEDS ORDERED: Heparin VIAL(*) 5000 UNITS/ML VIAL (FIVE THOUSAND) SUBCUT SCH (09:00)
[2018-11-26] MEDS ORDERED: Magnesium Oxide TAB* 400 MG PO SCH (09:00)
[2018-11-26] MEDS ORDERED: Nicotine PATCH 14 MG/24 HR* PATCH TRANSDERM SCH (11:30)
[2018-11-26] MEDS ORDERED: Nicotine* 2MG (FRUIT FLAVOR) GUM PO PRN (11:36)
[2018-11-26 12:18] VITALS: BP 122/71
--- NOTE | 2018-11-26 13:42 | PN ---
Subjective Date of Service: 11/26/18 Interval History: Mr. Gutierrez reports that he is feeling much better. He is now off oxygen. He denies shortness of breath or chest pain with mobility. He is very eager for discharge. Objective Active Medications: Albuterol (Ventolin Hfa Inhaler*) 2 puff INH Q2H PRN Albuterol (Ventolin Hfa Inhaler*) 2 puff INH QID PRN Amlodipine Besylate (Norvasc Tab*) 5 mg PO QAM [facility] Aspirin (Aspirin Ec Tab*) 81 mg PO QAM [facility] Diltiazem HCl (Cardizem Cd Cap*) 180 mg PO QAM [facility] Diltiazem HCl (Cardizem Cd Cap*) 120 mg PO DAILY [facility] Heparin Sodium (Porcine) (Heparin Vial(*)) 5,000 units SUBCUT Q12HR [facility] Azithromycin (Zithromax 500 Mg/250 Ml) 500 mg in 250 mls @ 250 mls/hr IVPB Q24H [facility] Magnesium Oxide (Magox 400 Tab*) 200 mg PO BID [facility] Methylprednisolone Sodium Succinate (Solu-Medrol 40 Mg) 40 mg IV BID [facility] Nicotine (Nicotine Patch 14 Mg/24 Hr*) 1 patch TRANSDERM DAILY [facility] Nicotine Polacrilex (Nicotine Gum*) 2 mg PO Q2H PRN Pantoprazole Sodium (Protonix Tab*) 40 mg PO QAM [facility] Pharmacy Profile Note (Nicotine Patch Removal Note*) 1 note PATCH OFF 2100 [facility] Vital Signs: Temp Pulse Resp BP Pulse Ox 97.6 F 91 20 122/71 92 11/26/18 11:24 11/26/18 11:24 11/26/18 11:24 11/26/18 11:24 11/26/18 11:24 Oxygen Devices in Use Now: None Appearance: Male sitting up on edge of bed in NAD Eyes: No Scleral Icterus Ears/Nose/Mouth/Throat: Mucous Membranes Moist Neck: Trachea Midline Respiratory: Symmetrical Chest Expansion and Respiratory Effort, - - Wheezing in bases, good aeration Cardiovascular: NL Sounds; No Murmurs; No JVD, - - +1 LE edema Abdominal: NL Sounds; No Tenderness; No Distention Lymphatic: No Cervical Adenopathy Extremities: - - +1 LE edema Skin: No Rash or Ulcers Neurological: Alert and Oriented x 3, NL Muscle Strength and Tone Nutrition: Taking PO's Result Diagrams: 11/26/18 00:36 11/26/18 00:36 Additional Lab and Data: . Diagnostic Imaging: . EKG Data: . Assess/Plan/Problems-Billing Assessment: Mr. Gutierrez is a 53yo M with COPD, CAD s/p stents, Hx of CVA admitted on 11/26/18 with suspected COPD exacerbation. 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 - Continue ASA. (4) HTN (hypertension) Comment: - SBP 120s. - Continue amlodipine and diltiazem. (5) GERD (gastroesophageal reflux disease) Comment: - Continue pantoprazole (6) DVT prophylaxis Comment: - Heparin SQ (7) Full code status Comment: Status and Disposition: Inpatient. Discharge to home.
--- NOTE | 2018-11-26 15:51 | DS ---
CC: Dr. Araujo * [facility] MEDICINE DISCHARGE SUMMARY: DATE OF ADMISSION: DATE OF DISCHARGE: PRIMARY CARE PHYSICIAN: Dr. Araujo. ATTENDING PHYSICIAN: Dr. Davin Roberson * (dictation provided by Aurora Lowe NP). PRIMARY DIAGNOSIS: Chronic obstructive pulmonary disease exacerbation with acute hypercapnic respiratory failure. SECONDARY DIAGNOSES: 1. Chronic obstructive pulmonary disease. 2. History of coronary artery disease with stent placement. 3. Chronic kidney disease, stage 3. 4. History of cerebrovascular accident with right-sided weakness in 2008, no residual weakness. 5. Hypertension. 6. Obstructive sleep apnea. 7. Gastroesophageal reflux disease. MEDICATIONS AT THE TIME OF DISCHARGE: 1. Cartia XT 300 mg p.o. q.a.m. 2. Pantoprazole 40 mg p.o. q.a.m. 3. Magnesium oxide 200 mg p.o. b.i.d. 4. Aspirin 81 mg p.o. q.a.m. 5. Amlodipine 5 mg p.o. q.a.m. 6. Prednisone 40 mg p.o. daily x5 days. 7. Nicotine patch and nicotine gum p.r.n. 8. Azithromycin 250 mg p.o. daily. 9. Albuterol inhaler 2 puffs inhaled q.2 hours p.r.n. HOSPITAL COURSE: Mr. Gutierrez is a 53-year-old male with past medical history of coronary artery disease, COPD and CKD stage 3, who presented to the hospital on 11/26/18 with concern for shortness of breath. Please see the dictated H and P from Dr. Red Townsend for complete details. 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 He noted that he was taking off his respirator mask while sanding wooden floors because it was so hot. With this, he became more short of breath and more lethargic. His girlfriend, who has worked for many years in the ICU, suspected that his lethargy and shortness of breath were reflection of COPD exacerbation and convinced him to come to the emergency room for evaluation. In the emergency room, he had a chest x-ray, which showed no acute abnormality. He had CTA chest that showed no acute abnormality. Full CTA read is as follows: "No pulmonary embolic disease. The distal subsegmental branches in the lung bases are difficult to assess due to lack of intraluminal contrast and some motion artifact. No pulmonary consolidation. No pleural effusion or pneumothorax. No aortic aneurysm or dissection. Centrilobular emphysema involving the mid to upper lung bryant, calcified nodule located in the right upper lung with associated calcified hilar and mediastinal lymph nodes consistent with old granulomatous process." Because of the lethargy, the patient did have a CT of the brain, which showed "old infarct right cerebellum and left frontal lobe, unchanged from previous exam. No intracranial mass or hemorrhage is noted." The patient's labs showed no leukocytosis. His ABG showed a pH a compensated respiratory acidosis with a pH of 7.40, pCO2 of 52, pO2 of 61, and bicarb of 29.4. His creatinine was 1.82 with a normal BUN. This appears to be consistent with at least his most recent check in February 2018. His troponin was 0.01. Mr. Gutierrez was admitted to the hospital. He was initially on about 3 L wnasal cannula in the ED; however, in the intervening hours, he has been weaned off oxygen. He is up and ambulating in his room independently. He has some mild wheezing in the bases only. He does voice concern for lower extremity edema that seems to be somewhat new. He does note that he is on his feet at least 12 hours a day, he has not been paying any strict attention to salt intake and it has also been very hot out. I have encouraged him to take opportunities when he can to elevate his lower extremities, to watch his salt intake and most importantly to follow up with Dr. Villareal, who is his chef's assistant, as he notes that he has not seen him for quite some time, for consideration of an echocardiogram. Mr. Gutierrez is medically stable for discharge to home. He is now off of oxygen and ambulating in the room independently as stated. He will be discharged home with a short course of prednisone. I have counseled him that this might increase his lower extremity edema at least in the short term. He will also have azithromycin for any component of atypical pneumonia. He will have albuterol inhalers. In addition, I have ordered nicotine replacement therapy for him and hope that this will encourage him to quit smoking. DISPOSITION: Home. DIET: Low fat, low salt. ACTIVITY: As tolerated. FOLLOWUP PLANS: 1. Please follow up with Dr. Villareal regarding lower extremity edema. 2. Please follow up with Dr. Araujo per routine regarding this hospitalization. TIME SPENT: Approximately 60 minutes was spent on the discharge of this patient , more than half the time was spent with the patient at the bedside reviewing the events leading up to and during this hospitalization, performing the physical examination, and reviewing the plan of care. AURORA LOWE NP [id number]/[facility] #: [id number] JAKE
[2018-11-26] MEDS ORDERED: Nicotine Patch Removal NOTE PATCH OFF SCH (21:00)
== END 2018-11-26 16:00 | disposition home or self-care (01) ==
LOC: ED 22:57 → INTOOBSV 11-26 06:50 → MEDTELE 11-26 06:50
PROVIDERS: ADMIT Internal Medicine; ATTEND Internal Medicine
DX: J44.1 Chronic obstructive pulmonary disease with (acute) exacerbation (principal); J96.92 Respiratory failure, unspecified with hypercapnia; I25.10 Atherosclerotic heart disease of native coronary artery without angina pectoris; Z95.5 Presence of coronary angioplasty implant and graft; I13.0 Hypertensive heart and chronic kidney disease with heart failure and stage 1 through stage 4 chronic kidney disease, or unspecified chronic kidney disease; N18.3 Chronic kidney disease, stage 3 (moderate); G47.33 Obstructive sleep apnea (adult) (pediatric); K21.9 Gastro-esophageal reflux disease without esophagitis; Z79.82 Long term (current) use of aspirin; Z79.899 Other long term (current) drug therapy; Z86.73 Personal history of transient ischemic attack (TIA), and cerebral infarction without residual deficits; Z87.442 Personal history of urinary calculi; F17.210 Nicotine dependence, cigarettes, uncomplicated; R60.0 Localized edema; J45.909 Unspecified asthma, uncomplicated; N17.9 Acute kidney failure, unspecified; E87.5 Hyperkalemia
CPT/HCPCS: 36415; 70450; 71045; 71275; 80053; 82140; 82803; 83605; 83735; 83880; 84484; 85025; 87040; 93005; 93970; 96365; 96372; 96375; 96376; 99285; A9270-GY; G0378; J0456; J1644; J2920; J2930; J3475; Q9967

== ENCOUNTER 2018-12-11 02:23 | Inpatient (IN) | payer OTHER ==
[~2018-12-11 02:23] MED LIST changes: -Buffered Lidocaine 0.9% SYRIN* 5 ML/SYR SYRINGE INTRADERM ONE; +Haloperidol INJ IV/IM* 5 MG/ML AMP ONE
[2018-12-11] MEDS ORDERED: NS 0.9% 1000 ML** 1,000 ML IV ONE ×2 (02:25→04:55)
[2018-12-11] MEDS ORDERED: Albuterol 2.5 MG/3 ML NEB.SOL* (0.083%) INH ONE ×2 (02:28→03:16)
--- NOTE | 2018-12-11 02:41 | ED ---
Altered Mental Status - HPI Summary HPI Summary: LEVEL 5 CAVEAT DUE TO NONRESPONSIVENESS 53 year old M patient brought to [facility] by EMS with a chief complaint of altered mental status. Per EMS, patient was unwell and dizzy all week and found unresponsive at home. Hx stroke. - History Of Current Complaint Stated Complaint: OVERDOSE PER EMS Time Seen by Provider: 12/11/18 02:25 Hx Obtained From: EMS Onset/Duration: Still Present Associated Signs And Symptoms: Positive: Dizziness - Allergies/Home Medications Allergies/Adverse Reactions: Allergies Allergy/AdvReac Type Severity Reaction Status Date / Time naproxen Allergy Swelling Verified 11/25/18 23:06 PMH/Surg Hx/FS Hx/Imm Hx Previously Healthy: No - LEVEL 5 CAVEAT DUE TO NONRESPONSIVENESS Endocrine/Hematology History: Reports: Hx Anticoagulant Therapy - Aspirin "I'm supposed to be on Plavix" but I am not taking it. Denies: Hx Diabetes, Hx Thyroid Disease Cardiovascular History: Reports: Hx Coronary Artery Disease - 3 Cardiac stents placed-2008, Hx Hypertension, Other Cardiovascular Problems/Disorders - Hyperkalemia 12/31/17 Denies: Hx Congestive Heart Failure, Hx Deep Vein Thrombosis, Hx Myocardial Infarction, Hx Pacemaker/ICD Respiratory History: Reports: Hx Asthma - He uses inhalers (he uses albuterol). , Hx Chronic Obstructive Pulmonary Disease (COPD), Hx Pulmonary Edema - 12/31/17 , Hx Sleep Apnea, Other Respiratory Problems/Disorders - Pulmonary edema-12/31/17 Denies: Hx Lung Cancer GI History: Reports: Hx Gastroesophageal Reflux Disease - on medication, Other GI Disorders - epigastric pain and rectal bleeding Denies: Hx Cirrhosis, Hx Crohn's Disease, Hx Gall Bladder Disease, Hx Gastrointestinal Bleed, Hx Ulcer, Hx Urosepsis History: Reports: Hx Kidney Stones - 20 years ago Denies: Hx Renal Disease, Other Problems/Disorders Musculoskeletal History: Denies: Hx Arthritis, Hx Osteoporosis, Other Musculoskeletal History Sensory History: Denies: Hx Contacts or Glasses, Hx Hearing Aid Opthamlomology History: Denies: Hx Contacts or Glasses Neurological History: Reports: Hx CVA Denies: Hx Dementia, Hx Migraine, Hx Seizures, Hx Transient Ischemic Attacks (TIA), Other Neuro Impairments/Disorders Psychiatric History: Denies: Hx Anxiety, Hx Depression, Hx Schizophrenia, Hx Bipolar Disorder - Surgical History Surgery Procedure, Year, and Place: 3 Cardiac stents. Hx Anesthesia Reactions: No - Immunization History Date of Tetanus Vaccine: unk Date of Influenza Vaccine: unk Infectious Disease History: Denies: History Other Infectious Disease - Family History Known Family History: Positive: Other - POSTIVE: bone CA in brother Negative: Cardiac Disease - neg: [place] - Social History Alcohol Use: Occasionally Alcohol Amount: 1-2 times a month Hx Substance Use: Yes Substance Use Type: Reports: Marijuana Substance Use Comment - Amount & Last Used: Suboxone Hx Tobacco Use: Yes Smoking Status (MU): Current Every Day Smoker Type: Cigarettes Amount Used/How Often: 10 cigs per day Have You Smoked in the Last Year: Yes Review of Systems - ROS Summary Review of Systems Summary: LEVEL 5 CAVEAT DUE TO NONRESPONSIVENESS Neurological: Other - dizziness, altered mental status All Other Systems Reviewed And Are Negative: No Physical Exam - Summary Physical Exam Summary: LEVEL 5 CAVEAT DUE TO NONRESPONSIVENESS General: obese, ill-appearing man laying in stretcher in restraints, somewhat agitated. Turns to voice but does not follow commands, speech limited to unintelligible grunting. Skin: Warm, dry, no obvious rash Eyes: sclera anicteric, no conjunctival pallor ENT: mucous membranes moist, pharynx appears normal Neck: Supple, nontender Respiratory: tachypneic with audible wheezing Cardiovascular: Normal S1, S2. No murmurs. Normal distal pulses in tibial and radial bilaterally. Abdomen: obese but soft Musculoskeletal: Normal, Strength/ROM Intact Neurological: Turns to voice but does not follow commands, speech limited to unintelligible grunting. Psychiatric: affect is normal, does not appear anxious or depressed Triage Information Reviewed: Yes Vital Signs Reviewed: Yes Diagnostics - Laboratory Result Diagrams: 12/12/18 05:55 12/12/18 05:55 Lab Statement: Any lab studies that have been ordered have been reviewed, and results considered in the medical decision making process. - CT Brain CT CT Interpretation Completed By: Radiologist Summary of CT Findings: Per radiologist,. 1. Old cortical infarct involving the left frontal lobe and the right. cerebellar hemisphere. 2. No acute intracranial hemorrhage. 3. No obstructive hydrocephalus. ED Physician has reviewed this report. - EKG 0242 Cardiac Rate: NL EKG Rhythm: Sinus Bradycardia Summary of EKG Findings: Sinus bradycardia at 95 BPM. no STEMI. P waves, QRS complex, and T waves are within normal limits, T waves and intervals are normal , no ischemic changes. This is a normal EKG. Re-Evaluation - Re-Evaluation First Eval Re-Evaluation Time: 03:07 Comment: Physician checks up on patient. Second Eval Re-Evaluation Time: 03:42 Comment: Physician checks up on patient per nurse request. Third Eval Re-Evaluation Time: 04:11 Comment: Physician checks up on patient. Altered Mental Statu Course/Dx - Course Course Of Treatment: LEVEL 5 CAVEAT DUE TO NONRESPONSIVENESS. 53 year old M patient brought to [facility] by EMS with a chief complaint of altered mental status. Per EMS, patient was unwell and dizzy all week and found unresponsive at home. Hx stroke. Physical exam reveals no abnormalities except for obese, ill appearing man lying in stretcher in restraints, somewhat agitated, turns to voice but does not follow commands, speech limited to unintelligible grunting, tachypneic with audible wheezing, obese but soft abdomen. Bloodwork shows no abnormalities except for WBC 22.7 H, Hgb 12.8 L, Hct 40 L, RDW 16 H, Absolute Neuts 20.3 H, Absolute Lymphs 0.5 L, Absolute Monos 1.8 H, BUN 33 H, Creatinine 1.31 H, BUN/Creatinine Ratio 25.2 H, Glucose 133H, Calcium 8.5 L, and Troponin 0.08 H. Blood Gas tests at 0505 (12/11/18) reveal no abnormalities except for ABG pCO2 57 H, ABG pO2 62 L, ABG O2 Saturation 93.7 L, and ABG Base Excess 4.3 H. Blood Gas tests at 0735 (12/11/18) reveal ABG pH 7.28 L, ABG pCO2 68 H, ABG pO2 185 H, ABG O2 Saturation 100.0 H, and ABG Base Excess 3.2 H. Patient was given 2.5 mg albuterol, 2 ml Albuterol, 2 mg lorazepam IV, and saline in the ED. EKG reveals sinus bradycardia at 95 BPM. no STEMI. P waves, QRS complex, and T waves are within normal limits, T waves and intervals are normal, no ischemic changes. This is a normal EKG. Chest X-Ray reveals no acute process. Brain CT reveals 1. Old cortical infarct involving the left frontal lobe and the right. cerebellar hemisphere. 2. No acute intracranial hemorrhage. 3. No obstructive hydrocephalus. Physician discusses admission with Dr. Townsend, hospitalist, who accept patient for admission. Patient will be admitted. - Diagnoses Provider Diagnoses: Altered mental status, Toxic encephalopathy - Critical Care Time Critical Care Time: 30-74 min Discharge - Sign-Out/Discharge Documenting (check all that apply): Patient Departure - admit Patient Received Moderate/Deep Sedation with Procedure: No - Discharge Plan Condition: Critical Disposition: ADMITTED TO [facility] - Billing Disposition and Condition Condition: CRITICAL Disposition: Admitted to [facility] - Attestation Statements Document Initiated by Kel: Yes Documenting Scribe: Jacquie Almeida Provider For Whom Kel is Documenting (Include Credential): Dr. Bartolo Horton MD Scribe Attestation: Jacquie Wakefield scribed for Dr. Bartolo Horton MD on 12/12/18 at 1826. Scribe Documentation Reviewed: Yes Provider Attestation: The documentation as recorded by the Jacquie vazquez accurately reflects the service I personally performed and the decisions made by me, Dr. Bartolo Horton MD Status of Scribe Document: Viewed
[2018-12-11 03:03] LABS: Urine Appearance Clear; Urine Bacteria Absent (Absent); Urine Bilirubin Negative (Negative); Urine Blood Negative (Negative); Urine Color Yellow; Urine Glucose 2+(150 mg/dL) (Negative); Urine Ketones Negative (Negative); Urine Nitrite Negative (Negative); Urine Protein 1+(30 mg/dL) (Negative); Urine Red Blood Cell Absent (Absent); Urine Specific Gravity 1.018 (1.010-1.030); Urine Urobilinogen Negative (Negative); Urine White Blood Cell Absent (Absent)
[2018-12-11 03:08] LABS: ABS Basophils 0.3 10^3/ul (0-0.2); ABS Lymphocytes 2.4 10^3/ul (1.0-4.8); ABS Monocytes 1.1 10^3/ul (0-0.8); ABS Neutrophils 18.9 10^3/ul (1.5-7.7); Eosinophil % 0.1 %; Hematocrit 40 % (42-52); Hemoglobin 12.6 g/dL (14.0-18.0); Lymphocyte % 10.7 %; Mean Corpuscular HGB Conc 32 g/dL (31-36); Mean Corpuscular Hemoglobin 29 pg (27-31); Mean Corpuscular Volume 92 fL (80-94); Nucleated Red Blood Cells % 0.1; Platelet Count 187 10^3/uL (150-450); Red Blood Count 4.31 10^6 /uL (4.18-5.48); Red Cell Distribution Width 16 % (10-15); White Blood Count 22.7 10^3/uL (3.5-10.8)
[2018-12-11] MEDS ORDERED: Lorazepam PYXIS KEY PRN ×2 (03:08→13:50)
[2018-12-11] MEDS ORDERED: LORazepam INJ* 2 MG/ML 1 ML VIAL IV PUSH ONE ×2 (03:08→13:50)
[2018-12-11] MEDS ORDERED: Lorazepam PYXIS KEY ONE ×2 (03:13→13:45)
[2018-12-11 03:15] LABS: Urine Benzodiazepine Screen None Detected (None Detect); Urine Opiates Screen Presumptive Positive (None Detect)
[2018-12-11 03:22] LABS: ALT 96 U/L (7-52); AST 146 U/L (13-39); Albumin 3.9 g/dL (3.2-5.2); Albumin/Globulin Ratio 1.1 (1-3); Alkaline Phosphatase 106 U/L (34-104); Anion Gap 10 mmol/L (2-11); BUN/Creatinine Ratio 22.1 (8-20); Blood Urea Nitrogen 32 mg/dL (6-24); CO2 Carbon Dioxide 30 mmol/L (22-32); Calcium 8.9 mg/dL (8.6-10.3); Chloride 102 mmol/L (101-111); Creatine Kinase 90 U/L (10-223); EGFR African American 62.1 (>60); EGFR Non-African American 51.3 (>60); Globulin 3.5 g/dL (2-4); Glucose 71 mg/dL (70-100); Potassium 3.7 mmol/L (3.5-5.0); Sodium 142 mmol/L (135-145); Total Protein 7.4 g/dL (6.4-8.9)
--- OUTSIDE RECORDS SUMMARY | 2018-12-11 03:25 | XMS REPORT | Continuity of Care Document ---
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 Bri Araujo MD Primary Care Physician Unavailable Payers Date Identification Numbers Payment Provider Subscriber Effective: 2016 Policy Number: [id number] [employer] Leeroy Silva PayID: [id number] [address] [address] [place] [address] Expires: 2016 Policy Number: [id number] [employer] Leeroy Silva Group Name: [id number] [address] [address] PayID: [id number] [place] [address] Problems Active Problems Provider Date Continuous opioid dependence Pankaj Leslie M.D.,FACNell Onset: 07/15/2016 Paroxysmal atrial fibrillation Pankaj Leslie M.D.,BECKIEP Onset: 07/15/2016 Coronary arteriosclerosis Jean Marie Rodriguez M.D. Onset: 10/20/2011 Benign essential hypertension Jean Marie Rodriguez M.D. Onset: 10/20/2011 Chronic obstructive lung disease Pankaj Leslie M.D.,FACP Onset: 2016 Note: good bronchodilator response on PFTs Nondependent cocaine abuse, episodic Pankaj Leslie M.D.,FACP Onset: 01/2017 Bipolar I disorder Pankaj Leslie M.D.,FACP Onset: 07/15/2016 Note: per [facility] History of cerebrovascular accident Pankaj Leslie M.D.,BECKIEP Onset: 07/15 Note: right facial droop Ex-smoker Pankaj Leslie M.D.,FACP Onset: 01/13/2018 Inactive Problems Complex partial seizure with Pankaj Leslie M.D.,FACP Onset: 07/15/2016 impairment of consciousness Inactive: 07/15/2016 Dizziness and giddiness Jean Marie Rodriguez M.D. Onset: 10/20/2011 Inactive: 07/15/2016 Atrial fibrillation Jean Marie Rodriguez M.D. 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 Tobacco Use Reviewed: 07/15/16 Heavy tobacco smoker 1 ppd for 30 years (more than 10 cigarettes/day) Smoking Status Reviewed: 11/30/18 Heavy tobacco smoker 1 ppd for 30 years (more than 10 cigarettes/day) ETOH Use 01/03/2017 Has consumed alcohol in abuse the past ETOH Use 04/27/2017 Denies alcohol use Recreational Drug Use 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 Tobacco Use Start: Unknown Light tobacco smoker (10 or fewer cigarettes/day) Recreational Drug Use Former Drug User Tobacco Use Start: Unknown End: Patient is a former Unknown smoker Allergies, Adverse Reactions, Alerts Active Allergies Reaction Severity Comments Date Naproxen 11/03/2012 Lisinopril cough 06/08/2018 Inactive Allergies NKDA 12/26/2008 Medications Active Medications SIG Qnty Indications Ordering Date Provider Furosemide take 1 tablet by 14tabs R60.1 Bri Araujo MD 11/30/2018 20mg Tablets mouth daily Prednisone 4 tabs for 4 40tabs J44.1 Bri Araujo MD 11/30/2018 5mg Tablets days; then reduce to 3 tabs for 3 days; 2 tabs for 2 days and 1 tablet 3-4 days and then stop Amlodipine Besylate take one tablet 30tabs Yamileth Byrnes MD 02/20/2018 5mg by mouth once Tablets daily Sucralfate 1by mouth four 60tabs Pankaj Mazariegos 01/20/2018 1gm Tablets times a day as Su Leslie,FACP needed Pantoprazole Sodium take one tablet 30talydia Byrnes MD 01/13/2018 40mg by mouth once Tablets DR daily Suboxone dissolve one 14unpriscilla Byrnes MD 11/16/2017 12-3mg Film film under the tongue every day Nicotine apply patch 28unpriscilla Mazariegos 08/15/2017 21mg/24HR daily, remove Su Leslie,FACP Patches 24HR old one at the same time x's 6 wks Nicotine Polacrilex chew q2h prn 100unpriscilla Mazariegos 08/15/2017 4mg Su Leslie,FACP Gum Gabapentin take one capsule 90michael Byrnes MD 04/27/2017 300mg Capsules by mouth three times daily Cialis every day by 30talydia Mazariegos 12/01/2016 5mg Tablets mouth Su Leslie,FACP Albuterol Sulfate 1 vial via 75ml Yamileth Byrnes MD 12/01/2016 nebulizer 4 (2.5mg/3ML) 0.083% times daily as Nebulizer needed Aspirin 1/2 by mouth 45tabs Yamileth Byrnes MD 07/15/2016 325mg Tablets every day Azithromycin two tabs day Unknown 250mg one, one daily Tablets till gone Ventolin HFA Inhale 2 Puffs 18units Abel Kerns. 108(90Base) By Mouth Four Su Antonio mcg/Act Aerosol Times A Day as Needed Diphenhydramine HCL one at bedtime 30michael Mazariegos 25mg as needed Su Leslie,FACP Capsules Amitriptyline HCL one tab daily Unknown 25mg prn Tablets Ipratropium Unknown Bern/Albuterol Sulfate 0.5-2.5(3)mg/3ML Solution Magnesium Oxide Unknown 400(241.3Mg) mg Tablets Diltiazem HCL ER take one capsule 30michael Byrnes MD Coated Beads by mouth once 300mg Caps daily ER 24HR Advair Diskus 1 puff by mouth 60units Pankaj Mazariegos twice a day Su Leslie,[facility] 250-50mcg/Dose Aerosol History Medications Penicillin V four times a day 40tabs Pankaj Mazariegos 06/08/2018 - Potassium for 10 days Su Leslie,[facility] 06/18/2018 500mg Tablets Amlodipine Besylate 1 by mouth every 30tabs Pankaj Mazariegos 01/20/2018 - day Su Leslie,[facility] 02/20/2018 2.5mg Tablets Losartan Potassium 1 by mouth every 90tabs Pankaj Mazariegos 01/20/2018 - day Su Leslie,[facility] 02/20/2018 50mg Tablets Carafate give 10ml by mouth 420units Pankaj Mazariegos 01/13/2018 - 1GM/10ML four times a day Su Leslie,[facility] 01/20/2018 Suspension as needed Omeprazole 1 by mouth every Pankaj Mazariegos 01/13/2018 - 20mg day Su Leslie,[facility] 01/13/[address] Gould 1 po tid prn 90tabs Pankaj Mazariegos 09/21/2017 - 800mg Tablets Su Leslie,[facility] 01/13/2018 Prednisone 6 tabs every day 12tabs Pankaj Mazariegos 08/15/2017 - 10mg for 4 days, then Su Leslie,[facility] 09/21/2017 Tablets reduce by 1 tab every 2 days until finished (to complete supply) Azithromycin 2 every day for 1 6tabs Pankaj Mazariegos 08/15/2017 - 250mg day, then 1 every Su Leslie,[facility] 08/20/2017 Tablets day Suboxone 1 strip sl once 14units Pankaj Mazariegos 04/27/2017 - 8-2mg Film day mdd 1 Su Leslie,[facility] 07/25/2017 Suboxone 1 strip sl once 6units Pankaj Mazariegos 04/27/2017 - 8-2mg Film day mdd 1 mdd 1 Su Leslie,[facility] 11/16/2017 Suboxone 1/2 strip sl once 3units Pankaj Mazariegos 03/30/2017 - 12-3mg a day (pt states Su Leslie,[facility] 04/27/2017 Film he is taking a whole strip daily) Doxycycline Hyclate 1 by mouth twice a 20tabs Pankaj Mazariegos 01/03/2017 - day Su Leslie,[facility] 01/13/2017 100mg Tablets Augmentin by mouth twice a 14tabs Pankaj Mazariegos 12/01/2016 - 875-125mg day Su Leslie,[facility] 12/08/2016 Tablets Prednisone 4 tabs every day 30tabs Pankaj Mazariegos 12/01/2016 - 10mg for 4 days, then Su Leslie,[facility] 01/03/2017 Tablets reduce by 1 tab every 2 days until finished Omeprazole 1 by mouth every 30caps [place] 10/06/2016 - 20mg day Su Lynn 01/13/2018 Capsules Suboxone 1 strip once a day 14units Pankaj Mazariegos 07/23/2016 - 12-3mg MDD 1 Su Leslie,[facility] 03/30/2017 Film Suboxone 1 strip sl once 5units Pankaj Mazariegos 07/15/2016 - 8-2mg Film day Su Leslie,[facility] 07/23/2016 Depakote ER Not taking. 2 po 60tabs Rosy Chiu 06/28/2013 - 500mg qhs Su Marcial 07/15/2016 Tablets ER 24HR Depakote 2 tabs po q am and 90tabs Rosy Chiu 03/26/2013 - 500mg 1 tas po q evening Su Marcial 06/28/2013 Tablets Zonisamiddebra 2-3 caps by mouth 90caps Rosy Chiu 12/15/2012 - 50mg every night as Su Marcial 06/28/2013 Capsules directed Diltiazem CD 2 po qd (pt 60caps Jean Marie Mcgregor 10/20/2011 - 120mg reports taking Su Rodriguez 07/15/2016 Caps ER 24HR 300mg qd) Aspirin Pt states he takes Jean Marie Mcgregor 10/20/2011 - 81mg 1/2 of a 325mg 1 Su Rodriguez 07/15/2016 Tablets po qd Pravachol 1/2 po qd 15tabs Jean Marie Mcgregor 07/22/2009 - 10mg Su Rodriguez 08/05/2009 Tablets Lopressor 1 po bid 60tabs Jean Marie Mcgregor 07/07/2009 - 25mg Su Rodriguez 10/20/2011 Tablets Zocor 1 tablet 3X per 30tabs 414.01 Jean Marie Mcgregor 06/10/2009 - 10mg Tablets week Su Rodriguez 07/22/2009 Zantac 1 cap po bid 180caps 530.81 Ha 03/12/2009 - 150mg Su Gould 10/20/2011 Capsules Zocor 1 po qd 30tabs 414.01 Ha 02/12/2009 - 40mg Tablets Su Gould 06/10/2009 Plavix 1 po qd 30tabs 414.01 Ha 02/07/2009 - 75mg Tablets Su Gould 10/20/2011 Cartia XT 1 po qd 90caps Jean Marie Mcgregor 01/20/2009 - 120mg Su Rodriguez 07/07/2009 Caps ER 24HR Wellbutrin SR 1 tablet po every 60tabs 427.31 Ha 01/02/2009 - 150mg 12 hours Su Gould 02/26/2009 Tablets ER 12HR Metoprolol 1/2 po bid until 30tabs Jean Marie Mcgregor 12/26/2008 - 25mg 12/31/08 and then Su Rodriguez 01/20/2009 Tablets ER 1/2 po qd until 01/04/09 and then discontinue Metoprolol 1 po bid 180tabs Jean Marie Mcgregor 12/26/2008 - Su Rodriguez 12/26/2008 Unsure-Will Call Tablets ER Aspirin 1 po qd 100tabs Ha, - 325mg Su Gould 10/20/2011 Tablets Folic Acid 1 tablet po qd 30tabs Ha - 1mg Su Gould 10/20/2011 Tablets Vitamin B12 1 tablet po Daily 90tabs 414.01 Ha, - 100mcg Su Gould 05/22/2009 Tablets Protonix 1 po qd 90tabs Ha, - 20mg Su Gould 03/12/[address] Sellers 1tab pm 30tabs Jean Marie Mcgregor - 500mg Su Rodriguez 10/20/2011 Tablets ER Cartia XT 1 po qd 90caps Unknown - 120mg 10/20/2011 Caps ER 24HR Diltiazem CD 1 po qd 90caps Unknown - 120mg 10/20/2011 Caps ER 24HR Cialis by mouth every day 30tabs Pankaj Mazariegos - 2.5mg Su Leslie,[facility] 12/01/2016 Tablets Losartan Potassium 1 by mouth every 30tabs Pankaj Mazariegos - day Su [facility] 01/20/2018 100mg Tablets Q-Tussin DM Unknown - 01/20/2018 100-10mg/5ML Syrup Azithromycin Unknown - 250mg 01/13/2018 Tablets Amoxicillin/Clavula Unknown - puma Potassium 01/13/2018 875-125mg Tablets Amlodipine Besylate daily Unknown - 01/20/2018 5mg Tablets Prednisone Unknown - 10mg 01/13/2018 Tablets Prednisone 2 tablets daily Unknown - 20mg for 5 days 11/30/2018 Tablets Medications Administered in Office Medication SIG Qnty Indications Ordering Provider Date Technetium TC 99M Jamaal Julien M.D. 09/28/2012 Unit Dose Up To 40 Millicuries Injection Immunizations CPT Code Status Date Vaccine Lot # [id number] Given 02/20/2018 Influenza Virus Vaccine, Quadrivalent, Split, [id number] Preservative Free 09392 Given 06/08/2017 Influenza Virus Vaccine, Quadrivalent, Split, [id number] Preservative Free 28136 Given 01/03/2017 Pneumonia Vaccine [id number] Vital Signs Date Vital Result Comment 11/30/2018 2:52pm Height 72 inches 6'0" Weight 218.00 lb Heart Rate 100 /min BP Systolic Sitting 151 mmHg BP Diastolic Sitting 93 mmHg Body Temperature 98.4 F O2 % BldC Oximetry 95 % BMI (Body Mass Index) 29.6 kg/m2 07/20/2018 3:14pm Height 72 inches 6'0" Weight 199.00 lb Heart Rate 77 /min BP Systolic 148 mmHg forgot take med this morning BP Diastolic 90 mmHg forgot take med this morning Body Temperature 98.5 F O2 % BldC Oximetry 96 % BMI (Body Mass Index) 27.0 kg/m2 06/08/2018 3:45pm Height 72 inches 6'0" Weight 200.00 lb with boots and overalls Heart Rate 86 /min BP Systolic 150 mmHg BP Diastolic 90 mmHg BP Systolic Recheck 150 mmHg BP Diastolic Recheck 95 mmHg O2 % BldC Oximetry 96 % BMI (Body Mass Index) 27.1 kg/m2 04/05/2018 2:59pm Height 72 inches 6'0" Weight 209.00 lb PT Had Boots On Heart Rate 98 /min BP Systolic Sitting 170 mmHg BP Diastolic Sitting 90 mmHg Body Temperature 98.4 F O2 % BldC Oximetry 94 % BMI (Body Mass Index) 28.3 kg/m2 02/20/2018 3:42pm Height 72 inches 6'0" Weight 193.00 lb Heart Rate 84 /min BP Systolic Sitting 110 mmHg BP Diastolic Sitting 80 mmHg Body Temperature 97.8 F O2 % BldC Oximetry 95 % BMI (Body Mass Index) 26.2 kg/m2 01/20/2018 11:43am Height 72 inches 6'0" Weight 193.00 lb Heart Rate 94 /min BP Systolic Sitting 130 mmHg BP Diastolic Sitting 92 mmHg Body Temperature 98.2 F O2 % BldC Oximetry 92 % BMI (Body Mass Index) 26.2 kg/m2 01/13/2018 11:01am Height 72 inches 6'0" Weight 193.00 lb Heart Rate 107 /min BP Systolic 90 mmHg BP Diastolic 60 mmHg Body Temperature 98.7 F O2 % BldC Oximetry 91 % BMI (Body Mass Index) 26.2 kg/m2 12/19/2017 11:14am Height 72 inches 6'0" Weight 213.00 lb Heart Rate 85 /min BP Systolic Sitting 144 mmHg BP Diastolic Sitting 80 mmHg Body Temperature 98.4 F O2 % BldC Oximetry 92 % BMI (Body Mass Index) 28.9 kg/m2 11/16/2017 10:06am Height 72 inches 6'0" Weight 199.00 lb Heart Rate 89 /min BP Systolic Sitting 150 mmHg BP Diastolic Sitting 90 mmHg BP Systolic Recheck 146 mmHg BP Diastolic Recheck 98 mmHg Body Temperature 97.9 F O2 % BldC Oximetry 98 % BMI (Body Mass Index) 27.0 kg/m2 09/21/2017 1:46pm Height 72 inches 6'0" Weight 204.00 lb Heart Rate 89 /min BP Systolic Sitting 110 mmHg BP Diastolic Sitting 80 mmHg Body Temperature 97.4 F O2 % BldC Oximetry 94 % BMI (Body Mass Index) 27.7 kg/m2 08/15/2017 2:11pm Weight 207.00 lb Heart Rate 71 /min BP Systolic Sitting 114 mmHg BP Diastolic Sitting 66 mmHg Body Temperature 97.0 F O2 % BldC Oximetry 90 % 06/08/2017 1:51pm Weight 215.00 lb Heart Rate 77 /min BP Systolic Sitting 130 mmHg BP Diastolic Sitting 82 mmHg Body Temperature 98.4 F O2 % BldC Oximetry 94 % 04/27/2017 9:37am Weight 209.00 lb Heart Rate 95 /min BP Systolic Sitting 140 mmHg BP Diastolic Sitting 90 mmHg BP Systolic Recheck 170 mmHg BP Diastolic Recheck 105 mmHg Body Temperature 97.0 F O2 % BldC Oximetry 95 % 01/03/2017 2:55pm Weight 193.00 lb Heart Rate 83 /min BP Systolic Sitting 160 mmHg BP Diastolic Sitting 90 mmHg BP Systolic Recheck 144 mmHg BP Diastolic Recheck 84 mmHg Body Temperature 97.9 F O2 % BldC Oximetry 96 % 12/01/2016 3:43pm Height 71.50 inches 5'11.50" Weight 186.00 lb Heart Rate 77 /min BP Systolic 128 mmHg BP Diastolic 70 mmHg Body Temperature 97.3 F O2 % BldC Oximetry 97 % BMI (Body Mass Index) 25.6 kg/m2 10/06/2016 4:26pm Weight 190.00 lb Heart Rate 83 /min BP Systolic 150 mmHg BP Diastolic 88 mmHg BP Systolic Recheck 145 mmHg BP Diastolic Recheck 100 mmHg Body Temperature 97.3 F O2 % BldC Oximetry 96 % 08/23/2016 2:37pm Weight 191.50 lb Heart Rate 73 /min BP Systolic Sitting 139 mmHg BP Diastolic Sitting 91 mmHg Body Temperature 97.5 F O2 % BldC Oximetry 97 % 07/23/2016 9:11am Weight 198.00 lb Heart Rate 78 /min BP Systolic Sitting 144 mmHg BP Diastolic Sitting 94 mmHg Body Temperature 97.8 F O2 % BldC Oximetry 97 % 07/16/2016 12:26pm Weight 202.12 lb Heart Rate 65 /min BP Systolic Sitting 148 mmHg BP Diastolic Sitting 95 mmHg Body Temperature 98.3 F O2 % BldC Oximetry 95 % 07/15/2016 1:45pm Height 69.5 inches 5'9.50" Weight 199.12 lb Heart Rate 82 /min BP Systolic Sitting 148 mmHg BP Diastolic Sitting 90 mmHg BP Systolic Recheck 144 mmHg BP Diastolic Recheck 85 mmHg Body Temperature 98.2 F O2 % BldC Oximetry 91 % BMI (Body Mass Index) 29.0 kg/m2 06/28/2013 10:54am Heart Rate 74 /min BP Systolic 150 mmHg BP Diastolic 90 mmHg Respiratory Rate 16 /min 03/23/2013 8:48am Heart Rate 83 /min BP Systolic Sitting 152 mmHg BP Diastolic Sitting 90 mmHg Respiratory Rate 18 /min 12/15/2012 1:32pm Heart Rate 80 /min BP Systolic Sitting 148 mmHg BP Diastolic Sitting 84 mmHg Respiratory Rate 16 /min 11/03/2012 10:56am Height 72 inches 6'0" Weight 204.00 lb Heart Rate 76 /min BP Systolic 140 mmHg BP Diastolic 80 mmHg Respiratory Rate 12 /min BMI (Body Mass Index) 27.7 kg/m2 10/20/2011 3:17pm Height 72 inches 6'0" Weight 181.00 lb Heart Rate 88 /min BP Systolic 162 mmHg BP Diastolic 86 mmHg Respiratory Rate 16 /min BMI (Body Mass Index) 24.5 kg/m2 05/22/2009 10:58am Height 72 inches 6'0" Weight 208.00 lb Heart Rate 78 /min BP Systolic Sitting 130 mmHg BP Diastolic Sitting 90 mmHg BMI (Body Mass Index) 28.2 kg/m2 03/17/2009 4:01pm Height 72 inches 6'0" Weight 207.25 lb Heart Rate 81 /min BP Systolic Sitting 133 mmHg BP Diastolic Sitting 85 mmHg Body Temperature 97.6 F BMI (Body Mass Index) 28.1 kg/m2 02/14/2009 10:53am Height 72 inches 6'0" Weight 209.00 lb Heart Rate 87 /min BP Systolic Sitting 150 mmHg L BP Diastolic Sitting 84 mmHg L BMI (Body Mass Index) 28.3 kg/m2 02/12/2009 9:33am Height 72 inches 6'0" Weight 212.00 lb Heart Rate 96 /min BP Systolic Sitting 143 mmHg BP Diastolic Sitting 89 mmHg BMI (Body Mass Index) 28.7 kg/m2 01/02/2009 8:54am Height 72 inches 6'0" Weight 207.00 lb Heart Rate 60 /min BP Systolic Sitting 134 mmHg BP Diastolic Sitting 72 mmHg BMI (Body Mass Index) 28.1 kg/m2 12/26/2008 11:25am Height 72 inches 6'0" Weight 204.00 lb Heart Rate 61 /min BP Systolic Sitting 130 mmHg BP Diastolic Sitting 80 mmHg BMI (Body Mass Index) 27.7 kg/m2 Results Test Date Facility Test Result H/L Range Note Comp Metabolic Panel 11/26/2018 [facility] Sodium 139 mmol/L N 135-[address] [place] [address] [phone] Potassium 3.9 mmol/L N 3.5-5.0 Chloride 102 mmol/L N 101-111 Co2 Carbon Dioxide 32 mmol/L N 22-32 Anion Gap 5 mmol/L N 2-11 Glucose 147 mg/dL High 70-100 Blood Urea Nitrogen 24 mg/dL N 6-24 Creatinine 1.82 mg/dL High 0.67-1.17 BUN/Creatinine Ratio 13.2 N 8-20 Calcium 9.2 mg/dL N 8.6-10.3 Total Protein 6.9 g/dL N 6.4-8.9 Albumin 3.5 g/dL N 3.2-5.2 Globulin 3.4 g/dL N 2-4 Albumin/Globulin Ratio 1.0 N 1-3 Total Bilirubin 0.30 mg/dL N 0.2-1.0 Alkaline Phosphatase 99 U/L N 34-104 Alt 15 U/L N 7-52 Ast 18 U/L N 13-39 Egfr Non- 39.5 >60 Egfr 47.8 >60 1 CBC Auto Diff 11/26/2018 [facility] White Blood 7.4 10^3/uL N 3.5-10.[address] [place] [address] [phone] Red Blood Count 4.08 10^6/uL Low 4.18-5.48 Hemoglobin 12.4 g/dL Low 14.0-18.0 Hematocrit 37 % Low 42-52 Mean Corpuscular Volume 91 fL N 80-94 Mean Corpuscular Hemoglobin 30 pg N 27-31 Mean Corpuscular HGB Conc 33 g/dL N 31-36 Red Cell Distribution Width 15 % N 10-15 Platelet Count 181 10^3/uL N 150-450 Mean Platelet Volume 8.4 fL N 7.4-10.4 Abs Neutrophils 4.0 10^3/uL N 1.5-7.7 Abs Lymphocytes 2.3 10^3/uL N 1.0-4.8 Abs Monocytes 0.7 10^3/uL N 0-0.8 Abs Eosinophils 0.4 10^3/uL N 0-0.6 Abs Basophils 0.1 10^3/uL N 0-0.2 Abs Nucleated RBC 0.0 10^3/uL Granulocyte % 54.0 % Lymphocyte % 31.1 % Monocyte % 9.3 % Eosinophil % 4.8 % Basophil % 0.8 % Nucleated Red Blood Cells % 0.2 Laboratory test finding 11/26/2018 [facility] Ammonia 39 mcmol/ L N 16-53 [address] [place] [address] [phone] Laboratory test finding 11/26/2018 [facility] Ammonia 46 mcmol/ L N 16-53 [address] [place] [address] [phone] B-Type Natriuretic Peptide BNP 41 pg/mL <=100 Arterial Blood Gas 11/26/2018 [facility] PH Arterial 7.40 N 7.35-7.45 [address] [place] [address] [phone] Pco2 Arterial 52 mmHg High 35-45 Po2 Arterial 61 mmHg Low 80-100 O2 Saturation Arterial 94.2 % N 94.0-98.0 Base Excess Arterial 6.0 mmol/L High -2.0-2.0 2 Hco3 Arterial 29.4 mmol/L N 19-31 Laboratory test 11/26/2018 [facility] Lactic Acid 0.9 mmol/L N 0.5-2.0 3 finding [address] [place] [address] [phone] Magnesium 2.0 mg/dL N 1.9-2.7 Troponin-I (TnI) 0.01 ng/mL <0.04 4 Blood Culture SEE RESULT BELOW 5 Urine Drug 07/20/2018 [facility] Urine Amphetamine Negative ng/ mL 6, 7 [address] [place] [address] [phone] Urine Barbiturates Negative ng/mL 8 Urine Benzodiazepines Negative ng/mL 9 Urine Cocaine Negative ng/mL 10 Urine Phencyclidine Negative ng/mL Cutoff: 25 Urine Tetrahydrocannabinol Presumptive Posi <SEE NOTE> Abnormal Cutoff: 50 11 ng/mL Creatinine, Urine 154.4 mg/dL Specific Palmer 1.014 pH 6.1 Oxidants Negative 12 Adulterants Comment Normal Codeine, Ur Present ng/mL Abnormal Cutoff: 25 13 Xybuhib-1-jsec-glucuronide, Ur Present ng/mL Abnormal 14 Morphine, Ur Present ng/mL Abnormal Cutoff: 25 15 Cyrocbev-9-ylzx-glucuronide, U Present ng/mL Abnormal 16 6-monoacetylmorphine, Ur Present ng/mL Abnormal Cutoff: 25 17 Hydrocodone, Ur Not Detected ng/mL Cutoff: 25 18 Norhydrocodone, Ur Not Detected ng/mL Cutoff: 25 19 Dihydrocodeine, Ur Not Detected ng/mL Cutoff: 25 20 Hydromorphone, Ur Not Detected ng/mL Cutoff: 25 21 Mjqazcwbpangg1cazizdeosfnynci Not Detected ng/mL 22 Oxycodone, Ur Not Detected ng/mL Cutoff: 25 23 Noroxycodone, Ur Not Detected ng/mL Cutoff: 25 24 Oxymorphone, Ur Not Detected ng/mL Cutoff: 25 25 Vqnqmldmlfd-3-pnld-glucuronide Not Detected ng/mL 26 Noroxymorphone, Ur Not Detected ng/mL Cutoff: 25 27 Fentanyl, Ur Present ng/mL Abnormal Cutoff: 2 28 Norfentanyl, Ur Present ng/mL Abnormal Cutoff: 2 29 Meperidine, Ur Not Detected ng/mL Cutoff: 25 30 Normeperidine, Ur Not Detected ng/mL Cutoff: 25 31 Naloxone, Ur Not Detected ng/mL Cutoff: 25 32 Twfmhgvi-5-bcbu-glucuronide, U Present ng/mL Abnormal 33 Methadone, Ur Not Detected ng/mL Cutoff: 25 34 Eddp, Ur Not Detected ng/mL Cutoff: 25 35 Propoxyphene, Ur Not Detected ng/mL Cutoff: 25 36 Norpropoxyphene, Ur Not Detected ng/mL Cutoff: 25 37 Tramadol, Ur Not Detected ng/mL Cutoff: 25 38 O-desmethyltramadol, Ur Not Detected ng/mL Cutoff: 25 39 Tapentadol, Ur Not Detected ng/mL Cutoff: 25 40 N-desmethyltapentadol, Ur Not Detected ng/mL Cutoff: 50 41 Xrjxrfguwv-orhi-qtltbmkngir, U Not Detected ng/mL 42 Buprenorphine, Ur Present ng/mL Abnormal Cutoff: 5 43 Norbuprenorphine, Ur Present ng/mL Abnormal Cutoff: 5 44 Norbuprenorphine glucuronide Present ng/mL Abnormal Cutoff: 20 45 Opioid Interpretation See Comment 46 THC Confirmation 07/20/2018 [facility] Urine Carboxy 75 ng/mL [address] [address] [phone] Urine THC Interpretation Positive. 48 Drug Abuse 20 06/08/2018 [facility] Urine Amphetamine Negative ng/mL [address] [place] [address] [phone] Urine Barbiturates Negative ng/mL 50 Urine Benzodiazepines Negative ng/mL 51 Urine Cocaine Negative ng/mL 52 Urine Phencyclidine Negative ng/mL Cutoff: 25 Urine Tetrahydrocannabinol Presumptive Posi <SEE NOTE> Abnormal Cutoff: 50 53 ng/mL Creatinine, Urine 253.2 mg/dL Specific Palmer 1.014 pH 5.9 Oxidants Negative 54 Adulterants Comment Normal Codeine, Ur Not Detected ng/mL Cutoff: 25 55 Mwedysg-6-byuv-glucuronide, Ur Present ng/mL Abnormal 56 Morphine, Ur Present ng/mL Abnormal Cutoff: 25 57 Awoadpze-1-eaat-glucuronide, U Present ng/mL Abnormal 58 6-monoacetylmorphine, Ur Present ng/mL Abnormal Cutoff: 25 59 Hydrocodone, Ur Not Detected ng/mL Cutoff: 25 60 Norhydrocodone, Ur Not Detected ng/mL Cutoff: 25 61 Dihydrocodeine, Ur Not Detected ng/mL Cutoff: 25 62 Hydromorphone, Ur Not Detected ng/mL Cutoff: 25 63 Kpxqloplrkggo9ypbsgrvzntpwcoz Not Detected ng/mL 64 Oxycodone, Ur Not Detected ng/mL Cutoff: 25 65 Noroxycodone, Ur Not Detected ng/mL Cutoff: 25 66 Oxymorphone, Ur Not Detected ng/mL Cutoff: 25 67 Sxwqgmzxwdl-4-ynwe-glucuronide Not Detected ng/mL 68 Noroxymorphone, Ur Not Detected ng/mL Cutoff: 25 69 Fentanyl, Ur Present ng/mL Abnormal Cutoff: 2 70 Norfentanyl, Ur Present ng/mL Abnormal Cutoff: 2 71 Meperidine, Ur Not Detected ng/mL Cutoff: 25 72 Normeperidine, Ur Not Detected ng/mL Cutoff: 25 73 Naloxone, Ur Not Detected ng/mL Cutoff: 25 74 Bfbzdila-2-sdtr-glucuronide, U Present ng/mL Abnormal 75 Methadone, Ur Not Detected ng/mL Cutoff: 25 76 Eddp, Ur Not Detected ng/mL Cutoff: 25 77 Propoxyphene, Ur Not Detected ng/mL Cutoff: 25 78 Norpropoxyphene, Ur Not Detected ng/mL Cutoff: 25 79 Tramadol, Ur Not Detected ng/mL Cutoff: 25 80 O-desmethyltramadol, Ur Not Detected ng/mL Cutoff: 25 81 Tapentadol, Ur Not Detected ng/mL Cutoff: 25 82 N-desmethyltapentadol, Ur Not Detected ng/mL Cutoff: 50 83 Luzdjroghg-qkhb-mgcobjpvcyh, U Not Detected ng/mL 84 Buprenorphine, Ur Not Detected ng/mL Cutoff: 5 85 Norbuprenorphine, Ur Present ng/mL Abnormal Cutoff: 5 86 Norbuprenorphine glucuronide Present ng/mL Abnormal Cutoff: 20 87 Opioid Interpretation See Comment 88 THC Confirmation 06/08/2018 [facility] Urine Carboxy 32 ng/mL [address] [place], [place] [id number] [phone] Urine THC Interpretation Positive. 90 Drug Abuse 20 04/05/2018 [facility] Urine Amphetamine Negative ng/mL [address] [place] [address] [phone] Urine Barbiturates Negative ng/mL 92 Urine Benzodiazepines Negative ng/mL 93 Urine Cocaine Negative ng/mL 94 Urine Phencyclidine Negative ng/mL Cutoff: 25 Urine Tetrahydrocannabinol Presumptive Posi <SEE NOTE> Abnormal Cutoff: 50 95 ng/mL Creatinine, Urine 106.2 mg/dL Specific Palmer 1.013 pH 6.0 Oxidants Negative 96 Adulterants Comment Normal Codeine, Ur Present ng/mL Abnormal Cutoff: 25 97 Yrkxgxq-2-czkt-glucuronide, Ur Present ng/mL Abnormal 98 Morphine, Ur Present ng/mL Abnormal Cutoff: 25 99 Npnqjsec-3-vokm-glucuronide, U Present ng/mL Abnormal 100 6-monoacetylmorphine, Ur Not Detected ng/mL Cutoff: 25 101 Hydrocodone, Ur Not Detected ng/mL Cutoff: 25 102 Norhydrocodone, Ur Not Detected ng/mL Cutoff: 25 103 Dihydrocodeine, Ur Not Detected ng/mL Cutoff: 25 104 Hydromorphone, Ur Not Detected ng/mL Cutoff: 25 105 Qlvrizgkvzhnb1olxyiuvhehtnohr Not Detected ng/mL 106 Oxycodone, Ur Present ng/mL Abnormal Cutoff: 25 107 Noroxycodone, Ur Present ng/mL Abnormal Cutoff: 25 108 Oxymorphone, Ur Not Detected ng/mL Cutoff: 25 109 Jpxqggfxagi-8-jwcy-glucuronide Not Detected ng/mL 110 Noroxymorphone, Ur Not Detected ng/mL Cutoff: 25 111 Fentanyl, Ur Present ng/mL Abnormal Cutoff: 2 112 Norfentanyl, Ur Present ng/mL Abnormal Cutoff: 2 113 Meperidine, Ur Not Detected ng/mL Cutoff: 25 114 Normeperidine, Ur Not Detected ng/mL Cutoff: 25 115 Naloxone, Ur Not Detected ng/mL Cutoff: 25 116 Xjzucnby-2-pamc-glucuronide, U Present ng/mL Abnormal 117 Methadone, Ur Not Detected ng/mL Cutoff: 25 118 Eddp, Ur Not Detected ng/mL Cutoff: 25 119 Propoxyphene, Ur Not Detected ng/mL Cutoff: 25 120 Norpropoxyphene, Ur Not Detected ng/mL Cutoff: 25 121 Tramadol, Ur Not Detected ng/mL Cutoff: 25 122 O-desmethyltramadol, Ur Not Detected ng/mL Cutoff: 25 123 Tapentadol, Ur Not Detected ng/mL Cutoff: 25 124 N-desmethyltapentadol, Ur Not Detected ng/mL Cutoff: 50 125 Czaezfcugb-qnan-ulwggqbvkcl, U Not Detected ng/mL 126 Buprenorphine, Ur Not Detected ng/mL Cutoff: 5 127 Norbuprenorphine, Ur Present ng/mL Abnormal Cutoff: 5 128 Norbuprenorphine glucuronide Present ng/mL Abnormal Cutoff: 20 129 Opioid Interpretation See Comment 130 THC Confirmation 04/05/2018 [facility] Urine Carboxy 50 ng/mL [address] [place] [address] [phone] Urine THC Interpretation Positive. 132 Laboratory test 03/02/2018 [facility] Surgical SEE RESULT [address] [place] [address] [phone] Drug Abuse 20 02/20/2018 [facility] Urine Amphetamine Negative [address] ng/[place] [address] [phone] Urine Barbiturates Negative ng/mL 135 Urine Benzodiazepines Negative ng/mL 136 Urine Cocaine Negative ng/mL 137 Urine Phencyclidine Negative ng/mL Cutoff: 25 Urine Tetrahydrocannabinol Presumptive Posi <SEE NOTE> Abnormal Cutoff: 50 138 ng/mL Creatinine, Urine 199.7 mg/dL Specific Palmer 1.014 pH 6.2 Oxidants Negative 139 Adulterants Comment Normal Codeine, Ur Not Detected ng/mL Cutoff: 25 140 Xeemhzp-0-rmnu-glucuronide, Ur Not Detected ng/mL 141 Morphine, Ur Not Detected ng/mL Cutoff: 25 142 Yzyvhsaz-0-sjcp-glucuronide, U Not Detected ng/mL 143 6-monoacetylmorphine, Ur Not Detected ng/mL Cutoff: 25 144 Hydrocodone, Ur Not Detected ng/mL Cutoff: 25 145 Norhydrocodone, Ur Not Detected ng/mL Cutoff: 25 146 Dihydrocodeine, Ur Not Detected ng/mL Cutoff: 25 147 Hydromorphone, Ur Not Detected ng/mL Cutoff: 25 148 Chxyjmdienynv6sjvnkqrwpyzghqi Not Detected ng/mL 149 Oxycodone, Ur Not Detected ng/mL Cutoff: 25 150 Noroxycodone, Ur Not Detected ng/mL Cutoff: 25 151 Oxymorphone, Ur Not Detected ng/mL Cutoff: 25 152 Ldpbyekohhx-6-hnjl-glucuronide Not Detected ng/mL 153 Noroxymorphone, Ur Not Detected ng/mL Cutoff: 25 154 Fentanyl, Ur Not Detected ng/mL Cutoff: 2 155 Norfentanyl, Ur Not Detected ng/mL Cutoff: 2 156 Meperidine, Ur Not Detected ng/mL Cutoff: 25 157 Normeperidine, Ur Not Detected ng/mL Cutoff: 25 158 Naloxone, Ur Not Detected ng/mL Cutoff: 25 159 Yrbhamyl-4-omca-glucuronide, U Present ng/mL Abnormal 160 Methadone, Ur Not Detected ng/mL Cutoff: [...] Ur Not Detected ng/mL Cutoff: 50 168 Ghqugpnfqg-wiof-rqacjmnqxey, U Not Detected ng/mL 169 Buprenorphine, Ur Not Detected ng/mL Cutoff: 5 170 Norbuprenorphine, Ur Present ng/mL Abnormal Cutoff: 5 171 Norbuprenorphine glucuronide Present ng/mL Abnormal Cutoff: 20 172 Opioid Interpretation See Comment 173 THC Confirmation 02/20/2018 [facility] Urine Carboxy 90 ng/mL [address] [place] [address] [phone] Urine THC Interpretation Positive. 175 Stool Occult 02/14/2018 [facility] Stool Occult SEE RESULT 176 Blood Diag [address] Blood, [place] [address] [phone] CBC Auto Diff 02/14/2018 [facility] White Blood 7.9 10^3/uL N 3.5-10. [address] Count 8 [place] [address] [phone] Red Blood Count 4.37 10^6/uL N 4.00-5.40 Hemoglobin 13.5 g/dL Low 14.0-18.0 Hematocrit 41 % Low 42-52 Mean Corpuscular Volume 93 fL N 80-94 Mean Corpuscular Hemoglobin 31 pg N 27-31 Mean Corpuscular HGB Conc 33 g/dL N 31-36 Red Cell Distribution Width 14 % N 10.5-15 Platelet Count 190 10^3/uL N 150-450 Mean Platelet Volume 8.9 um3 N 7.4-10.4 Abs Neutrophils 4.7 10^3/uL N 1.5-7.7 Abs Lymphocytes 2.4 10^3/uL N 1.0-4.8 Abs Monocytes 0.5 10^3/uL N 0-0.8 Abs Eosinophils 0.1 10^3/uL N 0-0.6 Abs Basophils 0.1 10^3/uL N 0-0.2 Abs Nucleated RBC 0 10^3/uL Granulocyte % 60.3 % N 38-83 Lymphocyte % 30.2 % N 25-47 Monocyte % 6.6 % N 0-7 Eosinophil % 1.5 % N 0-6 Basophil % 1.4 % N 0-2 Nucleated Red Blood Cells % 0.1 Laboratory test 02/14/2018 [facility] Lactic Acid 1.5 mmol/L N 0.5-2.0 177 finding [address] [place] [address] [phone] Comp Metabolic 02/14/2018 [facility] Sodium 134 mmol/L Low 135 -145 Panel [address] [place] [address] [phone] Potassium 4.2 mmol/L N 3.5-5.0 Chloride 102 mmol/L N 101-111 Co2 Carbon Dioxide 26 mmol/L N 22-32 Anion Gap 6 mmol/L N 2-11 Glucose 149 mg/dL High 70-100 Blood Urea Nitrogen 38 mg/dL High 6-24 Creatinine 1.87 mg/dL High 0.67-1.17 BUN/Creatinine Ratio 20.3 High 8-20 Calcium 9.2 mg/dL N 8.6-10.3 Total Protein 6.9 g/dL N 6.4-8.9 Albumin 3.7 g/dL N 3.2-5.2 Globulin 3.2 g/dL N 2-4 Albumin/Globulin Ratio 1.2 N 1-3 Total Bilirubin 0.50 mg/dL N 0.2-1.0 Alkaline Phosphatase 83 U/L N 34-104 Alt 12 U/L N 7-52 Ast 15 U/L N 13-39 Egfr Non- 38.4 >60 Egfr 46.5 >60 178 Laboratory test finding 02/14/2018 [facility] Lipase 36 U/L N 11.0-82.0 [address] [place] [address] [phone] C Reactive Protein 13.27 mg/L High <8.01 Urinalysis Profile 02/14/2018 [facility] Urine Color Yellow [address] [place] [address] [phone] Urine Appearance Clear Urine Specific Palmer 1.020 N 1.010-1.030 Urine pH 5.0 N 5-9 Urine Urobilinogen Negative Negative Urine Ketones Negative Negative Urine Protein 1+(30 mg/dL) Abnormal Negative Urine Leukocytes Negative Negative Urine Blood Negative Negative Urine Nitrite Negative Negative Urine Bilirubin Negative Negative Urine Glucose 1+(50 mg/dL) Abnormal Negative Urine White Blood Cell Trace(0-5/hpf) Absent Urine Red Blood Cell Absent Absent Urine Bacteria Absent Absent Urine Squamous Epithelial Cell Present Abnormal Absent Urine Culture And 02/14/2018 [facility] Urine Culture SEE RESULT [address] [place] [place], [place] [id number] [phone] Drug Abuse 20 01/20/2018 [facility] Urine Negative [address] Amphetamine ng/[place] [address] [phone] Urine Barbiturates Negative ng/mL 181 Urine Benzodiazepines Negative ng/mL 182 Urine Cocaine Negative ng/mL 183 Urine Phencyclidine Negative ng/mL Cutoff: 25 Urine Tetrahydrocannabinol Negative ng/mL Cutoff: 50 184 Creatinine, Urine 147.8 mg/dL Specific Palmer 1.006 pH 7.5 Oxidants Negative 185 Adulterants Comment Normal Codeine, Ur Not Detected ng/mL Cutoff: 25 186 Znckwrv-7-vhup-glucuronide, Ur Present ng/mL Abnormal 187 Morphine, Ur Present ng/mL Abnormal Cutoff: 25 188 Yednizkt-8-zqgd-glucuronide, U Present ng/mL Abnormal 189 6-monoacetylmorphine, Ur Not Detected ng/mL Cutoff: 25 190 Hydrocodone, Ur Not Detected ng/mL Cutoff: 25 191 Norhydrocodone, Ur Not Detected ng/mL Cutoff: 25 192 Dihydrocodeine, Ur Not Detected ng/mL Cutoff: 25 193 Hydromorphone, Ur Not Detected ng/mL Cutoff: 25 194 Cjkfodxuxvxeb5uydjyvshdphealb Present ng/mL Abnormal 195 Oxycodone, Ur Not Detected ng/mL Cutoff: 25 196 Noroxycodone, Ur Not Detected ng/mL Cutoff: 25 197 Oxymorphone, Ur Not Detected ng/mL Cutoff: 25 198 Hqawxbulike-9-fuqa-glucuronide Not Detected ng/mL 199 Noroxymorphone, Ur Not Detected ng/mL Cutoff: 25 200 Fentanyl, Ur Present ng/mL Abnormal Cutoff: 2 201 Norfentanyl, Ur Present ng/mL Abnormal Cutoff: 2 202 Meperidine, Ur Not Detected ng/mL Cutoff: 25 203 Normeperidine, Ur Not Detected ng/mL Cutoff: 25 204 Naloxone, Ur Not Detected ng/mL Cutoff: 25 205 Ezqducac-9-vgxh-glucuronide, U Present ng/mL Abnormal 206 Methadone, Ur Not Detected ng/mL Cutoff: 25 207 Eddp, Ur Not Detected ng/mL Cutoff: 25 208 Propoxyphene, Ur Not Detected ng/mL Cutoff: 25 209 Norpropoxyphene, Ur Not Detected ng/mL Cutoff: 25 210 Tramadol, Ur Not Detected ng/mL Cutoff: 25 211 O-desmethyltramadol, Ur Not Detected ng/mL Cutoff: 25 212 Tapentadol, Ur Not Detected ng/mL Cutoff: 25 213 N-desmethyltapentadol, Ur Not Detected ng/mL Cutoff: 50 214 Phgqzhkdtf-enqv-mqmvooryjav, U Not Detected ng/mL 215 Buprenorphine, Ur Not Detected ng/mL Cutoff: 5 216 Norbuprenorphine, Ur Present ng/mL Abnormal Cutoff: 5 217 Norbuprenorphine glucuronide Present ng/mL Abnormal Cutoff: 20 218 Opioid Interpretation See Comment 219 Comp Metabolic Panel 01/20/2018 [facility] Sodium 138 mmol/L N 135-[address] [place] [address] [phone] Potassium 4.0 mmol/L N 3.5-5.0 Chloride 98 mmol/L Low 101-111 Co2 Carbon Dioxide 33 mmol/L High 22-32 Anion Gap 7 mmol/L N 2-11 Calcium 8.7 mg/dL N 8.6-10.3 Albumin 3.4 g/dL N 3.2-5.2 Total Bilirubin 0.40 mg/dL N 0.2-1.0 Glucose 113 mg/dL High 70-100 Blood Urea Nitrogen 15 mg/dL N 6-24 Creatinine 1.29 mg/dL High 0.67-1.17 BUN/Creatinine Ratio 11.6 N 8-20 Total Protein 7.0 g/dL N 6.4-8.9 Globulin 3.6 g/dL N 2-4 Albumin/Globulin Ratio 0.9 Low 1-3 Alkaline Phosphatase 90 U/L N 34-104 Alt 18 U/L N 7-52 Ast 19 U/L N 13-39 Egfr Non- 59.0 >60 Egfr 71.3 >60 220 CBC Auto Diff 01/20/2018 [facility] White Blood 5.6 10^3/uL N 3.5-10.[address] [place] [address] [phone] Red Blood Count 4.27 10^6/uL N 4.00-5.40 Hemoglobin 13.3 g/dL Low 14.0-18.0 Hematocrit 40 % Low 42-52 Mean Corpuscular Volume 94 fL N 80-94 Mean Corpuscular Hemoglobin 31 pg N 27-31 Mean Corpuscular HGB Conc 33 g/dL N 31-36 Red Cell Distribution Width 13 % N 10.5-15 Platelet Count 266 10^3/uL N 150-450 Mean Platelet Volume 9.0 um3 N 7.4-10.4 Abs Neutrophils 3.7 10^3/uL N 1.5-7.7 Abs Lymphocytes 1.2 10^3/uL N 1.0-4.8 Abs Monocytes 0.5 10^3/uL N 0-0.8 Abs Eosinophils 0.2 10^3/uL N 0-0.6 Abs Basophils 0.1 10^3/uL N 0-0.2 Abs Nucleated RBC 0 10^3/uL Granulocyte % 65.0 % N 38-83 Lymphocyte % 20.7 % Low 25-47 Monocyte % 9.6 % High 0-7 Eosinophil % 3.1 % N 0-6 Basophil % 1.6 % N 0-2 Nucleated Red Blood Cells % 0 Laboratory 01/20/2018 [facility] Hepatitis C Nonreactive Nonreactive test finding [address] [place] [address] [phone] Hepatitis B 01/20/2018 [facility] Hepatitis B Not Immune Immune Hanna AB Titer [address] [place] [address] [phone] Hep B Surf AB Level < 3.10 mIU/mL >12 Laboratory test 01/20/2018 [facility] Liver-Kidney <5.0 U [address] [place] [address] [phone] Hepatitis A Igg Antibody, Serum Negative 222 Smooth Muscle Antibody Negative Negative 223 Nuclear AB (Isela) By Ifa Igg <1:80 (Negative) 224 Alcohol < 10 mg/dL N <10 Basic Metabolic Panel 12/31/2017 [facility] Sodium 136 mmol/L N 135-145 [address] [place] [address] [phone] Chloride 101 mmol/L N 101-111 Co2 Carbon Dioxide 24 mmol/L N 22-32 Glucose 92 mg/dL N 70-100 Blood Urea Nitrogen 88 mg/dL High 6-24 Creatinine 5.29 mg/dL High 0.67-1.17 BUN/Creatinine Ratio 16.6 N 8-20 Calcium 7.8 mg/dL Low 8.6-10.3 Egfr Non- 11.6 >60 Egfr 14.0 >60 225 Potassium 5.3 mmol/L High 3.5-5.0 Anion Gap 11 mmol/L N 2-11 Arterial Blood Gas 12/31/2017 [facility] O2 Device nasal cannula [address] [place] [address] [phone] PH Arterial 7.18 Low 7.35-7.45 226 Pco2 Arterial 60 mmHg High 35-45 Po2 Arterial 66 mmHg Low 80-100 O2 Saturation Arterial 92.3 % Low 95-98 Base Excess Arterial -6.9 Low -2.0-2.0 227 Hco3 Arterial 19.3 mmol/L N 19-31 Drug Abuse 12/19/2017 [facility] Urine Amphetamine Negative ng/ mL 228 20 Urine [address] [place] [address] [phone] Urine Barbiturates Negative ng/mL 229 Urine Benzodiazepines Negative ng/mL 230 Urine Cocaine Negative ng/mL 231 Urine Phencyclidine Negative ng/mL Cutoff: 25 Urine Tetrahydrocannabinol Presumptive Posi <SEE NOTE> Abnormal Cutoff: 50 232 ng/mL Creatinine, Urine 160.4 mg/dL Specific Palmer 1.016 pH 5.5 Oxidants Negative 233 Adulterants Comment Normal Codeine, Ur Present ng/mL Abnormal Cutoff: 25 234 Kjloiho-1-bbpb-glucuronide, Ur Present ng/mL Abnormal 235 Morphine, Ur Present ng/mL Abnormal Cutoff: 25 236 Dlzzogbi-2-vuwi-glucuronide, U Present ng/mL Abnormal 237 6-monoacetylmorphine, Ur Present ng/mL Abnormal Cutoff: 25 238 Hydrocodone, Ur Not Detected ng/mL Cutoff: 25 239 Norhydrocodone, Ur Not Detected ng/mL Cutoff: 25 240 Dihydrocodeine, Ur Not Detected ng/mL Cutoff: 25 241 Hydromorphone, Ur Not Detected ng/mL Cutoff: 25 242 Anzzsypdgczjf6ubaocsngyekotjb Present ng/mL Abnormal 243 Oxycodone, Ur Not Detected ng/mL Cutoff: 25 244 Noroxycodone, Ur Not Detected ng/mL Cutoff: 25 245 Oxymorphone, Ur Not Detected ng/mL Cutoff: 25 246 Xxpcmdwlmgj-6-rqcg-glucuronide Not Detected ng/mL 247 Noroxymorphone, Ur Not Detected ng/mL Cutoff: 25 248 Fentanyl, Ur Present ng/mL Abnormal Cutoff: 2 249 Norfentanyl, Ur Present ng/mL Abnormal Cutoff: 2 250 Meperidine, Ur Not Detected ng/mL Cutoff: 25 251 Normeperidine, Ur Not Detected ng/mL Cutoff: 25 252 Naloxone, Ur Not Detected ng/mL Cutoff: 25 253 Lfadunro-7-eexu-glucuronide, U Present ng/mL Abnormal 254 Methadone, Ur Not Detected ng/mL Cutoff: 25 255 Eddp, Ur Not Detected ng/mL Cutoff: 25 256 Propoxyphene, Ur Not Detected ng/mL Cutoff: 25 257 Norpropoxyphene, Ur Not Detected ng/mL Cutoff: 25 258 Tramadol, Ur Not Detected ng/mL Cutoff: 25 259 O-desmethyltramadol, Ur Not Detected ng/mL Cutoff: 25 260 Tapentadol, Ur Not Detected ng/mL Cutoff: 25 261 N-desmethyltapentadol, Ur Not Detected ng/mL Cutoff: 50 262 Idnskvaiac-cfdq-spyxzlohbvy, U Not Detected ng/mL 263 Buprenorphine, Ur Not Detected ng/mL Cutoff: 5 264 Norbuprenorphine, Ur Present ng/mL Abnormal Cutoff: 5 265 Norbuprenorphine glucuronide Present ng/mL Abnormal Cutoff: 20 266 Opioid Interpretation See Comment 267 THC Confirmation 12/19/2017 [facility] Urine Carboxy 17 ng/mL [address] [place] [address] [phone] Urine THC Interpretation Positive. 269 Drug Abuse 10/27/2017 [facility] Urine Amphetamine Negative ng/ mL 270 [address] [place] [address] [phone] Urine Barbiturates Negative ng/mL 271 Urine Benzodiazepines Negative ng/mL 272 Urine Cocaine Negative ng/mL 273 Urine Phencyclidine Negative ng/mL Cutoff: 25 Urine Tetrahydrocannabinol Negative ng/mL Cutoff: 50 274 Creatinine, Urine 104.5 mg/dL Specific Palmer 1.015 pH 6.5 Oxidants Negative 275 Adulterants Comment Normal Codeine, Ur Present ng/mL Abnormal Cutoff: 25 276 Nmuzjuf-8-euuq-glucuronide, Ur Present ng/mL Abnormal 277 Morphine, Ur Present ng/mL Abnormal Cutoff: 25 278 Izjrbbpd-2-akkb-glucuronide, U Present ng/mL Abnormal 279 6-monoacetylmorphine, Ur Present ng/mL Abnormal Cutoff: 25 280 Hydrocodone, Ur Not Detected ng/mL Cutoff: 25 281 Norhydrocodone, Ur Not Detected ng/mL Cutoff: 25 282 Dihydrocodeine, Ur Not Detected ng/mL Cutoff: 25 283 Hydromorphone, Ur Not Detected ng/mL Cutoff: 25 284 Ddyrylumhvmch3rlejmpspjytudun Present ng/mL Abnormal 285 Oxycodone, Ur Not Detected ng/mL Cutoff: 25 286 Noroxycodone, Ur Not Detected ng/mL Cutoff: 25 287 Oxymorphone, Ur Not Detected ng/mL Cutoff: 25 288 Ybzqhhvjhzn-0-rimk-glucuronide Not Detected ng/mL 289 Noroxymorphone, Ur Not Detected ng/mL Cutoff: 25 290 Fentanyl, Ur Present ng/mL Abnormal Cutoff: 2 291 Norfentanyl, Ur Present ng/mL Abnormal Cutoff: 2 292 Meperidine, Ur Not Detected ng/mL Cutoff: 25 293 Normeperidine, Ur Not Detected ng/mL Cutoff: 25 294 Naloxone, Ur Not Detected ng/mL Cutoff: 25 295 Xeoenbsi-2-jvya-glucuronide, U Present ng/mL Abnormal 296 Methadone, Ur Not Detected ng/mL Cutoff: 25 297 Eddp, Ur Not Detected ng/mL Cutoff: 25 298 Propoxyphene, Ur Not Detected ng/mL Cutoff: 25 299 Norpropoxyphene, Ur Not Detected ng/mL Cutoff: 25 300 Tramadol, Ur Not Detected ng/mL Cutoff: 25 301 O-desmethyltramadol, Ur Not Detected ng/mL Cutoff: 25 302 Tapentadol, Ur Not Detected ng/mL Cutoff: 25 303 N-desmethyltapentadol, Ur Not Detected ng/mL Cutoff: 50 304 Fzjanvvgdl-jzrk-gaqnzxqxzxo, U Not Detected ng/mL 305 Buprenorphine, Ur Not Detected ng/mL Cutoff: 5 306 Norbuprenorphine, Ur Present ng/mL Abnormal Cutoff: 5 307 Norbuprenorphine glucuronide Present ng/mL Abnormal Cutoff: 20 308 Opioid Interpretation See Comment 309 Drug Abuse 09/21/2017 [facility] Urine Amphetamine Negative ng/ mL 310 [address] [place] [address] [phone] Urine Barbiturates Negative ng/mL 311 Urine Benzodiazepines Negative ng/mL 312 Urine Cocaine Negative ng/mL 313 Urine Phencyclidine Negative ng/mL Cutoff: 25 Urine Tetrahydrocannabinol Presumptive Posi <SEE NOTE> Abnormal Cutoff: 50 314 ng/mL Creatinine, Urine 164.1 mg/dL Specific Palmer 1.016 pH 5.9 Oxidants Negative 315 Adulterants Comment Normal Codeine, Ur Present ng/mL Abnormal Cutoff: 25 316 Jmtzuav-2-vvci-glucuronide, Ur Present ng/mL Abnormal 317 Morphine, Ur Present ng/mL Abnormal Cutoff: 25 318 Dcdinivi-3-cvzy-glucuronide, U Present ng/mL Abnormal 319 6-monoacetylmorphine, Ur Present ng/mL Abnormal Cutoff: 25 320 Hydrocodone, Ur Not Detected ng/mL Cutoff: 25 321 Norhydrocodone, Ur Not Detected ng/mL Cutoff: 25 322 Dihydrocodeine, Ur Not Detected ng/mL Cutoff: 25 323 Hydromorphone, Ur Not Detected ng/mL Cutoff: 25 324 Flnxkzcpnqhga4sjoswoauyaetrgn Not Detected ng/mL 325 Oxycodone, Ur Not Detected ng/mL Cutoff: 25 326 Noroxycodone, Ur Not Detected ng/mL Cutoff: 25 327 Oxymorphone, Ur Not Detected ng/mL Cutoff: 25 328 Vzxqfuhnjbp-5-lnxl-glucuronide Not Detected ng/mL 329 Noroxymorphone, Ur Not Detected ng/mL Cutoff: 25 330 Fentanyl, Ur Not Detected ng/mL Cutoff: 2 331 Norfentanyl, Ur Not Detected ng/mL Cutoff: 2 332 Meperidine, Ur Not Detected ng/mL Cutoff: 25 333 Normeperidine, Ur Not Detected ng/mL Cutoff: 25 334 Naloxone, Ur Not Detected ng/mL Cutoff: 25 335 Nptuzcdt-5-ejup-glucuronide, U Present ng/mL Abnormal 336 Methadone, Ur Not Detected ng/mL Cutoff: 25 337 Eddp, Ur Not Detected ng/mL Cutoff: 25 338 Propoxyphene, Ur Not Detected ng/mL Cutoff: 25 339 Norpropoxyphene, Ur Not Detected ng/mL Cutoff: 25 340 Tramadol, Ur Not Detected ng/mL Cutoff: 25 341 O-desmethyltramadol, Ur Not Detected ng/mL Cutoff: 25 342 Tapentadol, Ur Not Detected ng/mL Cutoff: 25 343 N-desmethyltapentadol, Ur Not Detected ng/mL Cutoff: 50 344 Eopkntpbzo-hfyb-okrrprlvpfp, U Not Detected ng/mL 345 Buprenorphine, Ur Not Detected ng/mL Cutoff: 5 346 Norbuprenorphine, Ur Present ng/mL Abnormal Cutoff: 5 347 Norbuprenorphine glucuronide Present ng/mL Abnormal Cutoff: 20 348 Opioid Interpretation See Comment 349 THC Confirmation 09/21/2017 [facility] Urine Carboxy 10 ng/mL [address] [place] [address] [phone] Urine THC Interpretation Positive. 351 Lipid Profile 09/19/2017 [facility] Triglycerides 51 mg/dL 352 (Trig/Chol/HDL) [address] [place] [address] [phone] Cholesterol 197 mg/dL 353 HDL Cholesterol 68.1 mg/dL 354 LDL Cholesterol 119 mg/dL 355 Comp Metabolic Panel 09/19/2017 [facility] Sodium 139 mmol/L N 139-145 [address] [place] [address] [phone] Potassium 4.7 mmol/L N 3.5-5.0 Chloride 100 mmol/L Low 101-111 Co2 Carbon Dioxide 29 mmol/L N 22-32 Anion Gap 10 mmol/L N 2-11 Glucose 112 mg/dL High 70-100 Blood Urea Nitrogen 28 mg/dL High 6-24 Creatinine 1.15 mg/dL N 0.67-1.17 BUN/Creatinine Ratio 24.3 High 8-20 Calcium 9.2 mg/dL N 8.6-10.3 Total Protein 6.9 g/dL N 6.4-8.9 Albumin 3.8 g/dL N 3.2-5.2 Globulin 3.1 g/dL N 2-4 Albumin/Globulin Ratio 1.2 N 1-3 Total Bilirubin 0.40 mg/dL N 0.2-1.0 Alkaline Phosphatase 67 U/L N 34-104 Alt 15 U/L N 7-52 Ast 17 U/L N 13-39 Egfr Non- 67.3 >60 Egfr 86.6 >60 356 Laboratory 09/19/2017 [facility] Hepatitis C Nonreactive Nonreactive test finding [address] [place] [address] [phone] Drug Abuse 20 07/26/2017 [facility] Urine Negative [address] Amphetamine ng/[place] [address] [phone] Urine Barbiturates Negative ng/mL 358 Urine Benzodiazepines Negative ng/mL 359 Urine Cocaine Negative ng/mL 360 Urine Phencyclidine Negative ng/mL Cutoff: 25 Urine Tetrahydrocannabinol Presumptive Posi <SEE NOTE> Abnormal Cutoff: 50 361 ng/mL Creatinine, Urine 149.0 mg/dL Specific Palmer 1.013 pH 6.4 Oxidants Negative 362 Adulterants Comment Normal Codeine, Ur Not Detected ng/mL Cutoff: 25 363 Ssoxsdd-2-qjdr-glucuronide, Ur Not Detected ng/mL 364 Morphine, Ur Present ng/mL Abnormal Cutoff: 25 365 Vjdxxlgc-3-dlut-glucuronide, U Present ng/mL Abnormal 366 6-monoacetylmorphine, Ur Not Detected ng/mL Cutoff: 25 367 Hydrocodone, Ur Not Detected ng/mL Cutoff: 25 368 Norhydrocodone, Ur Not Detected ng/mL Cutoff: 25 369 Dihydrocodeine, Ur Not Detected ng/mL Cutoff: 25 370 Hydromorphone, Ur Not Detected ng/mL Cutoff: 25 371 Yhslqzjauzbsu5hagroezrvsqjprf Not Detected ng/mL 372 Oxycodone, Ur Present ng/mL Abnormal Cutoff: 25 373 Noroxycodone, Ur Present ng/mL Abnormal Cutoff: 25 374 Oxymorphone, Ur Not Detected ng/mL Cutoff: 25 375 Squbfrjvqbc-6-mbcr-glucuronide Present ng/mL Abnormal 376 Noroxymorphone, Ur Present ng/mL Abnormal Cutoff: 25 377 Fentanyl, Ur Present ng/mL Abnormal Cutoff: 2 378 Norfentanyl, Ur Present ng/mL Abnormal Cutoff: 2 379 Meperidine, Ur Not Detected ng/mL Cutoff: 25 380 Normeperidine, Ur Not Detected ng/mL Cutoff: 25 381 Naloxone, Ur Not Detected ng/mL Cutoff: 25 382 Glathkri-3-gyus-glucuronide, U Present ng/mL Abnormal 383 Methadone, Ur Not Detected ng/mL Cutoff: 25 384 Eddp, Ur Not Detected ng/mL Cutoff: 25 385 Propoxyphene, Ur Not Detected ng/mL Cutoff: 25 386 Norpropoxyphene, Ur Not Detected ng/mL Cutoff: 25 387 Tramadol, Ur Not Detected ng/mL Cutoff: 25 388 O-desmethyltramadol, Ur Not Detected ng/mL Cutoff: 25 389 Tapentadol, Ur Not Detected ng/mL Cutoff: 25 390 N-desmethyltapentadol, Ur Not Detected ng/mL Cutoff: 50 391 Mfvlkzsbtj-kcmq-sfkrcxxdtpz, U Not Detected ng/mL 392 Buprenorphine, Ur Not Detected ng/mL Cutoff: 5 393 Norbuprenorphine, Ur Present ng/mL Abnormal Cutoff: 5 394 Norbuprenorphine glucuronide Present ng/mL Abnormal Cutoff: 20 395 Opioid Interpretation See Comment 396 THC Confirmation 07/26/2017 [facility] Urine Carboxy 22 ng/mL [address] [place] [address] [phone] Urine THC Interpretation Positive. 398 Drug Abuse 04/27/2017 [facility] Urine Amphetamine Negative ng/ mL [address] [place], [place] [id number] [phone] Urine Barbiturates Negative ng/mL 400 Urine Benzodiazepines Negative ng/mL 401 Urine Cocaine Negative ng/mL 402 Urine Phencyclidine Negative ng/mL Cutoff: 25 Urine Tetrahydrocannabinol Presumptive Posi <SEE NOTE> ng/mL Cutoff: 50 403 Creatinine, Urine 164.9 mg/dL Specific [place] 1.017 pH 6.4 Oxidants Negative 404 Adulterants Comment Normal Codeine, Ur Not Detected ng/mL Cutoff: 25 405 Oxvceon-5-vpxl-glucuronide, Ur Not Detected ng/mL 406 Morphine, Ur Not Detected ng/mL Cutoff: 25 407 Rntddzgh-4-wyop-glucuronide, U Not Detected ng/mL 408 6-monoacetylmorphine, Ur Not Detected ng/mL Cutoff: 25 409 Hydrocodone, Ur Not Detected ng/mL Cutoff: 25 410 Norhydrocodone, Ur Not Detected ng/mL Cutoff: 25 411 Dihydrocodeine, Ur Not Detected ng/mL Cutoff: 25 412 Hydromorphone, Ur Not Detected ng/mL Cutoff: 25 413 Ydvkfvkcrhhuw4jfaehhutdxisaab Not Detected ng/mL 414 Oxycodone, Ur Not Detected ng/mL Cutoff: 25 415 Noroxycodone, Ur Not Detected ng/mL Cutoff: 25 416 Oxymorphone, Ur Not Detected ng/mL Cutoff: 25 417 Fmjrbduxanf-2-buqq-glucuronide Not Detected ng/mL 418 Noroxymorphone, Ur Not Detected ng/mL Cutoff: 25 419 Fentanyl, Ur Not Detected ng/mL Cutoff: 2 420 Norfentanyl, Ur Not Detected ng/mL Cutoff: 2 421 Meperidine, Ur Not Detected ng/mL Cutoff: 25 422 Normeperidine, Ur Not Detected ng/mL Cutoff: 25 423 Naloxone, Ur Not Detected ng/mL Cutoff: 25 424 Vnihzkte-9-nims-glucuronide, U Present ng/mL 425 Methadone, Ur Not Detected ng/mL Cutoff: 25 426 Eddp, Ur Not Detected ng/mL Cutoff: 25 427 Propoxyphene, Ur Not Detected ng/mL Cutoff: 25 428 Norpropoxyphene, Ur Not Detected ng/mL Cutoff: 25 429 Tramadol, Ur Not Detected ng/mL Cutoff: 25 430 O-desmethyltramadol, Ur Not Detected ng/mL Cutoff: 25 431 Tapentadol, Ur Not Detected ng/mL Cutoff: 25 432 N-desmethyltapentadol, Ur Not Detected ng/mL Cutoff: 50 433 Wgfmfgiqil-keck-reqggmklwax, U Not Detected ng/mL 434 Buprenorphine, Ur Not Detected ng/mL Cutoff: 5 435 Norbuprenorphine, Ur Present ng/mL Cutoff: 5 436 Norbuprenorphine glucuronide Present ng/mL Cutoff: 20 437 Opioid Interpretation See Comment 438 THC Confirmation 04/27/2017 [facility] Urine Carboxy 40 ng/mL [address] THC Confirm [place], [place] [id number] [phone] Urine THC Interpretation Positive. 440 Drug Abuse 12/01/2016 [facility] Urine Amphetamine Negative ng/ mL N [address] [place] [address] [phone] Urine Barbiturates Negative ng/mL N 442 Urine Benzodiazepines Negative ng/mL N 443 Urine Cocaine Negative ng/mL N 444 Urine Phencyclidine Negative ng/mL N Cutoff: 25 Urine Tetrahydrocannabinol Negative ng/mL N Cutoff: 50 445 Creatinine, Urine 301.1 mg/dL N Specific Palmer 1.019 N pH 5.8 N Oxidants Negative N 446 Adulterants Comment Normal N Codeine, Ur Not Detected ng/mL N Cutoff: 25 447 Iekbnfu-7-khjk-glucuronide, Ur Not Detected ng/mL N 448 Morphine, Ur Not Detected ng/mL N Cutoff: 25 449 Cmmvyqjt-2-fijq-glucuronide, U Not Detected ng/mL N 450 6-monoacetylmorphine, Ur Not Detected ng/mL N Cutoff: 25 451 Hydrocodone, Ur Not Detected ng/mL N Cutoff: 25 452 Norhydrocodone, Ur Not Detected ng/mL N Cutoff: 25 453 Dihydrocodeine, Ur Not Detected ng/mL N Cutoff: 25 454 Hydromorphone, Ur Not Detected ng/mL N Cutoff: 25 455 Mqxojuhtepevi6pcmrfldqzztjjgz Not Detected ng/mL N 456 Oxycodone, Ur Not Detected ng/mL N Cutoff: 25 457 Noroxycodone, Ur Not Detected ng/mL N Cutoff: 25 458 Oxymorphone, Ur Not Detected ng/mL N Cutoff: 25 459 Xlnvcrgxlpo-9-jmmu-glucuronide Not Detected ng/mL N 460 Noroxymorphone, Ur Not Detected ng/mL N Cutoff: 25 461 Fentanyl, Ur Not Detected ng/mL N Cutoff: 2 462 Norfentanyl, Ur Present ng/mL N Cutoff: 2 463 Meperidine, Ur Not Detected ng/mL N Cutoff: 25 464 Normeperidine, Ur Not Detected ng/mL N Cutoff: 25 465 Naloxone, Ur Not Detected ng/mL N Cutoff: 25 466 Aapdcqml-2-jewc-glucuronide, U Present ng/mL N 467 Methadone, Ur Not Detected ng/mL N Cutoff: 25 468 Eddp, Ur Not Detected ng/mL N Cutoff: 25 469 Propoxyphene, Ur Not Detected ng/mL N Cutoff: 25 470 Norpropoxyphene, Ur Not Detected ng/mL N Cutoff: 25 471 Tramadol, Ur Not Detected ng/mL N Cutoff: 25 472 O-desmethyltramadol, Ur Not Detected ng/mL N Cutoff: 25 473 Tapentadol, Ur Not Detected ng/mL N Cutoff: 25 474 N-desmethyltapentadol, Ur Not Detected ng/mL N Cutoff: 50 475 Kaqtosxgxo-pjel-vpavbvnuevt, U Present ng/mL N 476 Buprenorphine, Ur Not Detected ng/mL N Cutoff: 5 477 Norbuprenorphine, Ur Present ng/mL N Cutoff: 5 478 Norbuprenorphine glucuronide Present ng/mL N Cutoff: 20 479 Opioid Interpretation See Comment N 480 CBC Auto Diff 11/15/2016 [facility] White Blood 7.7 10^3/uL N 3.5-10.[address] [place] [address] [phone] Red Blood Count 5.03 10^6/uL N 4.0-5.4 Hemoglobin 15.7 g/dL N 14.0-18.0 Hematocrit 48 % N 42-52 Mean Corpuscular Volume 96 fL High 80-94 Mean Corpuscular Hemoglobin 31 pg N 27-31 Mean Corpuscular HGB Conc 33 g/dL N 31-36 Red Cell Distribution Width 13 % N 10.5-15 Platelet Count 191 10^3/uL N 150-450 Mean Platelet Volume 9 um3 N 7.4-10.4 Abs Neutrophils 4.4 10^3/uL N 1.5-7.7 Abs Lymphocytes 2.7 10^3/uL N 1.0-4.8 Abs Monocytes 0.5 10^3/uL N 0-0.8 Abs Eosinophils 0.1 10^3/uL N 0-0.6 Abs Basophils 0 10^3/uL N 0-0.2 Abs Nucleated RBC 0 10^3/uL N Granulocyte % 56.8 % N 38-83 Lymphocyte % 34.3 % N 25-47 Monocyte % 7.0 % N 1-9 Eosinophil % 1.4 % N 0-6 Basophil % 0.5 % N 0-2 Nucleated Red Blood Cells % 0 N Laboratory test 11/15/2016 [facility] Lactic Acid 2.3 mmol/L High 0.5-2.0 [address] [place] [address] [phone] Laboratory test 11/15/2016 [facility] Troponin-I 0.01 ng/mL N <0.[address] (TnI) [place] [address] [phone] B-Type Natriuretic Peptide BNP 108 pg/mL High 482 Comp Metabolic Panel 11/15/2016 [facility] Sodium 138 mmol/L N 133-[address] [place] [address] [phone] Potassium 4.1 mmol/L N 3.5-5.0 Chloride 102 mmol/L N 101-111 Co2 Carbon Dioxide 28 mmol/L N 22-32 Anion Gap 8 mmol/L N 2-11 Glucose 137 mg/dL High 70-100 Blood Urea Nitrogen 31 mg/dL High 6-24 Creatinine 1.51 mg/dL High 0.67-1.17 BUN/Creatinine Ratio 20.5 High 8-20 Calcium 9.6 mg/dL N 8.6-10.3 Total Protein 7.8 g/dL N 6.4-8.9 Albumin 3.7 g/dL N 3.2-5.2 Globulin 4.1 g/dL High 2-4 Albumin/Globulin Ratio 0.9 Low 1-3 Total Bilirubin 0.50 mg/dL N 0.2-1.0 Alkaline Phosphatase 86 U/L N 34-104 Alt 15 U/L N 7-52 Ast 16 U/L N 13-39 Egfr Non- 49.4 N >60 Egfr 63.5 N >60 483 Liver Function 10/25/2016 [facility] Total Protein 7.1 g/dL N 6.4-8.9 Panel [address] [place] [address] [phone] Albumin 3.8 g/dL N 3.2-5.2 Globulin 3.3 g/dL N 2-4 Albumin/Globulin Ratio 1.2 N 1-3 Total Bilirubin 0.50 mg/dL N 0.2-1.0 Direct Bilirubin 0.10 mg/dL N 0.03-0.18 Indirect Bilirubin 0.4 mg/dL N 0.3-1.0 Alkaline Phosphatase 70 U/L N 34-104 Alt 16 U/L N 7-52 Ast 20 U/L N 13-39 Drug Abuse 10/06/2016 [facility] Urine Amphetamine Negative ng/ mL N 484 20 [address]rine [address] [place] [address] [phone] Urine Barbiturates Negative ng/mL N 485 Urine Benzodiazepines Negative ng/mL N 486 Urine Cocaine Negative ng/mL N 487 Urine Phencyclidine Negative ng/mL N Cutoff: 25 Urine Tetrahydrocannabinol Negative ng/mL N Cutoff: 50 488 Creatinine, Urine 163.7 mg/dL N Specific Palmer 1.018 N pH 5.9 N Oxidants Negative N 489 Adulterants Comment Normal N Codeine, Ur Not Detected ng/mL N Cutoff: 25 490 Rwtfqca-2-nfii-glucuronide, Ur Not Detected ng/mL N 491 Morphine, Ur Not Detected ng/mL N Cutoff: 25 492 Tuhrsvwu-9-sfen-glucuronide, U Not Detected ng/mL N 493 6-monoacetylmorphine, Ur See Comment ng/mL N Cutoff: 25 494 Hydrocodone, Ur Not Detected ng/mL N Cutoff: 25 495 Norhydrocodone, Ur Not Detected ng/mL N Cutoff: 25 496 Dihydrocodeine, Ur Not Detected ng/mL N Cutoff: 25 497 Hydromorphone, Ur Not Detected ng/mL N Cutoff: 25 498 Tuogbmwwwytdd7tnlduitqgofznjw Not Detected ng/mL N 499 Oxycodone, Ur Not Detected ng/mL N Cutoff: 25 500 Noroxycodone, Ur Not Detected ng/mL N Cutoff: 25 501 Oxymorphone, Ur Not Detected ng/mL N Cutoff: 25 502 Wfodlollenk-9-pfqn-glucuronide Not Detected ng/mL N 503 Noroxymorphone, Ur Not Detected ng/mL N Cutoff: 25 504 Fentanyl, Ur Not Detected ng/mL N Cutoff: 2 505 Norfentanyl, Ur Present ng/mL N Cutoff: 2 506 Meperidine, Ur Not Detected ng/mL N Cutoff: 25 507 Normeperidine, Ur Not Detected ng/mL N Cutoff: 25 508 Naloxone, Ur Not Detected ng/mL N Cutoff: 25 509 Wvsgwmxr-5-lhos-glucuronide, U Present ng/mL N 510 Methadone, Ur Not Detected ng/mL N Cutoff: 25 511 Eddp, Ur Not Detected ng/mL N Cutoff: 25 512 Propoxyphene, Ur Not Detected ng/mL N Cutoff: 25 513 Norpropoxyphene, Ur Not Detected ng/mL N Cutoff: 25 514 Tramadol, Ur Not Detected ng/mL N Cutoff: 25 515 O-desmethyltramadol, Ur Not Detected ng/mL N Cutoff: 25 516 Tapentadol, Ur Not Detected ng/mL N Cutoff: 25 517 N-desmethyltapentadol, Ur Not Detected ng/mL N Cutoff: 50 518 Trwuauwsbp-lqua-lumxoqfzonk, U Not Detected ng/mL N 519 Buprenorphine, Ur Not Detected ng/mL N Cutoff: 5 520 Norbuprenorphine, Ur Present ng/mL N Cutoff: 5 521 Norbuprenorphine glucuronide Present ng/mL N Cutoff: 20 522 Opioid Interpretation See Comment N 523 Urine 08/17/2016 [facility] Urine 106 ng/mL N Cutoff: [address] [place] [address] GC/MS [phone] Urine Methamphetamine by GC/MS 572 ng/mL N Cutoff: 25 Phentermine-by GC/MS Negative ng/mL N Cutoff: 25 Pseudoephedrine/Ephedr GC/MS Negative ng/mL N Cutoff: 25 Mda(Ecstacy metabolite) GC/MS Negative ng/mL N Cutoff: 25 Mdma(Ecstacy)-by GC/MS Negative ng/mL N Cutoff: 25 Urine Amphetamines Interp Positive. N 524 Drug Abuse 08/17/2016 [facility] Urine Amphetamine Presumptive Posi N [address] <SEE NOTE> ng/[place] [address] [phone] Urine Barbiturates Negative ng/mL N 526 Urine Benzodiazepines Negative ng/mL N 527 Urine Cocaine Negative ng/mL N 528 Urine Phencyclidine Negative ng/mL N Cutoff: 25 Urine Tetrahydrocannabinol Negative ng/mL N Cutoff: 50 529 Creatinine 238.4 mg/dL N Specific Palmer 1.018 N pH 5.7 N Oxidants Negative N 530 Adulterants Comment Normal N Codeine, Ur Present ng/mL N Cutoff: 25 531 Kjrxnfs-2-wpgv-glucuronide, Ur Present ng/mL N 532 Morphine, Ur Present ng/mL N Cutoff: 25 533 Qiiuublv-9-qjng-glucuronide, U Present ng/mL N 534 6-monoacetylmorphine, Ur Present ng/mL N Cutoff: 25 535 Hydrocodone, Ur Not Detected ng/mL N Cutoff: 25 536 Norhydrocodone, Ur Not Detected ng/mL N Cutoff: 25 537 Dihydrocodeine, Ur Not Detected ng/mL N Cutoff: 25 538 Hydromorphone, Ur Not Detected ng/mL N Cutoff: 25 539 Kzltploinfvsu2sfycgdnsabbxhhd Not Detected ng/mL N 540 Oxycodone, Ur Not Detected ng/mL N Cutoff: 25 541 Noroxycodone, Ur Not Detected ng/mL N Cutoff: 25 542 Oxymorphone, Ur Not Detected ng/mL N Cutoff: 25 543 Qoiguutdhiq-6-nmvc-glucuronide Not Detected ng/mL N 544 Noroxymorphone, Ur Not Detected ng/mL N Cutoff: 25 545 Fentanyl, Ur Present ng/mL N Cutoff: 2 546 Norfentanyl, Ur Present ng/mL N Cutoff: 2 547 Meperidine, Ur Not Detected ng/mL N Cutoff: 25 548 Normeperidine, Ur Not Detected ng/mL N Cutoff: 25 549 Naloxone, Ur Not Detected ng/mL N Cutoff: 25 550 Oodhtwig-3-qybp-glucuronide, U Present ng/mL N 551 Methadone, Ur Not Detected ng/mL N Cutoff: 25 552 Eddp, Ur Not Detected ng/mL N Cutoff: 25 553 Propoxyphene, Ur Not Detected ng/mL N Cutoff: 25 554 Norpropoxyphene, Ur Not Detected ng/mL N Cutoff: 25 555 Tramadol, Ur Present ng/mL N Cutoff: 25 556 O-desmethyltramadol, Ur Present ng/mL N Cutoff: 25 557 Tapentadol, Ur Not Detected ng/mL N Cutoff: 25 558 N-desmethyltapentadol, Ur Not Detected ng/mL N Cutoff: 50 559 Dwuerqmjte-gwxa-ogymokrwxwg, U Not Detected ng/mL N 560 Buprenorphine, Ur Not Detected ng/mL N Cutoff: 5 561 Norbuprenorphine, Ur Present ng/mL N Cutoff: 5 562 Norbuprenorphine glucuronide Present ng/mL N Cutoff: 20 563 Opioid Interpretation See Comment N 564 THC Confirmation 07/15/2016 [facility] Urine Carboxy 28 ng/mL N [address] [place] [address] [phone] Urine THC Interpretation Positive. N 566 Drug Abuse 07/15/2016 [facility] Urine Amphetamine Negative ng/ mL N [address] [place] [address] [phone] Urine Barbiturates Negative ng/mL N 568 Urine Benzodiazepines Negative ng/mL N 569 Urine Cocaine Negative ng/mL N 570 Urine Phencyclidine Negative ng/mL N Cutoff: 25 Urine Tetrahydrocannabinol Presumptive Posi <SEE NOTE> ng/mL N Cutoff: 50 571 Creatinine 158.7 mg/dL N Specific Palmer 1.016 N pH 6.8 N Oxidants Negative N 572 Adulterants Comment Normal N Codeine, Ur Present ng/mL N Cutoff: 25 573 Ixuguvg-8-pzya-glucuronide, Ur Present ng/mL N 574 Morphine, Ur Present ng/mL N Cutoff: 25 575 Idafvmxg-5-qryh-glucuronide, U Present ng/mL N 576 6-monoacetylmorphine, Ur Present ng/mL N Cutoff: 25 577 Hydrocodone, Ur Not Detected ng/mL N Cutoff: 25 578 Norhydrocodone, Ur Not Detected ng/mL N Cutoff: 25 579 Dihydrocodeine, Ur Not Detected ng/mL N Cutoff: 25 580 Hydromorphone, Ur Not Detected ng/mL N Cutoff: 25 581 Tdytsjiaeatgw2eafgxljhzksvkxx Present ng/mL N 582 Oxycodone, Ur Not Detected ng/mL N Cutoff: 25 583 Noroxycodone, Ur Not Detected ng/mL N Cutoff: 25 584 Oxymorphone, Ur Not Detected ng/mL N Cutoff: 25 585 Eacqvdobivj-5-bgym-glucuronide Not Detected ng/mL N 586 Noroxymorphone, Ur Not Detected ng/mL N Cutoff: 25 587 Fentanyl, Ur Present ng/mL N Cutoff: 2 588 Norfentanyl, Ur Present ng/mL N Cutoff: 2 589 Meperidine, Ur Not Detected ng/mL N Cutoff: 25 590 Normeperidine, Ur Not Detected ng/mL N Cutoff: 25 591 Naloxone, Ur Not Detected ng/mL N Cutoff: 25 592 Efrvruue-3-idrw-glucuronide, U Not Detected ng/mL N 593 Methadone, Ur Not Detected ng/mL N Cutoff: 25 594 Eddp, Ur Not Detected ng/mL N Cutoff: 25 595 Propoxyphene, Ur Not Detected ng/mL N Cutoff: 25 596 Norpropoxyphene, Ur Not Detected ng/mL N Cutoff: 25 597 Tramadol, Ur Present ng/mL N Cutoff: 25 598 O-desmethyltramadol, Ur Present ng/mL N Cutoff: 25 599 Tapentadol, Ur Not Detected ng/mL N Cutoff: 25 600 N-desmethyltapentadol, Ur Not Detected ng/mL N Cutoff: 50 601 Baujkhxxip-ncqm-otyttkpbucy, U Not Detected ng/mL N 602 Buprenorphine, Ur Not Detected ng/mL N Cutoff: 5 603 Norbuprenorphine, Ur Present ng/mL N Cutoff: 5 604 Norbuprenorphine glucuronide Present ng/mL N Cutoff: 20 605 Opioid Interpretation See Comment N 606 Comp Metabolic Panel 03/01/2009 [facility] Sodium 135 mmol/L 135-[address] [place] [address] [phone] Potassium 4.2 mmol/L 3.5-5.0 Chloride 103 mmol/L 101-111 Co2 (Carbon Dioxide) 26.0 mmol/L 22-32 Anion Gap 6.0 mmol/L 2-11 607 Glucose 104 mg/dL High 70-100 608 BUN 20 mg/dL 6-24 Creatinine 0.80 mg/dL 0.50-1.40 One Over Creatinine 1.20 BUN/Creatinine Ratio 25.0 High 8-20 Calcium 8.7 mg/dL 8.1-9.9 609 Total Protein 6.5 GM/DL 6.2-8.1 Albumin 3.6 GM/DL 3.6-5.4 Globulin 2.9 GM/DL 2-4 Albumin/Globulin Ratio 1.2 1-3 Bilirubin Total 0.6 mg/dL 0.4-1.5 610 Alkaline Phosphatase 69 U/L 39-117 Alt (SGPT) 31 U/L 17-63 Ast (Sgot) 22 U/L 12-42 eGFR Non- 113.2 > 60 eGFR 137.0 > 60 611 Lipid Profile 03/01/2009 [facility] Triglyceride 60 mg/dL 40- 200 (Trig/Chol/HDL) [address] [place] [address] [phone] Cholesterol 155 mg/dL Less Than 200 612 High Density Lipoprotein 46 mg/dL 40-60 613 Cholesterol/HDL Ratio 3.37 AVERAGE 1-4.97 Low Density Lipoprotein 97 mg/dL Less Than 100 614 Laboratory test 03/01/2009 [facility] CPK (Creatine 92 U/L 0- [address] [employer]) [place] [address] [phone] Lipid Profile 02/06/2009 [facility] Triglyceride 72 mg/dL 40- 200 (Trig/Chol/HDL) [address] [place] [address] [phone] Cholesterol 176 mg/dL Less Than 200 615 High Density Lipoprotein 47 mg/dL 40-60 616 Cholesterol/HDL Ratio 3.74 AVERAGE 1-4.97 Low Density Lipoprotein 115 mg/dL High Less Than 100 617 CBC With 02/06/2009 [facility] White Blood 6.5 CUMM 4.8-10.[address] [place] [address] [phone] Red Cell Count 4.88 CUMM 4.6-6.2 Hemoglobin [...] Eosinophils 0.2 0-0.6 Abs Basophils 0 0-0.2 Laboratory test 02/06/2009 [facility] TSH 0.63 MIU/ML 0.34- 5.[address] [place] [address] [phone] Urinalysis 02/06/2009 [facility] Ua Color YELLOW W/Microscopic [address] [place] [address] [phone] Appearance-Urine CLEAR Specific Palmer-Ur 1.030 1.010-1.030 Esterase-Urine NEGATIVE Negative Nitrite NEGATIVE Negative Pqvsdumtfkqw-Za-MKC NEGATIVE Negative Protein-Urine NEGATIVE Negative PH-Urine 6.0 5-9 Blood-Urine NEGATIVE Negative Ketones-Urine TRACE Abnormal Negative Ictotest-Urine NEGATIVE Glucose-Urine NEGATIVE Negative WBC-Urine 0-2 0-5 RBC-Urine 1-3 0-2 Mucus Urine SMALL Epith Cells-Ur RARE Protime 02/06/2009 [facility] Inr 1.03 0.86-1.13 618 [address] [place] [address] [phone] Protime 12.5 SEC 10.7-13.6 619 Urine Drug 02/06/2009 [facility] Urine Alcohol Negative mg/dL Cutoff: 30 Screen M-20 [address] [place] [address] [phone] Urine Ampetamines Negative ng/mL () 620 Urine Barbiturates Negative ng/mL () 621 Urine Benzodiazepines Negative ng/mL () 622 Urine Cocaine Negative ng/mL () 623 Ur Lysergic Acid Diethylamide Negative ng/mL () 624 Urine Methadone Negative ng/mL () 625 Urine Methaqualone Negative ng/mL () 626 Urine Opiates Negative ng/mL () 627 Urine Phencyclidine Negative ng/mL Cutoff: 25 Urine Propoxyphene Negative ng/mL () 628 Urine Tetrahydrocannabinol REFLEX Cutoff: 20 629 THC Confirmation 02/06/2009 [facility] Urine THC Positive Cutoff: [address] [place] [address] [phone] THC Carboxylic Acid By GC/MS 267 ng/mL Cutoff: 3 Urine THC Interpretation Positive () 630 Laboratory test 02/06/2009 [facility] PTT (Aptt) 31.3 25.15- 38.53 631 finding [address] [place] [address] [phone] Comp Metabolic 02/06/2009 [facility] Sodium 137 135-145 Panel 101 [facility] mmol/[place] [address] [phone] Potassium 4.2 mmol/L 3.5-5.0 Chloride 105 mmol/L 101-111 Co2 (Carbon Dioxide) 30.0 mmol/L 22-32 Anion Gap 2.0 mmol/L 2-11 632 Glucose 103 mg/dL High 70-100 633 BUN 23 mg/dL 6-24 Creatinine 0.90 mg/dL 0.50-1.40 One Over Creatinine 1.10 BUN/Creatinine Ratio 25.6 High 8-20 Calcium 9.3 mg/dL 8.1-9.9 634 Total Protein 7.3 GM/DL 6.2-8.1 Albumin 3.9 GM/DL 3.6-5.4 Globulin 3.4 GM/DL 2-4 Albumin/Globulin Ratio 1.1 1-3 Bilirubin Total 0.7 mg/dL 0.4-1.5 635 Alkaline Phosphatase 67 U/L 39-117 Alt (SGPT) 27 U/L 17-63 Ast (Sgot) 21 U/L 12-42 eGFR Non- 98.8 > 60 eGFR 119.6 > 60 636 1 Because ethnic data is not always [...] 5 Kidney failure <15 (or dialysis) 2 Reference ranges based on room air. 3 [facility] Severe Sepsis and Septic Shock Management Bundle Measure requires all lactic acids initially measuring >2.0 mmol/L be repeated. 4 Troponin-I testing on Plasma Separator Tubes (PST) has a known false positive rate of 0.20-0.40%. All positive troponins reflex immediately to secondary confirmatory testing. Using the [employer] 800 Access Immunoassay systems, the 99th percentile upper reference limit was demonstrated to be < 0.03 ng/mL. 5 SEE RESULT BELOW Name: LEEROY SILVA : [address]: Davin Roberson MD Acct: [id number] Unit: [id number] AGE: 53 Location: [place] [address] Re11/26/18 Dis: 11/26/18 SEX: M Status: DIS Donny SPEC: [id number] TONG: 11/26/[address]: Toño RIOS REQ: [id number] RECD: 11/26/18 STATUS: RES OTHR DR: Tommie Araujo MD _ SOURCE: BLOOD,VENO SPDESC: ORDERED: Blood Cult Procedure Result Reported Site Aerobic Culture Bottle Preliminary 11/30/18- 0143 ML No Growth Day 4 Anaerobic Culture Bottle Preliminary 11/30/18- 0143 ML No Growth Day 4 * - [facility] . END OF REPORT DEPARTMENT OF PATHOLOGY, [address] [place] [address] Fabio Masters M.D. Director [facility] # [id number] REFERENCE VALUE Cutoff: 500 8 REFERENCE VALUE Cutoff: 200 9 REFERENCE VALUE Cutoff: 100 10 REFERENCE VALUE Cutoff: 150 11 Presumptive Positive Drug confirmation to follow. Presumptive Positive means that the screening method is positive, but the test needs to be run by a confirmatory method before being finalized. ADDITIONAL INFORMATION This report is intended for use in clinical monitoring or management of patients. It is not intended for use in employment-related testing. 12 REFERENCE VALUE Cutoff: 200 mg/L 13 Tylenol 3 14 Metabolite of codeine REFERENCE VALUE Cutoff: 100 15 Ida Moraes, MS Contin; Also a minor metabolite (10%) of codeine and can be seen in low concentrations (<2,000 ng/mL) with poppy seed ingestion. 16 Metabolite of morphine REFERENCE VALUE Cutoff: 100 17 Metabolite of heroin 18 Lortab, Empire, Vicodin; Also a very minor metabolite of codeine and impurity (<1%) of oxycodone. 19 Metabolite of hydrocodone 20 Metabolite of hydrocodone 21 Dilaudid, Exalgo; Also a metabolite of hydrocodone and a minor (<5%) metabolite of morphine. 22 Metabolite of hydromorphone REFERENCE VALUE Cutoff: 100 23 Endocet, Percocet, Oxycontin 24 Metabolite of oxycodone 25 Numorphan, Opana; Also a metabolite of oxycodone. 26 Metabolite of oxymorphone REFERENCE VALUE Cutoff: 100 27 Metabolite of oxymorphone 28 Actiq, Duragesic, Fentora 29 Metabolite of fentanyl 30 Demerol 31 Metabolite of meperidine 32 Narcan 33 Metabolite of naloxone REFERENCE VALUE Cutoff: 100 34 Dolophine 35 Metabolite of methadone 36 Darvon, Darvocet 37 Metabolite of propoxyphene 38 Tradol, Ultram, Ultracet 39 Metabolite of tramadol 40 Nucynta 41 Metabolite of tapentadol 42 Metabolite of tapentadol REFERENCE VALUE Cutoff: 100 43 Buprenex, Suboxone 44 Metabolite of buprenorphine 45 Metabolite of buprenorphine 46 Test detected the presence of morphine and its metabolite (ugkdnzcq-1-tdvh-glucuronide) along with codeine and bytkjlr-0-mzth-glucuronide and the metabolite of heroin (6-monoacetylmorphine). Suspect recent use of heroin. *Test detected the presence of buprenorphine and its metabolites (norbuprenorphine and norbuprenorphine glucuronide) along with naloxone metabolite (einibrbr-4-ywtp-glucuronide). Suspect use of buprenorphine with naloxone (e.g. Suboxone) within the past three days. Test detected the presence of fentanyl and its metabolite (norfentanyl). Suspect use of fentanyl within the past three days. ADDITIONAL INFORMATION This test was developed and its performance characteristics determined by [facility] in a manner consistent with CLIA requirements. This test has not been cleared or approved by the U.S. Food and Drug Administration. Test Performed by: [facility] - [address] [address] 47 REFERENCE VALUE Cutoff: 3.0 48 ADDITIONAL INFORMATION This report is intended for use in clinical monitoring and management of patients. It is not intended for use in employment-related testing. This test was developed and its performance characteristics determined by [facility] in a manner consistent with CLIA requirements. This test has not been cleared or approved by the U.S. Food and Drug Administration. Test Performed by: [facility] - [facility] [address] , [place] [address] 49 REFERENCE VALUE Cutoff: 500 50 REFERENCE VALUE Cutoff: 200 51 REFERENCE VALUE Cutoff: 100 52 REFERENCE VALUE Cutoff: 150 53 Presumptive Positive Drug confirmation to follow. Presumptive Positive means that the screening method is positive, but the test needs to be run by a confirmatory method before being finalized. ADDITIONAL INFORMATION This report is intended for use in clinical monitoring or management of patients. It is not intended for use in employment-related testing. 54 REFERENCE VALUE Cutoff: 200 mg/L 55 Tylenol 3 56 Metabolite of codeine REFERENCE VALUE Cutoff: 100 57 Ida Moraes, Contin; Also a minor metabolite (10%) of codeine and can be seen in low concentrations (<2,000 ng/mL) with poppy seed ingestion. 58 Metabolite of morphine REFERENCE VALUE Cutoff: 100 59 Metabolite of heroin 60 Lortab, Empire, Vicodin; Also a very minor metabolite of codeine and impurity (<1%) of oxycodone. 61 Metabolite of hydrocodone 62 Metabolite of hydrocodone 63 Dilaudid, Exalgo; Also a metabolite of hydrocodone and a minor (<5%) metabolite of morphine. 64 Metabolite of hydromorphone REFERENCE VALUE Cutoff: 100 65 Endocet, Percocet, Oxycontin 66 Metabolite of oxycodone 67 Numorphan, Opana; Also a metabolite of oxycodone. 68 Metabolite of oxymorphone REFERENCE VALUE Cutoff: 100 69 Metabolite of oxymorphone 70 Actiq, Duragesic, Fentora 71 Metabolite of fentanyl 72 Demerol 73 Metabolite of meperidine 74 Narcan 75 Metabolite of naloxone REFERENCE VALUE Cutoff: 100 76 Dolophine 77 Metabolite of methadone 78 Darvon, Darvocet 79 Metabolite of propoxyphene 80 Tradol, Ultram, Ultracet 81 Metabolite of tramadol 82 Nucynta 83 Metabolite of tapentadol 84 Metabolite of tapentadol REFERENCE VALUE Cutoff: 100 85 Buprenex, Suboxone 86 Metabolite of buprenorphine 87 Metabolite of buprenorphine 88 Test detected the presence of morphine and its metabolite (qkuyzxqu-3-iwdk-glucuronide) along with codeine metabolite vzaaiqf-9-gdqd-glucuronide and the metabolite of heroin (6-monoacetylmorphine). Suspect recent use of heroin. Test detected the presence of buprenorphine metabolites (norbuprenorphine and norbuprenorphine glucuronide) along with naloxone metabolite (mwjpomdu-5-qdly-glucuronide). Suspect use of buprenorphine with naloxone (e.g. Suboxone) within the past three days. Test detected the presence of fentanyl and its metabolite (norfentanyl). Suspect use of fentanyl within the past three days. ADDITIONAL INFORMATION This test was developed and its performance characteristics determined by [facility] in a manner consistent with CLIA requirements. This test has not been cleared or approved by the U.S. Food and Drug Administration. Test Performed by: [facility] [employer] [facility] [employer] [address] [place] [id number] 89 REFERENCE VALUE Cutoff: 3.0 90 ADDITIONAL INFORMATION This report is intended for use in clinical monitoring and management of patients. It is not intended for use in employment-related testing. This test was developed and its performance characteristics determined by [facility] in a manner consistent with CLIA requirements. This test has not been cleared or approved by the U.S. Food and Drug Administration. Test Performed by: [facility] [employer] [facility] [employer] [address] [place] [id number] 91 REFERENCE VALUE Cutoff: 500 92 REFERENCE VALUE Cutoff: 200 93 REFERENCE VALUE Cutoff: 100 94 REFERENCE VALUE Cutoff: 150 95 Presumptive Positive Drug confirmation to follow. Presumptive Positive means that the screening method is positive, but the test needs to be run by a confirmatory method before being finalized. ADDITIONAL INFORMATION This report is intended for use in clinical monitoring or management of patients. It is not intended for use in employment-related testing. 96 REFERENCE VALUE Cutoff: 200 mg/L 97 Tylenol 3 98 Metabolite of codeine REFERENCE VALUE Cutoff: 100 99 Ida Moraes, MS Contin; Also a minor metabolite (10%) of codeine and can be seen in low concentrations (<2,000 ng/mL) with poppy seed ingestion. 100 Metabolite of morphine REFERENCE VALUE Cutoff: 100 101 Metabolite of heroin 102 Lortab, Empire, Vicodin; Also a very minor metabolite of codeine and impurity (<1%) of oxycodone. 103 Metabolite of hydrocodone 104 Metabolite of hydrocodone 105 Dilaudid, Exalgo; Also a metabolite of hydrocodone and a minor (<5%) metabolite of morphine. 106 Metabolite of hydromorphone REFERENCE VALUE Cutoff: 100 107 Endocet, Percocet, Oxycontin 108 Metabolite of oxycodone 109 Numorphan, Opana; Also a metabolite of oxycodone. 110 Metabolite of oxymorphone REFERENCE VALUE Cutoff: 100 111 Metabolite of oxymorphone 112 Actiq, Duragesic, Fentora 113 Metabolite of fentanyl 114 Demerol 115 Metabolite of meperidine 116 Narcan 117 Metabolite of naloxone REFERENCE VALUE Cutoff: 100 118 Dolophine 119 Metabolite of methadone 120 Darvon, Darvocet 121 Metabolite of propoxyphene 122 Tradol, Ultram, Ultracet 123 Metabolite of tramadol 124 Nucynta 125 Metabolite of tapentadol 126 Metabolite of tapentadol REFERENCE VALUE Cutoff: 100 127 Buprenex, Suboxone 128 Metabolite of buprenorphine 129 Metabolite of buprenorphine 130 Test detected the presence of codeine, tdvudjt-2-wzrp-glucuronide (metabolite of codeine), morphine, and aygrfkak-4-amhs-glucuronide (metabolite of morphine). Suspect recent use of codeine and/or morphine within the past three days. Test detected the presence of oxycodone and one of its metabolites (noroxycodone). Suspect use of oxycodone within the past three days. Test detected the presence of fentanyl and its metabolite (norfentanyl). Suspect use of fentanyl within the past three days. Test detected the presence of buprenorphine metabolites (norbuprenorphine and norbuprenorphine glucuronide) along with naloxone metabolites (hicgthke-4-ucii-glucuronide and noroxymorphone/nornaloxone). Suspect use of buprenorphine with naloxone (e.g. Suboxone) within the past three days. ADDITIONAL INFORMATION This test was developed and its performance characteristics determined by [facility] in a manner consistent with CLIA requirements. This test has not been cleared or approved by the U.S. Food and Drug Administration. Test Performed by: [facility] - [address] [address] 131 REFERENCE VALUE Cutoff: 3.0 132 ADDITIONAL INFORMATION This report is intended for use in clinical monitoring and management of patients. It is not intended for use in employment-related testing. This test was developed and its performance characteristics determined by [facility] in a manner consistent with CLIA requirements. This test has not been cleared or approved by the U.S. Food and Drug Administration. Test Performed by: [facility] - [address] [address] 133 SEE RESULT BELOW Name: LEEROY SILVA : [address]: Julian Sanz DO Acct: [id number] Unit: [id number] AGE: 52 Location: OR Re03/02/18 SEX: M Status: [facility] [place] SPEC: [id number] TONG: 03/02/181760 [facility] DR: Julian Sanz DO REQ: [id number] RECD: 03/02/18 STATUS: ALEKSANDAR WAGNER DR: Pankaj Leslie MD _ ORDERED: LEVEL 4/3 FINAL DIAGNOSIS 1. Duodenum, biopsy: -- Benign small intestinal mucosa with no significant pathologic abnormalities. -- No evidence of villous blunting or increased intraepithelial lymphocytes. 2. Stomach, antrum, biopsy: -- Antral-type gastric mucosa with mild chronic gastritis. -- No evidence of Helicobacter organisms. 3. Colon, sigmoid, biopsy: -- Hyperplastic polyps. CLINICAL HISTORY Hematochezia POST-OPERATIVE DIAGNOSIS EGD: esophagus - normal; gastric - gastropathy - ? portal; duodenum - normal , biopsy, celiac; colonoscopy: colon - sigmoid polyps; cold snare polypectomy (4); prep good GROSS DESCRIPTION 1. The specimen is received in formalin labeled, Biopsy Duodenum, and consists of two gee-pink irregular soft tissue fragments measuring 0.3 x 0.2 x 0.1 cm and 0.7 x 0.1 x 0.1 cm which are submitted entirely in one cassette. 2. The specimen is received in formalin labeled, Biopsy Gastric Antrum, and consists of two gee-pink irregular soft tissue fragments measuring 0.2 x 0.2 x 0.1 cm and 0.4 x 0.3 x 0.1 cm which are submitted entirely in one cassette. CONTINUED ON NEXT PAGE DEPARTMENT OF PATHOLOGY, [address] [place] [address] Fabio Masters M.D. Director [facility] # [id number] RUN DATE: 03/03/18 [facility] LAB LIVE PAGE 2 Patient: LEEROY SILVA [id number] (Continued) GROSS DESCRIPTION (Continued) GROSS DESCRIPTION (Continued) 3. The specimen is received in formalin labeled, Sigmoid Colon Polyps, and consists of a 1.2 by up to 0.9 x 0.2 cm aggregate of gee-pink irregular to polypoid soft tissue fragments which is submitted entirely in one cassette. Signed by and Reported on: Mily Mason MD 03/03/18 1337 END OF REPORT DEPARTMENT OF PATHOLOGY, [address] [place] [address] Fabio Masters M.D. Director [facility] # [id number] 134 REFERENCE VALUE Cutoff: 500 135 REFERENCE [...] REFERENCE VALUE Cutoff: 100 142 Ida Moraes, Contin; Also a minor metabolite (10%) of codeine and can be seen in low concentrations (<2,000 ng/mL) with poppy seed ingestion. 143 Metabolite of morphine REFERENCE VALUE Cutoff: 100 144 Metabolite of heroin 145 Lortab, Empire, Vicodin; Also a very minor metabolite of [...] buprenorphine 173 Test detected the presence of buprenorphine metabolites (norbuprenorphine and norbuprenorphine glucuronide) along with naloxone metabolite (nfxzkgsc-8-iigd-glucuronide). Suspect use of buprenorphine with naloxone (e.g. Suboxone) within the past three days. ADDITIONAL INFORMATION This test was developed and its performance characteristics determined by [facility] in a manner consistent with CLIA requirements. This test has not been cleared or approved by the U.S. Food and Drug Administration. Test Performed by: [facility] [employer] - [address] [address] 174 REFERENCE VALUE Cutoff: 3.0 175 ADDITIONAL INFORMATION This report is intended for use in clinical monitoring and management of patients. It is not intended for use in employment-related testing. This test was developed and its performance characteristics determined by [facility] in a manner consistent with CLIA requirements. This test has not been cleared or approved by the U.S. Food and Drug Administration. Test Performed by: [facility] [employer] - [address] [address] 176 SEE RESULT BELOW Name: LEEROY SILVA : [address]: Mitra Fox MD Acct: [id number] Unit: [id number] AGE: 52 Location: ED Re02/14/18 SEX: M Status: REG ER SPEC: [id number] TONG: 02/14/18 [facility] DR: Mitra Fox MD REQ: [id number] RECD: 02/14/18 STATUS: CHRISTEN WAGNER DR: Pankaj Leslie MD _ SOURCE: STOOL SPDESC: ORDERED: Occult Bl, Diag Procedure Result Reported Site Stool Occult Blood (1) Final 02/14/182205 ML Stool Occult Blood Negative * ML - Main Lab . END OF REPORT DEPARTMENT OF PATHOLOGY, [address] [place] [address] Fabio Masters M.D. Director [facility] # [id number] [address] [place] [address] Severe Sepsis and Septic Shock Management Bundle Measure requires all lactic acids initially measuring >2.0 mmol/L be repeated. 178 Because ethnic data is not always readily [...] 15-29 5 Kidney failure <15 (or dialysis) 179 SEE RESULT BELOW Name: LEEROY SILVA : [address]: Mitra Fox MD Acct: [id number] Unit: [id number] AGE: 52 Location: ED Re02/14/18 SEX: M Status: DEP ER SPEC: [id number] TONG: 02/14/[address]: Mily RIOS REQ: [id number] RECD: 02/14/18 STATUS: CHRISTEN WAGNER DR: Pankaj Leslie MD _ SOURCE: URINE SPDESC: ORDERED: Urine Culture Procedure Result Reported Site Urine Culture Final 02/16/18- 0848 ML No growth of clinically significant organisms * ML - Main Lab . END OF REPORT DEPARTMENT OF PATHOLOGY, [address] [place] [address] Fabio Masters M.D. Director [facility] # [id number] 180 REFERENCE VALUE Cutoff: 500 181 REFERENCE VALUE Cutoff: 200 182 REFERENCE VALUE Cutoff: 100 183 REFERENCE VALUE Cutoff: 150 184 ADDITIONAL INFORMATION This report is intended for use in clinical monitoring or management of patients. It is not intended for use in employment-related testing. 185 REFERENCE VALUE Cutoff: 200 mg/L 186 Tylenol 3 187 Metabolite of codeine REFERENCE VALUE Cutoff: 100 188 Ida Moraes, MS Contin; Also a minor metabolite (10%) of codeine and can be seen in low concentrations (<2,000 ng/mL) with poppy seed ingestion. 189 Metabolite of morphine REFERENCE VALUE Cutoff: 100 190 Metabolite of heroin 191 Lortab, Empire, Vicodin; Also a very minor metabolite of codeine and impurity (<1%) of oxycodone. 192 Metabolite of hydrocodone 193 Metabolite of hydrocodone 194 Dilaudid, Exalgo; Also a metabolite of hydrocodone and a minor (<5%) metabolite of morphine. 195 Metabolite of hydromorphone REFERENCE VALUE Cutoff: 100 196 Endocet, Percocet, Oxycontin 197 Metabolite of oxycodone 198 Numorphan, Opana; Also a metabolite of oxycodone. 199 Metabolite of oxymorphone REFERENCE VALUE Cutoff: 100 200 Metabolite of oxymorphone 201 Actiq, Duragesic, Fentora 202 Metabolite of fentanyl 203 Demerol 204 Metabolite of meperidine 205 Narcan 206 Metabolite of naloxone REFERENCE VALUE Cutoff: 100 207 Dolophine 208 Metabolite of methadone 209 Darvon, Darvocet 210 Metabolite of propoxyphene 211 Tradol, Ultram, Ultracet 212 Metabolite of tramadol 213 Nucynta 214 Metabolite of tapentadol 215 Metabolite of tapentadol REFERENCE VALUE Cutoff: 100 216 Buprenex, Suboxone 217 Metabolite of buprenorphine 218 Metabolite of buprenorphine 219 Test detected the presence of morphine and its metabolites (xtulpxpd-4-wmfg-glucuronide and orxmvryidfvce-5-fupk-glucuronide) along with qktshsd-4-wzpu-glucuronide (metabolite of codeine). Suspect use of morphine or morphine and hydromorphone within the past three days. In addition, suspect possible use of codeine within the past three days or trace amounts of codeine can also be found as an impurity in morphine. Test detected the presence of buprenorphine metabolites (norbuprenorphine and norbuprenorphine glucuronide) along with naloxone metabolite (kztwommr-5-urvo-glucuronide). Suspect use of buprenorphine with naloxone (e.g. Suboxone) within the past three days. Test detected the presence of fentanyl and its metabolite (norfentanyl). Suspect use of fentanyl within the past three days. ADDITIONAL INFORMATION This test was developed and its performance characteristics determined by [facility] in a manner consistent with CLIA requirements. This test has not been cleared or approved by the U.S. Food and Drug Administration. Test Performed by: [facility] - [facility] [address] [place] [address] 220 Because ethnic data is not always readily [...] 15-29 5 Kidney failure <15 (or dialysis) 221 REFERENCE VALUE <=20.0 (Negative) Test Performed by: [facility] - [facility] [address] [place] [address] 222 Result indicates no past exposure or immunity to hepatitis A infection. REFERENCE VALUE Unvaccinated: Negative Vaccinated: Positive Test Performed by: [facility] - [facility] [address] [place] [address] 223 ADDITIONAL INFORMATION This test was developed and its performance characteristics determined by [facility] in a manner consistent with CLIA requirements. This test has not been cleared or approved by the U.S. Food and Drug Administration. Test Performed by: [facility] [address] [place] [address] 224 <1:80 (Negative) REFERENCE VALUE <1:80 (Negative) Test Performed by: [address] [address] 225 Because ethnic data is not always readily [...] 15-29 5 Kidney failure <15 (or dialysis) 226 Verbal to [id number] by [id number] at 0140 on 12/31/17. Results read back accurately. 227 Reference ranges based on room air. 228 REFERENCE VALUE Cutoff: 500 229 REFERENCE VALUE Cutoff: 200 230 REFERENCE VALUE Cutoff: 100 231 REFERENCE VALUE Cutoff: 150 232 Presumptive Positive Drug confirmation to follow. Presumptive Positive means that the screening method is positive, but the test needs to be run by a confirmatory method before being finalized. ADDITIONAL INFORMATION This report is intended for use in clinical monitoring or management of patients. It is not intended for use in employment-related testing. 233 REFERENCE VALUE Cutoff: 200 mg/L 234 Tylenol 3 235 Metabolite of codeine REFERENCE VALUE Cutoff: 100 236 Ida Moraes MS Contin; Also a minor metabolite (10%) of codeine and can be seen in low concentrations (<2,000 ng/mL) with poppy seed ingestion. 237 Metabolite of morphine REFERENCE VALUE Cutoff: 100 238 Metabolite of heroin 239 Lortab, Empire, Vicodin; Also a very minor metabolite of codeine and impurity (<1%) of oxycodone. 240 Metabolite of hydrocodone 241 Metabolite of hydrocodone 242 Dilaudid, Exalgo; Also a metabolite of hydrocodone and a minor (<5%) metabolite of morphine. 243 Metabolite of hydromorphone REFERENCE VALUE Cutoff: 100 244 Endocet, Percocet, Oxycontin 245 Metabolite of oxycodone 246 Numorphan, Opana; Also a metabolite of oxycodone. 247 Metabolite of oxymorphone REFERENCE VALUE Cutoff: 100 248 Metabolite of oxymorphone 249 Actiq, Duragesic, Fentora 250 Metabolite of fentanyl 251 Demerol 252 Metabolite of meperidine 253 Narcan 254 Metabolite of naloxone REFERENCE VALUE Cutoff: 100 255 Dolophine 256 Metabolite of methadone 257 Darvon, Darvocet 258 Metabolite of propoxyphene 259 Tradol, Ultram, Ultracet 260 Metabolite of tramadol 261 Nucynta 262 Metabolite of tapentadol 263 Metabolite of tapentadol REFERENCE VALUE Cutoff: 100 264 Buprenex, Suboxone 265 Metabolite of buprenorphine 266 Metabolite of buprenorphine 267 Test detected the presence of morphine and its metabolites (vvpzbxhq-1-vaea-glucuronide and flrnbcucetwix-0-egbp-glucuronide) along with codeine and xxlpfni-4-ryar-glucuronide and the metabolite of heroin (6-monoacetylmorphine). Suspect recent use of heroin. Test detected the presence of buprenorphine metabolites (norbuprenorphine and norbuprenorphine glucuronide) along with naloxone metabolite (qvegrsbi-2-ywpa-glucuronide). Suspect use of buprenorphine with naloxone (e.g. Suboxone) within the past three days. Test detected the presence of fentanyl and its metabolite (norfentanyl). Suspect use of fentanyl within the past three days. ADDITIONAL INFORMATION This test was developed and its performance characteristics determined by [facility] in a manner consistent with CLIA requirements. This test has not been cleared or approved by the U.S. Food and Drug Administration. Test Performed by: [facility] [employer] [facility] [employer] [facility] [address] [place] [address] 268 REFERENCE VALUE Cutoff: 3.0 269 ADDITIONAL INFORMATION This report is intended for use in clinical monitoring and management of patients. It is not intended for use in employment-related testing. This test was developed and its performance characteristics determined by [facility] in a manner consistent with CLIA requirements. This test has not been cleared or approved by the U.S. Food and Drug Administration. Test Performed by: [facility] [address] [place] [address] 270 REFERENCE VALUE Cutoff: 500 271 REFERENCE VALUE Cutoff: 200 272 REFERENCE VALUE Cutoff: 100 273 REFERENCE VALUE Cutoff: 150 274 ADDITIONAL INFORMATION This report is intended for use in clinical monitoring or management of patients. It is not intended for use in employment-related testing. 275 REFERENCE VALUE Cutoff: 200 mg/L 276 Tylenol 3 277 Metabolite of codeine REFERENCE VALUE Cutoff: 100 278 Ida Moraes, MS Contin; Also a minor metabolite (10%) of codeine and can be seen in low concentrations (<2,000 ng/mL) with poppy seed ingestion. 279 Metabolite of morphine REFERENCE VALUE Cutoff: 100 280 Metabolite of heroin 281 Lortab, Empire, Vicodin; Also a very minor metabolite of codeine and impurity (<1%) of oxycodone. 282 Metabolite of hydrocodone 283 Metabolite of hydrocodone 284 Dilaudid, Exalgo; Also a metabolite of hydrocodone and a minor (<5%) metabolite of morphine. 285 Metabolite of hydromorphone REFERENCE VALUE Cutoff: 100 286 Endocet, Percocet, Oxycontin 287 Metabolite of oxycodone 288 Numorphan, Opana; Also a metabolite of oxycodone. 289 Metabolite of oxymorphone REFERENCE VALUE Cutoff: 100 290 Metabolite of oxymorphone 291 Actiq, Duragesic, Fentora 292 Metabolite of fentanyl 293 Demerol 294 Metabolite of meperidine 295 Narcan 296 Metabolite of naloxone REFERENCE VALUE Cutoff: 100 297 Dolophine 298 Metabolite of methadone 299 Darvon, Darvocet 300 Metabolite of propoxyphene 301 Tradol, Ultram, Ultracet 302 Metabolite of tramadol 303 Nucynta 304 Metabolite of tapentadol 305 Metabolite of tapentadol REFERENCE VALUE Cutoff: 100 306 Buprenex, Suboxone 307 Metabolite of buprenorphine 308 Metabolite of buprenorphine 309 Test detected the presence of morphine and its metabolites (bqbmfcob-8-hzom-glucuronide and wuwxrtqjlxbzk-8-czvd-glucuronide) along with codeine and dryzcil-7-ecfr-glucuronide and the metabolite of heroin (6-monoacetylmorphine). Suspect recent use of heroin. Test detected the presence of buprenorphine metabolites (norbuprenorphine and norbuprenorphine glucuronide) along with naloxone metabolite (wxznoypc-4-zpcl-glucuronide). Suspect use of buprenorphine with naloxone (e.g. Suboxone) within the past three days. Test detected the presence of fentanyl and its metabolite (norfentanyl). Suspect use of fentanyl within the past three days. ADDITIONAL INFORMATION This test was developed and its performance characteristics determined by [facility] in a manner consistent with CLIA requirements. This test has not been cleared or approved by the U.S. Food and Drug Administration. Test Performed by: [facility] [address] [place] [address] 310 REFERENCE VALUE Cutoff: 500 311 REFERENCE VALUE Cutoff: 200 312 REFERENCE VALUE Cutoff: 100 313 REFERENCE VALUE Cutoff: 150 314 Presumptive Positive Drug confirmation to follow. Presumptive Positive means that the screening method is positive, but the test needs to be run by a confirmatory method before being finalized. ADDITIONAL INFORMATION This report is intended for use in clinical monitoring or management of patients. It is not intended for use in employment-related testing. 315 REFERENCE VALUE Cutoff: 200 mg/L 316 Tylenol 3 317 Metabolite of codeine REFERENCE VALUE Cutoff: 100 318 Ida Moraes, MS Contin; Also a minor metabolite (10%) of codeine and can be seen in low concentrations (<2,000 ng/mL) with poppy seed ingestion. 319 Metabolite of morphine REFERENCE VALUE Cutoff: 100 320 Metabolite of heroin 321 Lortab, Empire, Vicodin; Also a very minor metabolite of codeine and impurity (<1%) of oxycodone. 322 Metabolite of hydrocodone 323 Metabolite of hydrocodone 324 Dilaudid, Exalgo; Also a metabolite of hydrocodone and a minor (<5%) metabolite of morphine. 325 Metabolite of hydromorphone REFERENCE VALUE Cutoff: 100 326 Endocet, Percocet, Oxycontin 327 Metabolite of oxycodone 328 Numorphan, Opana; Also a metabolite of oxycodone. 329 Metabolite of oxymorphone REFERENCE VALUE Cutoff: 100 330 Metabolite of oxymorphone 331 Actiq, Duragesic, Fentora 332 Metabolite of fentanyl 333 Demerol 334 Metabolite of meperidine 335 Narcan 336 Metabolite of naloxone REFERENCE VALUE Cutoff: 100 337 Dolophine 338 Metabolite of methadone 339 Darvon, Darvocet 340 Metabolite of propoxyphene 341 Tradol, Ultram, Ultracet 342 Metabolite of tramadol 343 Nucynta 344 Metabolite of tapentadol 345 Metabolite of tapentadol REFERENCE VALUE Cutoff: 100 346 Buprenex, Suboxone 347 Metabolite of buprenorphine 348 Metabolite of buprenorphine 349 Test detected the presence of codeine, ducajdy-7-jrvv-glucuronide (metabolite of codeine), morphine, and xdbhxiat-8-atkj-glucuronide (metabolite of morphine). Suspect recent use of codeine or possibly codeine and morphine within the past three days. Test detected the presence of morphine, svhmrcds-4-ldxj-glucuronide (morphine metabolite) and the metabolite of heroin (6-monoacetylmorphine). Suspect recent use of heroin. Test detected the presence of buprenorphine metabolites (norbuprenorphine and norbuprenorphine glucuronide) along with naloxone metabolite (rqvfnwos-1-rohu-glucuronide). Suspect use of buprenorphine with naloxone (e.g. Suboxone) within the past three days. ADDITIONAL INFORMATION This test was developed and its performance characteristics determined by [facility] in a manner consistent with CLIA requirements. This test has not been cleared or approved by the U.S. Food and Drug Administration. Test Performed by: [facility] [employer] - [place] [address] [place] [address] 350 REFERENCE VALUE Cutoff: 3.0 351 ADDITIONAL INFORMATION This report is intended for use in clinical monitoring and management of patients. It is not intended for use in employment-related testing. This test was developed and its performance characteristics determined by [facility] in a manner consistent with CLIA requirements. This test has not been cleared or approved by the U.S. Food and Drug Administration. Test Performed by: [facility] - [address] [address] 352 Desirable: <150 Borderline High: 150-199 High: 200-499 Very High: >500 353 Desirable: <200 Borderline High: 200-239 High: >239 354 Low: <40 Desirable: 40-60 High: >60 355 Desirable: <100 Near Optimal: 100-129 Borderline High: 130-159 High: 160-189 Very High: >189 356 Because ethnic data is not always readily [...] 15-29 5 Kidney failure <15 (or dialysis) 357 REFERENCE VALUE Cutoff: 500 358 REFERENCE VALUE Cutoff: 200 359 REFERENCE VALUE Cutoff: 100 360 REFERENCE VALUE Cutoff: 150 361 Presumptive Positive Drug confirmation to follow. Presumptive Positive means that the screening method is positive, but the test needs to be run by a confirmatory method before being finalized. ADDITIONAL INFORMATION This report is intended for use in clinical monitoring or management of patients. It is not intended for use in employment-related testing. 362 REFERENCE VALUE Cutoff: 200 mg/L 363 Tylenol 3 364 Metabolite of codeine REFERENCE VALUE Cutoff: 100 365 Ida Moraes MS Contin; Also a minor metabolite (10%) of codeine and can be seen in low concentrations (<2,000 ng/mL) with poppy seed ingestion. 366 Metabolite of morphine REFERENCE VALUE Cutoff: 100 367 Metabolite of heroin 368 Lortab, Empire, Vicodin; Also a very minor metabolite of codeine and impurity (<1%) of oxycodone. 369 Metabolite of hydrocodone 370 Metabolite of hydrocodone 371 Dilaudid, Exalgo; Also a metabolite of hydrocodone and a minor (<5%) metabolite of morphine. 372 Metabolite of hydromorphone REFERENCE VALUE Cutoff: 100 373 Endocet, Percocet, Oxycontin 374 Metabolite of oxycodone 375 Numorphan, Opana; Also a metabolite of oxycodone. 376 Metabolite of oxymorphone REFERENCE VALUE Cutoff: 100 377 Metabolite of oxymorphone 378 Actiq, Duragesic, Fentora 379 Metabolite of fentanyl 380 Demerol 381 Metabolite of meperidine 382 Narcan 383 Metabolite of naloxone REFERENCE VALUE Cutoff: 100 384 Dolophine 385 Metabolite of methadone 386 Darvon, Darvocet 387 Metabolite of propoxyphene 388 Tradol, Ultram, Ultracet 389 Metabolite of tramadol 390 Nucynta 391 Metabolite of tapentadol 392 Metabolite of tapentadol REFERENCE VALUE Cutoff: 100 393 Buprenex, Suboxone 394 Metabolite of buprenorphine 395 Metabolite of buprenorphine 396 Test detected the presence of both morphine and its metabolite (gwjwmgjm-9-twbp-glucuronide). Suspect use of morphine within the past three days. Alternatively, these results could also be suggestive of heroin use. Low levels of morphine can also be seen following poppy seed ingestion. Test detected the presence of oxycodone and several metabolites (noroxycodone, noroxymorphone, and cxmqvmbraca-1-bqdh-glucuronide). Suspect use of oxycodone or possibly oxycodone and oxymorphone within the past three days. Test detected the presence of norbuprenorphine and norbuprenorphine glucuronide which are metabolites of buprenorphine. Suspect use of buprenorphine within the past three days. Test detected the presence of fentanyl and its metabolite (norfentanyl). Suspect use of fentanyl within the past three days. Test detected the presence of hvcrhsvq-5-tvuw-glucuronide (metabolite of naloxone) only. Suspect use of naloxone (Narcan) within the past three days. ADDITIONAL INFORMATION This test was developed and its performance characteristics determined by [facility] in a manner consistent with CLIA requirements. This test has not been cleared or approved by the U.S. Food and Drug Administration. Test Performed by: [facility] [employer] [facility] [employer] [address] [place] [id number] 397 REFERENCE VALUE Cutoff: 3.0 398 ADDITIONAL INFORMATION This report is intended for use in clinical monitoring and management of patients. It is not intended for use in employment-related testing. This test was developed and its performance characteristics determined by [facility] in a manner consistent with CLIA requirements. This test has not been cleared or approved by the U.S. Food and Drug Administration. Test Performed by: [facility] - [facility] [employer] [address] [place] [id number] 399 REFERENCE VALUE Cutoff: 500 400 REFERENCE VALUE Cutoff: 200 401 REFERENCE VALUE Cutoff: 100 402 REFERENCE VALUE Cutoff: 150 403 Presumptive Positive Drug confirmation to follow. Presumptive Positive means that the screening method is positive, but the test needs to be run by a confirmatory method before being finalized. ADDITIONAL INFORMATION This report is intended for use in clinical monitoring or management of patients. It is not intended for use in employment-related testing. 404 REFERENCE VALUE Cutoff: 200 mg/L 405 Tylenol 3 406 Metabolite of codeine REFERENCE VALUE Cutoff: 100 407 Ida Moraes MS Contin; Also a minor metabolite (10%) of codeine and can be seen in low concentrations (<2,000 ng/mL) with poppy seed ingestion. 408 Metabolite of morphine REFERENCE VALUE Cutoff: 100 409 Metabolite of heroin 410 Lortab, Empire, Vicodin; Also a very minor metabolite of codeine and impurity (<1%) of oxycodone. 411 Metabolite of hydrocodone 412 Metabolite of hydrocodone 413 Dilaudid, Exalgo; Also a metabolite of hydrocodone and a minor (<5%) metabolite of morphine. 414 Metabolite of hydromorphone REFERENCE VALUE Cutoff: 100 415 Endocet, Percocet, Oxycontin 416 Metabolite of oxycodone 417 Numorphan, Opana; Also a metabolite of oxycodone. 418 Metabolite of oxymorphone REFERENCE VALUE Cutoff: 100 419 Metabolite of oxymorphone 420 Actiq, Duragesic, Fentora 421 Metabolite of fentanyl 422 Demerol 423 Metabolite of meperidine 424 Narcan 425 Metabolite of naloxone REFERENCE VALUE Cutoff: 100 426 Dolophine 427 Metabolite of methadone 428 Darvon, Darvocet 429 Metabolite of propoxyphene 430 Tradol, Ultram, Ultracet 431 Metabolite of tramadol 432 Nucynta 433 Metabolite of tapentadol 434 Metabolite of tapentadol REFERENCE VALUE Cutoff: 100 435 Buprenex, Suboxone 436 Metabolite of buprenorphine 437 Metabolite of buprenorphine 438 Test detected the presence of norbuprenorphine and norbuprenorphine glucuronide which are metabolites of buprenorphine. Suspect use of buprenorphine within the past three days. Test detected the presence of mvubntfp-1-wkon-glucuronide (metabolite of naloxone) only. Suspect use of naloxone (Narcan) within the past three days. ADDITIONAL INFORMATION This test was developed and its performance characteristics determined by [facility] in a manner consistent with CLIA requirements. This test has not been cleared or approved by the U.S. Food and Drug Administration. Test Performed by: [facility] [employer] - [address] [id number] 439 REFERENCE VALUE Cutoff: 3.0 440 ADDITIONAL INFORMATION This report is intended for use in clinical monitoring and management of patients. It is not intended for use in employment-related testing. This test was developed and its performance characteristics determined by [facility] in a manner consistent with CLIA requirements. This test has not been cleared or approved by the U.S. Food and Drug Administration. Test Performed by: [facility] - [address] [id number] 441 REFERENCE VALUE Cutoff: 500 442 REFERENCE VALUE Cutoff: 200 443 REFERENCE VALUE Cutoff: 100 444 REFERENCE VALUE Cutoff: 150 445 ADDITIONAL INFORMATION This report is intended for use in clinical monitoring or management of patients. It is not intended for use in employment-related testing. 446 REFERENCE VALUE Cutoff: 200 mg/L 447 Tylenol 3 448 Metabolite of codeine REFERENCE VALUE Cutoff: 100 449 Ida Moraes, Contin; Also a minor metabolite (10%) of codeine and can be seen in low concentrations (<2,000 ng/mL) with poppy seed ingestion. 450 Metabolite of morphine REFERENCE VALUE Cutoff: 100 451 Metabolite of heroin 452 Lortab, Empire, Vicodin; Also a very minor metabolite of codeine and impurity (<1%) of oxycodone. 453 Metabolite of hydrocodone 454 Metabolite of hydrocodone 455 Dilaudid, Exalgo; Also a metabolite of hydrocodone and a minor (<5%) metabolite of morphine. 456 Metabolite of hydromorphone REFERENCE VALUE Cutoff: 100 457 Endocet, Percocet, Oxycontin 458 Metabolite of oxycodone 459 Numorphan, Opana; Also a metabolite of oxycodone. 460 Metabolite of oxymorphone REFERENCE VALUE Cutoff: 100 461 Metabolite of oxymorphone 462 Actiq, Duragesic, Fentora 463 Metabolite of fentanyl 464 Demerol 465 Metabolite of meperidine 466 Narcan 467 Metabolite of naloxone REFERENCE VALUE Cutoff: 100 468 Dolophine 469 Metabolite of methadone 470 Darvon, Darvocet 471 Metabolite of propoxyphene 472 Tradol, Ultram, Ultracet 473 Metabolite of tramadol 474 Nucynta 475 Metabolite of tapentadol 476 Metabolite of tapentadol REFERENCE VALUE Cutoff: 100 477 Buprenex, Suboxone 478 Metabolite of buprenorphine 479 Metabolite of buprenorphine 480 Test detected the presence of lnnyteudgq-kzpl-lthwwfoxebb (metabolite of tapentadol) only. Suspect use of tapentadol within the past three days. Test detected the presence of norbuprenorphine and norbuprenorphine glucuronide which are metabolites of buprenorphine. Suspect use of buprenorphine within the past three days. Test detected the presence of norfentanyl (metabolite of fentanyl) only. Suspect use of fentanyl within the past three days. Test detected the presence of vgvsfsge-1-clkt-glucuronide (metabolite of naloxone) only. Suspect use of naloxone (Narcan) within the past three days. ADDITIONAL INFORMATION This test was developed and its performance characteristics determined by [facility] in a manner consistent with CLIA requirements. This test has not been cleared or approved by the U.S. Food and Drug Administration. Test Performed by: [address] [id number] 481 Critical Result LACT:2.3 Called to [id number] at: 20:17:38 by:[id number] Read back by:ANNY ERICKSON Severe Sepsis and Septic Shock Management Bundle Measure requires all lactic acids initially measuring >2.0 mmol/L be repeated. 482 >100 to <200 pg/mL: likely compensated congestive heart failure (CHF) 200 to 400 pg/mL: likely moderate CHF >400 pg/mL: likely moderate to severe CHF 483 Because ethnic data is not always readily [...] 15-29 5 Kidney failure <15 (or dialysis) 484 REFERENCE VALUE Cutoff: 500 485 REFERENCE VALUE Cutoff: 200 486 REFERENCE VALUE Cutoff: 100 487 REFERENCE VALUE Cutoff: 150 488 ADDITIONAL INFORMATION This report is intended for use in clinical monitoring or management of patients. It is not intended for use in employment-related testing. 489 REFERENCE VALUE Cutoff: 200 mg/L 490 Tylenol 3 491 Metabolite of codeine REFERENCE VALUE Cutoff: 100 492 Ida Moraes, Contin; Also a minor metabolite (10%) of codeine and can be seen in low concentrations (<2,000 ng/mL) with poppy seed ingestion. 493 Metabolite of morphine REFERENCE VALUE Cutoff: 100 494 RESULT: Results not available due to analyte specific failure. 495 Lortab, Empire, Vicodin; Also a very minor metabolite of codeine and impurity (<1%) of oxycodone. 496 Metabolite of hydrocodone 497 Metabolite of hydrocodone 498 Dilaudid, Exalgo; Also a metabolite of hydrocodone and a minor (<5%) metabolite of morphine. 499 Metabolite of hydromorphone REFERENCE VALUE Cutoff: 100 500 Endocet, Percocet, Oxycontin 501 Metabolite of oxycodone 502 Numorphan, Opana; Also a metabolite of oxycodone. 503 Metabolite of oxymorphone REFERENCE VALUE Cutoff: 100 504 Metabolite of oxymorphone 505 Actiq, Duragesic, Fentora 506 Metabolite of fentanyl 507 Demerol 508 Metabolite of meperidine 509 Narcan 510 Metabolite of naloxone REFERENCE VALUE Cutoff: 100 511 Dolophine 512 Metabolite of methadone 513 Darvon, Darvocet 514 Metabolite of propoxyphene 515 Tradol, Ultram, Ultracet 516 Metabolite of tramadol 517 Nucynta 518 Metabolite of tapentadol 519 Metabolite of tapentadol REFERENCE VALUE Cutoff: 100 520 Buprenex, Suboxone 521 Metabolite of buprenorphine 522 Metabolite of buprenorphine 523 Test detected the presence of norbuprenorphine and norbuprenorphine glucuronide which are metabolites of buprenorphine. Suspect use of buprenorphine within the past three days. Test detected the presence of norfentanyl (metabolite of fentanyl) only. Suspect use of fentanyl within the past three days. Test detected the presence of jfbbwxom-5-wfqw-glucuronide (metabolite of naloxone) only. Suspect use of naloxone (Narcan) within the past three days. ADDITIONAL INFORMATION This test was developed and its performance characteristics determined by [facility] in a manner consistent with CLIA requirements. This test has not been cleared or approved by the U.S. Food and Drug Administration. Test Performed by: [facility] [employer] - [address] [id number] 524 ADDITIONAL INFORMATION This report is intended for use in clinical monitoring and management of patients. It is not intended for use in employment-related testing. This test was developed and its performance characteristics determined by [facility] in a manner consistent with CLIA requirements. This test has not been cleared or approved by the U.S. Food and Drug Administration. Test Performed by: [facility] [employer] - [address] [id number] 525 Presumptive Positive Drug confirmation to follow. Presumptive Positive means that the screening method is positive, but the test needs to be run by a confirmatory method before being finalized. REFERENCE VALUE Cutoff: 500 526 REFERENCE VALUE Cutoff: 200 527 REFERENCE VALUE Cutoff: 100 528 REFERENCE VALUE Cutoff: 150 529 ADDITIONAL INFORMATION This report is intended for use in clinical monitoring or management of patients. It is not intended for use in employment-related testing. 530 REFERENCE VALUE Cutoff: 200 mg/L 531 Tylenol 3 532 Metabolite of codeine REFERENCE VALUE Cutoff: 100 533 Ida Moraes, Contin; Also a minor metabolite (10%) of codeine and can be seen in low concentrations (<2,000 ng/mL) with poppy seed ingestion. 534 Metabolite of morphine REFERENCE VALUE Cutoff: 100 535 Metabolite of heroin 536 Lortab, Empire, Vicodin; Also a very minor metabolite of codeine and impurity (<1%) of oxycodone. 537 Metabolite of hydrocodone 538 Metabolite of hydrocodone 539 Dilaudid, Exalgo; Also a metabolite of hydrocodone and a minor (<5%) metabolite of morphine. 540 Metabolite of hydromorphone REFERENCE VALUE Cutoff: 100 541 Endocet, Percocet, Oxycontin 542 Metabolite of oxycodone 543 Numorphan, Opana; Also a metabolite of oxycodone. 544 Metabolite of oxymorphone REFERENCE VALUE Cutoff: 100 545 Metabolite of oxymorphone 546 Actiq, Duragesic, Fentora 547 Metabolite of fentanyl 548 Demerol 549 Metabolite of meperidine 550 Narcan 551 Metabolite of naloxone REFERENCE VALUE Cutoff: 100 552 Dolophine 553 Metabolite of methadone 554 Darvon, Darvocet 555 Metabolite of propoxyphene 556 Tradol, Ultram, Ultracet 557 Metabolite of tramadol 558 Nucynta 559 Metabolite of tapentadol 560 Metabolite of tapentadol REFERENCE VALUE Cutoff: 100 561 Buprenex, Suboxone 562 Metabolite of buprenorphine 563 Metabolite of buprenorphine 564 Test detected the presence of codeine, mkswqta-3-zkue-glucuronide (metabolite of codeine), morphine, and dmbctyye-6-etzr-glucuronide (metabolite of morphine). Suspect recent use of codeine or possibly codeine and morphine within the past three days. Test detected the presence of morphine, nmhbfxhj-4-gpgt-glucuronide (morphine metabolite) and the metabolite of heroin [...] three days. Test detected the presence of dyergzsf-4-pyyd-glucuronide (metabolite of naloxone) only. Suspect use of naloxone (Narcan) within the past three days. ADDITIONAL INFORMATION This test was developed and its performance characteristics determined by [facility] in a manner consistent with CLIA requirements. This test has not been cleared or approved by the U.S. Food and Drug Administration. Test Performed by: [facility] [employer] - [address] [id number] 565 REFERENCE VALUE Cutoff: 3.0 566 ADDITIONAL INFORMATION This report is intended for use in clinical monitoring and management of patients. It is not intended for use in employment-related testing. This test was developed and its performance characteristics determined by [facility] in a manner consistent with CLIA requirements. This test has not been cleared or approved by the U.S. Food and Drug Administration. Test Performed by: [facility] [employer] - [address] [id number] 567 REFERENCE VALUE Cutoff: 500 568 REFERENCE VALUE Cutoff: 200 569 REFERENCE VALUE Cutoff: 100 570 REFERENCE VALUE Cutoff: 150 571 Presumptive Positive Drug confirmation to follow. Presumptive Positive means that the screening method is positive, but the test needs to be run by a confirmatory method before being finalized. ADDITIONAL INFORMATION This report is intended for use in clinical monitoring or management of patients. It is not intended for use in employment-related testing. 572 REFERENCE VALUE Cutoff: 200 mg/L 573 Tylenol 3 574 Metabolite of codeine REFERENCE VALUE Cutoff: 100 575 Ida Moraes MS Contin; Also a minor metabolite (10%) of codeine and can be seen in low concentrations (<2,000 ng/mL) with poppy seed ingestion. 576 Metabolite of morphine REFERENCE VALUE Cutoff: 100 577 Metabolite of heroin 578 Lortab, Empire, Vicodin; Also a very minor metabolite of codeine and impurity (<1%) of oxycodone. 579 Metabolite of hydrocodone 580 Metabolite of hydrocodone 581 Dilaudid, Exalgo; Also a metabolite of hydrocodone and a minor (<5%) metabolite of morphine. 582 Metabolite of hydromorphone REFERENCE VALUE Cutoff: 100 583 Endocet, Percocet, Oxycontin 584 Metabolite of oxycodone 585 Numorphan, Opana; Also a metabolite of oxycodone. 586 Metabolite of oxymorphone REFERENCE VALUE Cutoff: 100 587 Metabolite of oxymorphone 588 Actiq, Duragesic, Fentora 589 Metabolite of fentanyl 590 Demerol 591 Metabolite of meperidine 592 Narcan 593 Metabolite of naloxone REFERENCE VALUE Cutoff: 100 594 Dolophine 595 Metabolite of methadone 596 Darvon, Darvocet 597 Metabolite of propoxyphene 598 Tradol, Ultram, Ultracet 599 Metabolite of tramadol 600 Nucynta 601 Metabolite of tapentadol 602 Metabolite of tapentadol REFERENCE VALUE Cutoff: 100 603 Buprenex, Suboxone 604 Metabolite of buprenorphine 605 Metabolite of buprenorphine 606 Test detected the presence of codeine, czbsiir-1-vixl-glucuronide (metabolite of codeine), morphine, and mfmnmkbu-7-penv-glucuronide (metabolite of morphine). Suspect recent use of codeine or possibly codeine and morphine within the past three days. Test detected the presence of morphine, rhbxmvoc-7-sndy-glucuronide (morphine metabolite) and the metabolite of heroin (6-monoacetylmorphine). Suspect recent use of heroin. Test detected the presence of jjdtulmxurxwq-6-uzlh-glucuronide the metabolite of hydromorphone. Suspect use of [...] developed and its performance characteristics determined by [facility] in a manner consistent with CLIA requirements. This test has not been cleared or approved by the U.S. Food and Drug Administration. Test Performed by: [address] [id number] 607 Anion gap measurement may be of limited value in the presence of any alkalosis, especially in a combined acid base disorder. . 608 Note change in reference range as of 12/28/07. The change was based on recommendations from the [place] [employer]. 609 Please note change in reference range effective 07 . 610 A metabolite of Naproxen, O-desmethylnaproxen, has been shown to interfere with the Jendrassik-[place] method for measuring total bilirubin. Samples from patients who have taken Naproxen have shown spurious elevation in total bilirubin levels. 611 Because ethnic data is not always readily [...] 15-29 5 Kidney failure <15 (or dialysis) 612 CHOLESTEROL INTERPRETATION: Desirable: Less than 200 MG/DL Borderline-High Risk: 200-239 MG/DL High-Risk: 240 MG/DL and over 613 HDL INTERPRETATION: Undesirable: High Risk: Less than 40 MG/DL Desirable: Low Risk: Greater than 60 MG/DL 614 LDL INTERPRETATION: Low Risk Optimal Level: LDL Less than 100 MG/DL Near or Above Optimal: LDL 100-129 MG/DL Borderline High Risk: LDL 130-159 MG/DL High Risk: LDL 160-189 MG/DL Very High Risk: LDL Greater than 189 MG/DL 615 CHOLESTEROL INTERPRETATION: Desirable: Less than 200 MG/DL Borderline-High Risk: 200-239 MG/DL High-Risk: 240 MG/DL and over 616 HDL INTERPRETATION: Undesirable: High Risk: Less than 40 MG/DL Desirable: Low Risk: Greater than 60 MG/DL 617 LDL INTERPRETATION: Low Risk Optimal Level: LDL Less than 100 MG/DL Near or Above Optimal: LDL 100-129 MG/DL Borderline High Risk: LDL 130-159 MG/DL High Risk: LDL 160-189 MG/DL Very High Risk: LDL Greater than 189 MG/DL 618 Recommended INR for Patients on Oral Anticoagulants Prophylaxis 2.0 - 3.0 Treatment of thrombosis 2.0 - 3.0 Prevention of embolism 2.0 - 3.0 Prevention of embolism from prosthetic heart valves 2.5 - 3.5 619 ATTENTION EFFECTIVE 09/18/08, THE IMPLEMENTATION OF NEW COAGULATION ANLAYZERS HAS CAUSED A SIGNIFICANT DIFFERENCE FOR PROTIME RESULTS IN SECONDS. THEREFORE, DIAGNOSIS,TREATMENT,AND THERAPY MUST BE BASED ON THE INR VALUE ONLY. 620 -- REFERENCE VALUE -- Cutoff: 1000 621 -- REFERENCE VALUE -- Cutoff: 200 622 -- REFERENCE VALUE -- Cutoff: 200 623 -- REFERENCE VALUE -- Cutoff: 300 624 -- REFERENCE VALUE -- Cutoff: 0.5 625 -- REFERENCE VALUE -- Cutoff: 300 626 -- REFERENCE VALUE -- Cutoff: 300 627 -- REFERENCE VALUE -- Cutoff: 300 628 -- REFERENCE VALUE -- Cutoff: 300 629 *Drug confirmation ordered by reflex. Refer to confirmation result to follow for the definitive result. This report is intended for use in clinical monitoring or management of patients. It is not intended for use in employment-related testing. Test Performed by: [facility] D[facility] of [facility] Med [facility] Pathology [address] [place] [address] [employer]: Kenn Garcia III, M.D. 630 This report is intended for use in clinical monitoring and management of patients. It is not intended for use in employment-related drug testing. Test Performed by: [facility] Path[facility] [address] [place] [id number] [employer]: Kenn Garcia III, M.D. 631 PLEASE NOTE NEW REFERENCE RANGE EFFECTIVE 08. 632 Anion gap measurement may be of limited value in the presence of any alkalosis, especially in a combined acid base disorder. . 633 Note change in reference range as of 12/28/07. The change was based on recommendations from the [place] [employer]. 634 Please note change in reference range effective 07 . 635 A metabolite of Naproxen, O-desmethylnaproxen, has been shown to interfere with the Jendrassik-[place] method for measuring total bilirubin. Samples from patients who have taken Naproxen have shown spurious elevation in total bilirubin levels. 636 Because ethnic data is not always readily [...] 15-29 5 Kidney failure <15 (or dialysis) Procedures Date Code Description Status 03/02/2018 [id number] Colonoscopy Completed 10/25/2016 03250 Plethysmography Determination Lung Volumes & Per Airway Completed Resist 10/25/2016 97775 Pulmonary Function><Bronchodil Completed 11/07/2012 22219 EEG Recording Awake & Drowsy Completed 09/28/2012 45596 Stress Test Completed 09/28/2012 75840 Myocardial Perfusion Imaging Tomographic (Spect) Completed Multiple Studies 09/27/2012 79300 Holter Monitoring 24 HR New Completed 09/27/2012 91524 Holter Monitoring 24 HR New Completed 09/20/2012 81539 ECHO Transthorasic Realtime 2D W Doppler & Color Flow Completed Hosp 09/15/2012 99310 EKG Tracing & Interpretation Completed 11/18/2011 24452 Color Flow Doppler/Interp & Reprt Completed 11/18/2011 18317 ECHO Transthorasic Realtime 2D W Doppler & Color Flow Completed Hosp 11/18/2011 93663 Pulse Wave/Continuous-Interp.RPT Completed 11/08/2011 85859 Holter Monitor Review (24 hr)dr review & interp only Completed 10/20/2011 69686 EKG Tracing & Interpretation Completed 05/22/2009 75631 EKG Tracing & Interpretation Completed 02/14/2009 45220 EKG Tracing & Interpretation Completed 01/20/2009 99779 Treadmill Interp/Report Only Completed 01/20/2009 40948 Stress Test Supervsn W/Out I/R Completed 12/30/2008 30460 Holter Monitor Interpretation Completed 12/26/2008 82353 EKG Tracing & Interpretation Completed 12/06/2008 18992 Inj Proc LFT Vent/LFT Atrl Angio Completed 12/06/2008 22117 Left Heart Catheterization Completed 12/06/2008 54248 Selective Coronary Angioplasty Completed 12/06/2008 50648 S/I/R Inj Proc Vent And Or Atrial Completed 12/06/2008 83109 Coronary Angiography Completed 12/05/2008 19551 Treadmill Interp/Report Only Completed 12/05/2008 60622 Stress Test Supervsn W/Out I/R Completed 12/02/2008 59725 EKG, Interpretation Only Completed 12/01/2008 01487 Color Flow Doppler/Interp & Reprt Completed 12/01/2008 79611 Echocardiography, Transesophageal, Real Time W/Image 2D Completed W/W/O M-M Encounters Type Date Location Provider Dx Diagnosis Office Visit 07/20/2018 [facility] Pankaj Mazariegos Z00.01 Encounter for 3:00p Medicine - Suite Su Leslie,FACP general adult R medical exam w abnormal findings F11.29 Opioid dependence with unspecified opioid-induced disorder K08.3 Retained dental root N18.2 Chronic kidney disease, stage 2 (mild) Office Visit 06/08/2018 [facility] Pankaj Mazariegos F11.29 Opioid dependence 4:00p Shaylee Leslie M.D.,FACP with unspecified Suite R opioid-induced disorder N18.2 Chronic kidney disease, stage 2 (mild) K08.3 Retained dental root Office Visit 04/05/2018 [facility] Internal Pankaj Mazariegos F11.29 Opioid dependence 2:40p Shaylee Leslie M.D.,FACP with unspecified Suite R opioid-induced disorder N18.2 Chronic kidney disease, stage 2 (mild) Z12.11 Encounter for screening for malignant neoplasm of colon Office Visit 02/20/2018 3:40p [facility] Internal Pankaj Mazariegos N18.2 Chronic kidney Medicine Gomez Leslie M.D.,BECKIEP disease, stage R 2 (mild) J96.90 Respiratory failure, unsp, unsp w hypoxia or hypercapnia F11.29 Opioid dependence with unspecified opioid-induced disorder K29.61 Other gastritis with bleeding Z23 Encounter for immunization Office Visit 01/20/2018 11:50a [facility] Internal Pankaj Mazariegos N17.8 Other acute Medicine - Zacarias Leslie M.D.,FACP kidney failure R I10 Essential (primary) hypertension K73.9 Chronic hepatitis, unspecified F11.21 Opioid dependence, in remission J96.90 Respiratory failure, unsp, unsp w hypoxia or hypercapnia Office Visit 01/13/2018 11:00a [facility] Lorene Mazariegos K29.61 Other gastritis Shaylee Leslie M.D.,FACP with bleeding Suite R K73.9 Chronic hepatitis, unspecified F11.29 Opioid dependence with unspecified opioid-induced disorder N17.9 Acute kidney failure, unspecified J44.9 Chronic obstructive pulmonary disease, unspecified Office Visit 12/19/2017 11:40a [facility] Internal Pankaj Mazariegos S92.515B Nondisp fx of Shaylee Leslie M.D.,FACP prox phalanx Suite R of l less toe(s), init for opn fx F11.21 Opioid dependence, in remission Office Visit 11/16/2017 [facility] Pankaj Mazariegos F11.29 Opioid dependence 10:20a Shaylee Leslie M.D.,FACP with unspecified Suite R opioid-induced disorder I10 Essential (primary) hypertension I48.0 Paroxysmal atrial fibrillation Office Visit 09/21/2017 2:00p [facility] Lorene Mazariegos F11.21 Opioid Shaylee Leslie M.D.,FACP dependence, in Suite R remission K08.3 Retained dental root R73.01 Impaired fasting glucose Office Visit 08/15/2017 2:10p [facility] Pankaj Mazariegos J44.1 Chronic Shaylee Leslie M.D.,FACP obstructive Suite R pulmonary disease w (acute) exacerbation F11.19 Opioid abuse with unspecified opioid-induced disorder Z12.11 Encounter for screening for malignant neoplasm of colon Office Visit 07/25/2017 [facility] Lorene Mazariegos F11.19 Opioid abuse with 3:20p Shaylee Leslie M.D.,FACP unspecified Suite R opioid-induced disorder Office Visit 06/08/2017 [facility] Pankaj Mazariegos F11.19 Opioid abuse with 2:20p Shaylee Leslie M.D.,FACP unspecified Suite R opioid-induced disorder I10 Essential (primary) hypertension Z12.11 Encounter for screening for malignant neoplasm of colon Z23 Encounter for immunization Office Visit 04/27/2017 [facility] Pankaj Mazariegos F11.19 Opioid abuse with 9:50a Shaylee Leslie M.D.,FACP unspecified Suite R opioid-induced disorder M54.42 Lumbago with sciatica, left side I10 Essential (primary) hypertension Office Visit 01/03/2017 [facility] Pankaj Mazariegos F11.19 Opioid abuse with 2:50p Shaylee Leslie M.D.,FACP unspecified Suite R opioid-induced disorder J44.1 Chronic obstructive pulmonary disease w (acute) exacerbation I10 Essential (primary) hypertension Z23 Encounter for immunization Office Visit 12/01/2016 3:40p [facility] Pankaj Mazariegos J44.1 Chronic Shaylee Leslie M.D.,FACP obstructive Suite R pulmonary disease w (acute) exacerbation F11.19 Opioid abuse with unspecified opioid-induced disorder F17.210 Nicotine dependence, cigarettes, uncomplicated Office Visit 10/06/2016 [facility] Internal Pankaj Mazariegos F11.19 Opioid abuse with 4:40p Shaylee Leslie M.D.,FACP unspecified Suite R opioid-induced disorder I10 Essential (primary) hypertension I48.0 Paroxysmal atrial fibrillation K29.60 Other gastritis without bleeding J42 Unspecified chronic bronchitis Office Visit 08/23/2016 2:40p [facility] Internal Pankaj Mazariegos F11.10 Opioid abuse, Shaylee Leslie M.D.,FACP uncomplicated Suite R I10 Essential (primary) hypertension Office Visit 07/23/2016 9:20a [facility] Internal Pankaj Mazariegos F11.10 Opioid abuse, Shaylee Leslie M.D.,FACP uncomplicated Suite R I10 Essential (primary) hypertension Office Visit 07/16/2016 10:40a [facility] Internal Pankaj Mazariegos F11.10 Opioid abuse, Shaylee Leslie M.D.,FACP uncomplicated Suite R Office Visit 07/15/2016 2:00p [facility] Pankaj Mazariegos F11.10 Opioid abuse, Shaylee Leslie M.D.,FACP uncomplicated Suite R I48.0 Paroxysmal atrial fibrillation N52.9 Male erectile dysfunction, unspecified I67.9 Cerebrovascular disease, unspecified Z72.0 Tobacco use F17.210 Nicotine dependence, cigarettes, uncomplicated Office Visit 11/12/2015 11:08a [facility] J18.9 Pneumonia, Assoc,coty Rankin M.D. unspecified Hospitalists organism I25.10 Athscl heart disease of [place] coronary artery w/o ang pctrs I10 Essential (primary) hypertension Z72.0 Tobacco use Office Visit 11/11/2015 11:08a [facility] J18.9 Pneumonia, Assoc,coty Rankin M.D. unspecified Hospitalists organism I25.10 Athscl heart disease of [place] coronary artery w/o ang pctrs I10 Essential (primary) hypertension Z72.0 Tobacco use Office Visit 11/10/2015 11:07a [facility] J18.9 Pneumonia, Assoc,coty Rankin M.D. unspecified Hospitalists organism I25.10 Athscl heart disease of [place] coronary artery w/o ang pctrs I10 Essential (primary) hypertension Z72.0 Tobacco use Office Visit 06/28/2013 Rowenajay Chiu 345.40 Local-Related 10:45a Neurologic Su Marcial Epilepsy W/O Services Of [facility] Mention Of Intractable Epilepsy 296.80 Bipolar Disorder NOS Office Visit 03/23/2013 8:45a [facility] Rosy Chiu 780.4 Dizziness & Services Of Rebecca Marcial M.D. Giddiness 437.9 Cerebrovascular Disease Or [place] Unspec Office Visit 12/15/2012 1:45p [facility] Jenni Chiu 780.4 Dizziness & Services Of Rebecca Marcial M.D. Giddiness Office Visit 11/03/2012 11:00a [facility] Jenni Chiu 780.4 Dizziness & Services Of Rebecca Marcial M.D. Giddiness V12.54 Personal HX TIA, & Cerebral Infarct W/Out Residual Deficit Office Visit 09/15/2012 Tyler Cohen 414.9 Ischemic Heart 8:45a Cardiology Of Su Villareal, Disease Chronic [facility] FACC, FASNC Unspec Office Visit 10/20/2011 Rowenajay Mcgregor 414.01 Coronary 3:00p Cardiology Su Rodriguez Atherosclerosis [place] 427.31 Atrial Fibrillation 780.4 Dizziness & Giddiness 401.1 Hypertension Benign Office Visit 05/22/2009 Aureliano Mcgregor 414.01 Coronary 11:00a Cardiology Su Rodriguez Atherosclerosis [place] 272.4 Hyperlipidemia Other Unspec 427.31 Atrial Fibrillation Office Visit 03/17/2009 DO Not Use Rebecca Bonner 414.01 Coronary 4:00p AT Namita Gould M.D. Atherosclerosis [place] 272.4 Hyperlipidemia Other Unspec 292.84 Drug Induced Mood Disorder Office Visit 02/14/2009 Aureliano Mcgregor 414.01 Coronary 11:00a Cardiology Su Rodriguez Atherosclerosis [place] 414.0 Coronary Atherosclerosis 272.4 Hyperlipidemia Other Unspec 427.31 Atrial Fibrillation Office Visit 02/12/2009 DO Not Use Rebecca Bonner 414.01 Coronary 9:40a AT Namita Gould M.D. Atherosclerosis [place] 414.0 Coronary Atherosclerosis 272.4 Hyperlipidemia Other Unspec Office Visit 01/02/2009 DO Not Use Rebecca Bonner, 427.31 Atrial 9:00a AT Namita Gould M.D. Fibrillation 434.91 Occlusion Cerebral Artery Unspec W/ Cerebral Infarc 414.01 Coronary Atherosclerosis [place] 521.03 Dental Caries Extending Into Pulp 292.84 Drug Induced Mood Disorder 304.22 Drug Dependence Cocaine Episodic Office Visit 12/26/2008 11:20a Rowena Jean Marie MansfieldToni 427.31 Atrial Cardiology Su Rodriguez Fibrillation 434.91 Occlusion Cerebral Artery Unspec W/ Cerebral Infarc 414.01 Coronary Atherosclerosis [place] Office Visit 12/07/2008 [facility] Luke 427.31 Atrial 3:30a coty Hernandez M.D. Fibrillation Hospitalists 434.91 Occlusion Cerebral Artery Unspec W/ Cerebral Infarc 786.50 Pain Chest Unspec Office Visit 12/06/2008 [facility], 427.31 Atrial 3:45a coty Hernandez M.D. 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 Cerebral Artery Hospitalists Unspec W/ Cerebral Infarc 427.31 Atrial Fibrillation Office Visit 12/03/2008 12:30a [facility] Maikol Forman'mimi, 434.91 Occlusion Asscoty talbert M.D. Cerebral Artery Hospitalists Unspec W/ Cerebral Infarc 427.31 Atrial Fibrillation 305.60 Cocaine Abuse Unspec Office Visit 12/02/2008 [facility], 427.31 Atrial 1:15a coty Hernandez M.D. 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, 434.91 Occlusion coty Hernandez M.D. Cerebral Artery Hospitalists Unspec W/ Cerebral Infarc 427.31 Atrial Fibrillation Plan of Treatment Future Appointment(s):12/29/2018 4:20 pm - [facility] Byr[facility] at [facility] 2:20 pm - Bri [facility] at [facility]/30[facility]2018 - Bri Araujo MDJ44.1 Chronic obstructive pulmonary disease with (acute) exacerbatNew Medication:Prednisone 5 mg - 4 tabs for 4 days; then reduce to 3 tabs for 3 days; 2 tabs for 2 days and 1 tablet 3-4 days and then stopF11.29 Opioid dependence with unspecified opioid-induced disorderFollow up: Please make an appointment with Fitz Rivera for restarting the [id number] Essential (primary) hypertensionComments:BP high. Will monitor as you take the water pillR60.1 Generalized edemaNew Medication:Furosemide 20 mg - take 1 tablet by mouth dailyComments:Get lab work done one day prior to your 2 week visitFollow up:F/U 2 eooftX89.3 Chronic kidney disease, stage 3 (moderate) Comments:Will continue to prjnfqoW89.210 Nicotine dependence, cigarettes, uncomplicatedComments:Will start chantix in 2 weeks when you come in for your follow up
[2018-12-11 03:26] LABS: Acetaminophen < 15 mcg/mL; Alcohol < 10 mg/dL (<10)
[2018-12-11 03:32] LABS: Troponin I 0.05 ng/mL (<0.04)
[2018-12-11 03:41] LABS: TSH (Thyroid Stimulating Horm) 0.14 mcIU/mL (0.34-5.60)
[2018-12-11] MEDS ORDERED: Albuterol 0.5% CONC NEB.SOL* 5 MG/ML 20 ml BOT INH ONE (04:11)
--- NOTE | 2018-12-11 06:39 | HP ---
History of Present Illness - History of Present Illness Reason for Visit: Altered Mental Status History of Present Illness: 53yoM with CAD s/p 3 stents, Hx of CVA, COPD, previously had liver and kidney failure a year ago, previous drug abuse, here after being found on the floor. No history can be obtained due to his altered mental status. Per ER doctor patient was found to be altered on the floor. After arriving in ER patient was very combative so received ativan. Once symptoms other than his altered mental status was patient has been having profuse watery diarrhea. Past Medical History Coronary Artery Disease - 3 Cardiac stents [id number] to cocaine use Hx CVA w/ right sided weakness in 2008 no longer has any residual weakness- related to cocaine use Hypertension Chronic Obstructive Pulmonary Disease (COPD) Obstructive Sleep Apnea CKD stage III Gastroesophageal Reflux Disease - on medication Admitted to hospital over a year ago with sepsis, GI bleeding unclear etiology, liver failure, renal failure. Hx Kidney Stones - 20 years ago Surgical History 3 Cardiac stents. Family History Bone CA in brother Social History Per records: Smoking >35pack year history now down to 5-6cigs per day. Alcohol Occasionally 1-2 times a month. Quit cocaine use in 2008, has had opiate abuse was on suboxone but now off it. Allergies Allergy/AdvReac Type Severity Reaction Status Date / Time naproxen Allergy Swelling Verified 11/25/18 23:06 Home Medications Medication Instructions Recorded Confirmed Type Amlodipine Besylate [Norvasc 5 mg 5 mg PO QAM 02/27/18 11/26/18 History tab] Aspirin [Aspir-Low] 81 mg PO QAM 02/27/18 11/26/18 History Magnesium Oxide [Magnesium] 200 mg PO BID 02/27/18 11/26/18 History Pantoprazole TAB * [Protonix TAB*] 40 mg PO QAM 02/27/18 11/26/18 History dilTIAZem HCl [Cartia Xt] 300 mg PO QAM 02/27/18 11/26/18 History Albuterol HFA INHALER* [Ventolin 2 puff INH Q2H PRN #1 mdi 11/26/18 Rx HFA Inhaler*] Azithromycin TAB* [Zithromax TAB 250 mg PO DAILY #4 tab 11/26/18 Rx (Z-MJ) 250 mg #6 tabs] Nicotine GUM* 2MG FRUIT FLAVOR 2 mg PO Q2H PRN #30 gum 11/26/18 Rx [Nicotine GUM*] Nicotine PATCH 14 MG/24 HR* 1 patch TRANSDERM DAILY #14 patch 11/26/18 Rx predniSONE TAB* [Deltasone 20 MG 40 mg PO DAILY #10 tab 11/26/18 Rx TAB*] Review of Systems - Measurements Intake and Output: Intake and Output Last 24 Hours 12/08/18 12/09/18 12/10/18 12/11/18 06:59 06:59 06:59 06:59 Intake Total 1000 Balance 1000 Weight 200 lb Intake: IV Fluids 1000 - Review of Systems General Comments: Unable to obtain. Objective Active Medications: Miscellaneous (Ativan Pyxis Conroy) 1 ea N/A .ATIVAN IV CONROY PRN PRN Reason: PYXIS CONROY Vital Signs - 8 hr 12/11/18 12/11/18 12/11/18 02:25 02:35 02:36 Temperature 97.7 F Pulse Rate 100 94 92 Respiratory 30 47 37 Rate Blood Pressure 175/82 175/82 (mmHg) O2 Sat by Pulse 97 98 99 Oximetry 12/11/18 12/11/18 12/11/18 02:58 03:00 03:14 Temperature 98.2 F 98.2 F Pulse Rate 102 98 Respiratory 24 36 32 Rate Blood Pressure 175/89 (mmHg) O2 Sat by Pulse 94 94 Oximetry 12/11/18 12/11/18 12/11/18 03:20 04:15 04:42 Temperature 99.3 F Pulse Rate 101 103 Respiratory 19 6 25 Rate Blood Pressure 155/108 (mmHg) O2 Sat by Pulse 93 90 Oximetry 12/11/18 12/11/18 12/11/18 04:56 05:00 05:11 Temperature 99.1 F 99.1 F 99.1 F Pulse Rate 100 102 104 Respiratory 23 20 17 Rate Blood Pressure 155/100 172/89 (mmHg) O2 Sat by Pulse 92 92 93 Oximetry 12/11/18 12/11/18 12/11/18 05:12 05:27 05:41 Temperature 99.3 F 99.3 F Pulse Rate 100 96 102 Respiratory 24 27 19 Rate Blood Pressure 162/97 165/104 (mmHg) O2 Sat by Pulse 93 91 93 Oximetry 12/11/18 12/11/18 12/11/18 05:57 06:00 06:12 Temperature 99.3 F 99.3 F 99.3 F Pulse Rate 101 100 100 Respiratory 21 23 18 Rate Blood Pressure 168/99 149/79 (mmHg) O2 Sat by Pulse 99 99 100 Oximetry 12/11/18 12/11/18 06:26 06:31 Temperature 99.3 F Pulse Rate 101 103 Respiratory 24 14 Rate Blood Pressure 174/102 (mmHg) O2 Sat by Pulse 92 97 Oximetry Oxygen Devices in Use Now: Face Tent, Other Eyes: No Scleral Icterus, PERRLA Ears/Nose/Mouth/Throat: - - Dry mucuss membranes Respiratory: Clear to Auscultation Cardiovascular: NL Sounds; No Murmurs; No JVD, RRR Abdominal: NL Sounds; No Tenderness; No Distention Extremities: No Edema Skin: No Rash or Ulcers Neurological: - - Arousable to painful stimuli. Result Diagrams: 12/11/18 06:26 12/11/18 06:26 Diagnostic Imaging: CT Brain w/o contrast IMPRESSION: 1. 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 2. No acute intracranial hemorrhage. 3. No obstructive hydrocephalus. Portable CXR Wilda-hilar infiltrate official radiology report pending. EKG Data: EKG: Sinus at 95bpm unchanged when compared to older EKG Assess/Plan/Problems-Billing Assessment: 53yoM with COPD, CAD s/p stents, Hx of CVA here due to altered mental status and sepsis likely from pneumonia. AMS due to drug over ?Alcohol abuse Elevate WBC and tachycardia possible pneumonia but could be C. Diff given diarrhea Lactic acidosis COPD WENDY on CKD Stage III CAD s/p stents Hx of CVA Plan Continue BiPAP Repeat ABG on BiPAP Neurochecks Q4H Follow up stool c. diff and consider starting broad spectrum ABx Consider restarting home meds once patient more alert and meds are reconciled. DVT PPx on lovenox.
[2018-12-11 06:43] LABS: Hematocrit 40 % (42-52); Hemoglobin 12.8 g/dL (14.0-18.0); Mean Corpuscular HGB Conc 32 g/dL (31-36); Mean Corpuscular Hemoglobin 30 pg (27-31); Mean Corpuscular Volume 91 fL (80-94); Mean Platelet Volume 8.6 fL (7.4-10.4); Platelet Count 173 10^3/uL (150-450); Red Blood Count 4.33 10^6 /uL (4.18-5.48); Red Cell Distribution Width 16 % (10-15); White Blood Count 22.7 10^3/uL (3.5-10.8)
[2018-12-11] MEDS ORDERED: Albuterol 2.5 MG/3 ML NEB.SOL* (0.083%) INH PRN (06:44)
[2018-12-11 06:55] LABS: BUN/Creatinine Ratio 25.2 (8-20); Calcium 8.5 mg/dL (8.6-10.3); EGFR African American 69.8 (>60); EGFR Non-African American 57.7 (>60); Potassium 3.9 mmol/L (3.5-5.0)
[2018-12-11 07:01] LABS: Troponin I 0.08 ng/mL (<0.04)
[2018-12-11 07:23] LABS: ABS Basophils 0.1 10^3/ul (0-0.2); ABS Lymphocytes 0.5 10^3/ul (1.0-4.8); ABS Monocytes 1.8 10^3/ul (0-0.8); ABS Neutrophils 20.3 10^3/ul (1.5-7.7); Lymphocyte % 2.4 %
[2018-12-11] MEDS ORDERED: Enoxaparin(*) 40 MG/0.4 ML SYR SUBCUT SCH (08:00)
[2018-12-11] MEDS: NS 0.9% 1000 ML** 1,000 ML IV SCH (08:37)
--- NOTE | 2018-12-11 08:54 | PN ---
Subjective Date of Service: 12/11/18 Interval History: Patient admitted earlier this morning for altered mental status. Currently patient is lethargic, but responds to painful stimuli Objective Active Medications: Albuterol (Ventolin 2.5 Mg/3 Ml Neb.Mary Grace*) 2.5 mg INH [id number] AWAKE PRN PRN Reason: sob/wheezing Enoxaparin Sodium (Lovenox(*)) 40 mg SUBCUT Q24H RANI Sodium Chloride (Ns 0.9% 1000 Ml) 1,000 mls @ 125 mls/hr IV PER RATE RANI Vancomycin HCl 1,000 mg/ (Sodium Chloride) 250 mls @ 166.667 mls/hr IVPB ONCE ONE; Protocol Stop: 12/11/18 10:17 Piperacillin Sod/Tazobactam (Sod 3.375 gm/ Sodium Chloride) 100 mls @ 200 mls/ hr IVPB ONCE ONE Stop: 12/11/18 09:17 Vital Signs - 8 hr 12/11/18 12/11/18 12/11/18 02:25 02:35 02:36 Temperature 97.7 F Pulse Rate 100 94 92 Respiratory 30 47 37 Rate Blood Pressure 175/82 175/82 (mmHg) O2 Sat by Pulse 97 98 99 Oximetry 12/11/18 12/11/18 12/11/18 02:58 03:00 03:14 Temperature 98.2 F 98.2 F Pulse Rate 102 98 Respiratory 24 36 32 Rate Blood Pressure 175/89 (mmHg) O2 Sat by Pulse 94 94 Oximetry 12/11/18 12/11/18 12/11/18 03:20 04:15 04:42 Temperature 99.3 F Pulse Rate 101 103 Respiratory 19 6 25 Rate Blood Pressure 155/108 (mmHg) O2 Sat by Pulse 93 90 Oximetry 12/11/18 12/11/18 12/11/18 04:56 05:00 05:11 Temperature 99.1 F 99.1 F 99.1 F Pulse Rate 100 102 104 Respiratory 23 20 17 Rate Blood Pressure 155/100 172/89 (mmHg) O2 Sat by Pulse 92 92 93 Oximetry 12/11/18 12/11/18 12/11/18 05:12 05:27 05:41 Temperature 99.3 F 99.3 F Pulse Rate 100 96 102 Respiratory 24 27 19 Rate Blood Pressure 162/97 165/104 (mmHg) O2 Sat by Pulse 93 91 93 Oximetry 12/11/18 12/11/18 12/11/18 05:57 06:00 06:12 Temperature 99.3 F 99.3 F 99.3 F Pulse Rate 101 100 100 Respiratory 21 23 18 Rate Blood Pressure 168/99 149/79 (mmHg) O2 Sat by Pulse 99 99 100 Oximetry 12/11/18 12/11/18 12/11/18 06:26 06:31 06:42 Temperature 99.3 F 99.1 F Pulse Rate 101 103 108 Respiratory 24 14 17 Rate Blood Pressure 174/102 154/90 (mmHg) O2 Sat by Pulse 92 97 95 Oximetry 12/11/18 12/11/18 12/11/18 06:57 07:00 07:12 Temperature 99.1 F 99.1 F 99.1 F Pulse Rate 102 106 104 Respiratory 24 23 25 Rate Blood Pressure 144/81 150/86 (mmHg) O2 Sat by Pulse 100 98 99 Oximetry 12/11/18 12/11/18 12/11/18 07:14 07:27 07:38 Temperature 99.0 F 99.0 F Pulse Rate 101 95 108 Respiratory 24 20 22 Rate Blood Pressure 169/104 137/86 (mmHg) O2 Sat by Pulse 99 99 100 Oximetry 12/11/18 12/11/18 12/11/18 07:42 07:58 08:00 Temperature 99.1 F 99.1 F 99.1 F Pulse Rate 107 113 105 Respiratory 18 19 32 Rate Blood Pressure 126/98 129/80 (mmHg) O2 Sat by Pulse 99 98 95 Oximetry 12/11/18 12/11/18 12/11/18 08:25 08:30 08:34 Temperature 99.0 F 99 F Pulse Rate 105 102 102 Respiratory 19 22 22 Rate Blood Pressure 169/104 161/98 161/98 (mmHg) O2 Sat by Pulse 96 95 95 Oximetry Oxygen Devices in Use Now: BiPAP Appearance: Lying in bed, not in distress, with bipap Ears/Nose/Mouth/Throat: Mucous Membranes Moist Respiratory: - - coarse breath sounds with rhonchi Cardiovascular: RRR, No Edema Extremities: No Edema Skin: - - red discoloration patch noted on the back, at the left elbow region swelling with dark discoloration noted. Result Diagrams: 12/11/18 06:26 12/11/18 06:26 Microbiology and Other Data: Microbiology 12/11/18 07:30 Stool Gross Appearance - Final Stool C. difficile DNA Amplification - Final 027 Presumptive NEGATIVE Toxigenic C.diff NEGATIVE Diagnostic Imaging: CT Brain w/o contrast IMPRESSION: 1. 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 2. No acute intracranial hemorrhage. 3. No obstructive hydrocephalus. Portable CXR Wilda-hilar infiltrate official radiology report pending. EKG Data: EKG: Sinus at 95bpm unchanged when compared to older EKG Assess/Plan/Problems-Billing Assessment: - Patient Problems (1) Altered mental status Current Visit: Yes Status: Acute Code(s): R41.82 - ALTERED MENTAL STATUS, UNSPECIFIED SNOMED Code(s): 766316090 Comment: unclear etiology, could be due to respiratory acidosis, or drug use or infectious process (2) Respiratory acidosis Current Visit: Yes Status: Acute Code(s): E87.2 - ACIDOSIS SNOMED Code(s) : 13742914 Comment: Bipap, nebulizers will add solu-medrol hx of COPD ABG worse- bipap settings adjusted, will re-check ABG. (3) History of stroke Current Visit: Yes Status: Acute Code(s): Z86.73 - PRSNL HX OF TIA (TIA), AND CEREB INFRC W/O RESID DEFICITS SNOMED Code(s): 266611605 (4) HTN (hypertension) Current Visit: No Status: Acute Code(s): I10 - ESSENTIAL (PRIMARY) HYPERTENSION SNOMED Code(s): 49141062 (5) SIRS (systemic inflammatory response syndrome) Current Visit: Yes Status: Acute Code(s): R65.10 - SIRS OF NON-INFECTIOUS ORIGIN W/O ACUTE ORGAN DYSFUNCTION SNOMED Code(s): 007879203 Comment: SIRS with possible sepsis, has diarrhea- cdiff is negative will start vanc and zosyn for broad coverage. blood cultures pending. (6) DVT prophylaxis Current Visit: No Status: Acute Code(s): Z29.9 - ENCOUNTER FOR PROPHYLACTIC MEASURES, UNSPECIFIED SNOMED Code(s): 803608472 Comment: will change lovenox to heparin subQ Status and Disposition: hx of CVA, CAD, once patient is more awake, will go through medications.
[2018-12-11] MEDS ORDERED: Vancomycin per Pharmacy* NOTE FOLLOW UP PRN (08:58)
[2018-12-11] MEDS ORDERED: Zosyn per Pharmacy* NOTE FOLLOW UP SCH (09:00)
[2018-12-11] MEDS ORDERED: Piperacillin/Tazobac ADVAN(*) 3.375 GM in NS 0.9% 100 ML* 100 ML IVPB ONE (09:00)
[2018-12-11] MEDS: methylPREDNISolone SOD 40 MG* 1 ML VIAL IV SCH ×2 (09:18→20:59)
[2018-12-11 09:30] LABS: ABS Basophils 0.3 10^3/ul (0-0.2); ABS Lymphocytes 0.4 10^3/ul (1.0-4.8); ABS Monocytes 0.9 10^3/ul (0-0.8); ABS Neutrophils 16.1 10^3/ul (1.5-7.7); Hematocrit 39 % (42-52); Hemoglobin 12.7 g/dL (14.0-18.0); Lymphocyte % 2.3 %; Mean Corpuscular HGB Conc 33 g/dL (31-36); Mean Corpuscular Hemoglobin 30 pg (27-31); Mean Corpuscular Volume 92 fL (80-94); Mean Platelet Volume 8.4 fL (7.4-10.4); Platelet Count 171 10^3/uL (150-450); Red Blood Count 4.23 10^6 /uL (4.18-5.48); Red Cell Distribution Width 16 % (10-15); White Blood Count 17.8 10^3/uL (3.5-10.8)
[2018-12-11] MEDS ORDERED: Vancomycin(*) 1,000 MG in NS 0.9% 250 ML* 250 ML IVPB ONE (09:30)
[2018-12-11 09:36] LABS: Activated Partial Thrombo Time 23.7 seconds (26.0-38.0); INR 0.94 (0.82-1.09)
[2018-12-11 09:55] LABS: Troponin I 0.08 ng/mL (<0.04)
[2018-12-11 10:15] LABS: EGFR African American 70.4 (>60); EGFR Non-African American 58.2 (>60)
[2018-12-11] MEDS ORDERED: [UNRECOGNIZED DRUG - OTHER] IV SCH ×2 (11:30)
[2018-12-11] MEDS ORDERED: NALOXONE IV SCH ×2 (11:30)
[2018-12-11] MEDS: amLODIPine TAB* 5 MG PO SCH (12:31)
[2018-12-11] MEDS: Heparin VIAL(*) 5000 UNITS/ML VIAL (FIVE THOUSAND) SUBCUT SCH ×2 (12:34→20:59)
[2018-12-11] MEDS: Labetalol IV* 5 MG/ML 20 ML VIAL IV PUSH PRN (12:56)
[2018-12-11] MEDS ORDERED: LORazepam INJ* 2 MG/ML 1 ML VIAL ONE (13:45)
[2018-12-11] MEDS ORDERED: Dexmedetomidine* 1,000 MCG in NS 0.9% 250 ML* 240 ML IV ONE (14:00)
[2018-12-11] MEDS ORDERED: Dexmedetomidine* 1,000 MCG in NS 0.9% 250 ML* 240 ML IV SCH (14:30)
[2018-12-11] MEDS: ZOSYN 3.375 GM Q8H per EXTENDED INFUSION IVPB SCH ×4 (15:30→20:59)
[2018-12-11 16:20] LABS: Troponin I 0.08 ng/mL (<0.04)
[2018-12-11] MEDS: Nicotine Patch Removal NOTE PATCH OFF SCH (21:00)
[2018-12-11] MEDS: Magnesium Oxide TAB* 400 MG PO SCH (21:00)
[2018-12-11] MEDS: Vancomycin(*) 1,000 MG in NS 0.9% 250 ML* 250 ML IVPB SCH (21:58)
[2018-12-12] MEDS: NS 0.9% 1000 ML** 1,000 ML IV SCH (00:26)
[2018-12-12] MEDS: Labetalol IV* 5 MG/ML 20 ML VIAL IV PUSH PRN (03:24)
[2018-12-12] MEDS: ZOSYN 3.375 GM Q8H per EXTENDED INFUSION IVPB SCH ×6 (05:18→20:47)
[2018-12-12 06:12] LABS: ABS Lymphocytes 0.3 10^3/ul (1.0-4.8); ABS Monocytes 0.6 10^3/ul (0-0.8); ABS Neutrophils 8.7 10^3/ul (1.5-7.7); Hematocrit 36 % (42-52); Hemoglobin 11.6 g/dL (14.0-18.0); Lymphocyte % 2.6 %; Mean Corpuscular HGB Conc 32 g/dL (31-36); Mean Corpuscular Hemoglobin 30 pg (27-31); Mean Corpuscular Volume 92 fL (80-94); Mean Platelet Volume 8.5 fL (7.4-10.4); Nucleated Red Blood Cells % 0.1; Platelet Count 124 10^3/uL (150-450); Red Blood Count 3.91 10^6 /uL (4.18-5.48); Red Cell Distribution Width 15 % (10-15); White Blood Count 9.5 10^3/uL (3.5-10.8)
[2018-12-12 06:29] LABS: BUN/Creatinine Ratio 34.4 (8-20); Calcium 8.4 mg/dL (8.6-10.3); EGFR African American 99.9 (>60); EGFR Non-African American 82.6 (>60); Potassium 3.7 mmol/L (3.5-5.0)
[2018-12-12] MEDS: Heparin VIAL(*) 5000 UNITS/ML VIAL (FIVE THOUSAND) SUBCUT SCH ×3 (06:49→23:00)
--- NOTE | 2018-12-12 08:18 | PN ---
Subjective Date of Service: 12/12/18 Interval History: Patient is awake, alert, answering questions, off of bipap right now, on nasal canula Reports mild Shortness of breath, occasional cough, no chest pain, no palpitations. This morning reports that he does not recall anything about yesterday or how he ended up in the hospital, but does report that he used drugs prior to the event. Objective Active Medications: Albuterol/Ipratropium (Duoneb (Albuterol 2.5 Mg/Ipratropium 0.5 Mg)) 1 neb INH Q4H [facility] Amlodipine Besylate (Norvasc Tab*) 5 mg PO QAM [facility] Last Admin: 12/11/18 12:31 Dose: 5 mg Aspirin (Aspirin Ec Tab*) 81 mg PO QAM [facility] Heparin Sodium (Porcine) (Heparin Vial(*)) 5,000 units SUBCUT Q8HR [facility] Last Admin: 12/12/18 06:49 Dose: 5,000 units Sodium Chloride (Ns 0.9% 1000 Ml) 1,000 mls @ 125 mls/hr IV PER RATE [facility] Last Admin: 12/12/18 00:26 Dose: 125 mls/hr Piperacillin Sod/Tazobactam (Sod 3.375 gm/ Sodium Chloride) 100 mls @ 25 mls/ hr IVPB Q8H [facility] Last Admin: 12/12/18 05:18 Dose: 25 mls/hr Vancomycin HCl 1,000 mg/ (Sodium Chloride) 250 mls @ 166.667 mls/hr IVPB Q12H [facility] Last Admin: 12/11/18 21:58 Dose: 166.667 mls/hr Labetalol HCl (Trandate Iv*) 10 mg IV PUSH Q6H PRN PRN Reason: SBP greater than 160 Last Admin: 12/12/18 03:24 Dose: 10 mg Magnesium Oxide (Magox 400 Tab*) 200 mg PO BID [facility] Last Admin: 12/11/18 21:00 Dose: Not Given Methylprednisolone Sodium Succinate (Solu-Medrol 40 Mg) 40 mg IV Q12H [facility] Last Admin: 12/11/18 20:59 Dose: 40 mg Miscellaneous (Ativan Pyxis Conroy) 1 ea N/A .ATIVAN IV CONROY PRN PRN Reason: PYXIS CONROY Nicotine (Nicotine Patch 14 Mg/24 Hr*) 1 patch TRANSDERM DAILY [facility] Pantoprazole Sodium (Protonix Tab*) 40 mg PO QAM [facility] Pharmacy Consult (Zosyn Per Pharmacy*) 1 note FOLLOW UP .ZOSYN PER PHARMACY [facility] Pharmacy Consult (Vancomycin Per Pharmacy*) 1 note FOLLOW UP . PRN PRN Reason: PER PROTOCOL Pharmacy Profile Note (Nicotine Patch Removal Note*) 1 note PATCH OFF 2100 [facility] Last Admin: 12/11/18 21:00 Dose: Not Given Pharmacy Profile Note (Vancomycin Trough Check) 1 note FOLLOW UP ONCE ONE Stop: 12/13/18 09:31 Vital Signs - 8 hr 12/12/18 12/12/18 12/12/18 01:00 02:00 03:00 Temperature Pulse Rate 77 79 82 Respiratory 20 23 20 Rate Blood Pressure 133/74 166/98 164/102 (mmHg) O2 Sat by Pulse 94 93 96 Oximetry 12/12/18 12/12/18 12/12/18 03:01 03:38 03:55 Temperature 98.7 F Pulse Rate 76 Respiratory 22 20 Rate Blood Pressure (mmHg) O2 Sat by Pulse 96 Oximetry 12/12/18 12/12/18 12/12/18 04:00 04:01 05:00 Temperature 98.8 F 98.8 F 99.0 F Pulse Rate 80 78 82 Respiratory 23 28 16 Rate Blood Pressure 152/98 168/104 (mmHg) O2 Sat by Pulse 99 99 96 Oximetry 12/12/18 12/12/18 12/12/18 06:00 06:04 07:00 Temperature 99.1 F 99.1 F 99.5 F Pulse Rate 79 75 88 Respiratory 21 24 27 Rate Blood Pressure 130/75 128/72 153/85 (mmHg) O2 Sat by Pulse 95 95 99 Oximetry 12/12/18 12/12/18 08:00 08:01 Temperature 99.1 F 99.1 F Pulse Rate 94 97 Respiratory 30 25 Rate Blood Pressure 140/102 (mmHg) O2 Sat by Pulse 94 93 Oximetry Oxygen Devices in Use Now: Nasal Cannula Appearance: Lying in bed, not in distress Eyes: PERRLA Ears/Nose/Mouth/Throat: - - oral mucosa is dry. Respiratory: - - mild tachypnea with scattered wheezing Cardiovascular: NL Sounds; No Murmurs; No JVD, RRR Abdominal: NL Sounds; No Tenderness; No Distention, No Hepatosplenomegaly Neurological: Alert and Oriented x 3 Result Diagrams: 12/12/18 05:55 12/12/18 05:55 Microbiology and Other Data: Microbiology 12/11/18 06:37 Aerobic Blood Culture - Preliminary Blood Venous No Growth Day 1 Anaerobic Blood Culture - Preliminary No Growth Day 1 12/11/18 06:29 Aerobic Blood Culture - Preliminary Blood Venous No Growth Day 1 Anaerobic Blood Culture - Preliminary No Growth Day 1 12/11/18 12:38 Nasal Screen MRSA (PCR) - Final Nasal Mrsa Not Detected 12/11/18 12:38 Gram Stain - Final Sputum Expectorated 12/11/18 07:30 Stool Gross Appearance - Final Stool C. difficile DNA Amplification - Final 027 Presumptive NEGATIVE Toxigenic C.diff NEGATIVE Diagnostic Imaging: CT Brain w/o contrast IMPRESSION: 1. 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 2. No acute intracranial hemorrhage. 3. No obstructive hydrocephalus. Assess/Plan/Problems-Billing Assessment: - Patient Problems (1) Altered mental status Current Visit: Yes Status: Acute Code(s): R41.82 - ALTERED MENTAL STATUS, UNSPECIFIED SNOMED Code(s): 942099141 Comment: resolved, likely due to drugs. discontinue precedex drip (2) Respiratory acidosis Current Visit: Yes Status: Acute Code(s): E87.2 - ACIDOSIS SNOMED Code(s) : 90550459 Comment: Improved, (3) HTN (hypertension) Current Visit: No Status: Acute Code(s): I10 - ESSENTIAL (PRIMARY) HYPERTENSION SNOMED Code(s): 63724349 Comment: continue amlodipine hold home dose diltiazem, start coreg. (4) SIRS (systemic inflammatory response syndrome) Current Visit: Yes Status: Acute Code(s): R65.10 - SIRS OF NON-INFECTIOUS ORIGIN W/O ACUTE ORGAN DYSFUNCTION SNOMED Code(s): 661790771 Comment: SIRS with possible sepsis, has diarrhea- cdiff is negative will start vanc and zosyn for broad coverage. blood cultures negative thus far. (5) DVT prophylaxis Current Visit: No Status: Acute Code(s): Z29.9 - ENCOUNTER FOR PROPHYLACTIC MEASURES, UNSPECIFIED SNOMED Code(s): 820811214 Comment: Heparin SubQ (6) COPD exacerbation Current Visit: Yes Status: Acute Code(s): J44.1 - CHRONIC OBSTRUCTIVE PULMONARY DISEASE W (ACUTE) EXACERBATION SNOMED Code(s): 445499555 Comment: continue solumedrol change albuterol nebs to duonebs Q 4hrs. (7) WENDY (acute kidney injury) Current Visit: Yes Status: Acute Code(s): N17.9 - ACUTE KIDNEY FAILURE, UNSPECIFIED SNOMED Code(s): 60027078 Comment: improved (8) Hypernatremia Current Visit: Yes Status: Acute Code(s): E87.0 - HYPEROSMOLALITY AND HYPERNATREMIA SNOMED Code(s): 191621745 Comment: Likely due to giving Normal saline, change NS to 1/2 NS. (9) History of stroke Current Visit: Yes Status: Acute Code(s): Z86.73 - PRSNL HX OF TIA (TIA), AND CEREB INFRC W/O RESID DEFICITS SNOMED Code(s): 425681857 (10) CAD (coronary artery disease) Current Visit: No Status: Acute Code(s): I25.10 - ATHSCL HEART DISEASE OF [place] CORONARY ARTERY W/O ANG PCTRS SNOMED Code(s): 19347004 Comment: mildly elevated troponin. will check ECHO continue aspirin, will add coreg. Status and Disposition: hx of CVA, CAD, once patient is more awake, will go through medications.
[2018-12-12] MEDS ORDERED: Albuterol/Ipratropium NEB.SOL* Albuterol 2.5 MG/Ipratropium 0.5 MG 3 ML INH SCH (09:00)
[2018-12-12] MEDS: Magnesium Oxide TAB* 400 MG PO SCH ×2 (09:41→20:28)
[2018-12-12] MEDS: Pantoprazole TAB * 40 MG TAB PO SCH (09:41)
[2018-12-12] MEDS: Carvedilol TAB* 6.25 MG PO SCH ×2 (09:42→20:28)
[2018-12-12] MEDS: amLODIPine TAB* 5 MG PO SCH (09:43)
[2018-12-12] MEDS: Nicotine PATCH 14 MG/24 HR* PATCH TRANSDERM SCH (09:43)
[2018-12-12] MEDS: Aspirin EC TAB* 81 MG TAB.EC PO SCH (09:43)
[2018-12-12] MEDS: methylPREDNISolone SOD 40 MG* 1 ML VIAL IV SCH ×2 (09:44→20:28)
[2018-12-12] MEDS: Vancomycin(*) 1,000 MG in NS 0.9% 250 ML* 250 ML IVPB SCH ×2 (09:47→23:44)
[2018-12-12] MEDS: NS 0.45% 1000 ML BAG* 1,000 ML IV SCH ×2 (09:50→23:03)
[2018-12-12] MEDS: Albuterol/Ipratropium NEB.SOL* Albuterol 2.5 MG/Ipratropium 0.5 MG 3 ML INH SCH ×4 (11:32→23:05)
--- NOTE | 2018-12-12 12:20 | ECHO ---
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 History: Coronary artery disease. Cerebrovascular accident. Chronic obstructive pulmonary disease. Risk factors: Current tobacco use. Labs, prior tests, procedures, and surgery: Catheterization. There was a stenosis which was treated with a stent. Conclusions Summary: - Impressions: The study's current findings are similar to the report of the study of September 2012. The overall ejection fraction is similar but the mild inferior hypokinesis was not specifically mentioned last time. Unable to compare the wall motion visually at this time. - Left ventricle: Systolic function is normal. The estimated ejection fraction is 50-55%. Hypokinesis of the basalinferior myocardium. - Regional wall motion abnormality: Mild hypokinesis of the entire inferior myocardium. - Right ventricle: Systolic function is low normal. - Left atrium: The atrium is mildly dilated. - Mitral valve: There is mild regurgitation. Study data: Transthoracic echocardiogram. Procedure: Transthoracic echocardiography was performed. Image quality was adequate. Complete 2D, spectral Doppler, and color flow Doppler. Location: ICU Patient status: Inpatient. Patient room number: 6. The previous study was not available, so comparison is made to the report of September 2012. Rhythm: Normal sinus rhythm. Findings Left ventricle: The cavity size is normal. Wall thickness is moderately increased. Systolic function is normal. The estimated ejection fraction is 50-55%. Regional wall motion abnormalities: Hypokinesis of the basalinferior myocardium. Mild hypokinesis of the entire inferior myocardium. Left ventricular diastolic function parameters are indeterminate. Right ventricle: The cavity size is normal. Systolic function is low normal. Left atrium: The atrium is mildly dilated. Right atrium: The atrium is normal in size. Mitral valve: The leaflets are normal thickness. There is no evidence of stenosis. There is mild regurgitation. Aortic valve: The valve is trileaflet. The leaflets are normal thickness. There is no evidence of stenosis. There is no significant regurgitation. Tricuspid valve: The leaflets are normal thickness. There is no evidence of stenosis. There is trace regurgitation. Pulmonic valve: Not well visualized. There is no significant regurgitation. Aorta: The aortic root appears normal. Pericardium: There is no significant pericardial effusion. Pulmonary arteries: Not well visualized. Systolic pressure can not be accurately estimated. Systemic veins: Inferior vena cava: The vessel is dilated. There is (>= 50%) respiratory change in the IVC dimension. Measurements Left ventricle Value Ref Right atrium Value Ref RAMÓN, LAX 5.0 cm 4.2 - SI dim, ES 4.4 cm 3.4 - 5.3 5.8 ML dim, ES, A4C (H) 4.9 cm 2.6 - 4.4 ESD, LAX 3.8 cm 2.5 - Estimated RAP 8 mm Hg --------- 4.0 FS, LAX (L) 23 % 25 - 43 Aortic valve Value Ref PW, ED, LAX (H) 1.4 cm 0.6 - Hi diam, ED 2.3 cm --------- 1.0 Peak v, S 1.27 m/sec --------- EF (L) 46 % 52 - 72 VTI, S 23.7 cm --------- E', lat hi, TDI (L) 9.8 cm/sec >=10.0 Mean grad, S 3.0 mm Hg ------ --- E/e', lat hi, TDI 7 -------- Peak grad, S 6.0 mm Hg --------- E', med hi, TDI 7.0 cm/sec >=7.0 E/e', med hi, TDI 10 -------- Mitral valve Value Ref E', avg, TDI 8.4 cm/sec -------- Peak E 0.73 m/sec --------- E/e', avg, TDI 9 <=14 Peak A 1 m/sec ------ --- Decel time 55 ms --------- LVOT Value Ref Peak grad, D 2.1 mm Hg --------- Peak pedro, S 1.24 m/sec -------- Peak E/A ratio 0.7 --------- Peak grad, S 6 mm Hg -------- Mean grad, S 3 mm Hg -------- Aortic root Value Ref Root diam 3.4 cm <4.2 Ventricular septum Value Ref IVS, ED (H) 1.8 cm 0.6 - Ascending aorta Value Ref 1.0 AAo AP diam, S 3.3 cm --------- Right ventricle Value Ref Decending aorta Value Ref RAMÓN, LAX 3.5 cm -------- Farshad peak pedro 0.58 m/sec --------- RAMÓN minor ax, A4C 2.8 cm 1.9 - mid 3.5 Inferior vena cava Value Ref Diam 2.6 cm --------- Left atrium Value Ref LA ID 4.4 cm -------- ML dim, A4C 4.3 cm -------- SI dim, A4C 5.1 cm -------- Vol/bsa, ES, A/L (H) 40 ml/m^2 16 - 34 Legend: (L) and (H) gerry values outside specified reference range. Prepared and electronically signed by Jean Marie Rodriguez MD 12/12/2018 12:19
[2018-12-12] MEDS ORDERED: Magnesium Sulfate 2 GM IV* 2 GM/50 ML BAG IVPB ONE (13:07)
--- NOTE | 2018-12-12 14:33 | PN ---
Hospitalist Progress Note Date of Service: 12/12/18 Abnormal ECHO: will get stress test. Transfer to med/tele floor
[2018-12-12] MEDS: Nicotine Patch Removal NOTE PATCH OFF SCH (20:01)
[2018-12-13] MEDS: Albuterol/Ipratropium NEB.SOL* Albuterol 2.5 MG/Ipratropium 0.5 MG 3 ML INH SCH ×5 (03:09→20:45)
[2018-12-13 04:54] LABS: ABS Basophils 0.1 10^3/ul (0-0.2); ABS Lymphocytes 0.5 10^3/ul (1.0-4.8); ABS Monocytes 0.3 10^3/ul (0-0.8); ABS Neutrophils 9.4 10^3/ul (1.5-7.7); Hematocrit 35 % (42-52); Hemoglobin 11.7 g/dL (14.0-18.0); Lymphocyte % 4.7 %; Mean Corpuscular HGB Conc 33 g/dL (31-36); Mean Corpuscular Hemoglobin 30 pg (27-31); Mean Corpuscular Volume 90 fL (80-94); Mean Platelet Volume 8.8 fL (7.4-10.4); Nucleated Red Blood Cells % 0.1; Platelet Count 117 10^3/uL (150-450); Red Cell Distribution Width 15 % (10-15); White Blood Count 10.2 10^3/uL (3.5-10.8)
[2018-12-13 05:07] LABS: BUN/Creatinine Ratio 32.9 (8-20); Calcium 8.2 mg/dL (8.6-10.3); EGFR African American 125.1 (>60); EGFR Non-African American 103.4 (>60); Potassium 3.6 mmol/L (3.5-5.0)
[2018-12-13 05:27] LABS: Magnesium 2.2 mg/dL (1.9-2.7); Phosphorus 3.3 mg/dL (2.5-5.0)
[2018-12-13] MEDS: Heparin VIAL(*) 5000 UNITS/ML VIAL (FIVE THOUSAND) SUBCUT SCH ×3 (05:33→21:30)
[2018-12-13] MEDS: ZOSYN 3.375 GM Q8H per EXTENDED INFUSION IVPB SCH ×6 (05:33→20:43)
--- NOTE | 2018-12-13 08:05 | PN ---
Subjective Date of Service: 12/13/18 Interval History: Overnight pulled the rectal tube out, since then per patient only one BM. Reports that "not smoking in few days is good for me." Less shortness of breath, but does have wheezing at times. No chest pain, no palpitations. Objective Active Medications: Albuterol/Ipratropium (Duoneb (Albuterol 2.5 Mg/Ipratropium 0.5 Mg)) 1 neb INH Q4H [facility] Last Admin: 12/13/18 07:14 Dose: 1 neb Amlodipine Besylate (Norvasc Tab*) 5 mg PO QAM [facility] Last Admin: 12/12/18 09:43 Dose: 5 mg Aspirin (Aspirin Ec Tab*) [facility] [place] Last Admin: 12/12/18 09:43 Dose: 81 mg Carvedilol (Coreg Tab*) 6.25 mg PO BID [facility] Last Admin: 12/12/18 20:28 Dose: 6.25 mg Heparin Sodium (Porcine) (Heparin Vial(*)) 5,000 units SUBCUT Q8HR [facility] Last Admin: 12/13/18 05:33 Dose: 5,000 units Piperacillin Sod/Tazobactam (Sod 3.375 gm/ Sodium Chloride) 100 mls @ 25 mls/ hr IVPB Q8H [facility] Last Admin: 12/13/18 05:33 Dose: 25 mls/hr Labetalol HCl (Trandate Iv*) 10 mg IV PUSH Q6H PRN PRN Reason: SBP greater than 160 Last Admin: 12/12/18 03:24 Dose: 10 mg Magnesium Oxide (Magox 400 Tab*) 200 mg PO BID [facility] Last Admin: 12/12/18 20:28 Dose: 200 mg Methylprednisolone Sodium Succinate (Solu-Medrol 40 Mg) 40 mg IV Q12H [facility] Last Admin: 12/12/18 20:28 Dose: 40 mg Miscellaneous (Ativan Pyxis Conroy) 1 ea N/A .ATIVAN IV CONROY PRN PRN Reason: PYXIS CONROY Nicotine (Nicotine Patch 14 Mg/24 Hr*) 1 patch TRANSDERM DAILY [facility] Last Admin: 12/12/18 09:43 Dose: Not Given Pantoprazole Sodium (Protonix Tab*) 40 mg PO QAM [facility] Last Admin: 12/12/18 09:41 Dose: 40 mg Pharmacy Consult (Zosyn Per Pharmacy*) 1 note FOLLOW UP .ZOSYN PER PHARMACY [facility] Pharmacy Profile Note (Nicotine Patch Removal Note*) 1 note PATCH OFF 2099 [facility] Last Admin: 12/12/18 20:01 Dose: Not Given Risperidone (Risperdal) 0.5 mg PO BID PRN PRN Reason: AGITATION Vital Signs - 8 hr 12/13/18 12/13/18 12/13/18 01:00 01:01 02:00 Temperature Pulse Rate 86 93 70 Respiratory 23 21 18 Rate Blood Pressure 144/93 152/106 (mmHg) O2 Sat by Pulse 96 94 94 Oximetry 12/13/18 12/13/18 12/13/18 03:00 03:09 03:30 Temperature 98.1 F Pulse Rate 75 70 Respiratory 20 18 Rate Blood Pressure 155/113 (mmHg) O2 Sat by Pulse 94 98 Oximetry 12/13/18 12/13/18 12/13/18 04:00 05:00 06:00 Temperature Pulse Rate 61 64 81 Respiratory 21 26 26 Rate Blood Pressure 136/87 159/93 176/92 (mmHg) O2 Sat by Pulse 94 93 98 Oximetry 12/13/18 12/13/18 12/13/18 07:00 07:01 07:15 Temperature Pulse Rate 88 78 62 Respiratory 22 28 18 Rate Blood Pressure 182/112 (mmHg) O2 Sat by Pulse 95 94 94 Oximetry 12/13/18 07:38 Temperature 100.1 F Pulse Rate Respiratory Rate Blood Pressure (mmHg) O2 Sat by Pulse Oximetry Oxygen Devices in Use Now: Nasal Cannula Appearance: Lying in bed, not in distress with nasal canula Eyes: PERRLA Respiratory: - - No tachypnea, with moderate wheezing Cardiovascular: NL Sounds; No Murmurs; No JVD, RRR, No Edema Abdominal: NL Sounds; No Tenderness; No Distention, No Hepatosplenomegaly Neurological: Alert and Oriented x 3 Result Diagrams: 12/13/18 04:45 12/13/18 04:45 Microbiology and Other Data: Microbiology 12/11/18 06:37 Aerobic Blood Culture - Preliminary Blood Venous No Growth Day 1 Anaerobic Blood Culture - Preliminary No Growth Day 1 12/11/18 06:29 Aerobic Blood Culture - Preliminary Blood Venous No Growth Day 1 Anaerobic Blood Culture - Preliminary No Growth Day 1 12/11/18 12:38 Nasal Screen MRSA (PCR) - Final Nasal Mrsa Not Detected 12/11/18 12:38 Gram Stain - Final Sputum Expectorated 12/11/18 07:30 Stool Gross Appearance - Final Stool C. difficile DNA Amplification - Final 027 Presumptive NEGATIVE Toxigenic C.diff NEGATIVE Diagnostic Imaging: CT Brain w/o contrast IMPRESSION: 1. 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 2. No acute intracranial hemorrhage. 3. No obstructive hydrocephalus. EKG Data: EKG: Sinus at 95bpm unchanged when compared to older EKG Assess/Plan/Problems-Billing Assessment: - Patient Problems (1) Altered mental status Current Visit: Yes Status: Acute Code(s): R41.82 - ALTERED MENTAL STATUS, UNSPECIFIED SNOMED Code(s): 323351614 Comment: resolved, likely due to drugs. s/p precedex drip as well risperdal ordered for as needed agitation (2) Respiratory acidosis Current Visit: Yes Status: Acute Code(s): E87.2 - ACIDOSIS SNOMED Code(s) : 13235974 Comment: Improved, (3) HTN (hypertension) Current Visit: No Status: Acute Code(s): I10 - ESSENTIAL (PRIMARY) HYPERTENSION SNOMED Code(s): 91305756 Comment: continue amlodipine hold home dose diltiazem, start coreg. (4) DVT prophylaxis Current Visit: No Status: Acute Code(s): Z29.9 - ENCOUNTER FOR PROPHYLACTIC MEASURES, UNSPECIFIED SNOMED Code(s): 426738774 Comment: Heparin SubQ (5) COPD exacerbation Current Visit: Yes Status: Acute Code(s): J44.1 - CHRONIC OBSTRUCTIVE PULMONARY DISEASE W (ACUTE) EXACERBATION SNOMED Code(s): 662029028 Comment: continue solumedrol duonebs Q 4hrs. (6) WENDY (acute kidney injury) Current Visit: Yes Status: Acute Code(s): N17.9 - ACUTE KIDNEY FAILURE, UNSPECIFIED SNOMED Code(s): 43962345 Comment: improved (7) Hypernatremia Current Visit: Yes Status: Acute Code(s): E87.0 - HYPEROSMOLALITY AND HYPERNATREMIA SNOMED Code(s): 102831740 Comment: resolved, d/c IV fluids, encouraged oral hydration after stress test (8) History of stroke Current Visit: Yes Status: Acute Code(s): Z86.73 - PRSNL HX OF TIA (TIA), AND CEREB INFRC W/O RESID DEFICITS SNOMED Code(s): 154094733 Comment: continue with aspirin (9) CAD (coronary artery disease) Current Visit: No Status: Acute Code(s): I25.10 - ATHSCL HEART DISEASE OF [place] CORONARY ARTERY W/O ANG PCTRS SNOMED Code(s): 12323104 Comment: mildly elevated troponin. Echo shows hypokinesis, stress test ordered for today . continue aspirin, coreg. (10) Diarrhea Current Visit: Yes Status: Acute Code(s): R19.7 - DIARRHEA, UNSPECIFIED SNOMED Code(s): 13379522 Comment: improved, will monitor unclear etiology, c.diff is negative. (11) Sepsis Current Visit: Yes Status: Acute Comment: due to pneumonia, improved, d/c vancomycin continue zosyn blood cultures negative to date sputum shows e.coli (12) E. coli pneumonia Current Visit: Yes Status: Acute Code(s): J15.5 - PNEUMONIA DUE TO ESCHERICHIA COLI SNOMED Code(s): 21688375 Comment: continue zosyn.
[2018-12-13] MEDS: Carvedilol TAB* 6.25 MG PO SCH ×2 (08:32→20:32)
[2018-12-13] MEDS: amLODIPine TAB* 5 MG PO SCH (08:32)
[2018-12-13] MEDS ORDERED: Regadenoson* 0.4 MG/5 ML SYRINGE ONE (08:57)
[2018-12-13] MEDS ORDERED: Vancomycin Trough Check NOTE FOLLOW UP ONE (09:30)
[2018-12-13] MEDS: Pantoprazole TAB * 40 MG TAB PO SCH (10:41)
[2018-12-13] MEDS: Nicotine PATCH 14 MG/24 HR* PATCH TRANSDERM SCH (10:41)
[2018-12-13] MEDS: methylPREDNISolone SOD 40 MG* 1 ML VIAL IV SCH ×2 (10:41→20:31)
[2018-12-13] MEDS: Magnesium Oxide TAB* 400 MG PO SCH ×2 (10:41→20:31)
[2018-12-13] MEDS: Aspirin EC TAB* 81 MG TAB.EC PO SCH (10:41)
[2018-12-13] MEDS: Labetalol IV* 5 MG/ML 20 ML VIAL IV PUSH PRN ×2 (11:53→20:31)
[2018-12-13] MEDS ORDERED: Albuterol/Ipratropium NEB.SOL* Albuterol 2.5 MG/Ipratropium 0.5 MG 3 ML ONE (19:40)
[2018-12-13] MEDS: Nicotine Patch Removal NOTE PATCH OFF SCH (20:54)
[2018-12-14] MEDS: Albuterol/Ipratropium NEB.SOL* Albuterol 2.5 MG/Ipratropium 0.5 MG 3 ML INH SCH ×3 (01:05→14:25)
[2018-12-14] MEDS: Labetalol IV* 5 MG/ML 20 ML VIAL IV PUSH PRN ×2 (03:39→12:29)
[2018-12-14] MEDS: ZOSYN 3.375 GM Q8H per EXTENDED INFUSION IVPB SCH ×2 (05:51)
[2018-12-14] MEDS: Heparin VIAL(*) 5000 UNITS/ML VIAL (FIVE THOUSAND) SUBCUT SCH ×2 (05:53→12:32)
[2018-12-14 07:17] LABS: ABS Basophils 0.1 10^3/ul (0-0.2); ABS Lymphocytes 0.4 10^3/ul (1.0-4.8); ABS Monocytes 0.5 10^3/ul (0-0.8); ABS Neutrophils 10.9 10^3/ul (1.5-7.7); Hematocrit 41 % (42-52); Hemoglobin 13.5 g/dL (14.0-18.0); Lymphocyte % 3.7 %; Mean Corpuscular HGB Conc 33 g/dL (31-36); Mean Corpuscular Hemoglobin 30 pg (27-31); Mean Corpuscular Volume 89 fL (80-94); Platelet Count 142 10^3/uL (150-450); Red Blood Count 4.54 10^6 /uL (4.18-5.48); Red Cell Distribution Width 15 % (10-15); White Blood Count 11.8 10^3/uL (3.5-10.8)
[2018-12-14] MEDS: amLODIPine TAB* 5 MG PO SCH (08:55)
[2018-12-14] MEDS: Aspirin EC TAB* 81 MG TAB.EC PO SCH (08:55)
[2018-12-14] MEDS: Pantoprazole TAB * 40 MG TAB PO SCH (08:56)
[2018-12-14] MEDS: Magnesium Oxide TAB* 400 MG PO SCH (08:56)
[2018-12-14] MEDS: Carvedilol TAB* 6.25 MG PO SCH (08:57)
[2018-12-14] MEDS: methylPREDNISolone SOD 40 MG* 1 ML VIAL IV SCH (08:57)
[2018-12-14] MEDS: Nicotine PATCH 14 MG/24 HR* PATCH TRANSDERM SCH (09:00)
[2018-12-14] MEDS ORDERED: Cefdinir cap* 300 MG CAP PO SCH (10:00)
[2018-12-14] MEDS ORDERED: amLODIPine TAB* 5 MG PO SCH (15:00)
[2018-12-14 16:21] VITALS: BP 164/106
--- NOTE | 2018-12-14 17:23 | DS ---
CC: Dr. Araujo* DISCHARGE SUMMARY: DATE OF ADMISSION: 12/11/18 DATE OF DISCHARGE TO HOME: 12/14/18 PRIMARY CARE PROVIDER: Dr. Araujo. DISCHARGE DISPOSITION: Home. CONDITION ON DISCHARGE: Stable. DISCHARGE DIAGNOSES: 1. Acute hypoxemic and hypercapnic respiratory failure, requiring BiPAP due to chronic obstructive pulmonary disease exacerbation and pneumonia. 2. Aspiration pneumonia due to Escherichia coli. 3. Toxic encephalopathy, likely due to delirium and withdrawal from alcohol and possibility of withdrawal from opiates. 4. Acute kidney injury due to sepsis that resolved. 5. Sepsis due to aspiration pneumonia that resolved. 6. Mild elevation of troponin with cardiomyopathy, likely ischemic with an echocardiogram on 12/12/18 showing an EF of 50% to 55% and cardiac stress test documented on 12/13/18 showing global hypokinesis and EF of 49%. MEDICATIONS AT DISCHARGE: Include: 1. Prednisone 40 mg daily for 2 days, then 20 mg daily for 2 days, then 10 mg daily, then stop. 2. DuoNeb 1 nebulizer every 4 hours p.r.n. 3. Nicotine patch and nicotine gum p.r.n. 4. Cefdinir 300 mg b.i.d. for 5 days total. 5. Albuterol inhaler on a p.r.n. basis. 6. Protonix 40 mg daily. 7. Mag-Ox 200 mg daily. 8. Cartia XT 300 mg daily. 9. Aspirin 81 mg daily. 10. Amlodipine 5 mg daily. LABORATORY DATA AND STUDIES PERFORMED DURING THE HOSPITAL STAY: Included: On , sodium of 137, potassium 3.6, chloride 104, carbon dioxide 28, BUN 26, creatinine 0.79. On 12/14/18, white blood cell count of 11.8, hemoglobin of 13.5, hematocrit of 41, and platelets of 142. The patient's liver function tests were obtained on admission and was slightly elevated with AST of 146, ALT of 96, and alkaline phosphatase of 106, likely due to alcohol. The patient's TSH on admission was 0.14. It is recommended for the patient to have followup TSH after discharge once he is stable and recovered from acute illness. The patient's cardiac stress test documented on 12/13/18, impression: "The ejection fraction was 49%. Evaluation of wall motion demonstrates global hypokinesis. Inferior wall with fixed defect, which appears to correct with attenuation, corrected images and likely represent diaphragmatic attenuation of the artifact. No definite reversible change noted. Borderline abnormal ejection fraction of 49%. Assessment, intermediate risk." Transthoracic echocardiogram obtained on 12/12/18 showed EF of 50% to 55% with hypokinesis of the basal inferior myocardium and regional wall motion abnormality and mild hypokinesis of the entire inferior myocardium. Portable chest x-ray last obtained on 12/12/18, impression: "New left lung infiltrate." The patient's brain CT obtained on 12/11/18, impression: "Old cortical infarct involving the left frontal lobe and right cerebellar hemisphere. No acute intracranial hemorrhage. No obstructive hydrocephalus." HOSPITALIZATION COURSE: Morris Gutierrez is a 53-year-old male who presented to the hospital on 12/11/18 found down on the floor. The patient has history of drug abuse and alcohol abuse. He has altered mental status and combative. He received Ativan and Precedex. He also was in acute hypoxemic and hypercapnic respiratory failure and required BiPAP in the intensive care unit. Eventually, his toxic encephalopathy likely due to delirium and alcohol withdrawal resolved and he was able to be transferred to the floor. Throughout this hospital stay, he was also diagnosed with aspiration pneumonia with sputum positive for E. coli and treated during his duration of his hospital stay and he is going to be prescribed cefdinir at the time of discharge. He was also treated for COPD exacerbation and is going to be prescribed prednisone taper at discharge. The patient was noted to have elevated troponin and transthoracic echocardiogram showed EF of 55%. Nevertheless, his stress test showed EF of 49 % with dilated cardiomyopathy and possibility of inferior infarct, but was likely artifactual. Please refer to the complete radiologist's report. At this point, the dilated cardiomyopathy is likely related to the patient's alcohol use. By the time of discharge, the patient stated that he drinks at least a bottle of vodka a day and he smokes a pack of cigarettes a day. He did not admit to taking opiates, which he has history of. By the time of discharge, he was ready to go home and requested to go home. He had nebulizers able to be administered at home. He was encouraged not to drink alcohol anymore and he stated that he will not do so. He was also encouraged not to smoke anymore and he was positive that he is not going to do it since he has not been smoking for the past 5 days. PHYSICAL EXAMINATION: At the time of discharge, blood pressure of 160/95, heart rate of 66 and regular, respiratory rate 20, oxygen saturation 91% on room air, temperature 98.0. General: The patient is a very pleasant 53-year- old male, who is in no acute distress. Alert, awake, and oriented x3. HEENT: Head: Atraumatic, normocephalic. Eyes: Pupils are equal, reactive to light and accommodation. Oropharynx clear. Mucosa moist. Neck: Supple. No JVD. No bruits bilaterally. Cardiovascular: Distant breath sounds bilaterally. No wheezes. Abdomen: Soft, nontender. Bowel sounds are present in all 4 quadrants. Extremities: There is no edema. Pulses are +2 bilaterally. No clubbing or cyanosis. On neuro evaluation, speech clear. Cranial nerves II through XII grossly intact. Motor strength is 5/5 bilaterally. Please note that at discharge, the patient is recommended to follow up with Dr. Araujo in approximately 4 to 7 days. The patient needs to follow up with his TSH in approximately couple of weeks since his TSH was abnormal at admission, but he was also acutely encephalopathic and ill. It is recommended for the patient to obtain another set of thyroid function studies once he is stable. He is recommended not to smoke anymore, not to drink and he was encouraged not to do so. He also seems positive that he is not going to. He is encouraged to use nebulizers as needed. Please also note that the patient's blood pressure was elevated during the second part of his hospital stay, but at discharge, he was placed back on his Cartia XT which is a regular medication and amlodipine which he was going to be continued. He is recommended to follow up with Dr. Araujo in regards to further management of his hypertension. Please note that this is a short summary of the patient's hospital stay. Please refer to further medical records for details. TIME SPENT: Approximately 45 minutes was spent on the patient's discharge. [id number]/[facility] #: [id number] MTDD
[2018-12-15] MEDS ORDERED: predniSONE TAB* 50 MG PO SCH (09:00)
[2018-12-15] MEDS ORDERED: amLODIPine TAB* 5 MG PO SCH (09:00)
== END 2018-12-14 16:40 | disposition home or self-care (01) | DRG 720 ==
LOC: EDBD → EDUNIT# → ED 02:23 → ICU 06:44 → MEDTELE 12-13 15:10
PROVIDERS: ADMIT Internal Medicine; ATTEND Internal Medicine
PROC: 5A09357 Assistance with Respiratory Ventilation, Less than 24 Consecutive Hours, Continuous Positive Airway Pressure (ICD-10-PCS; principal; 2018-12-11)
DX: A41.9 Sepsis, unspecified organism (principal); J96.01 Acute respiratory failure with hypoxia; J96.02 Acute respiratory failure with hypercapnia; J15.5 Pneumonia due to Escherichia coli; G92 Toxic encephalopathy; N17.9 Acute kidney failure, unspecified; F10.231 Alcohol dependence with withdrawal delirium; E87.2 Acidosis; E87.0 Hyperosmolality and hypernatremia; J44.1 Chronic obstructive pulmonary disease with (acute) exacerbation; J44.0 Chronic obstructive pulmonary disease with (acute) lower respiratory infection; N18.3 Chronic kidney disease, stage 3 (moderate); F11.10 Opioid abuse, uncomplicated; K21.9 Gastro-esophageal reflux disease without esophagitis; I12.9 Hypertensive chronic kidney disease with stage 1 through stage 4 chronic kidney disease, or unspecified chronic kidney disease; G47.33 Obstructive sleep apnea (adult) (pediatric); E66.9 Obesity, unspecified; R74.8 Abnormal levels of other serum enzymes; I25.10 Atherosclerotic heart disease of native coronary artery without angina pectoris; R19.7 Diarrhea, unspecified; I25.5 Ischemic cardiomyopathy; F17.210 Nicotine dependence, cigarettes, uncomplicated; Y90.0 Blood alcohol level of less than 20 mg/100 ml; Z86.73 Personal history of transient ischemic attack (TIA), and cerebral infarction without residual deficits; Z95.5 Presence of coronary angioplasty implant and graft; Z80.8 Family history of malignant neoplasm of other organs or systems; Z88.8 Allergy status to other drugs, medicaments and biological substances; Z79.82 Long term (current) use of aspirin; Z79.51 Long term (current) use of inhaled steroids; Z79.899 Other long term (current) drug therapy
CPT/HCPCS: 36415; 36600; 70450; 71045; 78452; 80048; 80053; 80307; 80320; 80329; 81003; 81015; 82140; 82550; 82565; 82803; 83605; 83735; 84100; 84443; 84484; 84520; 85025; 85610; 85730; 87040; 87045; 87046; 87070; 87077; 87186; 87205; 87493; 87641; 87899; 93005; 93017; 93306; 94640; 94660; 99285; A9270-GY; A9502; G0480; J1630; J1644; J2060; J2310; J2543; J2785; J2920; J3370; J3475; J7611

== ENCOUNTER 2019-08-24 19:11 | Emergency (ER) | payer OTHER ==
--- OUTSIDE RECORDS SUMMARY | 2019-08-24 19:20 | XMS REPORT | Continuity of Care Document ---
:1965 External Reference #:[id number] Author Name Chioma Kan, AMARJIT Address [address], [address] [place] [address] Care Team Providers Name Role Phone Carla Becker MD - Pulmonary Care Team Information Roller Stainer [phone] Disease Bri Araujo MD - Internal Medicine Care Team Information Roller Stainer Problems Active Problems Provider Date Continuous opioid dependence Pankaj Leslie M.D.,FACP Onset: 07/15/2016 Paroxysmal atrial fibrillation Pankaj Leslie M.D.,FACP Onset: 07/15/2016 Coronary arteriosclerosis Jean Marie Rodriguez M.D. Onset: 10/20/2011 Benign essential hypertension Jean Marie Rodriguez M.D. Onset: 10/20/2011 Chronic obstructive lung disease Pankaj Leslie M.D.,FACP Onset: 2016 Note: good bronchodilator response on PFTs Nondependent cocaine abuse, episodic Pankaj Leslie M.D.,FACP Onset: 01/2017 Bipolar I disorder Pankaj Leslie M.D.,FACP Onset: 07/15/2016 Note: per [facility] History of cerebrovascular accident Pankaj Leslie M.D.,FACP Onset: 07/15 Note: right facial droop Ex-smoker Pankaj Leslie M.D.,FACP Onset: 01/13/2018 Social History Type Date Description Comments Sex Unknown Tobacco Use Reviewed: 07/15/16 Heavy tobacco smoker 1 ppd for 30 years (more than 10 cigarettes/day) Smoking Status Reviewed: 07/24/19 Heavy tobacco smoker 1 ppd for 30 years (more than 10 cigarettes/day) ETOH Use 01/03/2017 Has consumed alcohol in abuse the past ETOH Use 04/27/2017 Denies alcohol use Tobacco Use Start: Unknown Light tobacco smoker last 6monts (10 or fewer cigarettes/day) Recreational Drug Use 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 Prednisone 2 tab daily for 1 25tabs J44.9 Chioma 07/24/2019 5mg Tablets week, then 1 tab AMARJIT Kan daily for 1 week, then 1/2 tab for 1 week Protonix 1 po qd 90tabs Bri Araujo MD 06/22/2019 20mg Tablets Aspirin take 1/2 tab po qd 30tabs Elen Smith, 04/30/2019 325mg Tablets M.D., FACP GNP Nicotine Take one lozenge by 72units Bri Araujo MD 03/08/2019 Polacrilex mouth every 1-2 4mg Lozenges hours for cravings, not to exceed 5 lozenges in 6 hours or 20 lozenges/day Buprenorphine 1 strips sublingual 28units J44.9 Yamileth Byrnes MD 02/21/2019 Hydrochloride/Naloxon twice a day e Hydrochloride 8-2mg Film Narcan 1 sprays in nostril 2units J44.9 Yamileth Byrnes MD 02/21/2019 4mg/0.1ML Liquid as needed, may repeat if necessary Nicotine 1 patch 30units F17.210 Yamileth Byrnes MD 12/21/2018 21mg/24HR transdermally every Patches 24HR day Losartan Potassium 1 by mouth every 90tabs I10 Bri Araujo MD 12/21/2018 50mg day Tablets Furosemide Take One Tablet By 14tabs R60.1 Bri Araujo MD 11/30/2018 20mg Tablets Mouth Once DAILYprn Pantoprazole Sodium take one tablet by 30talydia Smith, 01/13/2018 mouth once daily M.Delilah, FACP 40mg Tablets Gabapentin take one capsule by 90caps Bri Araujo MD 04/27/2017 300mg mouth three times Capsules daily (taken as needed) Albuterol Sulfate 1 vial via 75ml Yamileth Byrnes MD 12/01/2016 nebulizer 4 times (2.5mg/3ML) 0.083% daily as needed Nebulizer Advair Diskus 1 puff by mouth 60units Caral Becker, twice a day 250-50mcg/Dose Aerosol Diltiazem HCL ER take one capsule by 30michael Araujo MD Coated Beads mouth once daily 300mg Caps ER 24HR Magnesium Oxide take one tablet by 30talydia Araujo MD mouth twice daily 400(241.3mg) mg Tablets Ipratropium Use every 4-6 hours 90ml Chioma Renwick/Albuterol as needed AMARJIT Kan Sulfate 0.5-2.5(3)mg/3ML Solution Amitriptyline HCL one tab daily prn Unknown 25mg Tablets Diphenhydramine HCL one at bedtime as 30caps Pankaj Mazariegos needed Su Leslie,FACP 25mg Capsules Ventolin HFA inhale 2 puffs by 18units Chioma mouth four times a AMARJIT Kan 108(90Base) mcg/Act day as needed Aerosol History Medications Aspirin 81 1 by mouth every Elen Smith, 04/30/2019 - 81mg day M.DToni, FACP 06/19/2019 Tablets Aspirin 81 take one-half 15tabs Bri Araujo MD 04/30/2019 - 81mg tablet by mouth 06/19/[address] every day Incruse Ellipta inhale one puff 30units Carla Becker, 03/27/2019 - by mouth every 06/19/2019 62.5mcg/Inh Aerosol day Trelegy Ellipta 1 puff daily 60units Carla Becker, 02/22/2019 - 06/19/2019 100-62.5-25mcg/Inh Aerosol Nystatin 5cc, swish and 60ml J44.9 Carla Eugenio, 02/06/2019 - spit, twice 07/24/2019 175207Rkym/ML daily Suspension Prednisone 1 by mouth every 14tabs J44.9 Carla Becker, 02/06/2019 - 10mg day 04/19/2019 Tablets Medications Administered in Office Medication SIG Qnty Indications Ordering Provider Date Technetium TC 99M Tetrofosmin Per Olimpia Thompson M.D. 09/28/2012 Unit Dose Up To 40 Millicuries Injection Immunizations CPT Code Status Date Vaccine Lot # [id number] Given 02/20/2018 Influenza Virus Vaccine, Quadrivalent, Split, [id number] Preservative Free [id number] Given 06/08/2017 Influenza Virus Vaccine, Quadrivalent, Split, [id number] Preservative Free 88160 Given 01/03/2017 Pneumonia Vaccine [id number] Vital Signs Date Vital Result Comment 07/24/2019 12:43pm Height 72 inches 6'0" Weight 226.00 lb Heart Rate 88 /min BP Systolic Sitting 160 mmHg BP Diastolic Sitting 80 mmHg O2 % BldC Oximetry 92 % BMI (Body Mass Index) 30.6 kg/m2 06/20/2019 3:32pm Height 72 inches 6'0" Weight 222.00 lb with shoes Heart Rate 59 /min BP Systolic Sitting 132 mmHg lue reg cuff BP Diastolic Sitting 74 mmHg lue reg cuff BP Systolic Standing 138 mmHg lue reg cuff BP Diastolic Standing 74 mmHg lue reg cuff Respiratory Rate 14 /min BMI (Body Mass Index) 30.1 kg/m2 Ejection Fraction 50-55% Results Test Acquired Date Facility Test Result H/L Range Note Drug Abuse 02/21/2019 [facility] Urine Amphetamine Negative ng/ mL 1 [address] [place] [address] [phone] Urine Barbiturates Negative ng/mL 2 Urine Benzodiazepines Negative ng/mL 3 Urine Cocaine Negative ng/mL 4 Urine Phencyclidine Negative ng/mL Cutoff: 25 Urine Tetrahydrocannabinol Negative ng/mL Cutoff: 50 5 Creatinine, Urine 80.8 mg/dL Specific [place] 1.012 pH 5.9 Oxidants Negative 6 Adulterants Comment Normal Codeine, Ur Present ng/mL Abnormal Cutoff: 25 7 Jthkkfo-6-nhtl-glucuronide, Ur Present ng/mL Abnormal 8 Morphine, Ur Present ng/mL Abnormal Cutoff: 25 9 Xojmkltk-8-aied-glucuronide, U Present ng/mL Abnormal 10 6-monoacetylmorphine, Ur Present ng/mL Abnormal Cutoff: 25 11 Hydrocodone, Ur Not Detected ng/mL Cutoff: 25 12 Norhydrocodone, Ur Not Detected ng/mL Cutoff: 25 13 Dihydrocodeine, Ur Not Detected ng/mL Cutoff: 25 14 Hydromorphone, Ur Not Detected ng/mL Cutoff: 25 15 Crbqmoldcjnfv2ixrnvbawqfjozmb Not Detected ng/mL 16 Oxycodone, Ur Not Detected ng/mL Cutoff: 25 17 Noroxycodone, Ur Not Detected ng/mL Cutoff: 25 18 Oxymorphone, Ur Not Detected ng/mL Cutoff: 25 19 Wwfzrcyltnh-5-trgc-glucuronide Not Detected ng/mL 20 Noroxymorphone, Ur Not Detected ng/mL Cutoff: 25 21 Fentanyl, Ur Present ng/mL Abnormal Cutoff: 2 22 Norfentanyl, Ur Present ng/mL Abnormal Cutoff: 2 23 Meperidine, Ur Not Detected ng/mL Cutoff: 25 24 Normeperidine, Ur Not Detected ng/mL Cutoff: 25 25 Naloxone, Ur Not Detected ng/mL Cutoff: 25 26 Ynxgdenp-9-wgoc-glucuronide, U Present ng/mL Abnormal 27 Methadone, Ur Not Detected ng/mL Cutoff: [...] Ur Not Detected ng/mL Cutoff: 50 35 Qcncuklbxf-ninn-rdeixfuaapc, U Not Detected ng/mL 36 Buprenorphine, Ur Not Detected ng/mL Cutoff: 5 37 Norbuprenorphine, Ur Present ng/mL Abnormal Cutoff: 5 38 Norbuprenorphine glucuronide Present ng/mL Abnormal Cutoff: 20 39 Opioid Interpretation See Comment 40 1 REFERENCE VALUE Cutoff: 500 2 REFERENCE VALUE Cutoff: 200 3 REFERENCE VALUE Cutoff: 100 4 REFERENCE VALUE Cutoff: 150 5 ADDITIONAL INFORMATION This report is intended for use in clinical monitoring or management of patients. It is not intended for use in employment-related testing. Test Performed by: [facility] - [address] [address] Long Term Care Pharmacist: Jose David Garrett M.D. Ph.D.; CLIA# [id number] 6 REFERENCE VALUE Cutoff: 200 mg/L 7 Tylenol 3 8 Metabolite of codeine REFERENCE VALUE Cutoff: 100 9 Ida Moraes, MS Contin; Also a minor metabolite (10%) of codeine and can be seen in low concentrations (<2,000 ng/mL) with poppy seed ingestion. 10 Metabolite of morphine REFERENCE VALUE Cutoff: 100 11 Metabolite of heroin 12 Lortab, [place], Vicodin; Also a very minor metabolite of [...] buprenorphine 40 Test detected the presence of codeine, frgnlrs-5-pazy-glucuronide (metabolite of codeine), morphine, and tjrofnne-0-ezsj-glucuronide (metabolite of morphine). Suspect recent use of codeine and/or morphine within the past three days. Test detected the presence of morphine, azkpvldw-6-fiyz-glucuronide (morphine metabolite) and the metabolite of heroin (6-monoacetylmorphine). Suspect recent use of heroin. Test detected the presence of fentanyl and its metabolite (norfentanyl). Suspect use of fentanyl within the past three days. Test detected the presence of buprenorphine metabolites (norbuprenorphine and norbuprenorphine glucuronide) along with naloxone metabolite (salsqsvw-3-huou-glucuronide). Suspect use of buprenorphine with naloxone (e.g. Suboxone) within the past three days. ADDITIONAL INFORMATION This test was developed and its performance characteristics determined by [facility] in a manner consistent with CLIA requirements. This test has not been cleared or approved by the U.S. Food and Drug Administration. Procedures Date Code Description Status 06/20/2019 88530 EKG Tracing & Interpretation Completed 04/03/2019 42295 Polysomnography Sleep Staging 4+ Parameters W/Cpap Completed 03/05/2019 08398 Diffusing Capacity Completed 03/05/2019 35738 Plethysmography Determination Lung Volumes & Per Airway Completed Resist 03/05/2019 17863 Pulmonary Function><Bronchodil Completed 03/02/2018 26033878 Colonoscopy Completed Medical Devices Description No Information Available Encounters Type Date Location Provider Dx Diagnosis Office Visit 07/24/2019 Pulmonology Jere Harrison44.9 Chronic 1:00p [facility] Kan obstructive Nut Processing Supervisor pulmonary disease, unspecified J96.10 Chronic respiratory failure, unsp w hypoxia or hypercapnia F17.210 Nicotine dependence, cigarettes, uncomplicated Office Visit 06/20/2019 3:40p [facility] Samson Rodriguez J44.9 Chronic Of Nut Processing Supervisor DO Audi obstructive FACC pulmonary disease, unspecified Z72.0 Tobacco use F11.29 Opioid dependence with unspecified opioid-induced disorder Z98.61 Coronary angioplasty status I25.2 Old myocardial infarction I63.9 Cerebral infarction, unspecified Office Visit 05/22/2019 10:00a Pulmonology Jaylene Bedolla J44.9 Chronic [facility] obstructive Nut Processing Supervisor pulmonary disease, unspecified J96.10 Chronic respiratory failure, unsp w hypoxia or hypercapnia F17.210 Nicotine dependence, cigarettes, uncomplicated Office Visit 04/19/2019 10:00a Pulmonology And Chioma J44.9 Chronic [facility] obstructive Nut Processing Supervisor pulmonary disease, unspecified J96.10 Chronic respiratory failure, unsp w hypoxia or hypercapnia F17.210 Nicotine dependence, cigarettes, uncomplicated Office Visit 02/21/2019 [facility] Internal Yamileth Burgesse, F11.10 Opioid abuse, 11:20a Medicine - [facility] uncomplicated Office Visit 02/06/2019 Pulmonology And Carla J44.9 Chronic obstructive 1:00p [facility] MD Eugenio pulmonary disease, [facility] unspecified J96.10 Chronic respiratory failure, unsp w hypoxia or hypercapnia R06.83 Snoring F17.210 Nicotine dependence, cigarettes, uncomplicated Office Visit 01/30/2019 2:00p [facility] Internal Bri Araujo MD R53.83 Other fatigue Medicine - [facility] I10 Essential (primary) hypertension I25.2 Old myocardial infarction J44.9 Chronic obstructive pulmonary disease, unspecified Assessments Date Code Description Provider 07/24/2019 J44.9 Chronic obstructive pulmonary disease, Chioma Kan NP unspecified 07/24/2019 J96.10 Chronic respiratory failure, unspecified Chioma Kan NP whether with hypoxia or hypercapnia 07/24/2019 F17.210 Nicotine dependence, cigarettes, Chioma Kan NP uncomplicated 06/20/2019 J44.9 Chronic obstructive pulmonary disease, Samson Huntley, DO FACC unspecified 06/20/2019 Z72.0 Tobacco use Samson Huntley, DO FACC 06/20/2019 F11.29 Opioid dependence with unspecified Samson Huntley, DO FACC opioid-induced disorder 06/20/2019 Z98.61 Coronary angioplasty status Samson Huntley, DO FACC 06/20/2019 I25.2 Old myocardial infarction Samson Huntley, DO FACC 06/20/2019 I63.9 Cerebral infarction, unspecified Samson Huntley, DO FACC 05/22/2019 J44.9 Chronic obstructive pulmonary disease, Chioma Kan NP unspecified 05/22/2019 J96.10 Chronic respiratory failure, unspecified Chioma Kan NP whether with hypoxia or hypercapnia 05/22/2019 F17.210 Nicotine dependence, cigarettes, Chioma Kan NP uncomplicated 04/19/2019 J44.9 Chronic obstructive pulmonary disease, Chioma Kan NP unspecified 04/19/2019 J96.10 Chronic respiratory failure, unspecified Chioma Kan NP whether with hypoxia or hypercapnia 04/19/2019 F17.210 Nicotine dependence, cigarettes, 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 04/03/2019 G47.33 Obstructive sleep apnea (adult) Carla Becker MD (pediatric) 03/05/2019 J44.9 Chronic obstructive pulmonary disease, Carla Becker MD unspecified 02/21/2019 F11.10 Opioid abuse, uncomplicated Yamileth Byrnes MD 02/06/2019 J44.9 Chronic obstructive pulmonary disease, Carla Becker MD unspecified 02/06/2019 J96.10 Chronic respiratory failure, unspecified Carla Becker MD whether with hypoxia or hypercapnia 02/06/2019 R06.83 Snoring Carla Becker MD 02/06/2019 F17.210 Nicotine dependence, cigarettes, Carla Becker MD uncomplicated 01/30/2019 R53.83 Other fatigue Bri Araujo MD 01/30/2019 I10 Essential (primary) hypertension Bri Araujo MD 01/30/2019 I25.2 Old myocardial infarction Bri Araujo MD 01/30/2019 J44.9 Chronic obstructive pulmonary disease, Bri Araujo MD unspecified Plan of Treatment Future Appointment(s):07/31/2019 3:00 pm - Bri [facility] - Chioma Kan NPJ44.9 Chronic obstructive pulmonary disease, unspecifiedNew Medication:Nystatin 364655 Unit/ML - 257869 units four times a day swish then spit.Prednisone 5 mg - 2 tab daily for 1 week , then 1 tab daily for 1 week, then 1/2 tab for 1 weekFollow up:6 weeksRecommendations:STOP Advair and Incruse and START Bevespi I have also refilled your rescue inhaler and xyaxezryA00.10 Chronic respiratory failure, unspecified whether with hypoxia or hypercapniaRecommendations:We will try switching you over to the other kind of breathing machine called the EefwluZ38.210 Nicotine dependence, cigarettes, uncomplicated Functional Status Description No Information Available Mental Status Description No Information Available Referrals Refer to Reason for Referral Status Appt Date Mily Haywood MD pt needs new prescriber for suboxone as I Sent will be out on leave soon, was discharged from [facility] Not scheduled yet 02/26/2019 Resent 03/07/19 lmtco1/06/[address] [place] [id number] [phone]
--- OUTSIDE RECORDS SUMMARY | 2019-08-24 19:20 | XMS REPORT | Continuity of Care Document ---
:1965 External Reference #:[id number] Author Name Chioma Kan NP (transmitted by agent of provider Hafsa Khan) Address [address], [address] [place] [address] Care Team Providers Name Role Phone Carla Becker MD - Pulmonary Care Team Information Pre School Manager [phone] Disease Bri Araujo MD - Internal Medicine Care Team Information Pre School Manager [phone] Problems Active Problems Provider Date Continuous opioid [...] Pankaj Leslie M.D.,FACP Onset: 07/15/2016 [facility] Pankaj Leslie M.D.,FACP [...] Chioma 07/24/2019 AMARJIT Kan 9-4.8mcg/Act Aerosol Nystatin 061009 units four 473ml J44.9 Chioma 07/24/2019 594167Smni/ML times a day swish AMARJIT Kan Suspension then spit. Prednisone 2 tab daily for 1 25tabs Smita.9 Chioma 07/24/2019 10mg Tablets week, then 1 tab AMARJIT Kan daily for 1 week, then 1/2 tab daily for 1 week Protonix 1 po qd 90tabs Bri Araujo MD 06/22/[address] Aspirin take 1/2 tab po qd 30tabs [...] Liquid as needed, may repeat if necessary Losartan Potassium 1 by mouth every 90tabs I10 Bri Araujo MD 12/21/2018 50mg day Tablets Nicotine 1 patch 30units F17.210 Yamileth Byrnes MD 12/21/2018 21mg/24HR transdermally every Patches 24HR day Furosemide Take One Tablet By 14talydia R60.1 Bri Araujo MD 11/30/2018 20mg Tablets Mouth Once DAILYprn Pantoprazole Sodium take one tablet by 30talydia Smith, 01/13/2018 mouth once daily MHema, FACP 40mg Tablets Gabapentin take one capsule by 90michael Araujo MD 04/27/2017 300mg mouth three times Capsules daily (taken as needed) Albuterol Sulfate 1 vial via 75ml Yamileth Byrnes MD 12/01/2016 nebulizer 4 times (2.5mg/3ML) 0.083% daily as needed Nebulizer Ventolin HFA inhale 2 puffs by 18units Chioma mouth four times a AMARJIT Kan 108(90Base) mcg/Act day as needed Aerosol Diphenhydramine HCL one at bedtime as 30caps Pankaj Mazariegos needed Su Leslie,FACP 25mg Capsules Amitriptyline HCL one tab daily prn Unknown 25mg Tablets Ipratropium Use every 4-6 hours 90ml Chioma [place]/Albuterol as needed AMARJIT Kan Sulfate 0.5-2.5(3)mg/3ML Solution Magnesium Oxide take one tablet by 30talydia Araujo MD mouth twice daily 400(241.3mg) mg Tablets Diltiazem HCL ER take one capsule by 30capray Araujo MD Coated Beads mouth once daily 300mg Caps ER 24HR Advair Diskus 1 puff by mouth 60units Carla Becker, twice a day 250-50mcg/Dose Aerosol History Medications Prednisone 2 tab daily for 25tabs J44.9 Chioma 07/24/2019 - 5mg 1 week, then 1 AMARJIT Kan 07/24/2019 Tablets tab daily for 1 week, then 1/2 tab for 1 week Aspirin 81 1 by mouth Elen Smith M.D., 04/30/2019 - 81mg every day FACP 06/19/2019 Tablets Aspirin 81 take one-half 15tabs Bri Araujo MD 04/30/2019 - 81mg tablet by mouth 06/19/[address] every day Incruse Ellipta inhale one puff 30units Carla Becker MD 03/27/2019 - by mouth every 06/19/2019 62.5mcg/Inh Aerosol day Trelegy Ellipta 1 puff daily 60units Carla Becker MD 02/22/2019 - 06/19/2019 100-62.5-25mcg/Inh Aerosol Nystatin 5cc, swish and 60ml J44.9 Carla Becker MD 02/06/2019 - spit, twice 07/24/2019 510370Mgwt/ML daily Suspension Prednisone 1 by mouth 14tabs J44.9 Carla Becker MD 02/06/2019 - 10mg every day 04/19/2019 Tablets Medications Administered in Office Medication SIG Qnty Indications Ordering Provider Date Technetium TC 99M TetrofosminJamaal M.D. 09/28/2012 Unit Dose Up To 40 Millicuries Injection Immunizations CPT Code Status Date Vaccine Lot # [id number] Given 02/20/2018 Influenza Virus Vaccine, Quadrivalent, Split, [id number] Preservative Free [id number] Given 06/08/2017 Influenza Virus Vaccine, Quadrivalent, Split, [id number] Preservative Free 17329 Given 01/03/2017 Pneumonia Vaccine [id number] Vital Signs Date Vital Result Comment 07/24/2019 [...] Result H/L Range Note Drug Abuse 02/21/2019 [facility] Urine Amphetamine Negative ng/ mL 1 [address] [place] [address] [phone] Urine Barbiturates Negative ng/mL 2 Urine Benzodiazepines Negative ng/mL 3 Urine Cocaine Negative ng/mL 4 Urine Phencyclidine Negative ng/mL Cutoff: 25 Urine Tetrahydrocannabinol Negative ng/mL Cutoff: 50 5 Creatinine, Urine 80.8 mg/dL Specific [place] 1.012 pH 5.9 Oxidants Negative 6 Adulterants Comment Normal Codeine, Ur Present ng/mL Abnormal Cutoff: 25 7 Bfvhkvs-0-wqdk-glucuronide, Ur Present ng/mL Abnormal 8 Morphine, Ur Present ng/mL Abnormal Cutoff: 25 9 Ytwubhtp-7-vivt-glucuronide, U Present ng/mL Abnormal 10 6-monoacetylmorphine, Ur Present ng/mL Abnormal Cutoff: 25 11 Hydrocodone, Ur Not Detected ng/mL Cutoff: 25 12 Norhydrocodone, Ur Not Detected ng/mL Cutoff: 25 13 Dihydrocodeine, Ur Not Detected ng/mL Cutoff: 25 14 Hydromorphone, Ur Not Detected ng/mL Cutoff: 25 15 Ndmxbjruszoeb1ttdsfidhfhgzcfc Not Detected ng/mL 16 Oxycodone, Ur Not Detected ng/mL Cutoff: 25 17 Noroxycodone, Ur Not Detected ng/mL Cutoff: 25 18 Oxymorphone, Ur Not Detected ng/mL Cutoff: 25 19 Tvsvdecketa-4-llbn-glucuronide Not Detected ng/mL 20 Noroxymorphone, Ur Not Detected ng/mL Cutoff: 25 21 Fentanyl, Ur Present ng/mL Abnormal Cutoff: 2 22 Norfentanyl, Ur Present ng/mL Abnormal Cutoff: 2 23 Meperidine, Ur Not Detected ng/mL Cutoff: 25 24 Normeperidine, Ur Not Detected ng/mL Cutoff: 25 25 Naloxone, Ur Not Detected ng/mL Cutoff: 25 26 Dutinlfz-0-iycx-glucuronide, U Present ng/mL Abnormal 27 Methadone, Ur [...] Ur Not Detected ng/mL Cutoff: 50 35 Qvqjzipldr-aeqv-ebhvmcgsgjn, U Not Detected ng/mL 36 Buprenorphine, Ur [...] use in employment-related testing. Test Performed by: [facility] [place] - [address] [address] Ingredient Specialist: Jose David Garrett M.D. Ph.D.; CLIA# [id number] 6 REFERENCE VALUE Cutoff: 200 mg/L 7 Tylenol 3 8 Metabolite of codeine REFERENCE VALUE Cutoff: 100 9 Ida Moraes, MS Contin; Also a minor metabolite (10%) of codeine and can be seen in low concentrations (<2,000 ng/mL) with poppy seed ingestion. 10 Metabolite of morphine REFERENCE VALUE Cutoff: 100 11 Metabolite of heroin 12 Lortab, [place], Vicodin; Also a very minor metabolite of [...] 40 Test detected the presence of codeine, mrccduy-3-lyel-glucuronide (metabolite of codeine), morphine, and knguieni-9-kodk-glucuronide (metabolite of morphine). Suspect recent use of codeine and/or morphine within the past three days. Test detected the presence of morphine, tqvqslce-8-qsaw-glucuronide (morphine metabolite) and the metabolite of heroin (6-monoacetylmorphine). Suspect recent use of heroin. Test detected the presence of fentanyl and its metabolite (norfentanyl). Suspect use of fentanyl within the past three days. Test detected the presence of buprenorphine metabolites (norbuprenorphine and norbuprenorphine glucuronide) along with naloxone metabolite (ltctkdhp-9-rvgg-glucuronide). Suspect use of buprenorphine with naloxone (e.g. Suboxone) within the past three days. ADDITIONAL INFORMATION This test was developed and its performance characteristics determined by [facility] in a manner consistent with CLIA requirements. This test has not been cleared or approved by the U.S. Food and Drug Administration. Procedures Date Code Description Status 06/20/2019 21052 EKG Tracing & Interpretation Completed 04/03/2019 52236 Polysomnography Sleep Staging 4+ Parameters W/Cpap Completed 03/05/2019 99218 Diffusing Capacity Completed 03/05/2019 08557 Plethysmography Determination Lung Volumes & Per Airway Completed Resist 03/05/2019 31390 Pulmonary Function><Bronchodil Completed 03/02/2018 79489530 Colonoscopy Completed Medical Devices Description No Information Available Encounters Type Date Location Provider Dx Diagnosis Office Visit 07/24/2019 [facility] J44.9 Chronic 1:00p [facility] AMARJIT Kan obstructive Switch Foreman pulmonary disease, unspecified J96.10 Chronic respiratory failure, unsp w hypoxia or hypercapnia F17.210 Nicotine dependence, cigarettes, uncomplicated Office Visit 06/20/2019 3:40p [facility] Samson Rodriguez J44.9 Chronic Of Rebecca Huntley DO obstructive FACC pulmonary disease, unspecified Z72.0 Tobacco use F11.29 Opioid dependence with unspecified opioid-induced disorder Z98.61 Coronary angioplasty status I25.2 Old myocardial infarction I63.9 Cerebral infarction, unspecified Office Visit 05/22/2019 10:00a [facility] And Chioma J44.9 Chronic [facility] Kan obstructive Switch [employer]man pulmonary disease, unspecified J96.10 Chronic respiratory failure, unsp w hypoxia or hypercapnia F17.210 Nicotine dependence, cigarettes, uncomplicated Office Visit 04/19/2019 10:00a [facility] Chioma J44.9 Chronic [facility] Kan obstructive Switch Foreman pulmonary disease, unspecified J96.10 Chronic respiratory failure, unsp w hypoxia or hypercapnia F17.210 Nicotine dependence, cigarettes, uncomplicated Office Visit 02/21/2019 [facility] Internal Yamileth Burgesse, F11.10 Opioid abuse, 11:20a Medicine - [facility] uncomplicated Office Visit 02/06/2019 Pulmonology And Carla J44.9 Chronic obstructive 1:00p [facility] MD Eugenio pulmonary disease, Switch Foreman unspecified J96.10 Chronic respiratory failure, unsp w hypoxia or hypercapnia R06.83 Snoring F17.210 Nicotine dependence, cigarettes, uncomplicated Office Visit 01/30/2019 2:00p [facility] Internal Bri Araujo MD R53.83 Other [...] I25.2 Old myocardial infarction Samson Huntley, DO [facility] 06/20/2019 I63.9 Cerebral infarction, unspecified Samson Huntley, DO [facility] 05/22/2019 J44.9 Chronic obstructive pulmonary disease, Chioma Kan, FILM TESTS CHECKER unspecified 05/22/2019 J96.10 Chronic respiratory failure, unspecified Chioma Kan NP whether with hypoxia or hypercapnia 05/22/2019 F17.210 Nicotine dependence, cigarettes, Chioma Kan, FILM TESTS CHECKER uncomplicated 04/19/2019 J44.9 Chronic obstructive pulmonary disease, Chioma Kan, FILM TESTS CHECKER unspecified 04/19/2019 J96.10 Chronic respiratory failure, unspecified Chioma Kan NP whether with hypoxia or hypercapnia 04/19/2019 F17.210 Nicotine dependence, cigarettes, Chioma Kan, FILM TESTS CHECKER uncomplicated 04/03/2019 G47.33 Obstructive sleep apnea (adult) [...] Araujo MD unspecified Plan of Treatment Future Appointment(s):09/17/2019 2:00 pm - Chioma Kan NP at [facility]07/31/2019 3:00 pm - Bri Araujo MD at [facility] Internal Medicine - [facility]07/24/2019 - Chioma Kan NPJ44.9 Chronic obstructive pulmonary disease, unspecifiedNew Medication:Nystatin 211514 Unit/ ML - 581991 units four times a day swish then spit.Prednisone 10 mg - 2 tab daily for 1 week, then 1 tab daily for 1 week, then 1/2 tab daily for 1 weekPrednisone 5 mg - 2 tab daily for 1 week, then 1 tab daily for 1 week, then 1/2 tab for 1 weekFollow up:6 weeksRecommendations:STOP Advair and Incruse and START Bevespi I have also refilled your rescue inhaler and mqgipgpbH17.10 Chronic respiratory failure, unspecified whether with hypoxia or hypercapniaRecommendations:We will try switching you over to the other kind of breathing machine called the UultrcQ39.210 Nicotine dependence, cigarettes, uncomplicated Functional Status Description No Information Available Mental Status Description No Information Available Referrals Refer to Reason for Referral Status Appt Date Mily Haywood MD pt needs new prescriber for suboxone as I Sent will be out on leave soon, was discharged from [facility] Not scheduled yet 02/26/2019 Resent 03/07/19 [email or web address]// [address] [place] [phone]
--- OUTSIDE RECORDS SUMMARY | 2019-08-24 19:20 | XMS REPORT | Continuity of Care Document ---
:1965 External Reference #:[id number] Author Name Lloyd Connolly, AMARJIT Address [address], [place] [address] Care Team Providers Name Role Phone Carla Becker MD - Pulmonary Care Team Information Records Management Director Disease Bri Araujo MD - Internal Medicine Care Team Information Records Management Director Problems Active Problems Provider Date Continuous opioid [...] Hospital History of cerebrovascular accident Pankaj Leslie M.D.,FACP [...] Medications SIG Qnty Indications Ordering Date Provider Amoxicillin/Clavulana take one tablet q12 20tabs K12.2 Lloyd Connolly NP te Potassium hours for 10 days 875-125mg Tablets Chlorhexidine swish and spit 15ml 118ml K12.2 Lloyd Connolly NP 08/23/2019 Gluconate for 30 seconds 0.12% twice daily Solution Bevespi Aerosphere 2 puff twice a day 2units Chioma 07/24/2019 AMARJIT Kan 9-4.8mcg/Act Aerosol Nystatin 967498 units four 473ml J44.9 Chioma 07/24/2019 703219Jzff/ML times a day swish AMARJIT Kan Suspension then spit. Prednisone 2 tab daily for 1 25tabs Beth9 Chioma 07/24/2019 10mg Tablets week, then 1 tab AMARJIT Kan daily for 1 week, then 1/2 tab daily for 1 week Protonix 1 by mouth every 90tabs Lloyd Connolly NP 06/22/[address] Aspirin take 1/2 tab by 30tabs Bri Araujo MD 04/30/2019 325mg Tablets mouth every day GNP Nicotine Take one lozenge by 72units Bri Araujo MD 03/08/2019 Polacrilex mouth every 1-2 4mg Lozenges hours for cravings, not to exceed 5 lozenges in 6 hours or 20 lozenges/day Buprenorphine 1 strips sublingual 28units Smita.Dania Byrnes MD 02/21/2019 Hydrochloride/Naloxon twice a day e Hydrochloride 8-2mg Film Narcan 1 sprays in nostril 2units Myron Byrnes MD 02/21/2019 4mg/0.1ML Liquid as needed, may repeat if necessary Nicotine 1 patch 30units F17.210 Bri Araujo MD 12/21/2018 21mg/24HR transdermally every Patches 24HR day Losartan Potassium 1 by mouth every 90tabs I10 Bri Araujo MD 12/21/2018 50mg day Tablets Furosemide Take One Tablet By 14tabs R60.1 Bri Araujo MD 11/30/2018 20mg Tablets Mouth Once DAILYprn Pantoprazole Sodium take one tablet by 30tabs Elen Smith, 01/13/2018 mouth once daily Su, FACP 40mg Tablets DR Gabapentin take one capsule by 90caps Bri Araujo MD 04/27/2017 300mg mouth three times Capsules daily (taken as needed) Albuterol Sulfate 1 vial via 75ml Bri Araujo MD 12/01/2016 nebulizer 4 times (2.5mg/3ML) 0.083% daily as needed Nebulizer Advair Diskus 1 puff by mouth 60units Carla Becker, twice a day 250-50mcg/Dose Aerosol Diltiazem HCL ER take one capsule by 30caps Bri Araujo MD Coated Beads mouth once daily 300mg Caps ER 24HR Magnesium Oxide Take 1 Tablet By 60tabs Bri Araujo MD Mouth Two Times 400(241.3mg) mg Daily Tablets Ipratropium Use every 4-6 hours 90ml Chioma [place]/Albuterol as needed AMARJIT Kan Sulfate 0.5-2.5(3)mg/3ML Solution Amitriptyline HCL one tab daily prn Unknown 25mg Tablets Diphenhydramine HCL one at bedtime as 30caps Pankaj Mazariegos needed Su Leslie,FACP 25mg Capsules Ventolin HFA inhale 2 puffs by 18units Chioma mouth four times a AMARJIT Kan 108(90Base) mcg/Act day as needed Aerosol History Medications Prednisone 2 tab daily [...] - 81mg tablet by mouth 06/19/2019 Tablets every day Incruse Ellipta inhale one puff 30units Carla Becker MD 03/27/2019 - by mouth every 06/19/2019 62.5mcg/Inh Aerosol day Trelegy Ellipta 1 puff daily 60units Carla Becker MD 02/22/2019 - 06/19/2019 100-62.5-25mcg/Inh Aerosol Medications Administered in Office Medication SIG Qnty Indications Ordering Provider Date Technetium TC 99M Tetrofosmin, Per Olimpia Thompson M.D. 09/28/2012 Unit Dose Up To 40 Millicuries Injection Immunizations CPT Code Status Date Vaccine Lot # [id number] Given 02/20/2018 Influenza Virus Vaccine, Quadrivalent, Split, [id number] Preservative Free 93335 Given 06/08/2017 Influenza Virus Vaccine, Quadrivalent, Split, [id number] Preservative Free 22225 Given 01/03/2017 Pneumonia Vaccine [id number] Vital Signs Date Vital Result Comment 07/24/2019 [...] Index) 30.1 kg/m2 Ejection Fraction 50-55% Results Description No Information Available Procedures Date Code Description Status 06/20/2019 57354 EKG Tracing & Interpretation Completed 04/03/2019 57846 Polysomnography Sleep Staging 4+ Parameters W/Cpap Completed 03/05/2019 98926 Diffusing Capacity Completed 03/05/2019 23869 Plethysmography Determination Lung Volumes & Per Airway Completed Resist 03/05/2019 96946 Pulmonary Function><Bronchodil Completed 03/02/2018 87972262 Colonoscopy Completed Medical Devices Description No Information Available Encounters Type Date Location Provider Dx Diagnosis Office Visit 07/24/2019 [facility] J44.9 Chronic 1:00p [facility] Kan obstructive Senior [employer]i Software Engineer pulmonary disease, unspecified J96.10 Chronic respiratory failure, unsp w hypoxia or hypercapnia F17.210 Nicotine dependence, cigarettes, uncomplicated Office Visit 06/20/2019 3:40p [facility] Samson Harrison44.9 Chronic Of Senior [employer]i Software Engineer Huntley, DO obstructive FACC pulmonary disease, unspecified Z72.0 Tobacco use F11.29 Opioid dependence with unspecified opioid-induced disorder Z98.61 Coronary angioplasty status I25.2 Old myocardial infarction I63.9 Cerebral infarction, unspecified Office Visit 05/22/2019 10:00a [facility] And Chioma J44.9 Chronic [facility] Kan obstructive Senior [employer]i Software Engineer pulmonary disease, unspecified J96.10 Chronic respiratory failure, unsp w hypoxia or hypercapnia F17.210 Nicotine dependence, cigarettes, uncomplicated Office Visit 04/19/2019 10:00a [facility] And [facility] J44.9 Chronic [facility] Kan obstructive Senior Ui Software Engineer pulmonary disease, unspecified J96.10 Chronic respiratory failure, unsp w hypoxia or hypercapnia F17.210 Nicotine dependence, cigarettes, uncomplicated Assessments Date Code Description Provider 08/23/2019 K12.2 Cellulitis and abscess of mouth Lloyd Connolly NP 07/24/2019 J44.9 Chronic obstructive pulmonary disease, Chioma Kan NP unspecified 07/24/2019 J96.10 Chronic respiratory failure, unspecified Chioma Kan NP whether with hypoxia or hypercapnia 07/24/2019 F17.210 Nicotine dependence, cigarettes, Chioma Kan NP uncomplicated 06/20/2019 J44.9 Chronic obstructive pulmonary disease, Samson Huntley, DO FACC unspecified 06/20/2019 Z72.0 Tobacco use Samson Huntley, DO FACC 06/20/2019 F11.29 Opioid dependence with unspecified Samson SToni Huntley, DO FACC opioid-induced disorder 06/20/2019 Z98.61 Coronary angioplasty status Samson Huntley, DO [facility] 06/20/2019 I25.2 Old myocardial infarction Samson Huntley, DO [facility] 06/20/2019 I63.9 Cerebral infarction, unspecified Samson Huntley, DO [facility] 05/22/2019 J44.9 Chronic obstructive pulmonary disease, Chioma Alvarezssner, HOME HEALTH TRAVEL PT unspecified 05/22/2019 J96.10 Chronic respiratory failure, unspecified Chioma Kan, HOME HEALTH TRAVEL PT whether with hypoxia or hypercapnia 05/22/2019 F17.210 Nicotine dependence, cigarettes, Chiomanatalia Kan, HOME HEALTH TRAVEL PT uncomplicated 04/19/2019 J44.9 Chronic obstructive pulmonary disease, Chiomanatalia Kan, HOME HEALTH TRAVEL PT unspecified 04/19/2019 J96.10 Chronic respiratory failure, unspecified Chiomanatalia Kan, HOME HEALTH TRAVEL PT whether with hypoxia or hypercapnia 04/19/2019 F17.210 Nicotine dependence, cigarettes, Chiomanatalia Kan, HOME HEALTH TRAVEL PT uncomplicated 04/03/2019 G47.33 Obstructive sleep apnea (adult) Carla Becker MD (pediatric) 03/05/2019 J44.9 Chronic obstructive pulmonary disease, Carla Becker MD unspecified Plan of Treatment Future Appointment(s):10/04/2019 4:20 pm - Bri Araujo MD at [facility] Internal Medicine - [facility]09/17/2019 2:00 pm - Chioma Kan NP at [facility]08/23/2019 - Lloyd Connolly NPK12.2 Cellulitis and abscess of mouthNew Medication:Amoxicillin/Clavulanate Potassium 875-125 mg - take one tablet q12 hours for 10 daysChlorhexidine Gluconate 0.12 % - swish and spit 15ml for 30 seconds twice dailyComments:Complete the entire course of antibiotic.Use the mouth wash as directed on the bottle. You can take Tylenol 1, 000 mg three times daily temporarily for pain.It is important to get reestablished with your dentist to have this taken care of.If your symptoms are worsening you should go to the ER.Follow up:prn Functional Status Description No Information Available Mental Status Description No Information Available Referrals Description No Information Available
[2019-08-24] MEDS ORDERED: NS 0.9% 1000 ML** 1,000 ML IV ONE (20:05)
[2019-08-24] MEDS ORDERED: Albuterol HFA INHALER* 8 gm MDI INH ONE (20:06)
[2019-08-24] MEDS ORDERED: methylPREDNISolone 125 MG* 2 ML VIAL IV ONE (20:06)
--- NOTE | 2019-08-24 20:07 | ED ---
Shortness of Breath - HPI Summary HPI Summary: Patient provides constantly changing history of present illness, is somnolent but oriented when roused to answer questions, and rambling in speech. Patient' s partner was contacted and stated that patient was sleeping all day and when she went to wake him up at 6pm, he would not follow commands, and did not know where he was. Patient's partner denies observing any other symptoms, injury. Patient although rambling denies fever, cough, sore throat, SOB, CP, N/V/D, abdominal pain, change in urine, change in BM. Denies EtOH or recreational drug use. Patient has history of opiate abuse, per partner patient is currently taking Suboxone, not drinking EtOH or recreational drugs. Medical history COPD, opiate abuse, CAD, CVA, HTN, CKD. 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 Associate Onset/Duration: Gradual Onset, Lasting Hours Current Severity: Moderate Associated Signs & Symptoms: Negative - Allergy/Home Medications Allergies/Adverse Reactions: Allergies Allergy/AdvReac Type Severity Reaction Status Date / Time naproxen Allergy Swelling Verified 11/25/18 23:06 lisinopril AdvReac Coughing Verified 01/19/19 15:07 Home Medications: Home Medications Pantoprazole TAB * [Protonix TAB*] 40 mg PO QAM 02/27/18 [History Confirmed ] dilTIAZem HCl [Cartia Xt] 300 mg PO QAM 02/27/18 [History Confirmed 08/24/19] Albuterol HFA INHALER* [Ventolin HFA Inhaler*] 2 puff INH QID PRN 01/19/19 [ History Confirmed 08/24/19] Albuterol/Ipratropium NEB.BATOOL* [Duoneb (Albuterol 2.5 MG/Ipratropium 0.5 MG)] 1 neb INH QID PRN 01/19/19 [History Confirmed 08/24/19] Aspirin TAB* [Aspirin 325 MG TAB*] 0.5 tab PO DAILY 01/19/19 [History Confirmed 08/24/19] Furosemide TAB* [Lasix TAB*] 20 mg PO DAILY PRN 01/19/19 [History Confirmed ] Gabapentin CAP(*) [Neurontin 300 CAP(*)] 300 mg PO TID PRN 01/19/19 [History Confirmed 08/24/19] Losartan Potassium [Cozaar] 50 mg PO DAILY 01/19/19 [History Confirmed 08/24/19] Magnesium Oxide TAB* [MagOx 400 TAB*] 400 mg PO BID 01/19/19 [History Confirmed 08/24/19] Nicotine PATCH 21 MG/24 HR* 21 mg TRANSDERM DAILY PRN 01/19/19 [History Confirmed 08/24/19] Nicotine Polacrilex [Nicotine Gum] 4 mg PO Q2H PRN 01/19/19 [History Confirmed 08/24/19] diPHENhydraMINE PO* [Benadryl PO 25 MG TAB*] 25 mg PO BEDTIME PRN 01/19/19 [ History Confirmed 08/24/19] dilTIAZem HCl [Diltiazem 24Hr ER] 300 mg PO DAILY 08/24/19 [History Confirmed ] PMH/Surg Hx/FS Hx/Imm Hx Endocrine/Hematology History: Reports: Hx Anticoagulant Therapy - Aspirin "I'm supposed to be on Plavix" but I am not taking it. Denies: Hx Diabetes, Hx Thyroid Disease Cardiovascular History: Reports: Hx Angina, Hx Coronary Artery Disease - 3 Cardiac stents placed-2008, Hx Hypertension, Hx Myocardial Infarction, Other Cardiovascular Problems/Disorders - Hyperkalemia 12/31/17 Denies: Hx Congestive Heart Failure, Hx Deep Vein Thrombosis, Hx Pacemaker/ ICD Respiratory History: Reports: Hx Asthma - He uses inhalers (he uses albuterol). , Hx Chronic Obstructive Pulmonary Disease (COPD), Hx Pneumonia, Hx Pulmonary Edema - 12/31/17, Hx Sleep Apnea, Other Respiratory Problems/Disorders - Pulmonary edema-12/31/17 Denies: Hx Lung Cancer GI History: Reports: Hx Gastroesophageal Reflux Disease - on medication, Other GI Disorders - epigastric pain and rectal bleeding Denies: Hx Cirrhosis, Hx Crohn's Disease, Hx Gall Bladder Disease, Hx Gastrointestinal Bleed, Hx Ulcer, Hx Urosepsis History: Reports: Hx Acute Renal Failure - Stage 3, Hx Kidney Stones - 20 years ago Denies: Hx Renal Disease, Other Problems/Disorders Musculoskeletal History: Denies: Hx Arthritis, Hx Osteoporosis, Other Musculoskeletal History Sensory History: Denies: Hx Contacts or Glasses, Hx Hearing Aid Opthamlomology History: Denies: Hx Contacts or Glasses Neurological History: Reports: Hx CVA Denies: Hx Dementia, Hx Migraine, Hx Seizures, Hx Transient Ischemic Attacks (TIA), Other Neuro Impairments/Disorders Psychiatric History: Reports: Hx Substance Abuse Denies: Hx Anxiety, Hx Depression, Hx Schizophrenia, Hx Bipolar Disorder - Surgical History Surgery Procedure, Year, and Place: 3 Cardiac stents. Hx Anesthesia Reactions: No - Immunization History Date of Tetanus Vaccine: unk Date of Influenza Vaccine: unk Infectious Disease History: No Infectious Disease History: Denies: History Other Infectious Disease, Traveled Outside the [place] in Last 30 Days - Family History Known Family History: Positive: None, Other - POSTIVE: bone CA in brother Negative: Cardiac Disease - neg: [place] - Social History Alcohol Use: None Alcohol Amount: 1-2 times a month Hx Substance Use: Yes Substance Use Type: Reports: Marijuana, Other Substance Use Comment - Amount & Last Used: opiates Hx Tobacco Use: Yes Smoking Status (MU): Current Every Day Smoker Type: Cigarettes Amount Used/How Often: 10 cigs per day Have You Smoked in the Last Year: Yes Review of Systems Constitutional: Negative Eyes: Negative ENT: Negative Cardiovascular: Negative Respiratory: Negative Gastrointestinal: Negative Genitourinary: Negative Musculoskeletal: Negative Skin: Negative Neurological/Mental Status: Negative Psychological: Normal All Other Systems Reviewed And Are Negative: Yes Physical Exam - Summary Physical Exam Summary: Patient initially somnolent, though coherent and oriented when aroused. Rambling in speech. No respiratory distress. Regular rate and rhythm. Normal abdominal exam. Wheezing bilaterally. No peripheral edema. Triage Information Reviewed: Yes Vital Signs On Initial Exam: Initial Vitals Temp Pulse Resp BP Pulse Ox 99.3 F 98 16 160/113 90 08/24/19 20:00 08/24/19 20:00 08/24/19 20:00 08/24/19 20:00 08/24/19 20:00 Vital Signs Reviewed: Yes Appearance: Positive: Well-Appearing Skin: Positive: Warm Head/Face: Positive: Normal Head/Face Inspection Eyes: Positive: Normal Neck: Positive: Supple Respiratory/Lung Sounds: Positive: Wheezes Cardiovascular: Positive: Normal Abdomen Description: Positive: Nontender Musculoskeletal: Positive: Normal Neurological: Positive: Normal Psychiatric: Positive: Normal AVPU Assessment: Alert - Reggie Coma Scale Best Eye Response: 4 - Spontaneous Best Motor Response: 6 - Obeys Commands Best Verbal Response: 5 - Oriented Coma Scale Total: 15 Procedures - Sedation Patient Received Moderate/Deep Sedation with Procedure: No Diagnostics - Vital Signs Vital Signs Temp Pulse Resp BP Pulse Ox 08/24/19 20:00 99.3 F 98 16 160/113 90 - Laboratory Result Diagrams: 08/24/19 20:35 08/24/19 20:35 Lab Statement: Any lab studies that have been ordered have been reviewed, and results considered in the medical decision making process. Course/Dx - Course Course Of Treatment: Patient provides constantly changing history of present illness, is somnolent but oriented when roused to answer questions, and rambling in speech. Patient's partner was contacted and stated that patient was sleeping all day and when she went to wake him up at 6pm, he would not follow commands, and did not know where he was. Patient's partner denies observing any other symptoms, injury. Patient although rambling denies fever, cough, sore throat, SOB, CP, N/V/D, abdominal pain, change in urine, change in BM. Denies EtOH or recreational drug use. Patient has history of opiate abuse , per partner patient is currently taking Suboxone, not drinking EtOH or recreational drugs. Medical history COPD, opiate abuse, CAD, CVA, HTN, CKD. Patient initially somnolent. Patient initial O2 saturation 86%. O2 sats increased to 94% with 3 L of oxygen. Vital signs otherwise within normal limits. D-dimer 378. VBG O2 saturation 50%. Carbon dioxide 34. Creatinine 1.36 which is patient baseline. BNP 182. TSH 0.14. Serial troponins 0.03. EtOH negative. Flu negative. Covid test pending. Urine negative. EKG sinus rhythm, heart rate of 90, normal P axis. Chest x-ray unremarkable.. CTA negative. CT brain unremarkable. No initially somnolent, patient became alert , oriented and loud actively verbally abusive of staff. Patient demanding food , no longer falling asleep. No respiratory distress at all when not on room air. Patient doing squats in his room on room air to prove his lack of shortness of breath. Wants to be discharged, stating he will sign out AMA. O2 sats currently 90-92% on room air. Patient ambulating in the ED and arguing with staff. Patient has O2 at home, as well as CPAP. Patient able to monitor O2 sats at home. Patient discharged, advised to use to monitor O2 sats at home , use his oxygen if necessary and follow-up with primary care, or return to the ED for any new or worsening symptoms. - Diagnoses Provider Diagnoses: COPD exacerbation, Hypoxia, AMS (altered mental status) - Critical Care Time Critical Care Statement: Critical care time is provided exclusive of any time spent performing procedures. Discharge ED - Sign-Out/Discharge Documenting (check all that apply): Patient Departure - Discharge Plan Condition: Stable Disposition: HOME Patient Education Materials: Altered Mental Status (ED) Referrals: Bri Araujo MD [Primary Care Provider] - Additional Instructions: Continue to check O2 saturation at home. Wear oxygen as needed. Follow-up with primary care. Return to the ED for any new or worsening symptoms. - Billing Disposition and Condition Condition: STABLE Disposition: Home
[2019-08-24 20:51] LABS: ABS Eosinophils 0.1 10^3/ul (0-0.6); ABS Lymphocytes 1.7 10^3/ul (1.0-4.8); ABS Monocytes 0.6 10^3/ul (0-0.8); ABS Neutrophils 7.5 10^3/ul (1.5-7.7); Eosinophil % 1.2 %; Hematocrit 41 % (42-52); Hemoglobin 13.6 g/dL (14.0-18.0); Lymphocyte % 17.3 %; Mean Corpuscular HGB Conc 33 g/dL (31-36); Mean Corpuscular Hemoglobin 30 pg (27-31); Mean Corpuscular Volume 91 fL (80-94); Mean Platelet Volume 8.7 fL (7.4-10.4); Platelet Count 173 10^3/uL (150-450); Red Blood Count 4.48 10^6 /uL (4.18-5.48); Red Cell Distribution Width 16 % (10-15); White Blood Count 9.9 10^3/uL (3.5-10.8)
[2019-08-24 20:57] LABS: INR 1.01 (0.82-1.09)
[2019-08-24 21:08] LABS: ALT 16 U/L (7-52); AST 17 U/L (13-39); Albumin 3.7 g/dL (3.2-5.2); Alkaline Phosphatase 83 U/L (34-104); Anion Gap 2 mmol/L (2-11); BUN/Creatinine Ratio 22.8 (8-20); Blood Urea Nitrogen 31 mg/dL (6-24); C Reactive Protein 59.32 mg/L (<8.01); CO2 Carbon Dioxide 34 mmol/L (22-32); Calcium 9.2 mg/dL (8.6-10.3); Chloride 101 mmol/L (101-111); EGFR African American 66.6 (>60); Globulin 3.6 g/dL (2-4); Glucose 100 mg/dL (70-100); Magnesium 2.1 mg/dL (1.9-2.7); Potassium 4.5 mmol/L (3.5-5.0); Sodium 137 mmol/L (135-145); Total Protein 7.3 g/dL (6.4-8.9)
[2019-08-24 21:15] LABS: Troponin I 0.03 ng/mL (<0.03)
[2019-08-24 21:16] LABS: Alcohol < 10 mg/dL (<10)
[2019-08-24 21:25] LABS: Influenza A Molecular Negative (Negative); Influenza B Molecular Negative (Negative)
[2019-08-24 21:31] LABS: TSH (Thyroid Stimulating Horm) 0.14 mcIU/mL (0.34-5.60)
[2019-08-24] MEDS ORDERED: Iodixanol* (CONTRAST) 320 MG/ML 100 ML SDV IV ONE (21:34)
[2019-08-24 23:51] LABS: Urine Appearance Clear; Urine Bilirubin Negative (Negative); Urine Blood Negative (Negative); Urine Color Yellow; Urine Glucose 1+(50 mg/dL) (Negative); Urine Ketones Negative (Negative); Urine Nitrite Negative (Negative); Urine Protein Negative (Negative); Urine Specific Gravity 1.017 (1.010-1.030); Urine Urobilinogen Negative (Negative)
[2019-08-25 00:13] LABS: Urine Benzodiazepine Screen None Detected (None Detect); Urine Opiates Screen Presumptive Positive (None Detect)
[2019-08-25 00:16] LABS: Troponin I 0.03 ng/mL (<0.03)
[2019-08-25 01:04] VITALS: BP 142/92
== END 2019-08-25 01:02 | disposition home or self-care (01) ==
LOC: ED 19:11
DX: J44.1 Chronic obstructive pulmonary disease with (acute) exacerbation (principal); R09.02 Hypoxemia; R41.82 Altered mental status, unspecified; I12.9 Hypertensive chronic kidney disease with stage 1 through stage 4 chronic kidney disease, or unspecified chronic kidney disease; N18.3 Chronic kidney disease, stage 3 (moderate); I25.2 Old myocardial infarction; I25.10 Atherosclerotic heart disease of native coronary artery without angina pectoris; F17.210 Nicotine dependence, cigarettes, uncomplicated; Z20.828 Contact with and (suspected) exposure to other viral communicable diseases; Z79.82 Long term (current) use of aspirin; Z95.5 Presence of coronary angioplasty implant and graft; Z86.73 Personal history of transient ischemic attack (TIA), and cerebral infarction without residual deficits; Z79.01 Long term (current) use of anticoagulants; Z79.899 Other long term (current) drug therapy
CPT/HCPCS: 36415; 70450; 71045; 71275; 80053; 80307; 80320; 81003; 82803; 83605; 83690; 83735; 83880; 84443; 84484; 85025; 85379; 85610; 86140; 87040; 87635; 93005; 96361; 96374; 99284; A9270-GY; G0480; J2930; Q9967

== ENCOUNTER 2023-09-26 15:48 | Observation (INO) ==
[2023-09-26 16:33] LABS: ABS Basophils 0.1 10^3/uL (0.0-0.1); ABS Eosinophils 0.3 10^3/uL (0.0-0.5); ABS Neutrophils 7.5 10^3/uL (1.5-7.6); ABS Nucleated RBC 0.01 10^3/ul; Eosinophil % 2.6 %; Hematocrit 47.1 % (38-53); Hemoglobin 15.5 g/dL (13.2-16.3); Lymphocyte % 18.5 %; Mean Corpuscular Hemoglobin 32.1 pg (27-33); Mean Corpuscular Hgb Conc 32.8 g/dL (31-36); Mean Corpuscular Volume 97.8 fL (80-97); Mean Platelet Volume 8.5 fL (7.5-11.2); Nucleated Red Blood Cells % 0.1 %/100WBC (0.0-0.8); Platelet Count 211 10^3/uL (150-450); Red Blood Count 4.82 10^6/uL (4.06-5.63); Red Cell Distribution Width 13.6 % (12-17)
[2023-09-26 17:09] LABS: Albumin/Globulin Ratio 1.3 (1-3); C Reactive Protein 36.09 mg/L (<8.01); Calcium 9.6 mg/dL (8.6-10.3); Creatinine, Serum 1.51 mg/dL (0.67-1.17); Potassium 5.1 mmol/L (3.5-5.0); Total Bilirubin 0.6 mg/dL (0.2-1.0); eGFR CKD-EPI 53.9 (>60)
[2023-09-26] MEDS: Piperacillin/Tazobac 3.375 BAG 3.375 GM/100 ML BAG IV ONE (22:23)
[2023-09-26] MEDS: NS 0.9% 1000 ml BAG 1,000 ML IV ONE (22:23)
[2023-09-27] MEDS: Lactated Ringers 1000 ml BAG 1,000 ML IV SCH (00:45)
[2023-09-27] MEDS: Nicotine PATCH 21 MG/24 HR PATCH TRANSDERM ONE (00:46)
[2023-09-27] MEDS: Piperacillin/Tazobac 3.375 BAG 3.375 GM/100 ML BAG IV SCH ×2 (02:34→22:31)
[2023-09-27] MEDS: HYDROmorphone 1 MG/1 ML SYRINGE IV SLOW PU PRN (02:42)
[2023-09-27 06:04] LABS: ABS Basophils 0.1 10^3/uL (0.0-0.1); ABS Eosinophils 0.4 10^3/uL (0.0-0.5); ABS Lymphocytes 1.8 10^3/uL (1.0-4.8); ABS Monocytes 0.8 10^3/uL (0.0-1.1); ABS Neutrophils 7.5 10^3/uL (1.5-7.6); ABS Nucleated RBC 0.01 10^3/ul; Eosinophil % 3.7 %; Hematocrit 44.9 % (38-53); Hemoglobin 14.9 g/dL (13.2-16.3); Mean Corpuscular Hemoglobin 32.2 pg (27-33); Mean Corpuscular Hgb Conc 33.1 g/dL (31-36); Mean Corpuscular Volume 97.3 fL (80-97); Mean Platelet Volume 8.6 fL (7.5-11.2); Nucleated Red Blood Cells % 0.1 %/100WBC (0.0-0.8); Platelet Count 182 10^3/uL (150-450); Red Blood Count 4.61 10^6/uL (4.06-5.63); Red Cell Distribution Width 13.8 % (12-17); White Blood Count 10.6 10^3/uL (3.6-10.2)
[2023-09-27 06:50] LABS: Albumin 3.7 g/dL (3.2-5.2); Albumin/Globulin Ratio 1.2 (1-3); C Reactive Protein 36.41 mg/L (<8.01); Calcium 8.8 mg/dL (8.6-10.3); Creatinine, Serum 1.29 mg/dL (0.67-1.17); Potassium 4.4 mmol/L (3.5-5.0); Total Bilirubin 0.6 mg/dL (0.2-1.0); Total Protein 6.7 g/dL (6.4-8.9); eGFR CKD-EPI 65.1 (>60)
[2023-09-27] MEDS ORDERED: Aminophylline 25 MG/ML VIAL ONE (11:32)
[2023-09-27] MEDS ORDERED: Regadenoson 0.4 MG/5 ML SYRINGE ONE (11:32)
[2023-09-27] MEDS: Albuterol/Ipratropium NEB.SOL (2.5/0.5 MG) 3 ML NEB.SOLN INH PRN (23:01)
[2023-09-28] MEDS: CMCS: FLUTICAS/UMECLI/VILANT 200-62.5-25 MDI (NF) INH SCH (07:09)
[2023-09-28] MEDS ORDERED: Albuterol/Ipratropium NEB.SOL (2.5/0.5 MG) 3 ML NEB.SOLN INH PRN (10:23)
[2023-09-28] MEDS ORDERED: fentaNYL 100 mcg/2 ml 50 MCG/ML VIAL IV PRN (11:30)
[2023-09-28] MEDS ORDERED: Naloxone 0.4 mg VIAL 0.4 mg/ml 1 ml VIAL IV PRN (11:30)
[2023-09-28] MEDS ORDERED: Ondansetron 4 mg VIAL 2 MG/ML 2 ml VIAL IV PRN ×2 (11:30→17:49)
[2023-09-28] MEDS ORDERED: NS 0.45% 1000 ml BAG 1,000 ML IV SCH (12:00)
[2023-09-28] MEDS: Buffered Lidocaine 1% SYRIN 1 ml INTRADERM ONE (12:04)
[2023-09-28] MEDS: Acetaminophen IV 1 GM/100ML 1,000 MG/100 ML BAG IV ONE (12:04)
[2023-09-28] MEDS: Lactated Ringers 1000 ml BAG 1,000 ML IV SCH (12:05)
[2023-09-28] MEDS ORDERED: Scopolamine 1 mg/72hr PATCH ONE (12:12)
[2023-09-28] MEDS: Scopolamine 1 mg/72hr PATCH TRANSDERM ONE (12:15)
[2023-09-28] MEDS ORDERED: Propofol 10 MG/ML 20 ML BTL ONE (12:23)
[2023-09-28] MEDS ORDERED: Ondansetron 4 mg VIAL 2 MG/ML 2 ml VIAL ONE (12:23)
[2023-09-28] MEDS ORDERED: Rocuronium 50 mg VIAL 10 mg/ml 5 ml VIAL (50 mg) ONE (12:23)
[2023-09-28] MEDS ORDERED: Phenylephrine 40 mcg/mL 10mL (400mcg) SYRINGE ONE (12:23)
[2023-09-28] MEDS ORDERED: Dexamethasone IV 4 MG/ML VIAL 1 ml VIAL ONE (12:23)
[2023-09-28] MEDS ORDERED: Lidocaine 2% PF 5 ML VIAL ONE (12:23)
[2023-09-28] MEDS ORDERED: fentaNYL 100 mcg/2 ml 50 MCG/ML VIAL ONE ×2 (12:23→14:39)
[2023-09-28] MEDS ORDERED: Midazolam 2 mg/2 ml VIAL 1 mg/ml 2 ml VIAL (2 mg) ONE (12:24)
[2023-09-28] MEDS ORDERED: Lidocaine 1% VIAL 10 MG/ML 30 ML VIAL ONE (13:00)
[2023-09-28] MEDS ORDERED: Phenylephrine IV 10 MG/ML 1 ml VIAL ONE (13:56)
[2023-09-28] MEDS ORDERED: Bacitracin OINTMENT TUBE ONE (15:16)
[2023-09-28] MEDS: HYDROmorphone 1 MG/1 ML SYRINGE IV SLOW PU PRN (20:44)
[2023-09-28] MEDS: Nicotine PATCH 14 MG/24 HR PATCH TRANSDERM SCH (22:21)
[2023-09-29] MEDS: Heparin 5000 UNITS/ML 1 mL VIAL SUBCUT SCH (05:29)
[2023-09-29] MEDS: Nicotine GUM 4MG FRUIT FLAVOR PO PRN (08:41)
[2023-09-29 10:09] VITALS: BP 118/78
== END 2023-09-29 10:35 | disposition home or self-care (01) ==
LOC: ED 15:48 → EDHOLD 15:48 → MEDTELE 09-27 15:13 → SSU 09-28 18:01
PROVIDERS: ADMIT Surgery; ATTEND Surgery